=== PATIENT | female | born 2005 | race Caucasian/White ===

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

== ENCOUNTER 2024-01-20 13:50 | Emergency (ER) | payer OTHER, SELFPAY ==
[2024-01-20 13:54] VITALS: BP 105/79; PULSE 55; TEMP 36.7; O2SAT 97; BMI 18.6
--- OUTSIDE RECORDS SUMMARY | 2024-01-20 13:55 | XMS_ITS | CCD ---
Author Organization [facility] InformFormerly [facility] Care Team Providers Care Instrument Assembler Name Role Phone NON, STAFF, Primary Care Provider Unavailbertha DALTON, DR SCOT Franco Primary Care Unavailable MARTHA HARDIN Admitting Unavailable MARTHA HARDIN Attending Unavailable GERBER, SANTIAGO JARRELL Consulting Unavailable KRYSTLE, DR SCOT Franco Primary Care Unavailable PAY, DR RAINES Admitting Unavailable PAY, DR RAINES Attending Unavailable ZIEBER, DR NE Jones Consulting Unavailable GERBER, SANTIAGO JARRELL Consulting Unavailable KRYSTLE, DR SCOT Franco Admitting Unavailable KRYSTLE, DR SCOT Franco Attending Unavailable KRYSTLE, DR SCOT Franco Primary Care Unavailable KRYSTLE, DR SCOT Franco Consulting Unavailable Scot Dalton MD Primary Care Provider [phone] SCOT DALTON Attending Unavailable DANIELA EVANS Attending Unavailable DANIELA EVANS Attending Unavailable DANIELA EVANS Attending Unavailable SCOT DALTON Attending Unavailable KRYSTLE, SCOT Attending Unavailable Allergies Allergy Classification Reported Allergen(s) Allergy Type Date of Onset Reaction(s) Facility (1 source) bismuth subsalicylate Drug Allergy 2 [facility] Repository (1 source) bismuth subsalicylate Drug [...] Test Name Value Interpretation Reference Range Facil ity Covid-19 PCR (CVDTB)on SARS-CoV-2 (COVID-19) RNA YOBANY+probe Ql (Unsp spec) Not detected Normal NOT DETECTED [facility] Comment on above: Result Comment: When [...] for this test is supported by the Commercial Lending Relationship Manager of Health and Human Service's declaration that [...] used). Performed By: #### C VDTBH #### [facility] [address] [place] [address] Dr. Nayana Tolentino INFLUENZA A AND B AGon 04-20 INFLUANEGH SEE BELOW Normal [facility] Comment on above: Result Comment: Nega tive for Flu A protein angiten. Infection due to Flu A cannot be ruled out. Flu A angiten in the sample may be below the detection limit of the test. Performed By: #### I NFLUAB #### [facility] [address] [place] [address] Dr. Nayana Tolentino INFLUBNEG SEE BELOW Normal [facility] Comment on above: Result Comment: Nega tive for Flu B protein antigen. Infection due to Flu B cannot be ruled out. Flu B antigen in the sample may be below the detection limit of the test. Performed By: #### I NFLUAB #### [facility] [address] [place] [address] Dr. Nayana Tolentino INFLUENZA A AG Negative Normal NEGATIVE SEE COMMENT [facility] Comment on above: Performed By: #### I NFLUAB #### [facility] [address] [place] [address] Dr. Nayana Tolentino INFLUENZA B AG Negative Normal NEGATIVE SEE COMMENT [facility] Comment on above: Performed By: #### I NFLUAB #### [facility] [address] [place] [address] Dr. Nayana Tolentino INTERNAL CONTROLS Within Normal Limits Normal Wi thin Normal Limits [facility] Comment on above: Performed By: #### I NFLUAB #### [facility] [address] [place] [address] Dr. Nayana Tolentino CULTURE URINEon 11-30-2021 CULTURE [...] Trimethoprim/Sulfame thoxazole <=20 S F Normal [facility] Comment on above: Performed By: #### U RCX #### [facility] [address] [place] [address] Dr. Nayana Tolentino CBC AUTO DIFFon 11-28-2021 BASO # 0.0 103/ul Normal 0.0-0.1 [facility] Comment on above: Performed By: #### C BC #### [facility] [address] [place] [address] Dr. Nayana Tolentino Basophils/100 WBC (Bld) 0.4 % Normal 0.2-2.0 [facility] Comment on above: Performed By: #### C BC #### [facility] [address] [place] [address] Dr. Nayana Tolentino EO # 0.1 103/ul Normal 0.0-0.7 [facility] Comment on above: Performed By: #### C BC #### [facility] [address] [place] [address] Dr. Nayana Tolentino Eosinophils/100 WBC (Bld) 1.3 % Normal 0.9-7.0 [facility] Comment on above: Performed By: #### C BC #### [facility] [address] [place] [address] Dr. Nayana Tolentino Erythrocyte distribution width (RBC) [Ratio] 11.6 % Normal 11.0-15.0 [facility] Comment on above: Performed By: #### C BC #### [facility] [address] [place] [address] Dr. Nayana Tolentino Hematocrit (Bld) [Volume fraction] 39.4 % Normal 36.0-48.0 [facility] Comment on above: Performed By: #### C BC #### [facility] [address] [place] [address] Dr. Nayana Tolentino Hemoglobin (Bld) [Mass/Vol] 13.5 g/dL Normal 12.0-16.0 [facility] Comment on above: Performed By: #### C BC #### [facility] [address] [place] [address] Dr. Nayana Tolentino IG # 0.02 10e3/ul Normal 0.00-0.03 [facility] Comment on above: Performed By: #### C BC #### [facility] [address] [place] [address] Dr. Nayana Tolentino IG % 0.2 % Normal 0.0-0.5 [facility] Comment on above: Performed By: #### C BC #### [facility] [address] [place] [address] Dr. Nayana Tolentino LYMPH # 1.9 103/ul Normal 1.2-3.8 [facility] Comment on above: Performed By: #### C BC #### [facility] [address] [place] [address] Dr. Nayana Tolentino Lymphocytes/100 WBC (Bld) 22.1 % Normal 20.5-60.0 [facility] Comment on above: Performed By: #### C BC #### [facility] [address] [place] [address] Dr. Nayana Tolentino MANUAL DIFF REQ NO Normal [facility] Comment on above: Performed By: #### C BC #### [facility] [address] [place] [address] Dr. Nayana Tolentino MCH (RBC) [Entitic mass] 31.6 pg Normal 26.7-34.0 [facility] Comment on above: Performed By: #### C BC #### [facility] [address] [place] [address] Dr. Nayana Tolentino MCHC (RBC) [Mass/Vol] 34.3 g/dL Normal 29.9-35.2 [facility] Comment on above: Performed By: #### C BC #### [facility] [address] [place] [address] Dr. Nayana Tolentino MCV (RBC) [Entitic vol] 92.3 fL Normal 79.1-95.6 [facility] Comment on above: Performed By: #### C BC #### [facility] [address] [place] [address] Dr. Nayana Tolentino MONO # 0.5 103/ul Normal 0.3-0.8 [facility] Comment on above: Performed By: #### C BC #### [facility] [address] [place] [address] Dr. Nayana Tolentino Monocytes/100 WBC (Bld) 6.3 % Normal 1.7-12.0 [facility] Comment on above: Performed By: #### C BC #### [facility] [address] [place] [address] Dr. Nayana Tolentino NEUT # 6.0 103/ul Normal 1.4-6.5 [facility] Comment on above: Performed By: #### C BC #### [facility] [address] [address] [address] Nayana Tolentino Neutrophils/100 WBC (Bld) 69.7 % Normal 43.0-75.0 [facility] Comment on above: Performed By: #### C BC #### [facility] [address] [address] [address] Nayana Tolentino Platelet mean volume (Bld) [Entitic vol] 9.2 fL Critically low 9.5-13.5 [facility] Comment on above: Performed By: #### C BC #### [facility] [address] [place] [address] Dr. Nayana Tolentino PLT 211 103/ul Normal 150-450 [facility] Comment on above: Performed By: #### C BC #### [facility] [address] [place] [address] Dr. Nayana Tolentino RBC 4.27 106/ul Normal 3.40-5.30 [facility] Comment on above: Performed By: #### C BC #### [facility] [address] [place] [address] Dr. Nayana Tolentino WBC 8.6 103/ul Normal 4.0-11.0 [facility] Comment on above: Performed By: #### C BC #### [facility] [address] [place] [address] Dr. Nayana Tolentino ER URINE PROFILEon 2 Bilirubin Ql (U) Negative Normal NEGATIVE [facility] Comment on above: Performed By: #### BARRY ATKINS PREGU #### [facility] [address] [place] [address] Dr. Nayana Tolentino Clarity (U) CLEAR Normal CLEAR [facility] Comment on above: Performed By: #### BARRY ATKINS PREGU #### [facility] [address] [place] [address] Dr. Nayana Tolentino Color (U) LT. YELLOW Normal YELLOW [facility] Comment on above: Performed By: #### BARRY ATKINS PREGU #### [facility] [address] [address] [address] Nayana HERNÁNDEZ A micrscopic examination will be performed if indicated. Normal [facility] Comment on above: Performed By: #### E DIGNA ROBBINSRO, PREGU #### [facility] [address] [address] [address] Nayana Tolentino Glucose Ql (U) Negative Normal NEGATIVE [facility] Comment on above: Performed By: #### DIGNA ATKINSRO, PREGU #### [facility] [address] [address] [address] Nayana Tolentino Hemoglobin Ql (U) LARGE Abnormal NEGATIVE [facility] Comment on above: Performed By: #### BARRY ATKINS, PREGU #### [facility] [address] [address] [address] Nayana Tolentino Ketones Ql (U) Negative Normal NEGATIVE [facility] Comment on above: Performed By: #### DIGNA ATKINSRO, PREGU #### [facility] [address] [address] [address] Nayana Tolentino LEUKOCYTES LARGE Abnormal NEGATIVE [facility] Comment on above: Performed By: #### BARRY ATKINS, PREGU #### [facility] [address] [address] [address] Nayana Tolentino Nitrite Ql (U) Positive Abnormal NEGATIVE [facility] Comment on above: Performed By: #### BARRY ATKINS, PREGU #### [facility] [address] [address] [address] Nayana Tolentino pH (U) 6.0 [pH] Normal 5-9 [facility] Comment on above: Performed By: #### BARRY ATKINS, PREGU #### [facility] [address] [address] [address] Nayana Tolentino SPEC GRAVITY 1.025 Normal 1.005-<=1.025 [facility] Comment on above: Performed By: #### BARRY ATKINS, PREGU #### [facility] [address] [address] [address] Nayana Tolentino UA PROTEIN TRACE Normal NEGATIVE/ TRACE [facility] Comment on above: Performed By: #### BARRY ATKINS, PREGU #### [facility] [address] [address] [address] Nayana Tolentino UR MICRO IND INDICATED Normal [facility] Comment on above: Performed By: #### BARRY ATKINS, PREGU #### [facility] [address] [address] [address] Nayana Tolentino Urobilinogen Qn (U) 0.2 {Gabriel'U}/dL Normal 0.2 - 1. 0 [facility] Comment on above: Performed By: #### BARRY ATKINS, PREGU #### [facility] [address] [place] [address] Dr. Nayana Tolentino URon 11-28-2021 , QUAL Negative Normal NEGATIVE [facility] Comment on above: Performed By: #### BARRY ATKINS, PREGU #### [facility] [address] [address] [address] Nayana Tolentino PROF CHEM 8 (BAS METB)on Anion gap [Moles/Vol] 11.6 mmol/L Normal [facility] Comment on above: Performed By: #### B MP #### [facility] [address] [address] [address] Nayana Tolentino Calcium [Mass/Vol] 8.8 mg/dL Normal 8.5-10.1 [facility] Comment on above: Performed By: #### B MP #### [facility] [address] [address] [address] Nayana Tolentino Chloride [Moles/Vol] 106 mmol/L Normal 98-107 [facility] Comment on above: Performed By: #### B MP #### [facility] [address] [place] [address] Dr. Nayana Tolentino CO2 [Moles/Vol] 27.3 mmol/L Normal 21.0-32.0 [facility] Comment on above: Performed By: #### B MP #### [facility] [address] [address] [address] Nayana Tolentino Creatinine [Mass/Vol] 0.66 mg/dL Normal 0.55-1.02 [facility] Comment on above: Performed By: #### B MP #### [facility] [address] [address] [address] Nayana Tolentino EGFR-AF OMANI >60 Normal >=60 [facility] Comment on above: Performed By: #### B MP #### [facility] [address] [address] [address] Nayana Tolentino EGFR-NON AF OMANI >60 Normal >=60 [facility] Comment on above: Performed By: #### B MP #### [facility] [address] [address] [address] Nayana Tolentino Glucose [Mass/Vol] 81 mg/dL Normal 74-106 [facility] Comment on above: Performed By: #### B MP #### [facility] [address] [address] [address] Nayana Tolentino Potassium [Moles/Vol] 3.9 mmol/L Normal 3.5-5.1 [facility] Comment on above: Performed By: #### B MP #### [facility] [address] [address] [address] Nayana Tolentino Sodium [Moles/Vol] 141 mmol/L Normal 136-145 [facility] Comment on above: Performed By: #### B MP #### [facility] [address] [address] [address] Nayana Tolentino Urea nitrogen [Mass/Vol] 8.0 mg/dL Normal 6.4-19.3 [facility] Comment on above: Performed By: #### B MP #### [facility] [address] [address] [address] Nayana Tolentino Urea nitrogen/Creatinine [Mass ratio] 12.1 mg/mg Normal [facility] Comment on above: Performed By: #### B MP #### [facility] [address] [address] [address] Nayana Tolentino URINE MICROSCOPIC ONLYon BACTERIA LARGE Abnormal NONE SEEN [facility] Comment on above: Performed By: #### BARRY ATKINS, PREGU #### [facility] [address] [address] [address] Nayana Tolentino Bacteria identified Cx Nom (U) INDICATED Normal [facility] Comment on above: Performed By: #### BARRY ATKINS, PREGU #### [facility] [address] [place] [address] Dr. Nayana Tolentino CAST NONE SEEN Normal NONE SEEN [facility] Comment on above: Performed By: #### BARRY ATKINS, PREGU #### [facility] [address] [place] [address] Dr. Nayana Tolentino Crystals LM Nom (Urine sed) NONE SEEN Normal NONE SEEN [facility] Comment on above: Performed By: #### BARRY ATKINS, PREGU #### [facility] [address] [place] [address] Dr. Nayana Tolentino Epithelial cells LM Ql (Urine sed) FEW Abnormal NONE SEEN /RARE [facility] Comment on above: Performed By: #### BARRY ATKINS, PREGU #### [facility] [address] [place] [address] Dr. Nayana Tolentino MUCOUS NONE SEEN Normal NONE SEEN [facility] Comment on above: Performed By: #### BARRY ATKINS, PREGU #### [facility] [address] [place] [address] Dr. Nayana Tolentino RBC 5-10 Abnormal 0-2 [facility] Comment on above: Performed By: #### BARRY ATKINS, PREGU #### [facility] [address] [place] [address] Dr. Nayana Tolentino WBC 20-50 Abnormal NONE SEEN [facility] Comment on above: Performed By: #### BARRY ATKINS, PREGU #### [facility] [address] [place] [address] Dr. Nayana Tolentino XR ABD FLAT_UPon 11-28-2021 XR ABD FLAT_UP EXAMINATION: XR ABD FLAT_UP HISTORY: Abdominal pain COMPARISON: No relevant comparison available. FINDINGS: BOWEL GAS PATTERN: Non-obstructed. No abnormal dilation. FREE AIR: None. CALCIFICATIONS: None significant. BONES: No fracture or visible bone lesion. OTHER: Negative. IMPRESSION: 1. No acute or suspicious findings to account for patients symptoms. Electronically authenticated by: NE MAYER Date: 2021-11-28 15:16 Normal [facility]on 04-13 SARS-CoV-2 (COVID-19) RNA YOBANY+probe Ql (Unsp spec) Not detected Normal NOT DETECTED [facility] Comment on above: Result Comment: This test is not yet approved or cleared by the [place] FDA. When there are no FDA-approved or cleared tests available, and other criteria are met, FDA can make tests available under an emergency access mechanism called an Emergency Use Authorization (EUA). The EUA for this test is supported by the Commercial Lending Relationship Manager of Health and Human Service's (HHS's) declaration [...] consistent with SARS-CoV-2. Performed By: #### C [facility] #### [facility] [address] [place] [address] Dr. Nayana Tolentino Vital Signs Date Time Vital Sign Value Performing Clinician Kris villarreal 09-17-2020 18:02-0400 [facility]-17-2020 18:02-0400 Body mass index (BMI) [Ratio] 17.1 kg/m2 [facility] 09-17-2020 18:02-0400 Body weight 45.55 kg STAFF, [facility] 09-17-2020 17:56-0400 Body temperature 98.6 [degF] STAFF, [facility] 09-17-2020 17:56-0400 Diastolic blood pressure 60 mm[Hg] STAFF, [facility] 09-17-2020 17:56-0400 Heart rate 94 /min STAFF, [facility] 09-17-2020 17:56-0400 Respiratory rate 16 /min STAFF, [facility] 09-17-2020 17:56-0400 SaO2% (BldA) [Mass fraction] 95 % STAFF, [facility] 09-17-2020 17:56-0400 Systolic blood pressure 109 mm[Hg] STAFF, [facility] Encounters Encounter Date Encounter Type Care Provider Facility Start: 11-06-2023 End: 11-06-2023 ambulatory SCOT DALTON Not Available Start: 10-10-2023 End: 10-10-2023 ambulatory SCOT DALTON Not Available Start: 09-24-2023 End: 09-24-2023 ambulatory DANIELA CRISTINA Not Available Start: 08-27-2023 End: 08-29-2023 ambulatory DANIELA CRISTINA Not Available [...] DR SCOT DALTON Facility:[facility]1 Start: 09-17-2020 End: 05-07-2021 Emergency department patient visit STAFF, [facility] Plan of Treatment Date Care Activity Detail Author Start: 06-15-2023 End: 06-15-2023 Patient encounter procedure 06/15/2023 9:00 AM EST Office Visit [facility] [address] [place] [address] Scot Dalton MD [address] [place] [phone] Arrived [facility] Comment on above: Arrived Start: 01-12-2023 Influenza vaccination Influenz a Vaccine (#1) [facility] Patient Education Contusion in [facility] (ED) [facility] Patient referral [facility] Immunizations Immunization Date Immunization Notes Care Provider Fa cility 07-03-2017 influenza virus vacc ine, unspecified formulation Scot Dalton MD Work Phone: [facility] Payers Date Payer Category Payer Medicaid [employer] [employer] [id number] 2019-Present [address] [place] [address] [id number] 2004 Unknown [id number] 2004 Unknown [id number] 2004 Unknown [id number] 2004 Unknown [id number] 2004 Unknown [id number] 2004 Unknown [id number] 1986 Unknown [id number] 1962 Unknown [id number] 1962 Unknown [id number] 1959 Unknown [id number] Self-pay Self Pay [id number] Unknown Self Pay [id number] Social History Date Type Detail Facility Start: 09-17-2020 End: 02-03-2023 Tobacco smoking status NHIS Never smoked tobacco (finding) [facility] Start: 2004 Sex Assigned At Female F [facility] Start: 06-13-2023 Alcohol intake Lifetime non-d carlin (finding) [facility] Start: 06-13-2023 History of Social function [facility] Start: 06-13-2023 Tobacco use panel [facility] Start: 02-03-2023 Alcohol Comment Caffeine: 1-2 cups per day [facility] Start: 2004 Sex Assigned At Not on file [facility] Goals Date Patient Goal Desired Activity /State Evaluation note Note Date & Type Note Facility Evaluation note No Assessments Information Avail able [facility] Hospital Discharge instructions Note Date & Type Note Facility Hospital Discharge instructions Additional Instructions If you develop new or worsening symptoms and get rechecked Follow-up with your family doctor [facility] Advance Directives No Advanced Directives Records Found [...] pital DATE CREATED AUTHOR AUTHOR'S ORGANIZ ATION 11/07/2023 [facility] EPIC Care Teams (unrecognized sec tion and content) Instrument Assembler Relationship Specialty Start Date End Date Scot Dalton MD [address] [place] [address] PCP - General Family Medicine 06/13/23 FOR [...] BE BASED ON THE PRIMARY CLINICAL RECORDS. [employer] provides no warranty or guarantee of the accuracy or completeness of information in this document.
--- NOTE | 2024-01-20 14:11 | CT_ITS ---
[address] [address] Patient Name: OTTO HOSKINS MRN: [id number] date: 2005 Sex: F Assigned Patient Location: ER Current Patient Location: ER Accession/Order Number: [id number] Exam Date: 01/20/2024 15:25 Report Date: 01/20/2024 16:22 At the request of: DONAVON BONNER Procedure: CT abdomen pelvis wo con EXAM: CT abdomen pelvis wo con TECHNIQUE: Axial CT images were obtained of the abdomen and pelvis without intravenous contrast. Sagittal and coronal reformatted images were also obtained. Dose reduction techniques were achieved by using automated exposure control and/or adjustment of mA and/or kV according to patient size and/or use of iterative reconstruction technique. HISTORY: rt flank pain COMPARISON: None. FINDINGS: Lower chest: The lower lungs are clear. Liver: The liver is homogeneous with normal contours and normal size. Gallbladder: The gallbladder is unremarkable. There is no intra or extrahepatic biliary dilatation. Pancreas: The pancreas is homogeneous without evidence for mass lesion or inflammation. Spleen: The spleen is unremarkable without evidence for mass lesion. Adrenal glands: The adrenal glands are unremarkable Kidneys and bladder: The kidneys are unremarkable with no evidence for mass lesion, hydronephrosis or inflammation. The ureters demonstrate normal caliber. The urinary bladder is unremarkable. GI Tract: Stomach is unremarkable. Visualized small bowel is unremarkable without evidence for obstruction or active inflammation. The appendix is unremarkable.The visualized portion of the large bowel is unremarkable. Reproductive: Intrauterine device in place per Lymph nodes: No retroperitoneal or abdominal lymphadenopathy. Vascular: The aorta is not dilated. Peritoneum: Trace physiologic free fluid in the pelvis. Abdominal wall: Unremarkable without acute abnormality. CT/CT abdomen pelvis wo con IMPRESSION: No acute abdominal pathology. No acute inflammatory process. No obstructing urinary tract stone. No evidence for bowel obstruction. Electronically authenticated by: ROQUE SALINAS Date: 01/20/2024 16:22
[2024-01-20 14:17] LABS: Basophils Absolute Auto 0.1 10^3/uL (0.0-0.1); Basophils Percent Auto 0.5 % (0.2-2.0); Eosinophils Absolute Auto 0.1 10^3/uL (0.0-0.7); Eosinophils Percent Auto 0.9 % (0.9-7.0); Hematocrit 41.3 % (36.0-48.0); Hemoglobin 14.2 g/dL (12.0-16.0); Immature Granulocytes Abs Auto 0.02 10^3/uL (0.00-0.03); Immature Granulocytes Pct Auto 0.2 % (0.0-0.5); Lymphocytes Absolute Auto 2.2 10^3/uL (1.2-3.8); Lymphocytes Percent Auto 23.6 % (20.5-60.0); Mean Corpuscular HGB Conc 34.4 g/dL (29.9-35.2); Mean Corpuscular Hemoglobin 32.5 pg (26.7-34.0); Mean Corpuscular Volume 94.5 fL (81.0-99.0); Mean Platelet Volume 9.2 fL (9.5-13.5); Monocytes Absolute Auto 0.6 10^3/uL (0.3-0.8); Monocytes Percent Auto 6.9 % (1.7-12.0); Neutrophils Absolute Auto 6.2 10^3/uL (1.4-6.5); Neutrophils Percent Auto 67.9 % (43.0-75.0); Platelet Count 296 10^3/uL (150-450); Red Blood Count 4.37 10^6/uL (4.20-5.40); Red Cell Distribution Width 11.3 % (11.0-15.0); White Blood Count 9.2 10^3/uL (4.0-11.0)
[2024-01-20] MEDS: KETOROLAC TROMETHAMINE 30 MG/ML VIAL 15 MG IVP (14:18)
[2024-01-20 14:20] LABS: Bilirubin Urine NEGATIVE (NEGATIVE); Blood Urine SMALL (NEGATIVE); Clarity Urine CLEAR (CLEAR); Color Urine LT. YELLOW (YELLOW); Glucose Urine UA NEGATIVE (NEGATIVE); Ketones Urine NEGATIVE (NEGATIVE); Leukocyte Esterase Urine MODERATE (NEGATIVE); Nitrite Urine NEGATIVE (NEGATIVE); Protein Urine 30 mg/dL (NEG/TRACE); Specific Gravity Urine 1.015 (1.005-1.025); pH Urine 8.5 (5.0-9.0)
[2024-01-20 14:31] LABS: Bacteria Urine MODERATE #/HPF (NONE SEEN); Mucus Urine NONE SEEN (NONE SEEN); RBC Urine 0-2 #/HPF (0-2); Urine Microscopic Indicated YES; WBC Urine >100 #/HPF (NONE SEEN)
[2024-01-20 14:32] LABS: Cast Seen? NONE SEEN #/LPF (NONE SEEN); Crystals Seen? None Seen #/HPF (None Seen); Urine Culture Indicated YES
[2024-01-20 14:33] LABS: Squamous Epithelial Cell Urine FEW #/LPF (NONE/RARE)
[2024-01-20 14:38] LABS: Alanine Aminotransferase 17 U/L (14-59); Albumin Globulin Ratio 0.9; Albumin Level 3.8 g/dL (3.4-5.0); Alkaline Phosphatase 83 U/L (46-116); Anion Gap 10.8; Aspartate Amino Transferase 22 U/L (15-37); BUN Creatinine Ratio 12.2; Bilirubin Total 0.5 mg/dL (0.2-1.0); Carbon Dioxide 29.2 mmol/L (21.0-32.0); Chloride 101 mmol/L (98-107); Estimated GFR (African America >60 (>=60); Estimated GFR (Non-African Ame >60 (>=60); Globulin 4.3 g/dL; Glucose 85 mg/dL (74-106); Sodium 137 mmol/L (136-145); Total Protein 8.1 g/dL (6.4-8.2)
[2024-01-20 14:52] LABS: HCG Quantitative <1 mIU/mL
--- NOTE | 2024-01-20 15:03 | ED.ABDPAIN1 ---
HPI - Abdominal Pain General Chief Complaint: Abdominal Pain Stated Complaint: Flank Pain Time Seen by Provider: 01/20/24 14:05 Source: patient Mode of arrival: walk-in Limitations: no limitations History of Present Illness HPI narrative: The patient is coming to us with 3 days history of right-sided flank pain associated with burning with urination there was no fever no chills Patient also mentioned that her pain in the flank is continuous She also had some nausea and vomiting and has history of UTI 6 months ago Related Data Home Medications ?Medication ?Instructions ?Recorded ?Confirmed midodrine 10 mg tablet 10 mg PO TID 01/20/24 01/20/24 Previous Rx's ?Medication ?Instructions ?Recorded cephalexin 500 mg capsule 500 mg PO Q8H 7 days #21 caps 01/20/24 Allergies Allergy/AdvReac Type Severity Reaction Status Date / Time bismuth subsalicylate AdvReac Severe Diarrhea Verified 01/20/24 14:28 [From Pepto-Bismol] Review of Systems ROS Status of ROS 10 or more systems reviewed and unremarkable except as noted in history and below PFSH PFSH Social History Little interest or pleasure in doing things: not at all Feeling down, depressed, or hopeless: not at all Exam Narrative Exam Narrative: Nurses notes and vital signs reviewed and patient is not hypoxic. General: Well-appearing and in no apparent distress. Skin: Warm, dry, no pallor noted. No rash. Head: Normocephalic, atraumatic. Neck: Supple, non-tender. Eye: Pupils are equal, round and EOMI. No scleral icterus. Ears, Nose, Mouth, and Throat: TM are clear, no nasal mucosal hypertrophy. Oral mucosa is moist, no posterior oropharynx erythema, uvula is mid-line Cardiovascular: Regular Rate and Rhythm without murmur, gallop or rub. Respiratory: No accessory muscle use or respiratory distress. Lungs are clear to auscultation, no wheezing, rales or rhonchi Chest Wall: no tenderness Back: No midline thoracic or lumbar vertebral tenderness. Right CVA tenderness Musculoskeletal: normal ROM, no calf or popliteal tenderness, no lower extremity edema/swelling GI: Abdomen is soft, non-distended. Normal bowel sounds. No masses appreciated. No tenderness to palpation. No rebound, guarding, or rigidity noted. Neurological: A&O x4. No cranial nerve dysfunction observed. No truncal ataxia. Moves all extremities. Sensation intact. Psychiatric: Cooperative and interactive. Normal mood and affect. Constitutional Vital Signs, click to edit/add: Last Vital Signs Temp 98.0 F 01/20/24 13:54 Pulse 55 L 01/20/24 13:54 Resp 18 01/20/24 13:54 BP 105/79 01/20/24 13:54 Pulse Ox 97 01/20/24 13:54 O2 Del Method Room Air 01/20/24 13:54 Course Vital Signs Vital signs: Vital Signs Temperature 98.0 F 01/20/24 13:54 Pulse Rate 55 L 01/20/24 13:54 Respiratory Rate 18 01/20/24 13:54 Blood Pressure 105/79 01/20/24 13:54 Pulse Oximetry 97 01/20/24 13:54 Oxygen Delivery Method Room Air 01/20/24 13:54 Temperature 98.0 F 01/20/24 13:54 Pulse Rate 55 L 01/20/24 13:54 Respiratory Rate 18 01/20/24 13:54 Blood Pressure 105/79 01/20/24 13:54 Pulse Oximetry 97 01/20/24 13:54 Oxygen Delivery Method Room Air 01/20/24 13:54 MDM - Abdominal Pain MDM Narrative Medical decision making narrative: Patient CBC and chemistry showed no acute pathology The patient urinalysis shows UTI CAT scan of the abdomen pelvis showed no acute pathology Patient was treated in the ER with Toradol as well as ceftriaxone she was discharged home with Keflex The patient is to follow up with primary care physician in next 2-3 days or to return to the emergency department should any of the signs or symptoms worsen or new symptoms develop. The patient agrees with the following Diagnosis and Treatment plan and the patient will be discharged home. Lab Data Labs: Lab Results 01/20/24 Range/Units 14:00 WBC 9.2 (4.0-11.0) 10^3/uL RBC 4.37 (4.20-5.40) 10^6/uL Hgb 14.2 (12.0-16.0) g/dL Hct 41.3 (36.0-48.0) % MCV 94.5 (81.0-99.0) fL MCH 32.5 (26.7-34.0) pg MCHC 34.4 (29.9-35.2) g/dL RDW 11.3 (11.0-15.0) % Plt Count 296 (150-450) 10^3/uL MPV 9.2 L (9.5-13.5) fL Neut % (Auto) 67.9 (43.0-75.0) % Lymph % (Auto) 23.6 (20.5-60.0) % [place] % (Auto) 6.9 (1.7-12.0) % Eos % (Auto) 0.9 (0.9-7.0) % Baso % (Auto) 0.5 (0.2-2.0) % Neut # (Auto) 6.2 (1.4-6.5) 10^3/uL Lymph # (Auto) 2.2 (1.2-3.8) 10^3/uL [place] # (Auto) 0.6 (0.3-0.8) 10^3/uL Eos # (Auto) 0.1 (0.0-0.7) 10^3/uL Baso # (Auto) 0.1 (0.0-0.1) 10^3/uL Abs Immat Gran (auto) 0.02 (0.00-0.03) 10^3/uL Imm/Tot Granulo (auto) 0.2 (0.0-0.5) % Sodium 137 (136-145) mmol/L Potassium 4.0 (3.5-5.1) mmol/L Chloride 101 (98-107) mmol/L Carbon Dioxide 29.2 (21.0-32.0) mmol/L Anion Gap 10.8 BUN 9.0 (6.4-19.3) mg/dL Creatinine 0.74 (0.55-1.02) mg/dL Est GFR ( Amer) >60 (>=60) Est GFR (Non-Af Amer) >60 (>=60) BUN/Creatinine Ratio 12.2 Glucose 85 (74-106) mg/dL Calcium 9.0 (8.5-10.1) mg/dL Total Bilirubin 0.5 (0.2-1.0) mg/dL AST 22 (15-37) U/L ALT 17 (14-59) U/L Alkaline Phosphatase 83 (46-116) U/L Total Protein 8.1 (6.4-8.2) g/dL Albumin 3.8 (3.4-5.0) g/dL Globulin 4.3 g/dL Albumin/Globulin Ratio 0.9 HCG, Quant <1 mIU/mL Urine Color Lt. yellow (YELLOW) Urine Clarity Clear (CLEAR) Urine pH 8.5 (5.0-9.0) Ur Specific [place] 1.015 (1.005-1.025) Urine Protein 30 A (NEG/TRACE) mg/dL Urine Glucose (UA) Negative (NEGATIVE) mg/dL Urine Ketones Negative (NEGATIVE) mg/dL Urine Occult Blood Small A (NEGATIVE) Urine Nitrite Negative (NEGATIVE) Urine Bilirubin Negative (NEGATIVE) Urine Urobilinogen 1.0 (0.2-1.0) EU/dL Ur Leukocyte Esterase Moderate A (NEGATIVE) Urine RBC 0-2 (0-2) #/HPF Urine WBC >100 A (NONE SEEN) #/HPF Ur Squamous Epith Cells Few A (NONE/RARE) #/LPF Urine Crystals None seen (None Seen) #/HPF Urine Bacteria Moderate A (NONE SEEN) #/HPF Urine Casts None seen (NONE SEEN) #/LPF Urine Mucus None seen (NONE SEEN) Urine Yeast Seen A (NONE SEEN) Ur Culture Indicated? Yes Urine HCG, Qual Negative (NEGATIVE) Discharge Plan Discharge Chief Complaint: Abdominal Pain Clinical Impression: UTI (urinary tract infection) Qualifiers: Urinary tract infection type: site unspecified Hematuria presence: without hematuria Qualified Code(s): N39.0 - Urinary tract infection, site not specified Patient Disposition: Home, Self-Care Time of Disposition Decision: 16:39 Condition: Good Prescriptions / Home Meds: New cephalexin 500 mg capsule 500 mg PO Q8H 7 Days Qty: 21 0RF No Action midodrine 10 mg tablet 10 mg PO TID Print Language: Croatian Instructions: Urinary Tract Infection in Women (DC) Referrals: Scot Block MD [Primary Care Provider] - 1 week
[2024-01-20 15:28] LABS: HCG Qualitative Urine* NEGATIVE (NEGATIVE); Internal Control Within Normal Limits
[2024-01-20] MEDS: CEFTRIAXONE 1,000 MG in 0.9 % SODIUM CHLORIDE 50 ML 100 MG IV (16:43)
[2024-01-20 16:50] VITALS: BP 118/88; PULSE 65; O2SAT 98
== END 2024-01-20 16:51 | disposition home or self-care (01) ==
PROVIDERS: Emergency Provider Emergency Medicine; PCP Family Medicine
DX: N39.0 Urinary tract infection, site not specified (principal)
CPT/HCPCS: 36415; 74176; 80053; 81001; 84702; 84703; 85025; 87086; 87150; 96374; 96375; 99285; J0696; J1885

== ENCOUNTER 2024-04-04 12:37 | Emergency (ER) | payer OTHER, SELFPAY ==
[2024-04-04 12:50] VITALS: BP 91/66; PULSE 89; TEMP 36.7; O2SAT 95
--- OUTSIDE RECORDS SUMMARY | 2024-04-04 12:59 | XMS_ITS | CCD ---
Author Organization [facility] Care Team Providers Care Hand Plate Stacker Name Role Phone NON, STAFF, Primary Care [...] source) bismuth subsalicylate Drug Allergy 2 [facility] Repository (1 source) bismuth subsalicylate Drug Allergy [...] spec) Not detected Normal NOT DETECTED [facility] Comment on above: Result Comment: When diagnostic [...] for this test is supported by the Physical Therapy Coordinator of Health and Human Service's declaration that [...] used). Performed By: #### C VDTBH #### [facility] [address] [place] [address] Dr. Nayana Tolentino INFLUENZA A AND B AGon 04-20 INFLUANEGH SEE BELOW Normal [facility] Comment on above: Result Comment: Nega tive for Flu A protein angiten. Infection due to Flu A cannot be ruled out. Flu A angiten in the sample may be below the detection limit of the test. Performed By: #### I NFLUAB #### [facility] [address] [place] [address] Dr. Nayana Tolentino INFLUBNEG SEE BELOW Normal [facility] Comment on above: Result Comment: Nega tive for Flu B protein antigen. Infection due to Flu B cannot be ruled out. Flu B antigen in the sample may be below the detection limit of the test. Performed By: #### I NFLUAB #### [facility] [address] [place] [address] Dr. Nayana Tolentino INFLUENZA A AG Negative Normal NEGATIVE SEE COMMENT [facility] Comment on above: Performed By: #### I NFLUAB #### [facility] [address] [place] [address] Dr. Nayana Tolentino INFLUENZA B AG Negative Normal NEGATIVE SEE COMMENT [facility] Comment on above: Performed By: #### I NFLUAB #### [facility] [address] [place] [address] Dr. Nayana Tolentino INTERNAL CONTROLS Within Normal Limits Normal Wi thin Normal Limits [facility] Comment on above: Performed By: #### I NFLUAB #### [facility] [address] [place] [address] Dr. Nayana Tolentino CULTURE URINEon 11-30-2021 CULTURE [...] Trimethoprim/Sulfame thoxazole <=20 S F Normal [facility] Comment on above: Performed By: #### U RCX #### [facility] [address] [place] [address] Dr. Nayana Tolentino CBC AUTO DIFFon 11-28-2021 BASO # 0.0 103/ul Normal 0.0-0.1 [facility] Comment on above: Performed By: #### C BC #### [facility] [address] [place] [address] Dr. Nayana Tolentino Basophils/100 WBC (Bld) 0.4 % Normal 0.2-2.0 [facility] Comment on above: Performed By: #### C BC #### [facility] [address] [place] [address] Dr. Nayana Tolentino EO # 0.1 103/ul Normal 0.0-0.7 [facility] Comment on above: Performed By: #### C BC #### [facility] [address] [place] [address] Dr. Nayana Tolentino Eosinophils/100 WBC (Bld) 1.3 % Normal 0.9-7.0 [facility] Comment on above: Performed By: #### C BC #### [facility] [address] [place] [address] Dr. Nayana Tolentino Erythrocyte distribution width (RBC) [Ratio] 11.6 % Normal 11.0-15.0 [facility] Comment on above: Performed By: #### C BC #### [facility] [address] [place] [address] Dr. Nayana Tolentino Hematocrit (Bld) [Volume fraction] 39.4 % Normal 36.0-48.0 [facility] Comment on above: Performed By: #### C BC #### [facility] [address] [place] [address] Dr. Nayana Tolentino Hemoglobin (Bld) [Mass/Vol] 13.5 g/dL Normal 12.0-16.0 [facility] Comment on above: Performed By: #### C BC #### [facility] [address] [place] [address] Dr. Nayana Tolentino IG # 0.02 10e3/ul Normal 0.00-0.03 [facility] Comment on above: Performed By: #### C BC #### [facility] [address] [place] [address] Dr. Nayana Tolentino IG % 0.2 % Normal 0.0-0.5 [facility] Comment on above: Performed By: #### C BC #### [facility] [address] [place] [address] Dr. Nayana Tolentino LYMPH # 1.9 103/ul Normal 1.2-3.8 [facility] Comment on above: Performed By: #### C BC #### [facility] [address] [place] [address] Dr. Nayana Tolentino Lymphocytes/100 WBC (Bld) 22.1 % Normal 20.5-60.0 [facility] Comment on above: Performed By: #### C BC #### [facility] [address] [place] [address] Dr. Nayana Tolentino MANUAL DIFF REQ NO Normal [facility] Comment on above: Performed By: #### C BC #### [facility] [address] [place] [address] Dr. Nayana Tolentino MCH (RBC) [Entitic mass] 31.6 pg Normal 26.7-34.0 [facility] Comment on above: Performed By: #### C BC #### [facility] [address] [place] [address] Dr. Nayana Tolentino MCHC (RBC) [Mass/Vol] 34.3 g/dL Normal 29.9-35.2 [facility] Comment on above: Performed By: #### C BC #### [facility] [address] [place] [address] Dr. Nayana Tolentino MCV (RBC) [Entitic vol] 92.3 fL Normal 79.1-95.6 [facility] Comment on above: Performed By: #### C BC #### [facility] [address] [place] [address] Dr. Nayana Tolentino MONO # 0.5 103/ul Normal 0.3-0.8 [facility] Comment on above: Performed By: #### C BC #### [facility] [address] [place] [address] Dr. Nayana Tolentino Monocytes/100 WBC (Bld) 6.3 % Normal 1.7-12.0 [facility] Comment on above: Performed By: #### C BC #### [facility] [address] [place] [address] Dr. Nayana Tolentino NEUT # 6.0 103/ul Normal 1.4-6.5 [facility] Comment on above: Performed By: #### C BC #### [facility] [address] [address] [address] Nayana Tolentino Neutrophils/100 WBC (Bld) 69.7 % Normal 43.0-75.0 [facility] Comment on above: Performed By: #### C BC #### [facility] [address] [address] [address] Nayana Tolentino Platelet mean volume (Bld) [Entitic vol] 9.2 fL Critically low 9.5-13.5 [facility] Comment on above: Performed By: #### C BC #### [facility] [address] [place] [address] Dr. Nayana Tolentino PLT 211 103/ul Normal 150-450 [facility] Comment on above: Performed By: #### C BC #### [facility] [address] [place] [address] Dr. Nayana Tolentino RBC 4.27 106/ul Normal 3.40-5.30 [facility] Comment on above: Performed By: #### C BC #### [facility] [address] [place] [address] Dr. Nayana Tolentino WBC 8.6 103/ul Normal 4.0-11.0 [facility] Comment on above: Performed By: #### C BC #### [facility] [address] [place] [address] Dr. Nayana Tolentino ER URINE PROFILEon 2 Bilirubin Ql (U) Negative Normal NEGATIVE [facility] Comment on above: Performed By: #### BARRY ATKINS PREGU #### [facility] [address] [place] [address] Dr. Nayana Tolentino Clarity (U) CLEAR Normal CLEAR [facility] Comment on above: Performed By: #### BARRY ATKINS PREGU #### [facility] [address] [place] [address] Dr. Nayana Tolentino Color (U) LT. YELLOW Normal YELLOW [facility] Comment on above: Performed By: #### BARRY ATKINS PREGU #### [facility] [address] [address] [address] Nayana HERNÁNDEZ A micrscopic examination will be performed if indicated. Normal [facility] Comment on above: Performed By: #### E DIGNA ROBBINSRO, PREGU #### [facility] [address] [address] [address] Nayana Tolentino Glucose Ql (U) Negative Normal NEGATIVE [facility] Comment on above: Performed By: #### DIGNA ATKINSRO, PREGU #### [facility] [address] [address] [address] Nayana Tolentino Hemoglobin Ql (U) LARGE Abnormal NEGATIVE [facility] Comment on above: Performed By: #### BARRY ATKINS, PREGU #### [facility] [address] [address] [address] Nayana Tolentino Ketones Ql (U) Negative Normal NEGATIVE [facility] Comment on above: Performed By: #### DIGNA ATKINSRO, PREGU #### [facility] [address] [address] [address] Nayana Tolentino LEUKOCYTES LARGE Abnormal NEGATIVE [facility] Comment on above: Performed By: #### BARRY ATKINS, PREGU #### [facility] [address] [address] [address] Nayana Tolentino Nitrite Ql (U) Positive Abnormal NEGATIVE [facility] Comment on above: Performed By: #### BARRY ATKINS, PREGU #### [facility] [address] [address] [address] Nayana Tolentino pH (U) 6.0 [pH] Normal 5-9 [facility] Comment on above: Performed By: #### BARRY ATKINS, PREGU #### [facility] [address] [address] [address] Nayana Tolentino SPEC GRAVITY 1.025 Normal 1.005-<=1.025 [facility] Comment on above: Performed By: #### BARRY ATKINS, PREGU #### [facility] [address] [address] [address] Nayana Tolentino UA PROTEIN TRACE Normal NEGATIVE/ TRACE [facility] Comment on above: Performed By: #### BARRY ATKINS, PREGU #### [facility] [address] [address] [address] Nayana Tolentino UR MICRO IND INDICATED Normal [facility] Comment on above: Performed By: #### BARRY ATKINS, PREGU #### [facility] [address] [address] [address] Nayana Tolentino Urobilinogen Qn (U) 0.2 {Gabriel'U}/dL Normal 0.2 - 1. 0 [facility] Comment on above: Performed By: #### BARRY ATKINS, PREGU #### [facility] [address] [place] [address] Dr. Nayana Tolentino URon 11-28-2021 , QUAL Negative Normal NEGATIVE [facility] Comment on above: Performed By: #### BARRY ATKINS, PREGU #### [facility] [address] [address] [address] Nayana Tolentino PROF CHEM 8 (BAS METB)on Anion gap [Moles/Vol] 11.6 mmol/L Normal [facility] Comment on above: Performed By: #### B MP #### [facility] [address] [address] [address] Nayana Tolentino Calcium [Mass/Vol] 8.8 mg/dL Normal 8.5-10.1 [facility] Comment on above: Performed By: #### B MP #### [facility] [address] [address] [address] Nayana Tolentino Chloride [Moles/Vol] 106 mmol/L Normal 98-107 [facility] Comment on above: Performed By: #### B MP #### [facility] [address] [place] [address] Dr. Nayana Tolentino CO2 [Moles/Vol] 27.3 mmol/L Normal 21.0-32.0 [facility] Comment on above: Performed By: #### B MP #### [facility] [address] [address] [address] Nayana Tolentino Creatinine [Mass/Vol] 0.66 mg/dL Normal 0.55-1.02 [facility] Comment on above: Performed By: #### B MP #### [facility] [address] [address] [address] Nayana Tolentino EGFR-AF GUYANESE >60 Normal >=60 [facility] Comment on above: Performed By: #### B MP #### [facility] [address] [address] [address] Nayana Tolentino EGFR-NON AF GUYANESE >60 Normal >=60 [facility] Comment on above: Performed By: #### B MP #### [facility] [address] [address] [address] Nayana Tolentino Glucose [Mass/Vol] 81 mg/dL Normal 74-106 [facility] Comment on above: Performed By: #### B MP #### [facility] [address] [address] [address] Nayana Tolentino Potassium [Moles/Vol] 3.9 mmol/L Normal 3.5-5.1 [facility] Comment on above: Performed By: #### B MP #### [facility] [address] [address] [address] Nayana Tolentino Sodium [Moles/Vol] 141 mmol/L Normal 136-145 [facility] Comment on above: Performed By: #### B MP #### [facility] [address] [address] [address] Nayana Tolentino Urea nitrogen [Mass/Vol] 8.0 mg/dL Normal 6.4-19.3 [facility] Comment on above: Performed By: #### B MP #### [facility] [address] [address] [address] Nayana Tolentino Urea nitrogen/Creatinine [Mass ratio] 12.1 mg/mg Normal [facility] Comment on above: Performed By: #### B MP #### [facility] [address] [address] [address] Nayana Tolentino URINE MICROSCOPIC ONLYon BACTERIA LARGE Abnormal NONE SEEN [facility] Comment on above: Performed By: #### BARRY ATKINS, PREGU #### [facility] [address] [address] [address] Nayana Tolentino Bacteria identified Cx Nom (U) INDICATED Normal [facility] Comment on above: Performed By: #### BARRY ATKINS, PREGU #### [facility] [address] [place] [address] Dr. Nayana Tolentino CAST NONE SEEN Normal NONE SEEN [facility] Comment on above: Performed By: #### BARRY ATKINS, PREGU #### [facility] [address] [place] [address] Dr. Nayana Tolentino Crystals LM Nom (Urine sed) NONE SEEN Normal NONE SEEN [facility] Comment on above: Performed By: #### BARRY ATKINS, PREGU #### [facility] [address] [place] [address] Dr. Nayana Tolentino Epithelial cells LM Ql (Urine sed) FEW Abnormal NONE SEEN /RARE [facility] Comment on above: Performed By: #### BARRY ATKINS, PREGU #### [facility] [address] [place] [address] Dr. Nayana Tolentino MUCOUS NONE SEEN Normal NONE SEEN [facility] Comment on above: Performed By: #### BARRY ATKINS, PREGU #### [facility] [address] [place] [address] Dr. Nayana Tolentino RBC 5-10 Abnormal 0-2 [facility] Comment on above: Performed By: #### BARRY ATKINS, PREGU #### [facility] [address] [place] [address] Dr. Nayana Tolentino WBC 20-50 Abnormal NONE SEEN [facility] Comment on above: Performed By: #### BARRY ATKINS, PREGU #### [facility] [address] [place] [address] Dr. Nayana Tolentino XR ABD FLAT_UPon 11-28-2021 [...] NE MAYER Date: 2021-11-28 15:16 Normal [facility] Covid-19 PCR ([facility]on 04-13 SARS-CoV-2 (COVID-19) RNA YOBANY+probe Ql (Unsp spec) Not detected Normal NOT DETECTED [facility] Comment on above: Result Comment: This test is not yet approved or cleared by the [place] FDA. When there are no FDA-approved or cleared tests available, and other criteria are met, FDA can make tests available under an emergency access mechanism called an Emergency Use Authorization (EUA). The EUA for this test is supported by the Physical Therapy Coordinator of Health and Human Service's (HHS's) declaration [...] consistent with SARS-CoV-2. Performed By: #### C [facility] #### [facility] [address] [place] [address] Dr. Nayana Tolentino Vital Signs Date Time Vital Sign Value Performing Clinician Kris villarreal 09-17-2020 18:02-0400 [facility] 18:02-0400 Body mass index (BMI) [Ratio] 17.1 kg/m2 [facility] 09-17-2020 18:02-0400 Body weight 45.55 kg STAFF, [facility] 09-17-2020 17:56-0400 Body temperature 98.6 [degF] STAFF, [facility] 09-17-2020 17:56-0400 Diastolic blood pressure 60 mm[Hg] STAFF, [facility] 09-17-2020 17:56-0400 Heart rate 94 /min STAFF, [facility] 09-17-2020 17:56-0400 Respiratory rate 16 /min STAFF, [facility] 09-17-2020 17:56-0400 SaO2% (BldA) [Mass fraction] 95 % STAFF, [facility] 09-17-2020 17:56-0400 Systolic blood pressure 109 mm[Hg] STAFF, [facility] Encounters Encounter Date Encounter Type Care Provider [...] End: 05-07-2021 Emergency department patient visit STAFF, [facility] Plan of Treatment Date Care Activity Detail Author Start: 06-15-2023 End: 06-15-2023 Patient encounter procedure 06/15/2023 9:00 AM EST Office Visit [facility] [address] [place] [address] Scot Dalton MD [address] [place] [id number] Arrived [facility] Comment on above: Arrived Start: 01-12-2023 Influenza vaccination Influenz a Vaccine (#1) [facility] Patient Education Contusion in [facility] ([facility]) [facility] Patient referral [facility] Immunizations Immunization Date Immunization Notes Care Provider Fa cility 07-03-2017 influenza virus vacc ine, unspecified formulation Scot Dalton MD Work Phone: [facility] Payers Date Payer Category Payer Medicaid [employer] [id number] 2019-Present [address] [place] [address] [id number] 2004 Unknown [id number] 2004 Unknown [id number] 2004 Unknown [id number] 2004 Unknown [id number] 2004 Unknown [id number] 2004 Unknown [id number] 1986 Unknown [id number] 1962 Unknown [id number] 1962 Unknown [id number] 1959 Unknown [id number] Self-pay Self Pay [id number] Unknown Self Pay [id number] Social History Date Type Detail Facility Start: 09-17-2020 End: 02-03-2023 Tobacco smoking status NHIS Never smoked tobacco (finding) [facility] Start: 2004 Sex Assigned At Female F [facility] Start: 06-13-2023 Alcohol intake Lifetime non-d carlin (finding) [facility] Start: 06-13-2023 History of Social function [facility] Start: 06-13-2023 Tobacco use panel [facility] Start: 02-03-2023 Alcohol Comment Caffeine: 1-2 cups per day [facility] Start: 2004 Sex Assigned At Not on file [facility] Goals Date Patient Goal Desired Activity /State Evaluation note Note Date & Type Note Facility Evaluation note No Assessments Information Avail able [facility] Hospital Discharge instructions Note Date & Type Note Facility Hospital Discharge instructions Additional Instructions If you develop new or worsening symptoms and get rechecked Follow-up with your family doctor [facility] Advance Directives No Advanced Directives Records Found [...] DATE CREATED AUTHOR AUTHOR'S ORGANIZ ATION 11/07/2023 [facility] Care Teams (unrecognized sec tion and content) Hand Plate Stacker Relationship Specialty Start Date End Date Scot Dalton MD [address] [place] [address] PCP - General Family Medicine 06/13/23 FOR [...] BE BASED ON THE PRIMARY CLINICAL RECORDS. [employer] provides no warranty or guarantee of the accuracy or completeness of information in this document.
--- NOTE | 2024-04-04 13:53 | ED.URI1 ---
HPI - URI/Sore Throat General Chief Complaint: Ear Stated Complaint: URTI COMPLAINTS/ EAR PAIN Time Seen by Provider: 04/04/24 13:17 Source: patient History of Present Illness HPI Narrative: 18-year-old female presents with her family for evaluation of 2 complaints. Patient has noted right ear pain over the past 24 to 48 hours, slight nasal congestion. She denies fever. She presents with 2 younger siblings with similar complaint. No fever or chills. Patient also notes that she has had urinary urgency and frequency over the past 24 hours. She denies any lower back pain. She reports having a history of UTIs in the past with similar symptoms. She finished her menstrual cycle 1 week ago she is without any nausea vomiting or diarrhea. Patient sitting up alert attentive helping caring for her siblings and appears in no distress. Immunizations are up-to-date. MD elicited complaint: Reports nasal congestion Related Data Home Medications ?Medication ?Instructions ?Recorded ?Confirmed midodrine 10 mg tablet 10 mg PO TID 01/20/24 01/20/24 Previous Rx's ?Medication ?Instructions ?Recorded cephalexin 500 mg capsule 500 mg PO Q8H 7 days #21 caps 01/20/24 fluconazole 150 mg tablet 150 mg PO ONCE 1 day #1 tab 04/04/24 sulfamethoxazole 800 1 tab PO Q12H 3 days #6 tabs 04/04/24 mg-trimethoprim 160 mg tablet (Bactrim DS) Allergies Allergy/AdvReac Type Severity Reaction Status Date / Time bismuth subsalicylate (From AdvReac Severe Diarrhea Verified 01/20/24 14:28 Pepto-Bismol) Review of Systems ROS Constitutional Denies: fever, chills or change in weight Eyes Denies: change in vision Ears, nose, mouth, and throat Reports: ear pain; Denies: throat pain or neck pain Cardiovascular Denies: chest pain or palpitations Respiratory Denies: shortness of breath or cough Gastrointestinal Denies: abdominal pain or nausea Genitourinary Reports: urinary frequency and urinary urgency; Denies: painful urination or urinary incontinence Musculoskeletal Denies: back pain Integumentary/Breast Denies: rash Neurological Denies: headache PFSH PFSH Social History Little interest or pleasure in doing things: not at all Feeling down, depressed, or hopeless: not at all Exam Narrative Exam Narrative: Nurses notes and vital signs reviewed and patient is not hypoxic. General: The patient appears well and in no apparent distress. Patient is resting comfortably on cart. Skin: Warm, dry, no pallor noted. Head: Normocephalic, atraumatic Neck: Supple, trachea mid-line, no tenderness, no lymphadenopathy Eye: Pupils are equal, round and reactive to light, EOMI Ears, Nose, Mouth, and Throat: TM are clear, normal light reflex, tragal tenderness, there is postnasal drainage with slight cobblestoning of the posterior pharynx , oral mucosa is moist, no posterior oropharynx erythema or hypertrophy, uvula is mid-line Cardiovascular: Regular Rate and Rhythm Respiratory: Patient is in no distress, no accessory muscle use, lungs are clear to auscultation, no wheezing, rales or rhonchi. Chest Wall: no tenderness Back: non-tender, no CVA tenderness Musculoskeletal: normal ROM, no tenderness, no swelling GI: Normal bowel sounds, no tenderness to palpation, no masses appreciated. No rebound, guarding, or rigidity noted. Neurological: A&O x4 Psychiatric: Cooperative Constitutional Vital Signs, click to edit/add: Last Vital Signs Temp 98.0 F 04/04/24 12:50 Pulse 89 04/04/24 12:50 Resp 16 04/04/24 12:50 BP 91/66 04/04/24 12:50 Pulse Ox 95 04/04/24 12:50 O2 Del Method Room Air 04/04/24 12:50 Course Vital Signs Vital signs: Vital Signs Temperature 98.0 F 04/04/24 12:50 Pulse Rate 89 04/04/24 12:50 Respiratory Rate 16 04/04/24 12:50 Blood Pressure 91/66 04/04/24 12:50 Pulse Oximetry 95 04/04/24 12:50 Oxygen Delivery Method Room Air 04/04/24 12:50 Temperature 98.0 F 04/04/24 12:50 Pulse Rate 89 04/04/24 12:50 Respiratory Rate 16 04/04/24 12:50 Blood Pressure 91/66 04/04/24 12:50 Pulse Oximetry 95 04/04/24 12:50 Oxygen Delivery Method Room Air 04/04/24 12:50 MDM - URI/Sore Throat MDM Narrative Medical decision making narrative: UA was performed, patient denies chance of . We discussed her ear pain benign clinical exam possible allergy or viral URI related. Recommend daily allergy pill Tylenol Motrin for symptomatic relief. Reviewed UA, grossly negative except she had 100 white blood cells and bacteria, will treat given her clinical symptoms of UTI, given her last urine culture reviewed on 01/04 showed staph saprophyticus able to Bactrim Macrobid and Cipro patient will be placed on Macrobid for 3 days. She also had yeast in her urine and will be given a dose of Diflucan to take once she finishes her antibiotics. Patient strongly encouraged to follow-up with her PCP for reevaluation of symptoms given recurrent UTI The patient is to followup with primary care physician in next 2-3 days or to return to the emergency department should any of the signs or symptoms worsen or new symptoms develop. Patient had questions answered. The patient agrees with the following Diagnosis and Treatment plan and the patient will be discharged home. Lab Data Attestation: I reviewed the patient's lab results. Labs: Lab Results 04/04/24 Range/Units 13:28 Urine Color Yellow (YELLOW) Urine Clarity Clear (CLEAR) Urine pH 6.0 (5.0-9.0) Ur Specific [place] 1.025 (1.005-1.025) Urine Protein Negative (NEG/TRACE) mg/dL Urine Glucose (UA) Negative (NEGATIVE) mg/dL Urine Ketones Negative (NEGATIVE) mg/dL Urine Occult Blood Negative (NEGATIVE) Urine Nitrite Negative (NEGATIVE) Urine Bilirubin Negative (NEGATIVE) Urine Urobilinogen 0.2 (0.2-1.0) EU/dL Ur Leukocyte Esterase Negative (NEGATIVE) Urine HCG, Qual Negative (NEGATIVE) Discharge Plan Discharge Chief Complaint: Ear Clinical Impression: Yeast detected, Otalgia UTI (urinary tract infection) Qualifiers: Urinary tract infection type: site unspecified Hematuria presence: without hematuria Qualified Code(s): N39.0 - Urinary tract infection, site not specified Patient Disposition: Home, Self-Care Time of Disposition Decision: 14:23 Condition: Good Prescriptions / Home Meds: New sulfamethoxazole-trimethoprim [Bactrim DS] 800-160 mg tablet 1 tab PO Q12H 3 Days Qty: 6 0RF fluconazole 150 mg tablet 150 mg PO ONCE 1 Days Qty: 1 0RF Rx Instructions: Take 1 day after completing antibiotic ( bactrim)- yeast in urine sample No Action midodrine 10 mg tablet 10 mg PO TID cephalexin 500 mg capsule 500 mg PO Q8H 7 Days Qty: 21 0RF Print Language: Portuguese Instructions: Urinary Tract Infection in Women (ED), Yeast Infection (ED) Referrals: Scot Block MD [Primary Care Provider] - As soon as possible
[2024-04-04 13:59] LABS: Bilirubin Urine NEGATIVE (NEGATIVE); Blood Urine NEGATIVE (NEGATIVE); Clarity Urine CLEAR (CLEAR); Color Urine YELLOW (YELLOW); Glucose Urine UA NEGATIVE (NEGATIVE); Ketones Urine NEGATIVE (NEGATIVE); Leukocyte Esterase Urine NEGATIVE (NEGATIVE); Nitrite Urine NEGATIVE (NEGATIVE); Protein Urine NEGATIVE (NEG/TRACE); Specific Gravity Urine 1.025 (1.005-1.025); Urobilinogen Urine 0.2 EU/dL (0.2-1.0)
[2024-04-04 14:01] LABS: Urine Microscopic Indicated NO
[2024-04-04 14:04] LABS: HCG Qualitative Urine* NEGATIVE (NEGATIVE); Internal Control Within Normal Limits
[2024-04-04] MEDS: SULFAMETHOXAZOLE/TRIMETHOPRIM 800-160 MG TABLET 1 TAB PO (14:29)
== END 2024-04-04 14:36 | disposition home or self-care (01) ==
PROVIDERS: Personal Emergency Response Attendant; Emergency Provider Emergency Medicine; PCP Family Medicine
DX: N39.0 Urinary tract infection, site not specified (principal); Z87.440 Personal history of urinary (tract) infections; H92.01 Otalgia, right ear; B37.89 Other sites of candidiasis
CPT/HCPCS: 81003; 84703; 99283

== ENCOUNTER 2024-04-23 08:50 | Outpatient (OUT) | payer OTHER, SELFPAY ==
--- NOTE | 2024-04-23 08:56 | US_ITS ---
The [address] [address] Patient Name: OTTO HOSKINS MRN: [id number] date: 2005 Sex: F Assigned Patient Location: Current Patient Location: Accession/Order Number: [id number] Exam Date: 04/23/2024 09:00 Report Date: 04/24/2024 04:59 At the request of: DANIELA EVANS Procedure: US pelvis transvaginal EXAMINATION: US pelvis transvaginal HISTORY: Pelvic Pain In Female, Surveillance For Control Device COMPARISON: CT abdomen pelvis 01/20/2024 TECHNIQUE: Transabdominal and/or transvaginal sonographic examination was performed as indicated by examination type. FINDINGS: UTERUS: Normal size and appearance. Uterus size: 7.2 x 4.4 x 5.0 cm. ENDOMETRIUM: Normal homogeneous appearance. IUD within endometrial cavity. Endometrial thickness: 5 mm RIGHT OVARY: Normal size and appearance. Duplex Doppler demonstrates normal waveform and flow; resistive index 0.6. Ovary size: 3.8 x 1.4 x 1.6 cm LEFT OVARY: Normal size and appearance. Duplex Doppler demonstrates normal waveform and flow; resistive index 0.4. Ovary size: 2.7 x 1.3 x 1.5 cm CUL-DE-SAC: Unremarkable. No significant free fluid. BLADDER: Unremarkable. OTHER: None. US/US pelvis transvaginal IMPRESSION: 1. IUD is present within the endometrial cavity; no suspicious findings. 2. No acute or suspicious findings to account for patient's symptoms. Electronically authenticated by: NE MAYER Date: 04/24/2024 04:59
--- OUTSIDE RECORDS SUMMARY | 2024-04-23 08:56 | XMS_ITS | CCD ---
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 Purpose Family History No Family History Records FoundNo Family History Records Found Additional Source Comments INFORMATION SOURCE (unrecogn ized section and content) DATE CREATED AUTHOR 04/24/2022 [facility] DATE CREATED AUTHOR AUTHOR'S ORGANIZ ATION 11/07/2023 [facility] Care Teams (unrecognized sec tion and content) 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 Relationship Specialty Start Date End Date Scot Dalton MD [address] [place] [phone] PCP - General Family Medicine 06/13/23 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 [employer] [facility]. provides no warranty or guarantee of the accuracy or completeness of information in this document.
== END 2024-04-23 08:51 | disposition home or self-care (01) ==
LOC: US 08:50
PROVIDERS: PCP Family Medicine; Visit Provider Obstetrics & Gynecology
DX: R10.2 Pelvic and perineal pain (principal); Z30.431 Encounter for routine checking of intrauterine contraceptive device
CPT/HCPCS: 76830

== ENCOUNTER 2024-06-23 15:51 | Emergency (ER) | payer OTHER, SELFPAY ==
[2024-06-23 15:58] VITALS: BP 107/73; PULSE 117; TEMP 37.1; O2SAT 96; BMI 27.4
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
[2024-06-23 16:39] LABS: Internal Control Within Normal Limits; SARS-CoV-2 Ag NEGATIVE (NEGATIVE)
[2024-06-23 16:39] LABS: Influenza Virus A Antigen Negative; Influenza Virus B Antigen Negative; Internal Control Within Normal Limits; Strep A Antigen Screen Negative
--- NOTE | 2024-06-23 16:45 | ED_ITS ---
HPI - URI/Sore Throat General Chief Complaint: Upper Respiratory Infection Stated Complaint: COVID EXPOSURE Time Seen by Provider: 06/23/24 15:59 Source: patient Limitations: no limitations History of Present Illness HPI Narrative: Patient is a 18-year-old female who presents to the emergency department for evaluation of upper respiratory symptoms for the past 2 days. She states she was exposed to COVID and is concerned that she has COVID. She has not had any fevers. She reports cough, congestion, sore throat. She has had occasional sputum production. She has no concern for . Related Data Home Medications ?Medication ?Instructions ?Recorded ?Confirmed midodrine 10 mg tablet 10 mg PO TID 01/20/24 01/20/24 Previous Rx's ?Medication ?Instructions ?Recorded cephalexin 500 mg capsule 500 mg PO Q8H 7 days #21 caps 01/20/24 fluconazole 150 mg tablet 150 mg PO ONCE 1 day #1 tab 04/04/24 sulfamethoxazole 800 1 tab PO Q12H 3 days #6 tabs 04/04/24 mg-trimethoprim 160 mg tablet (Bactrim DS) vjxpukwmasceojb-odrwgguuapdifye-BL 10 ml PO Q6H PRN cold symptoms 06/23/24 2 mg-30 mg-10 mg/5 mL oral syrup #200 mL (Bromfed DM) ondansetron 4 mg disintegrating 4 mg PO Q6H PRN nausea and 06/23/24 tablet vomiting #12 tabs Allergies Allergy/AdvReac Type Severity Reaction Status Date / Time bismuth subsalicylate (From AdvReac Severe Diarrhea Verified 01/20/24 14:28 Pepto-Bismol) Review of Systems ROS Constitutional Denies: fever or chills Ears, nose, mouth, and throat Reports: throat pain and nasal congestion Cardiovascular Denies: chest pain Respiratory Reports: cough; Denies: shortness of breath Gastrointestinal Denies: nausea, vomiting or diarrhea Integumentary/Breast Denies: rash Neurological Reports: headache; Denies: numbness in extremities or weakness in extremities Hematologic/Lymphatic Denies: easy bruising or easy bleeding PFSH PFSH Social History Little interest or pleasure in doing things: not at all Feeling down, depressed, or hopeless: not at all Exam Narrative Exam Narrative: Gen.: Awake, alert, in no distress Head: Normocephalic, atraumatic ENT: Moist mucous membranes, bilateral TMs clear, uvula midline with no pharyngeal erythema. No tonsillar edema. No trismus or drooling. Clear speech Respiratory: No respiratory distress, lungs clear bilaterally Cardio: Regular rate and rhythm Extremities: Moves extremities equally Psych: Normal mood and affect Neuro: No focal neuro deficit Skin: Warm, dry, intact Constitutional Vital Signs, click to edit/add: Last Vital Signs Temp 98.7 F 06/23/24 15:58 Pulse 117 H 06/23/24 15:58 Resp 18 06/23/24 15:58 BP 107/73 06/23/24 15:58 Pulse Ox 96 06/23/24 15:58 O2 Del Method Room Air 06/23/24 15:58 Course Vital Signs Vital signs: Vital Signs Temperature 98.7 F 06/23/24 15:58 Pulse Rate 117 H 06/23/24 15:58 Respiratory Rate 18 06/23/24 15:58 Blood Pressure 107/73 06/23/24 15:58 Pulse Oximetry 96 06/23/24 15:58 Oxygen Delivery Method Room Air 06/23/24 15:58 Temperature 98.7 F 06/23/24 15:58 Pulse Rate 117 H 06/23/24 15:58 Respiratory Rate 18 06/23/24 15:58 Blood Pressure 107/73 06/23/24 15:58 Pulse Oximetry 96 06/23/24 15:58 Oxygen Delivery Method Room Air 06/23/24 15:58 MDM - URI/Sore Throat MDM Narrative Medical decision making narrative: Strep, COVID and influenza testing are negative. Patient treated with Decadron in the ER and given education and reassurance for home. Bromfed-DM and Zofran given for home as needed. Return to the ER if symptoms change or worsen SUPERVISED APC VISIT, PHYSICIAN ATTESTATION: Based on the medical record the care appears appropriate. ? Medical Records Attestation: I reviewed the patient's medical records. Lab Data Attestation: I reviewed the patient's lab results. Labs: Lab Results 06/23/24 06/23/24 Range/Units 16:00 16:06 Influenza Type A Ag Negative Influenza Type B Ag Negative SARS-CoV-2 Ag (CV2AG) Negative (NEGATIVE) Streptococcus Screen Negative Discharge Plan Discharge Chief Complaint: Upper Respiratory Infection Clinical Impression: Encounter for screening laboratory testing for COVID-19 virus, Upper respiratory infection Patient Disposition: Home, Self-Care Time of Disposition Decision: 16:44 Condition: Good Prescriptions / Home Meds: New gfskelykuyjhutl-rogixlsmm-PB [Bromfed DM] 2-30-10 mg/5 mL syrup 10 ml PO Q6H PRN (Reason: cold symptoms) Qty: 200 0RF ondansetron 4 mg tablet,disintegrating 4 mg PO Q6H PRN (Reason: nausea and vomiting) Qty: 12 0RF No Action sulfamethoxazole-trimethoprim [Bactrim DS] 800-160 mg tablet 1 tab PO Q12H 3 Days Qty: 6 0RF fluconazole 150 mg tablet 150 mg PO ONCE 1 Days Qty: 1 0RF Rx Instructions: Take 1 day after completing antibiotic ( bactrim)- yeast in urine sample midodrine 10 mg tablet 10 mg PO TID cephalexin 500 mg capsule 500 mg PO Q8H 7 Days Qty: 21 0RF Print Language: Cape Verdean Instructions: Upper Respiratory Infection (ED) Referrals: Scot Block MD [Primary Care Provider] - 1 week
[2024-06-23] MEDS: DEXAMETHASONE SOD PHOS 10 MG/ML VIAL PO (16:49)
== END 2024-06-23 16:53 | disposition home or self-care (01) ==
PROVIDERS: Physician Assistant; Emergency Provider Emergency Medicine; PCP Family Medicine
DX: J06.9 Acute upper respiratory infection, unspecified (principal); Z20.828 Contact with and (suspected) exposure to other viral communicable diseases
CPT/HCPCS: 87070; 87804; 87811; 87880; 99283; J1100

== ENCOUNTER 2024-08-26 14:54 | Outpatient (OUT) | payer OTHER, SELFPAY ==
[2024-08-27 05:09] LABS: HIV Ab/p24 Ag Screen Non Reactive (Non Reactive)
[2024-08-27 06:27] LABS: HBsAg Screen Negative (Negative)
[2024-08-27 12:08] LABS: Rapid Plasma Reagin, Quant Non Reactive titer (NonRea<1:1)
== END 2024-08-26 14:55 | disposition home or self-care (01) ==
LOC: LAB 14:56
PROVIDERS: PCP Family Medicine; Visit Provider Obstetrics & Gynecology
DX: Z20.2 Contact with and (suspected) exposure to infections with a predominantly sexual mode of transmission (principal)
CPT/HCPCS: 36415; 86592; 87340; 87389

== ENCOUNTER 2024-11-13 11:30 | Emergency (ER) | payer OTHER, SELFPAY ==
[2024-11-13 11:35] VITALS: BP 103/63; PULSE 79; TEMP 36.9; O2SAT 99; BMI 19.5
[2024-11-13 12:01] LABS: Hematocrit 36.8 % (36.0-48.0); Hemoglobin 13.1 g/dL (12.0-16.0); Immature Granulocytes Abs Auto 0.02 10^3/uL (0.00-0.03); Immature Granulocytes Pct Auto 0.3 % (0.0-0.5); Lymphocytes Absolute Auto 1.6 10^3/uL (1.2-3.8); Mean Corpuscular HGB Conc 35.6 g/dL (29.9-35.2); Mean Corpuscular Hemoglobin 32.7 pg (26.7-34.0); Mean Corpuscular Volume 91.8 fL (81.0-99.0); Platelet Count 234 10^3/uL (150-450); Red Blood Count 4.01 10^6/uL (4.20-5.40); White Blood Count 7.5 10^3/uL (4.0-11.0)
[2024-11-13 12:06] LABS: Anion Gap 13.4; Blood Urea Nitrogen 9.0 mg/dL (6.4-19.3); Calcium 8.5 mg/dL (8.5-10.1); Carbon Dioxide 24.2 mmol/L (21.0-32.0); Chloride 105 mmol/L (98-107); Estimated GFR (African America >60 (>=60 mL/min/1.73m^2); Estimated GFR (Non-African Ame >60 (>=60 mL/min/1.73m^2); Glucose 109 mg/dL (74-106); Potassium 3.6 mmol/L (3.5-5.1); Sodium 139 mmol/L (136-145)
--- NOTE | 2024-11-13 12:44 | US_ITS ---
[place] [id number] Patient Name: OTTO HOSKINS MRN: [id number] date: 2005 Sex: F Assigned Patient Location: ER Current Patient Location: ER Accession/Order Number: [id number] Exam Date: 11/13/2024 13:26 Report Date: 11/13/2024 13:28 At the request of: ALANNAH BENITEZ MD Procedure: US OB transvaginal OB ultrasound. Reason for exam:Cramping for one day. Comparison:None Technique: Transvaginal imaging of the gravid uterus was obtained. Findings: Single live intrauterine with pole and yolk sac identified measuring 7 weeks 1 day by CRL CHANA 07/01/2025. heart rate 148 bpm. Trace free fluid. Ovaries appear unremarkable. US/US OB transvaginal Impression: Single live intrauterine 7 weeks 1 day by CRL, CHANA 07/01/2025 Impression dictated by: Asher Willett Jr., D.O. 11/13/2024 1:28 PM Dictation Location: [place] [address] Electronically authenticated by: [id number] Y Date: 11/13/2024 13:28
--- NOTE | 2024-11-13 12:46 | ED.GENADUL1 ---
HPI HPI - General Adult General Chief complaint: Abdominal Pain Stated complaint: ABDOMINAL CRAMPING, BLOOD IN STOOL Time Seen by Provider: 11/13/24 11:36 Source: patient Mode of arrival: walk-in Limitations: no limitations History of Present Illness HPI narrative: 18-year-old female who is 1 para 0 presents for abdominal cramping and concern for blood in her stool. 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 She has had no vaginal bleeding but has complaints of lower abdominal cramping. No trauma or fever. Related Data Home Medications ?Medication ?Instructions ?Recorded ?Confirmed sertraline 25 mg tablet 25 mg PO Q24H 11/13/24 11/13/24 Allergies Allergy/AdvReac Type Severity Reaction Status Date / Time bismuth subsalicylate (From AdvReac Severe Diarrhea Verified 11/13/24 11:41 Pepto-Bismol) Opioid HPI Opioid Management Most Recent Opioid Data: Last Pain Scale 3 Today, 11:35 Review of Systems ROS Narrative A ten point review of systems is negative except as noted above. PFSH PFSH Social History Little interest or pleasure in doing things: not at all Feeling down, depressed, or hopeless: not at all Exam Narrative Exam Narrative: Nurses note and vital signs reviewed and patient is not hypoxic. General: The patient appears well and in no apparent distress. Patient is resting comfortably on cart. Skin: Warm, dry, no pallor noted. There is no rash noted. Head: Normocephalic, atraumatic Eye: Normal conjunctiva, no drainage Ears, Nose, Mouth, and Throat: oral mucosa is moist. Nares patent. Cardiovascular: Regular Rate and Rhythm Respiratory: Patient is in no distress, no accessory muscle use, lungs are clear to auscultation, no wheezing, rales or rhonchi Back: non-tender GI: Soft and nontender, nondistended. Rectal exam shows no external hemorrhoids and no masses. She has reddish colored stool which turns out was heme-negative. Musculoskeletal: The patient has no evidence of calf tenderness, no pitting edema, symmetrical pulses noted bilaterally Neurological: A&O, normal speech Psychiatric: Cooperative Constitutional Vital Signs, click to edit/add: Last Vital Signs Temp 98.5 F 07/03/25 11:35 Pulse 79 11/13/24 11:35 Resp 18 11/13/24 11:35 BP 103/63 11/13/24 11:35 Pulse Ox 99 11/13/24 11:35 O2 Del Method Room Air 11/13/24 11:35 Course Vital Signs Vital signs: Vital Signs Temperature 98.5 F 11/13/24 11:35 Pulse Rate 79 11/13/24 11:35 Respiratory Rate 18 11/13/24 11:35 Blood Pressure 103/63 11/13/24 11:35 Pulse Oximetry 99 11/13/24 11:35 Oxygen Delivery Method Room Air 11/13/24 11:35 Temperature 98.5 F 11/13/24 11:35 Pulse Rate 79 11/13/24 11:35 Respiratory Rate 18 11/13/24 11:35 Blood Pressure 103/63 11/13/24 11:35 Pulse Oximetry 99 11/13/24 11:35 Oxygen Delivery Method Room Air 11/13/24 11:35 Medical Decision Making MDM Narrative Medical decision making narrative: Occult blood was negative. Ultrasound shows IUP and the rest of her blood work is appropriate. She is released home and was reassured. She has an appointment with gynecology in 2 weeks that she will keep. No evidence of any GI bleeding. Treatment diagnosis and follow-up were discussed with the patient. Differential Diagnosis Differential Diagnosis: GI bleed, miscarriage Lab Data Lab results reviewed: Yes I reviewed the patient's lab results Labs: Lab Results 11/13/24 11/13/24 Range/Units 11:50 12:11 WBC 7.5 (4.0-11.0) 10^3/uL RBC 4.01 L (4.20-5.40) 10^6/uL Hgb 13.1 (12.0-16.0) g/dL Hct 36.8 (36.0-48.0) % MCV 91.8 (81.0-99.0) fL MCH 32.7 (26.7-34.0) pg MCHC 35.6 H (29.9-35.2) g/dL RDW 12.0 (11.0-15.0) % Plt Count 234 (150-450) 10^3/uL MPV 9.3 L (9.5-13.5) fL Neut % (Auto) 69.5 (43.0-75.0) % Lymph % (Auto) 21.2 (20.5-60.0) % [place] % (Auto) 8.0 (1.7-12.0) % Eos % (Auto) 0.5 L (0.9-7.0) % Baso % (Auto) 0.5 (0.2-2.0) % Neut # (Auto) 5.2 (1.4-6.5) 10^3/uL Lymph # (Auto) 1.6 (1.2-3.8) 10^3/uL [place] # (Auto) 0.6 (0.3-0.8) 10^3/uL Eos # (Auto) 0.0 (0.0-0.7) 10^3/uL Baso # (Auto) 0.0 (0.0-0.1) 10^3/uL Abs Immat Gran (auto) 0.02 (0.00-0.03) 10^3/uL Imm/Tot Granulo (auto) 0.3 (0.0-0.5) % Sodium 139 (136-145) mmol/L Potassium 3.6 (3.5-5.1) mmol/L Chloride 105 (98-107) mmol/L Carbon Dioxide 24.2 (21.0-32.0) mmol/L Anion Gap 13.4 BUN 9.0 (6.4-19.3) mg/dL Creatinine 0.35 L (0.55-1.02) mg/dL Est GFR ( Amer) >60 (>=60 mL/min/1.73m^2) Est GFR (Non-Af Amer) >60 (>=60 mL/min/1.73m^2) BUN/Creatinine Ratio 25.7 Glucose 109 H (74-106) mg/dL Calcium 8.5 (8.5-10.1) mg/dL HCG, Quant 281948 mIU/mL Stool Occult Blood Negative Blood Type A Positive Imaging Data Pelvic ultrasound: Radiologist's impression: ITS Impressions Transvaginal US 11/13/24 12:44 Impression: Single live intrauterine 7 weeks 1 day by IVA, CHANA 07/01/2025 Impression dictated by: Asher Willett Jr., D.OBeth 11/13/2024 1:28 PM Dictation Location: [place] [address] Electronically authenticated by: [id number] Y Date: 11/13/2024 13:28 Discharge Plan Discharge Chief Complaint: Abdominal Pain Clinical Impression: No problem, feared complaint unfounded Patient Disposition: Home, Self-Care Time of Disposition Decision: 13:36 Condition: Good Mode of Transportation: Private Vehicle Prescriptions / Home Meds: No Action sertraline 25 mg tablet 25 mg PO Q24H Print Language: Tajik Instructions: at 7 to 10 Weeks (ED) Referrals: Scot Block MD [Primary Care Provider, Family Practice] - 1 week
== END 2024-11-13 13:44 | disposition home or self-care (01) ==
PROVIDERS: Emergency Provider Emergency Medicine; PCP Family Medicine
DX: Z71.1 Person with feared health complaint in whom no diagnosis is made (principal)
CPT/HCPCS: 36415; 76817; 80048; 84702; 85025; 86900; 86901; 99284; G0328

== ENCOUNTER 2024-12-01 16:36 | Outpatient (OUT) | payer OTHER, SELFPAY ==
--- OUTSIDE RECORDS SUMMARY | 2023-09-28 09:30 | XMS_ITS ---
Author Organization [facility] Address [address] [address] Care Team Providers Care Restaurant Line Server Name Role Phone Jose Jackson Primary Care Provider Marya Pinon Unavailable [phone] Moraima Montes De Oca Unavailable [phone] REASON FOR VISIT PROPHY Encounters Encounter Location Date Provider Diagnosis [facility] [address] [place] [address] 09/28/2023 Moraima Montes De Oca Plan Of Treatment No Information Progress Notes * OTTO HOSKINSDOB:2005 (18 yo F)Acc No.[id number]:09/28/2023 Patient: OTTO FABIAN .1 Provider: Meme Bean :2005 A ge:17 Y S ex:Female Date:09/28/2023 Address:[address] [place], [place] [id number] Pcp:Jose Jackson Subjective: * Chief Complaints: * 1 . PROPHY. * Medical History: Objective: * Vitals: Assessment: Plan: * Treatment: * Images: * Electronic signature of Miesha Montes De Oca on 12/01/2024 at 04:37 PM EDT Sign off status: Pending * Provider: Meme Bean Date: 0 09/28/2023 Generated for Ruperti ng/Fasilviag/eTransmitting on: 0 12/01/2024 04:37 PM EDT
--- OUTSIDE RECORDS SUMMARY | 2023-11-13 06:30 | XMS_ITS ---
Author Organization [facility] Address [address] [place] [address] Care Team Providers Care Mexican Food Cook Name Role Phone Jose Jackson Primary Care Provider Marya Pinon Unavailable [phone] Moraima Montes De Oca Unavailable [phone] REASON FOR VISIT PROPHY Encounters Encounter Location Date Provider Diagnosis [facility] [address] [place] [address] 11/13/2023 Moraima Montes De Oca Plan Of Treatment No Information Progress Notes * OTTO HOSKINSDOB:2005 (18 yo F)Acc No.[id number]:11/13/2023 Patient: OTTO FABIAN .1 Provider: Meme Bean :2005 A ge:17 Y S ex:Female Date:11/13/2023 Address:[address] [place], [place] [id number] Pcp:Jose Jackson Subjective: * Chief Complaints: * 1 . PROPHY. * Medical History: Objective: * Vitals: Assessment: Plan: * Treatment: * Images: * Electronic signature of Miesha Montes De Oca on 12/01/2024 at 04:37 PM EDT Sign off status: Pending * Provider: Meme Baen Date: 11/13/2023 Generated for Ruperti ng/Fasilviag/eTransmitting on: 12/01/2024 04:37 PM EDT
[2024-12-01 17:02] LABS: Hematocrit 35.9 % (36.0-48.0); Hemoglobin 12.7 g/dL (12.0-16.0); Immature Granulocytes Abs Auto 0.03 10^3/uL (0.00-0.03); Immature Granulocytes Pct Auto 0.3 % (0.0-0.5); Lymphocytes Absolute Auto 2.0 10^3/uL (1.2-3.8); Mean Corpuscular HGB Conc 35.4 g/dL (29.9-35.2); Mean Corpuscular Hemoglobin 32.1 pg (26.7-34.0); Mean Corpuscular Volume 90.7 fL (81.0-99.0); Platelet Count 260 10^3/uL (150-450); Red Blood Count 3.96 10^6/uL (4.20-5.40); White Blood Count 10.5 10^3/uL (4.0-11.0)
[2024-12-01 17:14] LABS: Cannabinoid Screen Urine NEGATIVE (NEGATIVE); Methamphetamines Screen Urine NEGATIVE (NEGATIVE); Tricyclic Antidepressant Urine NEGATIVE (NEGATIVE)
[2024-12-03 08:12] LABS: Rubella Antibodies, IgG <0.90 index (Immune >0.99)
[2024-12-03 11:10] LABS: Rapid Plasma Reagin, Quant Non Reactive titer (NonRea<1:1)
== END 2024-12-01 16:37 | disposition home or self-care (01) ==
LOC: LAB 16:36
PROVIDERS: PCP Family Medicine; Visit Provider Obstetrics & Gynecology
DX: Z34.01 Encounter for supervision of normal first pregnancy, first trimester (principal); N92.6 Irregular menstruation, unspecified
CPT/HCPCS: 36415; 80307; 83036; 85025; 86592; 86762; 86803; 86850; 86900; 86901; 87086; 87340; 87389

== ENCOUNTER 2024-12-26 20:31 | Emergency (ER) | payer OTHER, SELFPAY ==
--- OUTSIDE RECORDS SUMMARY | 2023-09-28 09:30 | XMS_ITS ---
Author Organization [facility] Address [address] [address] Care Team Providers Care Global Vp Creative + Content Marketing Name Role Phone Jose Jackson Primary Care Provider Marya Pinon Unavailable [phone] Moraima Monets De Oca Unavailable [phone] REASON FOR VISIT PROPHY Encounters Encounter Location Date Provider Diagnosis [facility] [address] [place] [address] 09/28/2023 Moraima Montes De Oca Plan Of Treatment No Information Progress Notes * OTTO HOSKINSDOB:2005 (19 yo F)Acc No.[id number]:09/28/2023 Patient: OTTO FABIAN .1 Provider: Meme Bean :2005 A ge:17 Y S ex:Female Date:09/28/2023 Address:[address] [place], [place] [phone] Pcp:Jose Jackson Subjective: * Chief Complaints: * 1 . PROPHY. * Medical History: Objective: * Vitals: Assessment: Plan: * Treatment: * Images: * Electronic signature of Miesha Montes De Oca on 12/26/2024 at 08:35 PM EDT Sign off status: Pending * Provider: Meme Bean Date: 0 09/28/2023 Generated for Printi ng/Faxing/eTransmitting on: 0 12/26/2024 08:35 PM EDT
--- OUTSIDE RECORDS SUMMARY | 2023-11-13 06:30 | XMS_ITS ---
Author Organization [facility] Address [address] [address] Care Team Providers Care Pulp Operator Name Role Phone Jose Jackson Primary Care Provider Marya Pinon Unavailable [phone] Moraima Montes De Oca Unavailable [phone] REASON FOR VISIT PROPHY Encounters Encounter Location Date Provider Diagnosis [facility] [address] [place] [address] 11/13/2023 Moraima Montes De Oca Plan Of Treatment No Information Progress Notes * OTTO HOSKINSDOB:2005 (19 yo F)Acc No.[id number]:11/13/2023 Patient: OTTO FABIAN .1 Provider: Meme Bean :2005 A ge:17 Y S ex:Female Date:11/13/2023 Address:[address] [place], [place] [phone] Pcp:Jose Jackson Subjective: * Chief Complaints: * 1 . PROPHY. * Medical History: Objective: * Vitals: Assessment: Plan: * Treatment: * Images: * Electronic signature of Miesha Montes De Oca on 12/26/2024 at 08:35 PM EDT Sign off status: Pending * Provider: Meme Bean Date: 0 11/13/2023 Generated for Ruperti ng/Faxing/eTransmitting on: 0 12/26/2024 08:35 PM EDT
--- OUTSIDE RECORDS SUMMARY | 2024-12-26 20:35 | XMS_ITS | Encounter Summary ---
Author Organization [facility] Address [address] [place] [address] Care Team Providers Care Valve Steamer Name Role Phone Scot Block MD Primary Care Provider [phone] Scot Block MD Unavailable Encounter Details Date Type Department Care Team (Late st Contact Info) Description 10/22/2023 Orders Only [facility] [address] [place] [address] Scot Block MD [address] [place] [address] Social History Tobacco Use Types Packs/Day Years Used Date Smoking Tobacco: Never Smokeless Tobacco: Never Alcohol Use Standard Drinks/Week Comments Never 0 (1 standard drink = 0.6 oz pur e alcohol) Caffeine: 1-2 cups per day PHQ-2 Answer Date Recorded Patient Health Questionnaire-2 Score 0 06/15/2023 Comments No Sex and Gender Information Value Date Recorded Sex Assigned at Not on file Legal Sex Female 11:36 PM EDT Gender Identity Not on file Sexual Orientation Not on file documented as of this encounter Plan of Treatment Upcoming Encounters Date Type Department Care Team (Late Contact Info) Description 12/29/2024 3:20 PM EDT Routine [facility] [address] [place] [place] [id number] Armin Leal DO [address] [place] [address] documented as of this encounter Procedures Procedure Name Priority Date/Time Associated Diagnosis Comments ECG 12-LEAD Routine 10/22/2023 11:19 AM EDT documented in this encounter Results * ECG 12 lead (10/22/2023 11:19 AM EDT) Scot Block MD ECG ORDERABLES Final Result documented in this encounter Visit Diagnoses Not on filedocumented in this encounter Care Teams Valve Steamer Relationship Specialty Start Date End Date Scot Block MD [address] [place] [address] PCP - General Family Medicine 06/13/23 Scot Block MD [address] [place] [address] PCP - [facility] 11/12/23 documented as of this encounter
--- OUTSIDE RECORDS SUMMARY | 2024-12-26 20:35 | XMS_ITS | Patient Health Record ---
Author Organization [facility] Address [address] [place] [address] Care Team Providers Care Associate Manager Name Role Phone Jose Jackson Primary Care Provider Marya Pinon Unavailable [phone] Reason For Referral No Information Plan Of Treatment No Information Insurance Providers Payer Name Payer Address Payer Phone Subscriber Number Group Number Insured Name Patient Relationship to Insured Coverage Start Date Coverage End Date [employer] [address] [address] [place] [address] [id number] OTTO HOSKINS Self - patient is the insured 3 [employer] [facility] [employer] [address] [place] [address] [id number] OTTO HOSKINS Self - patient is the insured 4
--- OUTSIDE RECORDS SUMMARY | 2024-12-26 20:35 | XMS_ITS ---
Author Organization [facility] Produ ction (ClinicalSummary Clone) Address Unknown Care Team Providers Care Food Or Baggage Handling Rampman Name Role Phone Unavailable Primary Care Physician Unavailab le Results * [UNITY] CARRIER SCREEN Performed by: [email or web address] Component Value Range Date Fraction 15.0% 12/17/2024 03 :14 am [facility] Cystic Fibrosis NIPT result LOW RISK < 1 in 5000 12/17/2024 03:14 am [facility] Sickle Cell Disease/Beta-Thalassemia/Hemo globinopathies carrier screen NEGATIVE 12/17/2024 03:14 am [facility] Alpha-Thalassemia carrier screen NEGATIVE 12/17/2024 03:14 am [facility] Cystic Fibrosis carrier screen POSITIVE [id number] ([id number]) 12/17/2024 03:14 am [facility] Spinal Muscular Atrophy carrier screen NEGATIVE 4 SMN1 copies, SNP not present 12/17/2024 03:14 am [facility] For detailed report, see PDF See PDF 12/17/2024 03:14 am [facility] 12/17/2024 03:1 4 am [facility] Social History Observation Value Start Date End Date
--- OUTSIDE RECORDS SUMMARY | 2024-12-26 20:35 | XMS_ITS | CCD ---
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 By: #### B MP #### [facility] [address] [address] [address] Nayana Tolentino URINE MICROSCOPIC ONLYon BACTERIA LARGE Abnormal NONE SEEN [facility] Comment on above: Performed By: #### E RUR, UMICRO, PREGU #### [facility] [address] [address] [address] Nayana Tolentino Bacteria identified Cx Nom (U) INDICATED Normal [facility] Comment on above: Performed By: #### E RUR UMICTEQUILA, PREGU #### [facility] [address] [place] [address] Dr. Nayana Tolentino CAST NONE SEEN Normal NONE SEEN [facility] Comment on above: Performed By: #### E RUR, UMICRO, PREGU #### [facility] [address] [place] [address] Dr. Nayana Tolentino Crystals LM Nom (Urine sed) NONE SEEN Normal NONE SEEN [facility] Comment on above: Performed By: #### E RUR UMICRO, PREGU #### [facility] [address] [place] [address] Dr. Nayana Tolentino Epithelial cells LM Ql (Urine sed) FEW Abnormal NONE SEEN /RARE [facility] Comment on above: Performed By: #### E RUR UMICRO, PREGU #### [facility] [address] [place] [address] Dr. Nayana Tolentino MUCOUS NONE SEEN Normal NONE SEEN [facility] Comment on above: Performed By: #### E RUR, UMICRO, PREGU #### [facility] [address] [address] [address] Nayana Tolentino RBC 5-10 Abnormal 0-2 [facility] Comment on above: Performed By: #### E RUR, UMICRO, PREGU #### [facility] [address] [place] [address] Dr. Nayana Tolentino WBC 20-50 Abnormal NONE SEEN [facility] Comment on above: Performed By: #### E BARRY ROBBINS PREGU #### [facility] [address] [address] [address] Nayana Tolentino XR ABD FLAT_UPon 11-28-2021 [...] NE MAYER Date: 2021-11-28 15:16 Normal [facility]13 SARS-CoV-2 (COVID-19) RNA YOBANY+probe Ql (Unsp spec) Not detected Normal NOT DETECTED [facility] Comment on above: Result Comment: This test is not yet approved or cleared by the [place] FDA. When there are no FDA-approved or cleared tests available, and other criteria are met, FDA can make tests available under an emergency access mechanism called an Emergency Use Authorization (EUA). The EUA for this test is supported by the [place] of Health and Human Service's (HHS's) declaration [...] consistent with SARS-CoV-2. Performed By: #### C VDTB #### [facility] [id number] Nayana Tolentino Vital Signs Date Time Vital Sign Value Performing Clinician Facility 11-27-2024 13:28-0400 Body mass index (BMI) [Ratio] 18.56 kg/m2 [facility] 11-27-2024 13:28-0400 Body weight 49.04 kg Elvis Ob [facility] 11-27-2024 13:28-0400 Diastolic blood pressure 70 mm[Hg] Elvis Ob [facility] 11-27-2024 13:28-0400 Systolic blood pressure 100 mm[Hg] Elvis Ob [facility] 08-26-2024 14:02-0400 Body mass index (BMI) [Ratio] 17.47 kg/m2 Daniela Elvis DO Work Phone: [facility] 08-26-2024 14:02-0400 Body weight 46.15 kg Daniela Elvis DO Work Phone: [facility] 08-26-2024 14:02-0400 Diastolic blood pressure 62 mm[Hg] Daniela Elvis DO Work Phone: [facility] 08-26-2024 14:02-0400 Systolic blood pressure 104 mm[Hg] [facility] 08-06-2024 13:41-0400 Body height 162.6 cm Scot Dalton MD Work Phone: [facility] 08-06-2024 13:41-0400 Body mass index (BMI) [Ratio] 17.34 kg/m2 Scot Dalton MD Work Phone: [facility] 08-06-2024 13:41-0400 Body temperature 97.81 [degF] Scot Dalton MD Work Phone: [facility] 08-06-2024 13:41-0400 Body weight 45.81 kg Scot Dalton MD Work Phone: [facility] 08-06-2024 13:41-0400 Diastolic blood pressure 40 mm[Hg] Scot Dalton MD Work Phone: [facility] 08-06-2024 13:41-0400 Heart rate 112 /min Scot Dalton MD Work Phone: [facility] 08-06-2024 13:41-0400 Respiratory rate 20 /min Scot Dalton MD Work Phone: [facility] 08-06-2024 13:41-0400 SaO2% (BldA) [Mass fraction] 98 % Scot Dalton MD Work Phone: [facility] 08-06-2024 13:41-0400 Systolic blood pressure 110 mm[Hg] Scot Dalton MD Work Phone: [facility] 07-03-2024 14:39-0500 Body height 162.6 cm Scot Dalton MD Work Phone: [facility] 07-03-2024 14:39-0500 Body mass index (BMI) [Ratio] 17.68 kg/m2 Scot Dalton MD Work Phone: [facility] 07-03-2024 14:39-0500 Body temperature 97.5 [degF] Scot Dalton MD Work Phone: [facility] 07-03-2024 14:39-0500 Body weight 46.72 kg Scot Dalton MD Work Phone: [facility] 07-03-2024 14:39-0500 Diastolic blood pressure 42 mm[Hg] Scot Dalton MD Work Phone: [facility] 07-03-2024 14:39-0500 Heart rate 101 /min Scot Dalton MD Work Phone: [facility] 07-03-2024 14:39-0500 Respiratory rate 22 /min Scot Dalton MD Work Phone: [facility] 07-03-2024 14:39-0500 SaO2% (BldA) [Mass fraction] 99 % Scot Dalton MD Work Phone: [facility] 07-03-2024 14:39-0500 Systolic blood pressure 98 mm[Hg] Scot Dalton MD Work Phone: [facility] 09-17-2020 18:02-0400 Body height 162.99 cm [facility] 09-17-2020 18:02-0400 Body mass index (BMI) [Ratio] 17.1 kg/m2 STAFF, [facility] 09-17-2020 18:02-0400 Body weight 45.55 kg STAFF, [facility] 09-17-2020 17:56-0400 Body temperature 98.6 [degF] STAFF, [facility] 09-17-2020 17:56-0400 Diastolic blood pressure 60 mm[Hg] STAFF, [facility] 09-17-2020 17:56-0400 Heart rate 94 /min STAFF, [facility] 09-17-2020 17:56-0400 Respiratory rate 16 /min STAFF, [facility] 09-17-2020 17:56-0400 SaO2% (BldA) [Mass fraction] 95 % STAFF, [facility] 09-17-2020 17:56-0400 Systolic blood pressure 109 mm[Hg] STAFF, [facility] Encounters Encounter Date Encounter Type Care Provider Facility Start: 12-18-2024 End: 12-19-2024 Telephone encounter Pat Gray MA [facility] Start: 12-01-2024 End: 12-01-2024 Clinisync Result Encounter Generic External Data Provider [facility] Unsolicited Start: 12-01-2024 End: 12-01-2024 Clinisync Result Encounter Generic External Data Provider [facility] Unsolicited Start: 11-27-2024 End: 11-27-2024 Office outpatient visit 5 minutes Elvis Nurse [facility] Comment on above: GA: 9w4d Start: 11-27-2024 End: 11-27-2024 ambulatory SCOT LOGANR Not Available Start: 08-26-2024 End: 08-26-2024 Bamboo flowsheet Daniela Elvis DO Work Phone: [facility] Start: 08-26-2024 End: 08-27-2024 Bamboo flowsheet Daniela Elvis DO Work Phone: [facility] Start: 08-26-2024 End: 08-27-2024 Clinisync Result Encounter Generic External Data Provider [facility] External [facility] Unsolicited Start: 08-26-2024 End: 08-27-2024 External Result Encounter Daniela Leal DO Work Phone: [facility] Unsolicited Start: 08-26-2024 End: 08-26-2024 Office outpatient visit 15 minutes Daniela Fordeo DO Work Phone: [facility] Comment on above: STD exposure; Vaginal discharge; Sexually transmitted disease exposure Start: 08-26-2024 End: 08-26-2024 ambulatory DANIELA FORDEO Not Available Start: 08-06-2024 End: 08-06-2024 Bamboo flowsheet Scot Dalton MD Work Phone: [facility] Start: 08-06-2024 End: 08-06-2024 Bamboo flowsheet Scot Dalton MD Work Phone: [facility] Start: 08-06-2024 End: 08-06-2024 Office outpatient visit 25 minutes Scot Dalton MD Work Phone: [facility] Comment on above: Generalized anxiety disorder (CMS/HCC) (Primary Dx); Psychophysiological insomnia; Postural orthostatic tachycardia syndrome (POTS); Other viral warts; Increased sensitivity to painful stimulus Start: 08-06-2024 End: 08-06-2024 ambulatory SCOT DALTON Not Available Start: 07-03-2024 End: 07-03-2024 ambulatory SCOT DALTON Not Available Start: 07-03-2024 End: 07-03-2024 Office outpatient visit 25 minutes Scot Dalton MD Work Phone: [facility] Comment on above: Generalized anxiety disorder (CMS/HCC) (Primary Dx); Postural orthostatic tachycardia syndrome (POTS); Psychophysiological insomnia Start: 07-03-2024 End: 07-03-2024 Bamboo flowsheet Scot Dalton MD Work Phone: [facility] Start: 07-03-2024 End: 07-03-2024 Bamboo flowsheet Scot Dalton MD Work Phone: [facility] Start: 06-23-2024 End: 06-27-2024 Clinisync Result Encounter Generic External Data Provider [facility] External Department Unsolicited Start: 06-23-2024 End: 06-27-2024 Clinisync Result Encounter Generic External Data Provider [facility] External [facility] Unsolicited Start: 05-05-2024 End: 05-05-2024 ambulatory DANIELA ELVIS [...] Data Provider [facility] Unsolicited Start: 06-15-2023 Bamboo flowsheet Scot Dalton MD Work Phone: [facility] Start: 06-15-2023 Bamboo flowsheet Scot Dalton MD Work Phone: [facility] Start: 04-20-2022 End: 04-20-[address] SCOT DALTON Facility:[facility] Start: 11-28-2021 End: 11-28-[address] SCOT DALTON Facility:[facility] Start: 04-26-2021 End: 04-26-[address] SCOT DALTON Facility:[facility] Start: 09-17-2020 End: 09-17-2020 Emergency department patient visit STAFF, [facility] Procedures Date Procedure Procedure Detail Performing Clinician Start: 12-01-2024 BOX TEST Daniela Fazi o DO Work Phone: Start: 11-27-2024 End: 11-27-2024 Urnls dip stick/tablet rgnt non-auto w/o micrscp Daniela Leal [place] Work Phone: Start: 08-26-2024 HIV AB/P24 AG WITH REFLEX Daniela Leal [place] Work Phone: Start: 08-26-2024 RECURRENT VAGINITIS (HTRX) Daniela Leal [place] Work Phone: Start: 06-23-2024 UPPER RESPIRATORY CULTURE Generic External Data Provider Start: 05-05-2024 IUD REMOVAL Daniela hargrove [place] Work Phone: Start: 01-20-2024 Bacteria identified in Urine by Culture Generic External Data Provider Plan of Treatment Date Care Activity Detail Author Start: 01-12-2025 Influenza vaccination [facility] Start: 12-29-2024 End: 12-29-2024 Patient encounter procedure [facility] Start: 11-27-2024 End: 11-27-2025 ABO/Rh ABO/Rh Lab Routine Missed menses , unspecified gestational age ([facility]) Expected: 11/27/2024 (Approximate), Expires: 11/27/2025 [facility] Comment on above: Expected: 11/27/2024 (Approximate), Expires: 11/27/2025 Start: 11-27-2024 End: 11-27-2025 Blood type and Indirect antibody screen panel - Blood Type and screen Lab Routine Missed menses , unspecified gestational age ([facility]) Expected: 11/27/2024 (Approximate), Expires: 11/27/2025 [facility] Work Phone: Comment on above: Expected: 11/27/2024 (Approximate), Expires: 11/27/2025 Start: 11-27-2024 End: 11-27-2025 Drugs of abuse panel - Urine by Screen method Rapid drug screen, urine Lab Routine , unspecified gestational age ([facility]) Encounter for supervision of normal first in first trimester ([facility]) Expected: 11/27/2024 (Approximate), Expires: 11/27/2025 [facility] Comment on above: Expected: 11/27/2024 (Approximate), Expires: 11/27/2025 Start: 10-07-2024 End: 10-07-2024 Patient encounter procedure 10/07/2024 1:45 PM EDT Office Visit [facility] [address] [place] [address] Scot Dalton MD [address] [place] [phone] [facility] Start: 08-26-2024 End: 08-26-2024 Patient encounter procedure 08/26/2024 1:40 PM EDT Office Visit [facility] [address] [place] [address] Daniela Leal DO [address] [place] [address] Arrived [facility] Comment on above: Arrived Start: 08-06-2024 End: 08-06-2024 Patient encounter procedure [facility] Comment on above: Arrived Start: 01-29-2024 End: 01-29-2024 Patient encounter procedure 01/29/2024 1:45 PM EDT Office Visit [facility] [address] [place] [phone] Scot Dalton MD [address] [place] [phone] [facility] Start: 01-13-2024 Influenza vaccination Influenza Vacc ine (#1) [facility] Start: 06-15-2023 End: 06-15-2023 Patient encounter procedure 06/15/2023 9:00 AM EST Office Visit [facility] [address] [place] [phone] Scot Dalton MD [address] [place] [phone] Arrived [facility] Comment on above: Arrived Start: 01-12-2023 Influenza vaccination Influenza Vacc ine (#1) [facility] Bacteria identified in Urine by Culture URINE CULTURE, ROUTINE Lab Routine 01/20/2024 2:00 PM EDT [facility] Bacteria identified in Urine by Culture Urine culture Microbiology Routine Missed menses Ordered: 11/27/2024 [facility] Comment on above: Ordered: 11/27/2024 CBC W Auto Different ial panel - Blood CBC and differential Lab Routine Missed menses , unspecified gestational age ([facility]) Ordered: 11/27/2024 [facility] Comment on above: Ordered: 11/27/2024 Hemoglobin A1c/Hemoglobin.total in Blood Hemoglobin A1c Lab Routine Missed menses , unspecified gestational age ([facility]) Ordered: 11/27/2024 [facility] Comment on above: Ordered: 11/27/2024 Hepatitis B virus surface Ag [Presence] in Serum or Plasma by Immunoassay Hepatitis B surface antigen Lab Routine Sexually transmitted disease exposure Ordered: 08/26/2024 [facility] Comment on above: Ordered: 08/26/2024 Hepatitis B virus surface Ag [Presence] in Serum or Plasma by Immunoassay Hepatitis B surface antigen Lab Routine Missed menses , unspecified gestational age ([facility]) Ordered: 11/27/2024 [facility] Comment on above: Ordered: 11/27/2024 Hepatitis C virus Ab [Presence] in Serum or Plasma by Immunoassay Hepatitis C antibody Lab Routine Missed menses , unspecified gestational age ([facility]) Ordered: 11/27/2024 [facility] Comment on above: Ordered: 11/27/2024 HIV-1/HIV-2 antigen/antibody combination immunoassay HIV-1 and HIV-2 antibodies Lab Routine Sexually transmitted disease exposure Ordered: 08/26/2024 [facility] Work Phone: Comment on above: Ordered: 08/26/2024 HIV-1/HIV-2 antigen/antibody combination immunoassay HIV-1 and HIV-2 antibodies Lab Routine Missed menses , unspecified gestational age ([facility]) Ordered: 11/27/2024 [facility] Comment on above: Ordered: 11/27/2024 Patient Education Contusion in C karyn (ED) [facility] Patient referral [facility] Reagin Ab [Presence] in Serum by RPR RPR Lab Routine Sexually transmitted disease exposure Ordered: 08/26/2024 [facility] Comment on above: Ordered: 08/26/2024 Reagin Ab [Presence] in Serum by RPR RPR Lab Routine Missed menses , unspecified gestational age ([facility]) Ordered: 11/27/2024 [facility] Comment on above: Ordered: 11/27/2024 Rubella antibody, IgG Rubella an tibody, IgG Lab Routine Missed menses , unspecified gestational age ([facility]) Ordered: 11/27/2024 [facility] Comment on above: Ordered: 11/27/2024 Immunizations Immunization Date Immunization Notes Care Provider Fa [facility] 07-03-2017 influenza virus vacc ine, unspecified formulation Scot Dalton MD Work Phone: [facility] Payers Date Payer Category Payer Medicaid [employer] [place] [employer] [id number] 2019-Present [address] [place] [phone] [id number] 2019 Medicaid (Managed Care) [employer] [id number] 2004 Unknown [id number] 2004 Unknown [id number] 2004 Unknown [id number] 9 2004 Unknown [id number] 1259 2004 Unknown [id number] 1259 2004 Unknown [id number]. 1259 1986 Unknown [id number]. 593 1962 Unknown [id number]. 593 1962 Unknown [id number] 593 1959 Unknown [id number] Self-pay Self Pay [id number] Unknown Self Pay [id number] Social History Date Type Detail Facility Start: 09-17-2020 End: 06-15-2023 Tobacco smoking status MEIS Never smoked tobacco (finding) [facility] Start: 2005 Sex Assigned At Female F [facility] Start: 06-13-2023 End: 11-27-2024 Alcohol intake Lifetime non-drinker (finding) [facility] [...] to any clubs or organizations such as confucianist groups, unions, fraternal or athletic groups, or [...] to buy more. Never true [facility] Start: 10-05-2024 [facility] Goals Date Patient Goal Desired Activity /State Clinical Notes 04-09-2024 to 12-18-2024 Telephone Encounter - Pat Gray MA - 12/18/2024 1:31 PM EDTTelephone Encounter - Pat Gray MA - 12/18/2024 1:31 PM EDTCbetty Santos LPN - 11/27/2024 1:00 PM EDT Note Date & Type Note Facility 12-18-2024 Telephone encounter Note Pt called office wanting to know if there was a way to test her for cystic fibrosis. Per damian we would need to ask Dr. eLal how he would like to do this. Pt informed and will await call. Please advise [facility] 12-18-2024 Miscellaneous Notes Pt called office wanting to know if there was a way to test her for cystic fibrosis. Per damian we would need to ask Dr. Leal how he would like to do this. Pt informed and will await call. Please advise documented in this encounter [facility] 11-27-2024 History of Present illness Narrative Reason for Appointment: Patient ID: Edmund Rehman is a 18 y.o. female who presents for Amenorrhea Patient presents today for a Nurse OB Intake appointment. Patient is 9w4d with a Estimated Date of Delivery: 06/28/25 OB History Para Term AB Living 1 SAB IAB Ectopic Multiple Live Births # Outcome Date GA Lbr Alfredo/2nd Weight Sex Type Anes PTL Lv 1 Current Current Medications: has a current medication list which includes the following prescription(s): sertraline, ondansetron odt, ondansetron odt, and vitamins. Medical History: Active Ambulatory Problems Diagnosis Date Noted Acne vulgaris 06/15/2023 Generalized anxiety disorder 06/15/2023 Herpes labialis 06/15/2023 Other viral warts 10/10/2023 Increased sensitivity to painful stimulus 10/10/2023 Postural orthostatic tachycardia syndrome (POTS) 11/06/2023 Psychophysiological insomnia 07/03/2024 Resolved Ambulatory Problems Diagnosis Date Noted Abnormal uterine bleeding 06/15/2023 Hypertrophy of tonsils 06/15/2023 Acute non-recurrent pansinusitis 06/15/2023 Inguinal lymphadenopathy 11/06/2023 Bacterial vaginitis 11/06/2023 Past Medical History: Diagnosis Date Abnormal uterine bleeding (AUB) Allergic rhinitis, mild ALYCE (generalized anxiety disorder) Herpes Hypertrophy of tonsil POTS (postural orthostatic tachycardia syndrome) Tonsil stone Family History Problem Relation Name Age of Onset Liver cancer Father Social History Tobacco Use Smoking status: Never Smokeless tobacco: Never Substance Use Topics Alcohol use: Never Comment: Caffeine: 1-2 cups per day Drug use: Not on file Past Surgical History: Procedure Laterality Date EYE SURGERY x2 Allergies Allergen Reactions Bismuth Subsalicylate GI intolerance Vitals: Estimated body mass index is 18.56 kg/m as calculated from the following: Height as of 08/06/24: 5' 4 . Weight as of this encounter: 108 lb 1.9 oz. BP: 100/70 Patient's last menstrual period was 09/21/2024. Assessment/Plan Diagnoses and all orders for this visit: Herpes labialis Other viral warts Missed menses - Type and screen; Future - ABO/Rh; Future - CBC and differential - Hemoglobin A1c - RPR - Rubella antibody, IgG - Hepatitis B surface antigen - Hepatitis C antibody - HIV-1 and HIV-2 antibodies - Urine culture - POCT , urine manually resulted - POCT urinalysis dipstick manually resulted - Vit-Fe Fumarate-FA ( Vitamins) 28-0.8 MG tablet; Take 1 tablet by mouth Daily , unspecified gestational age ([facility]) - Type and screen; Future - ABO/Rh; Future - CBC and differential - Hemoglobin A1c - RPR - Rubella antibody, IgG - Hepatitis B surface antigen - Hepatitis C antibody - HIV-1 and HIV-2 antibodies - Rapid drug screen, urine; Future Encounter for supervision of normal first in first trimester ([facility]) - Rapid drug screen, urine; Future Nausea - ondansetron ODT (Zofran-ODT) 4 MG disintegrating tablet; Take 1 tablet (4 mg) by mouth every 6 (six) hours if needed for nausea or vomiting Nurse Note: OB Intake: Patient presents today for first OB visit. Patients history has been reviewed in great detail including any potential risks. Patient signed consent forms and patient desires testing in both trimesters. Patient currently has no complaints and has been advised to drink 6-8 glasses of water a day, eat no raw or undercooked meat, and stay away from [facility]. Patient has also been advised to not change litter boxes and eat 6 small meals a day. Patient has been consulted regarding the do's and don'ts of . Patient was given labs and all questions and concerns were answered. Patient given [place] to have completed with Initial Labs. Patient given script for Zofran and vitamins. Follow Up: Patient is to return in 4 weeks for routine OB appointment. Follow Up: Patient is to have labs drawn at directed and return to office for initial OB appointment with provider. Patient may call office as needed with any concerns or questions. Nurse Visit Completed by: Jamison Santos LPN documented in this encounter [facility] 08-26-2024 History of Present illness Narrative Reason for Appointment: Patient ID: Edmund Rehman is a 18 y.o. female who presents for STI Screening Patient presents today for STD Check. MEDICATIONS Current Outpatient Medications Medication Instructions cetirizine (ZYRTEC) 10 mg, Oral, Daily fludrocortisone (FLORINEF) 0.1 mg, Oral, Daily ondansetron ODT (Zofran-ODT) 4 MG disintegrating tablet DISSOLVE 1 TABLET IN MOUTH EVERY 6 HOURS NEEDED FOR NAUSEA AND VOMITING sertraline (ZOLOFT) 50 mg, Oral, Daily traZODone (DESYREL) 50 mg, Oral, Nightly ALLERGIES Allergies Allergen Reactions Bismuth Subsalicylate GI intolerance PROBLEMS Active Ambulatory Problems Diagnosis Date Noted Acne vulgaris 06/15/2023 Generalized anxiety disorder (CMS/HCC) 06/15/2023 Herpes labialis 06/15/2023 Other viral warts 10/10/2023 Increased sensitivity to painful stimulus 10/10/2023 Postural orthostatic tachycardia syndrome (POTS) 11/06/2023 Psychophysiological insomnia 07/03/2024 Resolved Ambulatory Problems Diagnosis Date Noted Abnormal uterine bleeding 06/15/2023 Hypertrophy of tonsils 06/15/2023 Acute non-recurrent pansinusitis 06/15/2023 Inguinal lymphadenopathy 11/06/2023 Bacterial vaginitis 11/06/2023 Past Medical History: Diagnosis Date Abnormal uterine bleeding (AUB) Allergic rhinitis, mild ALYCE (generalized anxiety disorder) (CMS/HCC) Herpes Hypertrophy of tonsil POTS (postural orthostatic tachycardia syndrome) Tonsil stone HISTORY PAST MEDICAL HISTORY SOCIAL HISTORY Past Medical History: Diagnosis Date Abnormal uterine bleeding (AUB) Acne vulgaris Allergic rhinitis, mild ALYCE (generalized anxiety disorder) (CMS/HCC) Herpes Hypertrophy of tonsil POTS (postural orthostatic tachycardia syndrome) Tonsil stone Social History Tobacco Use Smoking status: Never Smokeless tobacco: Never Substance Use Topics Alcohol use: Never Comment: Caffeine: 1-2 cups per day Drug use: Not on file FAMILY HISTORY Family History Problem Relation Name Age of Onset Liver cancer Father SURGICAL HISTORY Past Surgical History: Procedure Laterality Date EYE SURGERY x2 REVIEW OF SYSTEMS Review of Systems: Review of Systems Constitutional: Negative. HENT: Negative. Eyes: Negative. Respiratory: Negative. Cardiovascular: Negative. Gastrointestinal: Negative. Genitourinary: Negative. Musculoskeletal: Negative. Skin: Negative. Neurological: Negative. All other systems reviewed and are negative. Hematological: Negative. Endocrine: Negative. Allergic/Immunologic: Negative. OBJECTIVE Objective: Physical Exam Constitutional: Appearance: Normal [...] nursing note reviewed. Exam conducted with a infection control practitioner present. Vitals: Estimated body mass index is 17.47 kg/m as calculated from the following: Height as of 08/06/24: 5' 4 . Weight as of this encounter: 101 lb 12 oz. BP: 104/62 No LMP recorded. Patient has had an implant. ASSESSMENT & PLAN ICD-10-CM 1. STD exposure Z20.2 2. Vaginal discharge N89.8 Pt presents for STD check from an nonconsensual intercourse- cultures obtained and std labs given. Documented by Carmita Gerardo LPN on behalf of: Daniela Leal DO documented in this encounter [facility] 08-06-2024 History of Present illness Narrative Associated Problem(s): Other viral warts Used liquid nitrogen to perform 3 freeze thaw cycles and patient tolerated well. Warned will form blister and likely will take multiple treatments. If develop new or worsening symptoms call. Associated Problem(s): Psychophysiological insomnia Sleeping well with trazodone and continue. Associated Problem(s): Postural orthostatic tachycardia syndrome (POTS) Symptoms improved with florinef and continue. Increase water and salt intake. Associated Problem(s): Generalized anxiety disorder (CMS/HCC) Symptoms improved but still present and increase zoloft. Warned will take 2-3 weeks to notice improvement in mood. Images from the original note were not included. Subjective Patient ID: Edmund Rehman is a 18 y.o. female who presents for Follow-up. Follow up anxiety, insomnia, and POTS. Patient improved today. Started zoloft and anxiety better. Not as stressed out or overwhelmed. Not as nervous or worry as much. Not as wan or irritable. Still symptoms and room for improvement. Sleeping well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
--- OUTSIDE RECORDS SUMMARY | 2024-12-26 20:35 | XMS_ITS ---
Author Organization [employer] Source Produ ction (ClinicalSummary Clone) Address Unknown Care Team Providers Care [employer] Hcm Developer Name Role Phone Unavailable Primary Care Physician Unavailab le Results * [UNITY] ANEUPLOIDY NIPT Performed by: Survature Component Value Range Date Fraction 12.5% 12/09/2024 02 :56 am UT Rh(D) NIPT RhD DETECTED 12/09/2024 02:5 6 am UT Sex Chromosome Aneuploidy NOT DETECTED 02:56 am UTC Monosomy X LOW RISK <1 in 10,000 2024 02:56 am UTC Trisomy 13 LOW RISK <1 in 10,000 2024 02:56 am UTC Trisomy 18 LOW RISK <1 in 10,000 2024 02:56 am UTC Trisomy 21 LOW RISK <1 in 10,000 2024 02:56 am UTC Sex MALE 12/09/2024 02:5 6 am UTC Gestation FRASER 12/10/19 02:56 am UT For detailed report, see PDF See PDF 12/09/2024 02:56 am UTC 12/09/2024 02:5 6 am UT Social History Observation Value Start Date End Date
--- OUTSIDE RECORDS SUMMARY | 2024-12-26 20:35 | XMS_ITS | Encounter Summary ---
Author Organization [facility] Address [address] [facility] [place] [address] Care Team Providers Care Endoscopy Technician Name Role Phone Scot Block MD Primary Care Provider [phone] Scot Block MD Unavailable Encounter Details Date Type Department Care Team (Late st Contact Info) Description 12/18/2024 Telephone [facility] [address] [place] [address] [place] [address] Pat Gray MA Social History Tobacco Use Types Packs/Day Years Used Date Smoking Tobacco: Never Smokeless Tobacco: Never Alcohol Use Standard Drinks/Week Comments Never 0 (1 standard drink = 0.6 oz pur e alcohol) Caffeine: 1-2 cups per day B1300 Health Literacy Answer Date Recor ded How often do you need to hav e someone help you when you read instructions, pamphlets, or other written material from your doctor or pharmacy? Never 11/06/2023 Social Connection and Isolat ion Panel [NHANES] Answer Date Recorded In a typical week, how many times do you talk on the phone with family, friends, or neighbors? More than three times a week 11/06/2023 How often do you get togethe r with friends or relatives? Three times a week 11/06/2023 How often do you attend chur or baptist services? 1 to 4 times per year 11/06/2023 Do you belong to any clubs o r organizations such as yazidi groups, unions, fraternal or athletic groups, or school groups? No 11/06/2023 How often do you attend meet ings of the clubs or organizations you belong to? Never 11/06/2023 Are you , , di vorced, , never , or living with a partner? Never 11/06/2023 AUDIT-C Answer Date Recorded Q1: How often do you have a drink containing alcohol? Never 11/06/2023 Q2: How many drinks containi ng alcohol do you have on a typical day when you are drinking? Patient does not drink Q3: How often do you have si x or more drinks on one occasion? Never 11/06/2023 Overall Financial Resource Strain (CARDIA) Answe r Date Recorded How hard is it for you to pa y for the very basics like food, housing, medical care, and heating? Not hard at all 11/06/2023 PHQ-2 Answer Date Recorded Patient Health Questionnaire-2 Score 0 06/15/2023 [facility] - Occupational Stress Questionnaire Answer Date Recorded Do you feel stress - tense, restless, nervous, or anxious, or unable to sleep at night because your mind is troubled all the time - these days? Rather much 11/06/2023 Exercise Vital Sign Answer Date Recorde d On average, how many days pe r week do you engage in moderate to strenuous exercise (like a brisk walk)? 2 days 11/06/2023 On average, how many minutes do you engage in exercise at this level? 60 min 11/06/2023 Hunger Vital Sign Answer Date Recorded Within the past 12 months, y ou worried that your food would run out before you got the money to buy more. Never true 11/06/19 24 Within the past 12 months, t he food you bought just didn't last and you didn't have money to get more. Never true 11/06/2023 PRAPARE - Transportation Answer Date Re corded In the past 12 months, has l ack of transportation kept you from medical appointments or from getting medications? No 10/13 In the past 12 months, has l ack of transportation kept you from meetings, work, or from getting things needed for daily living? No 11/06/2023 Housing Stability Vital Sign Answer Arslan e Recorded In the last 12 months, was t here a time when you were not able to pay the mortgage or rent on time? No 11/06/2023 Number of Times Moved in the Last Year Not on fi le 11/06/2023 At any time in the past 12 m [facility], were you homeless or living in a mcc (including now)? No 11/06/2023 Estimated Date of Delivery Comme nts Yes 06/28/2025 Based on last me nstrual period of 09/21/2024 Sex and Gender Information Value Date Recorded Sex Assigned at Not on file Legal Sex Female 11:36 PM EDT Gender Identity Not on file Sexual Orientation Not on file documented as of this encounter Miscellaneous Notes * Telephone Encounter - Pat Gray MA - 12/18/2024 1:31 PM EDT Pt called office wanting to know if there was a way to test her for cystic fibrosis. Per damian we would need to ask Dr. Leal how he would like to do this. Pt informed and will await call. Please advise documented in this encounter Plan of Treatment Upcoming Encounters Date Type Department Care Team (Late st Contact Info) Description 12/29/2024 3:20 PM EDT Routine [facility] [address] [place] [phone] Armin Leal, [address] [address] [place], [place] [id number] documented as of this encounter Visit Diagnoses Not on filedocumented in this encounter Care Teams Endoscopy Technician Relationship Specialty Start Date End Date Scot Block MD [address] [place] [address] PCP - General Family Medicine 06/13/23 Scot Block MD [address] [place] [address] [facility] 11/12/23 documented as of this encounter
--- OUTSIDE RECORDS SUMMARY | 2024-12-26 20:36 | XMS_ITS | Encounter Summary ---
Author Organization [facility] Address [address] [facility] [place] [address] Care Team Providers Care Library Clerk Name Role Phone Scot Block MD Primary Care Provider [phone] Scot Block MD Unavailable Encounter Details Date Type Department Care Team (Late st Contact Info) Description 04/24/2024 Clinisync Result Encounter [facility] External Department Unsolicited Armin Leal, DO [address] [facility] [place] [address] Social History Tobacco Use Types Packs/Day Years [...] week 11/06/2023 How often do you attend [facility] or bahai services? 1 to 4 times per year 11/06/2023 Do you belong to any clubs o r organizations such as gnosticism groups, unions, fraternal or athletic groups, or [...] Recorded Patient Health Questionnaire-2 Score 0 06/15/2023 [facility] of Occupat ional [facility] - Occupational Stress Questionnaire Answer Date Recorded [...] any time in the past 12 m onths, were you homeless or living in a fci (including now)? No 11/06/2023 Comments No Sex and Gender Information Value Date Recorded Sex Assigned at Not on file Legal Sex Female 11:36 PM EDT Gender Identity Not on file Sexual Orientation Not on file documented as of this encounter Plan of Treatment Upcoming Encounters Date Type Department Care Team (Late st Contact Info) Description 12/29/2024 3:20 PM EDT Routine [facility] [address] [facility] [place] [address] Armin Leal DO [address] [facility] [place] [address] documented as of this encounter Procedures Procedure Name Priority Date/Time Associated Diagnosis Comments US PELVIS TRANSVAGINAL 04/24/2024 4:59 AM EST documented in this encounter Results * US PELVIS TRANSVAGINAL (04/24/2024 4:59 AM EST) Anatomical Region Laterality Modality Other 04/24/2024 4:59 AM EST Narrative 04/24/2024 5:02 AM EST The [address] [address] Ultrasound Report Signed Patient: OTTO HOSKINS MR#: [id number] : 2005 Acct:[id number] Age/Sex: 18 / F ADM Date: 04/23/24 Loc: US Attending Dr: Armin Leal D.O. Ordering Physician: Armin Leal D.O. Date of Service: 04/23/24 Procedure(s): US pelvis transvaginal Accession Number(s): [id number] cc: Armin Leal D.O.; Scot Block M.D. The [place] [id number] Patient Name: OTTO HOSKINS MRN: [id number] date: 2005 Sex: F Assigned Patient Location: US Current Patient Location: Accession/Order Number: [id number] Exam Date: 04/23/2024 09:00 Report Date: 04/24/2024 04:59 At the request of: ARMIN LEAL Procedure: US pelvis transvaginal EXAMINATION: US pelvis transvaginal HISTORY: Pelvic Pain In Female, Surveillance For Control Device COMPARISON: CT abdomen pelvis 01/20/2024 TECHNIQUE: Transabdominal and/or transvaginal sonographic examination was performed as indicated by examination type. FINDINGS: UTERUS: Normal size and appearance. Uterus size: 7.2 x 4.4 x 5.0 cm. ENDOMETRIUM: Normal homogeneous appearance. IUD within endometrial cavity. Endometrial thickness: 5 mm RIGHT OVARY: Normal size and appearance. Duplex Doppler demonstrates normal waveform and flow; resistive index 0.6. Ovary size: 3.8 x 1.4 x 1.6 cm LEFT OVARY: Normal size and appearance. Duplex Doppler demonstrates normal waveform and flow; resistive index 0.4. Ovary size: 2.7 x 1.3 x 1.5 cm CUL-DE-SAC: Unremarkable. No significant free fluid. BLADDER: Unremarkable. OTHER: None. US/US pelvis transvaginal IMPRESSION: 1. IUD is present within the endometrial cavity; no suspicious findings. 2. No acute or suspicious findings to account for patient's symptoms. Electronically authenticated by: AYO BEAULIEU Date: 04/24/2024 04:59 Dictated By: Ayo Beaulieu M.D. Signed By: 04/24/24 0502 DD/ 0459 TD/TT: Electric Trucker: Procedure Note Radiology, Radiologist, - 04/24/2024 [place] [address] Ultrasound Report Signed Patient: OTTO HOSKINS JMR#: [id number] : 2005Acct:[id number] Age/Sex: 18 / FADM Date: 04/23/24 Loc: US Attending Dr: Armin Leal D.O. Ordering Physician: Armin Leal D.O. Date of Service: 04/23/24 Procedure(s): US pelvis transvaginal Accession Number(s): [id number] cc: Armin Leal D.O.; Scot Block M.D. [place] [address] Patient Name: OTTO HOSKINS MRN: [id number] date: 2005 Sex: F Assigned Patient Location: US Current Patient Location: Accession/Order Number: [id number] Exam Date: 04/23/2024 09:00 Report Date: 04/24/2024 04:59 At the request of: ARMIN LEAL Procedure: US pelvis transvaginal EXAMINATION: US pelvis transvaginal HISTORY: Pelvic Pain In Female, Surveillance For Control Device COMPARISON: CT abdomen pelvis 01/20/2024 TECHNIQUE: Transabdominal and/or transvaginal sonographic examination was performed as indicated by examination type. FINDINGS: UTERUS: Normal size and appearance. Uterus size: 7.2 x 4.4 x 5.0 cm. ENDOMETRIUM: Normal homogeneous appearance. IUD within endometrial cavity. Endometrial thickness: 5 mm RIGHT OVARY: Normal size and appearance. Duplex Doppler demonstratesnormal waveform and flow; resistive index 0.6. Ovary size: 3.8 x 1.4 x 1.6 cm LEFT OVARY: Normal size and appearance. Duplex Doppler demonstrates normal waveform and flow; resistive index 0.4. Ovary size: 2.7 x 1.3 x 1.5 cm CUL-DE-SAC: Unremarkable. No significant free fluid. BLADDER: Unremarkable. OTHER: None. US/US pelvis transvaginal IMPRESSION: 1. IUD is present within the endometrial cavity; no suspicious findings. 2. No acute or suspicious findings to account for patient's symptoms. Electronically authenticated by: AYO BEAULIEU Date: 04/24/2024 04:59 Dictated By: Ayo Beaulieu M.D. Signed By:04/24/24 0508 DD/ 0459 TD/TT: Electric Trucker: us Armin Elvis DO [facility] Final Result documented in this encounter Visit Diagnoses Not on filedocumented in this encounter Care Teams Library Clerk Relationship Specialty Start Date End Date Scot Block MD [address] [place] [phone] PCP - General Family Medicine 06/13/23 Scot Block MD [address] [place] [address] PCP - [facility] 11/12/23 documented as of this encounter
--- OUTSIDE RECORDS SUMMARY | 2024-12-26 20:36 | XMS_ITS | Encounter Summary ---
Author Organization [facility] Address [address] [facility] [address] [place] [address] Care Team Providers Care Conference Manager Name Role Phone Scot Block MD Primary Care Provider [phone] Scot Block MD Unavailable Encounter Details Date Type Department Care Team (Late st Contact Info) Description 12/22/2024 Telephone [facility] [address] [place] [address] Nancy Montes LPN [address] [place] [address] Social History Tobacco Use Types Packs/Day Years [...] week 11/06/2023 How often do you attend [facility] or jain services? 1 to 4 times per year 11/06/2023 Do you belong to any clubs o r organizations such as caodaism groups, unions, fraternal or athletic groups, or [...] Recorded Patient Health Questionnaire-2 Score 0 06/15/2023 [facility] of Occupat ional [facility] - Occupational Stress Questionnaire Answer Date Recorded [...] any time in the past 12 m [facility], were you homeless or living in a detention (including now)? No 11/06/2023 Estimated Date of Delivery Comme nts Yes 06/28/2025 Based on last me nstrual period of 09/21/2024 Sex and Gender Information Value Date Recorded Sex Assigned at Not on file Legal Sex Female 11:36 PM EDT Gender Identity Not on file Sexual Orientation Not on file documented as of this encounter Miscellaneous Notes * Telephone Encounter - Nancy Montes LPN - 12/22/2024 9:24 AM EDT Called pt to let her know that we can do the testing for her and that I would get that ready for them to miner pick here in the office. PVU documented in this encounter Plan of Treatment Upcoming Encounters Date Type Department Care Team (Late st Contact Info) Description 12/29/2024 3:20 PM EDT Routine [facility] [address] [facility] [place] [address] Armin Leal DO [address] [facility] [address] [place] [address] documented as of this encounter Visit Diagnoses Not on filedocumented in this encounter Care Teams Conference Manager Relationship Specialty Start Date End Date Scot Block MD [address] [place] [address] PCP - General Family Medicine 06/13/23 Scot Block MD [address] [place] [address] [facility] 11/12/23 documented as of this encounter
--- OUTSIDE RECORDS SUMMARY | 2024-12-26 20:36 | XMS_ITS | Encounter Summary ---
Author Organization [facility] Address [address] [place] [address] Care Team Providers Care Database Marketing Manager Name Role Phone Scot Block MD Primary Care Provider [phone] Scot Block MD Unavailable Encounter Details Date Type Department Care Team (Late st Contact Info) Description 01/23/2024 Orders Only [facility] [address] [place] [address] Scot Block MD [address] [place] [address] Social History Tobacco Use Types Packs/Day Years [...] week 11/06/2023 How often do you attend [facility] or voodoo services? 1 to 4 times per year 11/06/2023 Do you belong to any clubs o r organizations such as shinto groups, unions, fraternal or athletic groups, or [...] 0 06/15/2023 [facility] - Occupational Stress Questionnaire Answer Date [...] any time in the past 12 m [facility], were you homeless or living in a retirement (including now)? No 11/06/2023 Comments No Sex [...] PM EDT Routine [facility] [address] [facility] [place] [address] Armin Leal DO [address] [facility] [place] [address] documented as of this encounter Procedures Procedure Name Priority Date/Time Associated Diagnosis Comments CT ABDOMEN & PELVIS W Routine 01/18/2024 10:46 AM EDT documented in this encounter Results * CT ABDOMEN & PELVIS W (01/18/2024 10:46 AM EDT) Anatomical Region Laterality Modality Radiographic Elida ging Scot Block MD IMG XR PROCEDURES Final Result documented in this encounter Visit Diagnoses Not on filedocumented in this encounter Care Teams Database Marketing Manager Relationship Specialty Start Date End Date Scot Block MD [address] [place] [address] PCP - General Family Medicine 06/13/23 Scot Block MD [address] [place] [address] PCP - [facility] 11/12/23 documented as of this encounter
--- OUTSIDE RECORDS SUMMARY | 2024-12-26 20:36 | XMS_ITS | Clinical Summary ---
Author Organization [facility] Address [address] [facility] [place] [address] Care Team Providers Care Head Paper Tester Name Role Phone Scot Block MD Primary Care Provider [phone] Scot Block MD Unavailable Allergies Active Allergy Reactions Criticality Noted Date Comments Bismuth Subsalicylate GI intolerance 02/05/2023 Medications ondansetron ODT (Zofran-ODT) 4 MG disintegrating tablet DISSOLVE 1 TABLET IN MOUTH EVERY 6 HOURS NEEDED FOR NAUSEA AND VOMITING 025 Active sertraline (Zoloft) 50 MG tabletIndications :Generalized anxiety disorder TAKE 1 TABLET BY MOUTH EVERY DAY 90 tablet 2 025 Active ondansetron ODT (Zofran-ODT) 4 MG disintegrating tabletIndications :Nausea Take 1 tablet (4 mg) by mouth every 6 (six) hours if needed for nausea or vomiting 30 tablet 2 025 2024 Active Vit-Fe Fumarate-FA ( Vitamins) 28-0.8 MG tabletIndications :Missed menses Take 1 tablet by mouth Daily 30 tablet 3 025 2025 Active cetirizine (ZyrTEC) 10 MG tabletIndications :Seasonal allergic rhinitis due to pollen Take 1 tablet (10 mg) by mouth Daily 30 tablet 5 024 2024 Discontinued traZODone (Desyrel) 50 MG tabletIndications :Psychophysiologi evan insomnia TAKE 1 TABLET BY MOUTH AT BEDTIME 90 tablet 2 025 2024 Discontinued fludrocortisone (Florinef) 0.1 MG tabletIndications :Postural orthostatic tachycardia syndrome (POTS) TAKE 1 TABLET BY MOUTH EVERY DAY 90 tablet 2 025 2024 Discontinued tretinoin (Retin-A) 0.01 % gelIndications:Ac ne vulgaris Apply topically at bedtime 45 g 5 025 2024 Discontinued Clindamycin Phos, Once-Daily, (Clindagel) 1 % gelIndications:Ac ne vulgaris Apply 1 Application topically Daily 75 mL 5 025 2024 Discontinued docusate sodium (Colace) 100 MG capsuleIndication s:Constipation, unspecified constipation type Take 1 capsule (100 mg) by mouth in the morning and 1 capsule (100 mg) before bedtime. 60 capsule 3 025 2024 Discontinued Active Problems Problem Noted Date Diagnosed Date Psychophysiological insomnia 07/03/2024 Assessment & Plan (08/06/2024 2:07 PM EDT): Sleeping well with trazodone and continue. Assessment & Plan (07/03/2024 2:54 PM EST): Not sleeping well due to anxiety. Try trazodone. Postural orthostatic tachycardia syndrome (POTS) 11/06/2023 Assessment & Plan (08/06/2024 2:06 PM EDT): Symptoms improved with florinef and continue. Increase water and salt intake. Assessment & Plan (07/03/2024 2:54 PM EST): Symptoms worse over past few months and add florinef. Increase water and salt intake. Assessment & Plan (11/06/2023 11:58 AM EDT): Symptoms worse over past few weeks and add midodrine. Increase water and salt intake. Other viral warts 10/10/2023 Assessment & Plan (08/06/2024 2:07 PM EDT): Used liquid nitrogen to perform 3 freeze thaw cycles and patient tolerated well. Warned will form blister and likely will take multiple treatments. If develop new or worsening symptoms call. Assessment & Plan (10/10/2023 12:35 PM EDT): Used liquid nitrogen to perform 3 freeze thaw cycles and patient tolerated well. Warned will form blister and likely will take multiple treatments. If develop new or worsening symptoms call. Increased sensitivity to painful stimulus 2023 Acne vulgaris 06/15/2023 Generalized anxiety disorder 06/15/2023 Assessment & Plan (08/06/2024 2:05 PM EDT): Symptoms improved but still present and increase zoloft. Warned will take 2-3 weeks to notice improvement in mood. Assessment & Plan (07/03/2024 2:54 PM EST): Severe symptoms and not functioning well. Start zoloft and warned will take 2-3 weeks to notice improvement in mood. Herpes labialis 06/15/2023 Estimated Date of Delivery Comme nts Yes 06/28/2025 Based on last me nstrual period of 09/21/2024 Resolved Problems Problem Noted Date Diagnosed Date Resolved Date Inguinal lymphadenopathy 11/06/2023 Assessment & Plan (11/06/2023 11:59 AM EDT): Appears to have enlarged lymph node and possibly related to BV. Treat and if persists will need to see [facility] for [facility]D check. Bacterial vaginitis 11/06/2023 07/03/19 Assessment & Plan (11/06/2023 11:59 AM EDT): C/o BV and treat with flagyl. Sexually active and unprotected intercourse. If no change need to see [facility] for STD check. Abnormal uterine bleeding 06/15/2023 Hypertrophy of tonsils 06/15/202311/05 Acute non-recurrent pansinusitis 06/15/2023 11/06/2023 Encounters Date Type Department Care Team Description 12/22/2024 Telephone [facility] [address] [phone] Nancy Montes LPN 12/18/2024 Telephone [facility] [address] [address] Pat Gray MA 12/17/2024 Abstract [facility] [address] [place] [address] Pat Gray MA 12/01/2024 Clinisync Result Encounter [facility] External Department Unsolicited Provider, Generic External Data 11/27/2024 1:00 PM EDT Initial [facility] [address] GA: [id number] 11/27/2024 12:30 PM EDT Ancillary Procedure [facility] [address] [address] Missed menses; Positive urine test ([facility]) 11/27/2024 Travel 11/13/2024 Telephone [facility] [address] [place] [phone] Scot Block MD 11/13/2024 Telephone [facility] [place] [address] [address] Armin Leal DO 11/04/2024 Telephone [facility] [address] [place] [phone] Scot Block MD Med Refill 10/30/2024 Refill [facility] [address] [place] [phone] Scot Block MD Postural orthostatic tachycardia syndrome (POTS) 10/27/2024 Telephone [facility] [address] [place] [phone] Scot Block MD 09/30/2024 Travel from Last 3 Months Family History Medical History Relation Name Comments Liver cancer Father Relation Name Status Comments Father Mother Alive Social History Tobacco Use Types Packs/Day Years Used Date Smoking Tobacco: Never Smokeless Tobacco: Never Tobacco Cessation:Counseling Given: Not Answered Alcohol Use Standard Drinks/Week Comments Never 0 [...] week 11/06/2023 How often do you attend [facility] or scientologist services? 1 to 4 times per year 11/06/2023 Do you belong to any clubs o r organizations such as latter day groups, unions, fraternal or athletic groups, or [...] Recorded Patient Health Questionnaire-2 Score 0 06/15/2023 [facility] Occupat ional Health - Occupational Stress Questionnaire Answer Date Recorded [...] any time in the past 12 m [facility], were you homeless or living in a correction (including now)? No 11/06/2023 Estimated Date of Delivery Comme nts Yes 06/28/2025 Based on last me nstrual period of 09/21/2024 Sex and Gender Information Value Date Recorded Sex Assigned at Not on file Legal Sex Female 11:36 PM EDT Gender Identity Not on file Sexual Orientation Not on file Last Filed Vital Signs Vital Sign Reading Time Taken Comments Blood Pressure 100/70 11/27/2024 1:28 PM EDT Pulse 112 08/06/2024 1:41 PM EDT Temperature 36.6 C (97.8 F) 08/06/2024 1:41 PM EDT Respiratory Rate 20 08/06/2024 1:41 PM EDT Oxygen Saturation 98% 08/06/2024 1:41 PM EDT Inhaled Oxygen Concentration - - Weight 49 kg (108 lb 1.9 oz) 11/27/2024 1:28 PM EDT Height 162.6 cm (5' 4 ) 08/06/2024 1:41 PM EDT Body Mass Index 18.56 08/06/2024 1:41 PM EDT Plan of Treatment Upcoming Encounters Date Type Department Care Team (Late st Contact Info) Description 12/29/2024 3:20 PM EDT Routine [facility] [address] [address] Armin Leal, [address] [place] [address] Health Maintenance Due Date Last Done Comments Influenza Vaccine (#1) 2025 07/03/2017 Procedures Procedure Name Priority Date/Time Associated Diagnosis Comments HBSAG SCREEN Routine 12/01/2024 4:51 PM EDT RAPID PLASMA REAGIN, QUANT Routine 12/01/2024 4:51 PM EDT HCV ANTIBODY RFX TO QUANT PCR Routine 12/01/2024 4:51 PM EDT ALL RUBELLA IGG AB Routine 12/01/2024 4: 51 PM EDT HIV AB/P24 AG WITH REFLEX Routine 12/01/2024 4:51 PM EDT ALL TYPE AND SCREEN Routine 12/01/2024 4 :51 PM EDT MLR HEMOGLOBIN A1C Routine 12/01/2024 4: 51 PM EDT ALL CBC WITH AUTO DIFF Routine 12/01/2024 4:51 PM EDT BOX TEST Routine 12/01/2024 4:51 PM EDT URINE CULTURE, ROUTINE Routine 12/01/2024 4:40 PM EDT [facility] DRUG SCREEN RAPID (URINE) Routine 12/01/2024 4:40 PM EDT POCT URINALYSIS DIPSTICK Routine 11/27/2024 1:36 PM EDT Missed menses POCT , URINE Routine 11/27/2024 1:35 PM EDT Missed menses US OB TRANSVAGINAL Routine 11/27/2024 12 :54 PM EDT Missed menses Positive urine test ([facility]) from Last 3 Months Results * BOX TEST (12/01/2024 4:51 PM EDT) BOX TEST SENT OUT YES [facility] BOX1 [facility] BOX2 12/01/24 [facility] 12/01/2024 4:51 PM EDT 12/01/2024 4:56 PM EDT Narrative [facility] - 12/01/2024 4:59 PM EDT Armin Leal DO LAB BLOOD ORDERABLES Final Resul t Performing Organization Address City/[facility]/ZIP Co de Phone Number [facility] * HBSAG SCREEN (12/01/2024 4:51 PM EDT) HBSAG SCREEN Negative Negative [facility] Comment: Performed at: - Lab[address] [id number] Storage Manager: Rashad Kennedy PhD, Phone: [phone] 12/01/2024 4:51 PM EDT 12/01/2024 4:56 PM EDT Narrative [facility] - 12/03/2024 11:10 AM EDT Generic External Data Provider LAB BLOOD ORDERAB LES Final Result [facility] * RAPID PLASMA REAGIN, QUANT (12/01/2024 4:51 PM EDT) [facility] RAPID PLASMA REAGIN, QUANT Non Reactive NonRea<1: 1 titer [facility] Comment: Please Note: This test does not meet current guidelines for screening and diagnosis of syphilis. This test is intended for following treatment response in patients being treated for syphilis infection. To screen for syphilis infection, a reflex cascade that includes both RPR and a treponema-specific assay should be utilized, such as Treponema pallidum (Syphilis) Screening Wheeler (322168) or Rapid Plasma Reagin (RPR) Test With Reflex to Quantitative RPR and Confirmatory Treponema pallidum Antibodies (004746). Performed at: [address] [id number] Storage Manager: Rashad Kennedy PhD, Phone: [phone] 12/01/2024 4:51 PM EDT 12/01/2024 4:56 PM EDT Narrative [facility] - 12/03/2024 11:10 AM EDT Generic External Data Provider LAB BLOOD ORDERAB LES Final Result Performing Organization Address [facility]/ZIP Co de Phone Number [facility] * HIV AB/P24 AG WITH REFLEX (12/01/2024 4:51 PM EDT) [facility] HIV AB/P24 AG SCREEN Non Reactive Non Reactive [facility] Comment: HIV-1/HIV-2 antibodies and HIV-1 p24 antigen were NOT detected. There is no laboratory evidence of HIV infection. HIV Negative Performed at: [address] [id number] Storage Manager: Rashad Kennedy PhD, Phone: [phone] 12/01/2024 4:51 PM EDT 12/01/2024 4:56 PM EDT Narrative [facility] - 12/03/2024 6:08 AM EDT Generic External Data Provider LAB BLOOD ORDERAB LES Final Result Performing Organization Address [facility]/ZIP Co de Phone Number [facility] * HCV ANTIBODY RFX TO QUANT PCR (12/01/2024 4:51 PM EDT) HCV AB Non Reactive Non Reactive TB INTERPRETATION: Comment . TB Comment: Not infected with HCV unless early or acute infection is suspected (which may be delayed in an immunocompromised individual), or other evidence exists to indicate HCV infection. Performed at: - Lab[address] [id number] Storage Manager: Rashad Kennedy PhD, Phone: [phone] 12/01/2024 4:51 PM EDT 12/01/2024 4:56 PM EDT Narrative [facility] - 12/03/2024 8:12 AM EDT Armin Elvis DO LAB BLOOD ORDERABLES Final Resul t Performing Organization Address City/[facility] Co de Phone Number [facility] * MLR HEMOGLOBIN A1C (12/01/2024 4:51 PM EDT) Pathologist [facility] GLYCOHEMOGLOBIN A1C 4.9 4.5 - 6.2 % [facility] Comment: ADA RECOMMENDED LIMIT 4.0 - 6.0 ADA THERAPEUTIC TARGET < 7.0 ACTION SUGGESTED > 7.0 ESTIMATED AVERAGE GLUCOSE 94 mg/dL TB 12/01/2024 4:51 PM EDT 12/01/2024 4:56 PM EDT Narrative [facility] - 12/01/2024 5:53 PM EDT Armin Elvis DO CLINIS[facility]NC Final Result Performing Organization Address City/[facility]/ZIP Co de Phone Number [facility] * ALL TYPE AND SCREEN (12/01/2024 4:51 PM EDT) Pathologist [facility] BLOOD TYPE A Positive [facility] ANTIBODY SCREEN NEGATIVE TB 12/01/2024 4:51 PM EDT 12/01/2024 4:56 PM EDT Narrative [facility] - 12/01/2024 5:53 PM EDT [facility] , Armin Elvis DO CLINISYNC Final Result [facility] * (ABNORMAL) ALL RUBELLA IGG AB (12/01/2024 4:51 PM EDT) [facility] RUBELLA ANTIBODIES, IGG <0.90(A) Immune >0.99 index [facility] Comment: Non-immune <0.90 Equivocal 0.90 - 0.99 Immune >0.99 Performed at: - Lab[address] [id number] Storage Manager: Rashad Kennedy PhD, Phone: [phone] 12/01/2024 4:51 PM EDT 12/01/2024 4:56 PM EDT Narrative [facility] - 12/03/2024 8:12 AM EDT us Armin Elvis DO CLINISYNC Final Result [facility] * (ABNORMAL) ALL CBC WITH AUTO DIFF (12/01/2024 4:51 PM EDT) [facility] TB WBC 10.5 4.0 - 11.0 10 3/uL [facility] TB RBC 3.96(L) 4.20 - 5.40 10 6/uL [facility] TB HGB 12.7 12.0 - 16.0 g/dL TB TB HCT 35.9(L) 36.0 - 48.0 % TB TB MCV 90.7 81.0 - 99.0 fL TB TB MCH 32.1 26.7 - 34.0 pg TBH TBH MCHC 35.4(H) 29.9 - 35.2 g/dL TB TB RDW 11.6 11.0 - 15.0 % TBH TBH PLT 260 150 - 450 10 3/uL TBH TBH MPV 9.4(L) 9.5 - 13.5 fL [facility] NEUTROPHILS PERCENT AUTO 72.2 43.0 - 75.0 % [facility] LYMPHOCYTES PERCENT AUTO 19.5(L) 20.5 - 60.0 % [facility] MONOCYTES PERCENT AUTO 7.0 1.7 - 12.0 % [facility]H TBH EO % 0.7(L) 0.9 - 7.0 % [facility] BASOPHILS PERCENT AUTO 0.3 0.2 - 2.0 % [facility] IMMATURE GRANULOCYTES PCT AUTO 0.3 0.0 - 0.5 % [facility] NEUTROPHILS ABSOLUTE AUTO 7.6(H) 1.4 - 6.5 10 3/uL [facility]H LYMPHOCYTES ABSOLUTE AUTO 2.0 1.2 - 3.8 10 3/uL [facility] MONOCYTES ABSOLUTE AUTO 0.7 0.3 - 0.8 10 3/uL TBH TBH EO # 0.1 0.0 - 0.7 10 3/uL TBH BASOPHILS ABSOLUTE AUTO 0.0 0.0 - 0.1 10 3/uL [facility] IMMATURE GRANULOCYTES ABS AUTO 0.03 0.00 - 0.03 10 3/uL [facility] 12/01/2024 4:51 PM EDT 12/01/2024 4:56 PM EDT Narrative [facility] - 12/01/2024 5:04 PM EDT Armin Leal DO CLINISYNC Final Result Performing Organization Address City/[facility]/ZIP Co de Phone Number [facility] * URINE CULTURE, ROUTINE (12/01/2024 4:40 PM EDT) [facility] URINE CULTURE, ROUTINE Urine Culture, Routine [facility] URINE CULTURE, ROUTINE No growth [facility] URINE CULTURE, ROUTINE Performed at: [facility] URINE CULTURE, ROUTINE [address] [place] [id number] [facility] URINE CULTURE, ROUTINE Storage Manager: Rashad Kennedy PhD, Phone: [phone] [facility] 12/01/2024 4:40 PM EDT 12/01/2024 4:56 PM EDT Narrative [facility] - 12/04/2024 4:11 AM EDT Generic External Data Provider LAB BLOOD ORDERAB LES Final Result [facility] * TB DRUG SCREEN RAPID (URINE) (12/01/2024 4:40 PM EDT) [facility] CANNABINOID SCREEN URINE NEGATIVE NEGATIVE TBH PHENCYCLIDINE SCREEN URINE NEGATIVE NEGATIVE TBH COCAINE SCREEN URINE NEGATIVE NEGATIVE TBH METHAMPHETAMINES SCREEN URINE NEGATIVE NEGATIVE TBH OPIATE SCREEN URINE NEGATIVE NEGATIVE TBH AMPHETAMINE SCREEN URINE NEGATIVE NEGATIVE TBH BENZODIAZEPINES SCREEN URINE NEGATIVE NEGATIVE TBH TRICYCLIC ANTIDEPRESSANT URINE NEGATIVE NEGATIVE TBH METHADONE SCREEN URINE NEGATIVE NEGATIVE TBH BARBITURATES SCREEN URINE NEGATIVE NEGATIVE TBH OXYCODONE SCREEN URINE NEGATIVE NEGATIVE TBH BUPRENORPHINE SCREEN URINE NEGATIVE NEGATIVE TB[facility] Comment: DRUG CLASS TEST SYSTEM CUT-OFF CONCENTRATIONS ARE FOLLOWS: AMP (Amphetamine): 500 ng/mL BAR (Barbiturates): 200 ng/mL BZO (Benzodiazepines): 150 ng/mL BUP (Buprenorphine): 10 ng/mL MODESTO (Cocaine): 150 ng/mL mAMP (Methamphetamine): 500 ng/mL MTD (Methadone): 200 ng/mL OPI (Opiates): 100 ng/mL OXY (Oxycodone): 100 ng/mL PCP (Phencyclidine): 25 ng/mL THC (Cannabinoids): 50 ng/mL TCA (Trycyclic Antidepressants): 300 ng/mL 12/01/2024 4:40 PM EDT 12/01/2024 4:56 PM EDT Narrative [facility] - 12/01/2024 5:14 PM EDT Armin Leal DO CLINISYNC Final Result [facility] * (ABNORMAL) POCT urinalysis dipstick manually resulted (11/27/2024 1:36 PM EDT) Color, UA Yellow Clarity, UA Clear Glucose, UA Negative Negative - 1999(110) ++++ mg/dL Bilirubin, UA Negative Negative - 4(70) +++ mg/dL Ketones, UA Negative Negative - 160(16) ++++ mg/dL Spec Grav, UA 1.025 1 - 1.03 Blood, UA Negative Negative - 50 Shayne/mcL pH, UA 6.0 5 - 9 Protein, UA Trace Negative - 1999(20) ++++ mg/dL Urobilinogen, UA 1.0 0.2 - 12 mg/dL Leukocytes, UA Negative Negative - 500+++ Deysi/mcL Nitrite, UA Negative Negative - Positive Urine 11/27/2024 1:36 PM EDT us Armin Elvis DO POINT OF CARE TEST ENTER/EDIT OR DERABLES Final Result * (ABNORMAL) POCT , urine manually resulted (11/27/2024 1:35 PM EDT) Preg Test, Ur Positive Negative Urine 11/27/2024 1:35 PM EDT us Armin Elvis DO POINT OF CARE TEST ENTER/EDIT OR DERABLES Final Result * US OB transvaginal (11/27/2024 12:54 PM EDT) Anatomical Region Laterality Modality Body Ultrasound 11/27/2024 1:18 PM EDT Impressions 11/27/2024 1:24 PM EDT Findings consistent with a live intrauterine gestation, current sonographic age of 9 weeks and 3 days resulting in an estimated date of delivery of June 29, 2025. TRANSCRIBED BY: ELECTRONICALLY SIGNED BY: Asher Edward MD Narrative 11/27/2024 1:24 PM EDT FINDINGS: A single intrauterine gestational sac is [...] adnexal mass present. Cervix closed 4.0 cm Procedure Note Asher Edward MD - 11/27/2024 FINDINGS: A single intrauterine gestational sac is present. No subchorionichemorrhage. A single pole is present. Normal heart rate at172 beats per minute. Yolk sac also is seen. Current sonographic age is9 weeks and 3 days based on the crown-rump length measurement of 2.7cm. Based on this age, current estimated date of delivery is 2025. No pelvic fluid or adnexal mass present. Cervix closed 4.0 cm IMPRESSION: Findings consistent with a live intrauterine gestation, currentsonographic age of 9 weeks and 3 days resulting in an estimated date ofdelivery of June 29, 2025. TRANSCRIBED BY: ELECTRONICALLY SIGNED BY: Asher Edward MD us Armin Elvis DO IMG OB US PROCEDURES Final Resul t from Last 3 Months Insurance [employer] Care Teams Head Paper Tester Relationship Specialty Start Date End Date Scot Block MD [address] [place] [address] PCP - General Family Medicine 06/13/23 Scot Block MD [address] [place] [address] PCP - [facility] 11/12/23
[2024-12-26 20:50] VITALS: BP 110/70; PULSE 80; TEMP 36.7; O2SAT 98; BMI 19.5
--- NOTE | 2024-12-26 20:53 | US_ITS ---
The [address] [address] Patient Name: OTTO HOSKINS MRN: [id number] date: 2005 Sex: F Assigned Patient Location: ED.MAIN Current Patient Location: ED.MAIN Accession/Order Number: [id number] Exam Date: 12/26/2024 21:36 Report Date: 12/26/2024 21:45 At the request of: COLLIN BYERS NP Procedure: US OB <= 14 weeks fetus Obstetrical ultrasound for fetus less than 14 weeks HISTORY: Left lower quadrant pain with radiation to the suprapubic region. COMPARISON: The heart rate is 152bpm. Adequate amniotic fluid. This somatic motion. Anterior location of placenta. No free fluid identified in cul-de-sac. No subchorionic hemorrhage identified. [place]-rump length measures 7.6cm consistent with 13 weeks 5 days. The yolk sac is not seen. The estimated due date by this ultrasound is 06/28/2024. US/US OB <= 14 weeks fetus IMPRESSION: Single live intrauterine gestation 13 weeks 5 days.. Impression dictated by: Robb Guzman M.D. 12/26/2024 9:45 PM Dictation Location: [facility] Electronically authenticated by: [id number] Y Date: 12/26/2024 21:45
--- NOTE | 2024-12-26 20:55 | ED.GENADUL1 ---
HPI HPI - General Adult General Chief complaint: Abdominal Pain Stated complaint: 14 WEEKS , ABDOMINAL PAIN Time Seen by Provider: 12/26/24 20:45 History of Present Illness HPI narrative: Patient is a 19-year-old female who presents to the emergency department today for evaluation concerns for abdominal pain and second trimester . She endorses she is approximately 14 weeks (06/28/25, ) and reports over the past week she has had intermittent sharp pain mostly to the left lower quadrant that radiates to the suprapubic region in addition to some cramping to the right lower quadrant that radiates to the suprapubic region. Denies any nausea or vomiting. No sick symptoms of fever/chills. No urinary symptoms or back/flank pain. She denies any vaginal discharge or bleeding. She has not taken any analgesic medication for this pain. She does mention she is feeling what she believes to be movement as fluttering. Related Data Home Medications ?Medication ?Instructions ?Recorded ?Confirmed sertraline 25 mg tablet 25 mg PO Q24H 11/13/24 12/26/24 docusate sodium 100 mg capsule mg PO 12/26/24 vit no.95-ferrous tab PO 12/26/24 fumarate 28 mg-folic acid 800 mcg tablet () Allergies Allergy/AdvReac Type Severity Reaction Status Date / Time bismuth subsalicylate (From AdvReac Severe Diarrhea Verified 12/26/24 20:44 Pepto-Bismol) Opioid HPI Opioid Management Most Recent Opioid Data: Last Pain Scale 4 12/26/24, 21:03 Ur Phencyclidine Scrn, (NEGATIVE) Negative 12/01/24, 16:40 Review of Systems ROS Status of ROS 10 or more systems reviewed and unremarkable except as noted in history and below PFSH PFSH Social History Little interest or pleasure in doing things: not at all Feeling down, depressed, or hopeless: not at all Exam Narrative Exam Narrative: Constituational: Awake/ alert, no apparent distress, well hydrated HENMT: normocephalic, external ears normal, moist oral mucous membranes and oropharynx normal Eyes: EOMI and conjunctivae normal Neck: ROM intact Chest: inspection of chest normal Respiratory: Normal respiratory effort, clear to auscultation bilaterally Cardio: regular rate and regular rhythm GI: + , + mild discomfort to LLQ/suprapubic region, rebound, no guarding Back: nontender MSK: ROM intact, +NVI Skin: no rashes or petechiae Neuro: no focal deficits Psych: mental status grossly normal Constitutional Vital Signs, click to edit/add: Last Vital Signs Temp 98.1 F 12/26/24 20:50 Pulse 80 12/26/24 20:50 Resp 20 12/26/24 20:50 BP 110/70 12/26/24 20:50 Pulse Ox 98 12/26/24 20:50 O2 Del Method Room Air 12/26/24 20:50 Course Vital Signs Vital signs: Vital Signs Temperature 98.1 F 12/26/24 20:50 Pulse Rate 80 12/26/24 20:50 Respiratory Rate 20 12/26/24 20:50 Blood Pressure 110/70 12/26/24 20:50 Pulse Oximetry 98 12/26/24 20:50 Oxygen Delivery Method Room Air 12/26/24 20:50 Temperature 98.1 F 12/26/24 20:50 Pulse Rate 80 12/26/24 20:50 Respiratory Rate 20 12/26/24 20:50 Blood Pressure 110/70 12/26/24 20:50 Pulse Oximetry 98 12/26/24 20:50 Oxygen Delivery Method Room Air 12/26/24 20:50 Medical Decision Making [facility] Narrative Medical decision making narrative: The patient is a well-appearing 19-year-old female who is approximately 14 weeks who presented to the ER today for evaluation of concerns for intermittent sharp left lower and suprapubic region abdominal pain and reported right side abdominal cramping. Initial examination vital signs overall stable. Overall patient's complaints of pain seem very mild she is moving without any concerns or guarded positioning. Labs stable and showed no leukocytosis, anemia, thrombocytopenia. Electrolytes including renal and hepatic function stable. UA is negative for UTI. Historically no symptoms of vaginal bleeding or discharge. Pelvic examination deferred due to patient request and otherwise no vaginal complaints. Low clinical suspicion for PID or infectious etiology. OB ultrasound without critical findings. Discussed this with the patient could recommendations for supportive care consideration for pelvic rest. Advised on follow-up with MARKETING TRAFFIC MANAGER for reevaluation. Discussed signs and symptoms of any worsening condition and when to consider reevaluation by the emergency department. Patient verbalized an understanding of this and is agreeable with the plan to be discharged home. Medical Records Medical records reviewed: Yes I reviewed the patient's medical records Lab Data Lab results reviewed: Yes I reviewed the patient's lab results Labs: Lab Results 12/26/24 12/26/24 Range/Units 20:54 20:55 WBC 8.5 (4.0-11.0) 10^3/uL RBC 3.50 L (4.20-5.40) 10^6/uL Hgb 11.5 L (12.0-16.0) g/dL Hct 32.0 L (36.0-48.0) % MCV 91.4 (81.0-99.0) fL MCH 32.9 (26.7-34.0) pg MCHC 35.9 H (29.9-35.2) g/dL RDW 11.9 (11.0-15.0) % Plt Count 223 (150-450) 10^3/uL MPV 9.1 L (9.5-13.5) fL Neut % (Auto) 69.4 (43.0-75.0) % Lymph % (Auto) 22.2 (20.5-60.0) % [place] % (Auto) 7.1 (1.7-12.0) % Eos % (Auto) 0.8 L (0.9-7.0) % Baso % (Auto) 0.4 (0.2-2.0) % Neut # (Auto) 5.9 (1.4-6.5) 10^3/uL Lymph # (Auto) 1.9 (1.2-3.8) 10^3/uL [place] # (Auto) 0.6 (0.3-0.8) 10^3/uL Eos # (Auto) 0.1 (0.0-0.7) 10^3/uL Baso # (Auto) 0.0 (0.0-0.1) 10^3/uL Abs Immat Gran (auto) 0.01 (0.00-0.03) 10^3/uL Imm/Tot Granulo (auto) 0.1 (0.0-0.5) % Sodium 139 (136-145) mmol/L Potassium 3.5 (3.5-5.1) mmol/L Chloride 106 (98-107) mmol/L Carbon Dioxide 26.0 (21.0-32.0) mmol/L Anion Gap 10.5 BUN 6.0 L (7.0-18.0) mg/dL Creatinine 0.48 L (0.55-1.02) mg/dL Est GFR ( Amer) >60 (>=60 mL/min/1.73m^2) Est GFR (Non-Af Amer) >60 (>=60 mL/min/1.73m^2) BUN/Creatinine Ratio 12.5 Glucose 89 (74-106) mg/dL Calcium 8.3 L (8.5-10.1) mg/dL Total Bilirubin 0.2 (0.2-1.0) mg/dL AST 14 L (15-37) U/L ALT 20 (14-59) U/L Alkaline Phosphatase 51 (46-116) U/L Total Protein 6.6 (6.4-8.2) g/dL Albumin 2.9 L (3.4-5.0) g/dL Globulin 3.7 g/dL Albumin/Globulin Ratio 0.8 Urine Color Lt. yellow (YELLOW) Urine Clarity Clear (CLEAR) Urine pH 6.0 (5.0-9.0) Ur Specific [place] 1.020 (1.005-1.025) Urine Protein Negative (NEG/TRACE) mg/dL Urine Glucose (UA) Negative (NEGATIVE) mg/dL Urine Ketones Negative (NEGATIVE) mg/dL Urine Occult Blood Negative (NEGATIVE) Urine Nitrite Negative (NEGATIVE) Urine Bilirubin Negative (NEGATIVE) Urine Urobilinogen 0.2 (0.2-1.0) EU/dL Ur Leukocyte Esterase Negative (NEGATIVE) Imaging Data OB US: Attestation: I have reviewed the pertinent imaging results. Radiologist's impression: ITS Impressions Ultrasound 12/26/24 20:53 IMPRESSION: Single live intrauterine gestation 13 weeks 5 days.. Impression dictated by: Robb Guzman M.D. 12/26/2024 9:45 PM Dictation Location: [place] [address] Electronically authenticated by: [id number] Y Date: 12/26/2024 21:45 Discharge Plan Discharge Chief Complaint: Abdominal Pain Clinical Impression: Abdominal pain during in second trimester Patient Disposition: Home, Self-Care Prescriptions / Home Meds: No Action sertraline 25 mg tablet 25 mg PO Q24H docusate sodium 100 mg capsule PO PNV no.95-ferrous fumarate-FA [] 28 mg iron- 800 mcg tablet PO Print Language: Thai Instructions: Abdominal Pain in (ED) Additional Instructions: May take Tylenol as needed for any pain. Please follow-up with your MARKETING TRAFFIC MANAGER for reevaluation as discussed. Consider reevaluation in the emergency department with any new or worsening symptoms not limited to severe pain, bleeding, or passing out Referrals: Armin Leal DO [Physician, MARKETING TRAFFIC MANAGER] - 1 week Scot Block MD [Primary Care Provider, Family Practice] - 1 week Discharge Date/Time: 12/26/24 22:06
[2024-12-26 21:01] LABS: Hematocrit 32.0 % (36.0-48.0); Hemoglobin 11.5 g/dL (12.0-16.0); Immature Granulocytes Abs Auto 0.01 10^3/uL (0.00-0.03); Immature Granulocytes Pct Auto 0.1 % (0.0-0.5); Lymphocytes Absolute Auto 1.9 10^3/uL (1.2-3.8); Mean Corpuscular HGB Conc 35.9 g/dL (29.9-35.2); Mean Corpuscular Hemoglobin 32.9 pg (26.7-34.0); Mean Corpuscular Volume 91.4 fL (81.0-99.0); Platelet Count 223 10^3/uL (150-450); Red Blood Count 3.50 10^6/uL (4.20-5.40); White Blood Count 8.5 10^3/uL (4.0-11.0)
[2024-12-26 21:06] LABS: Glucose Urine UA NEGATIVE (NEGATIVE)
[2024-12-26 21:15] LABS: Alanine Aminotransferase 20 U/L (14-59); Albumin Globulin Ratio 0.8; Albumin Level 2.9 g/dL (3.4-5.0); Alkaline Phosphatase 51 U/L (46-116); Anion Gap 10.5; Aspartate Amino Transferase 14 U/L (15-37); Blood Urea Nitrogen 6.0 mg/dL (7.0-18.0); Calcium 8.3 mg/dL (8.5-10.1); Carbon Dioxide 26.0 mmol/L (21.0-32.0); Chloride 106 mmol/L (98-107); Estimated GFR (African America >60 (>=60 mL/min/1.73m^2); Estimated GFR (Non-African Ame >60 (>=60 mL/min/1.73m^2); Globulin 3.7 g/dL; Glucose 89 mg/dL (74-106); Potassium 3.5 mmol/L (3.5-5.1); Sodium 139 mmol/L (136-145); Total Protein 6.6 g/dL (6.4-8.2)
--- NOTE | 2024-12-26 21:32 | PC.NURSE ---
this patient was updated that we are still waiting on results from blood draw, urine and ultra sound. this patient voices no concerns, needs and shows no signs of distress
--- NOTE | 2024-12-26 22:07 | PC.NURSE ---
i gave this patient verbal and written discharge orders and this patient voices yes to understanding these discharge orders. at time of discharge this patient voices no concerns, needs and shows no signs of distress
== END 2024-12-26 22:06 | disposition home or self-care (01) ==
PROVIDERS: Nurse Practitioner; Emergency Provider Internal Medicine; PCP Family Medicine
DX: O26.892 Other specified pregnancy related conditions, second trimester (principal); Z3A.13 13 weeks gestation of pregnancy; R10.2 Pelvic and perineal pain; R10.32 Left lower quadrant pain; R10.31 Right lower quadrant pain
CPT/HCPCS: 36415; 76801; 80053; 81003; 85025; 99284

== ENCOUNTER 2025-02-09 15:20 | Outpatient (OUT) | payer OTHER, SELFPAY ==
--- OUTSIDE RECORDS SUMMARY | 2025-02-09 14:28 | XMS_ITS ---
Author Name Auto Generated Organization [facility] Care Team Providers Care Agricultural Equipment Mechanic Name Role Phone FANI DALTON Attending Unavailable FANI DALTON Attending Unavailable CRISTINA, DANIELA Attending Unavailable CRISTINA, DANIELA Attending Unavailable CRISTINA, DANIELA Attending Unavailable CRISTINA, DANIELA Attending Unavailable CRISTINA, DANIELA Attending Unavailable Robb RAZA Attending Unavailable PROBLEMS No Problem Records Found PROCEDURES No Procedure Records Found RESULTS US OB TRANSVAGINAL Observed: 11/27/2024 12:19 PM Status: F Source: [facility] Order Comment: US OB TRANSVA GINAL No LMP recorded. Patient has had an implant. FINDINGS: A single intrauterine gestational sac is [...] BY: ELECTRONICALLY SIGNED BY: Asher Edward MD ALLERGIES No Allergies Records Found ENCOUNTERS ADMIT/DISCHARGE ACCOUNT NUMBER ADMITTING ENCOUNTER CLASS LOCATION SOURCE 02/09/2025/02/10/20 [id number] Ambulatory Building:[facility] 01/26/2025/01/27/20 25 [id number] Ambulatory Building:[facility] 01/07/2025/01/08/20 [id number] Ambulatory Building:[facility] 12/29/2024/12/30/19 25 [id number] Ambulatory Building:[facility] 11/27/2024/11/28/19 25 [id number] Ambulatory Building:[facility] 11/27/2024/11/28/19 25 [id number] Ambulatory Building:[facility] 08/26/2024/08/27/19 25 [id number] Ambulatory Building:[facility] 08/06/2024/08/07/19 25 [id number] Ambulatory Building:[facility] 07/03/2024/07/03/19 [id number] Ambulatory Building:[facility] 05/05/2024/05/05/20 [id number] Ambulatory Building:[facility] 03/04/2024/03/04/20 [id number] Ambulatory [facility] PAYERS ENCOUNTER GUARANTOR PAYER SUBSCRIBER SOURCE 02/09/2025 AERIONNA Meme RINGDOB: [address] [address]Fiw: (HP) Primary Insurance:[employer] MEDICAIDPolicy Number: [id number] Date:2019-10-13 AERIONLUZ Valentine RINGDOB: [id number] [address] [facility] 01/26/2025 AERIONNA Meme RINGDOB: [place] [id number]: (HP) Primary Insurance:[employer] MEDICAIDPolicy Number: [id number] Date:2019-10-13 AERIONNA Meme RINGDOB: [id number] [place] [id number] [facility] 01/07/2025 AERIONNA Meme RINGDOB: [place] [id number]: (HP) Primary Insurance:[facility] MEDICAIDPolicy Number: [id number] Date:2019-10-13 AERIONNA Meme RINGDOB: [id number] [place] [id number] [facility] 12/29/2024 AERIONNA J RINGDOB: [address] [address]Kwa: (HP) Primary Insurance:[facility] MEDICAIDPolicy Number: [id number] Date:2019-10-13 AERIONNA J RINGDOB: [id number] [address] [place] [address] [facility] 11/27/2024 AERIONNA J RINGDOB: [address] [address]Bia: (HP) Primary Insurance:[employer] MEDICAIDPolicy Number: [id number] Date:2019-10-13 AERIONNA J RINGDOB: [id number] [address] [address] [facility] 11/27/2024 AERIONNA J RINGDOB: [address] [address]Her: (HP) Primary Insurance:[employer] MEDICAIDPolicy Number: [id number] Date:2019-10-13 AERIONNA J RINGDOB: [id number] [address] [address] [facility] EP[facility] 08/26/2024 AERIONNA J RINGDOB: [place], [place] [address]Byy: (HP) Primary Insurance:[employer] MEDICAIDPolicy Number: [id number] Date:2019-10-13 AERIONNA J RINGDOB: [id number] [place] [address] [facility] 08/06/2024 AERIONNA J RINGDOB: [place], [place] [address]Btz: (HP) Primary Insurance:[employer] MEDICAIDPolicy Number: [id number] Date:2019-10-13 AERIONNA J RINGDOB: [id number] [place] [address] [facility] 07/03/2024 AERIONNA J RINGDOB: [place] [address]Jki: (HP) Primary Insurance:[employer] MEDICAIDPolicy Number: [id number] Date:2019-10-13 OTTO ROTHB: [id number] [place] [address] [facility] 05/05/2024 OTTO ROTHB: [id number] [place] [address]Htw: () Primary Insurance:[employer] MEDICAIDPolicy Number: [id number] Date:2019-10-13 OTTO ROTHB: [id number] [place] [address] [facility] EP[facility]
== END 2025-02-09 15:21 | disposition home or self-care (01) ==
LOC: LAB 15:21
PROVIDERS: PCP Family Medicine; Visit Provider Obstetrics & Gynecology
DX: Z34.92 Encounter for supervision of normal pregnancy, unspecified, second trimester (principal)
CPT/HCPCS: 36415; 82105

== ENCOUNTER 2025-02-25 15:57 | Outpatient (OUT) | payer OTHER, SELFPAY ==
--- OUTSIDE RECORDS SUMMARY | 2023-09-28 09:30 | XMS_ITS ---
Author Organization [facility] Address [address] [address] Care Team Providers Care Communications Engineer Name Role Phone Jose Jackson Primary Care Provider Marya Pinon Unavailable [phone] Moraima Montes De Oca Unavailable [phone] REASON FOR VISIT PROPHY Encounters Encounter Location Date Provider Diagnosis [facility] [address] [place] [address] 09/28/2023 Moraima Montes De Oca Plan Of Treatment No Information Progress Notes * OTTO HOSKINSDOB:2005 (19 yo F)Acc No.[id number]:09/28/2023 Patient: OTTO FABIAN .1 Provider: Meme Bean :2005 A ge:17 Y S ex:Female Date:09/28/2023 Address:[address] [place], [place] [phone] Pcp:Jose Jackson Subjective: * Chief Complaints: * P ROPHY * Electronic signature of Miesha Montes De Oca on 02/25/2025 at 04:02 PM EDT Sign off status: Pending * Provider: Meme Bean Date: 0 09/28/2023 Generated for Ruperti ng/Fasilviag/eTransmitting on: 1 04:02 PM EDT
--- OUTSIDE RECORDS SUMMARY | 2025-02-24 14:40 | XMS_ITS | Encounter Summary ---
Author Organization [facility] Address [address] [place] [address] Care Team Providers Care Automobile Upholstery Trim Installer Name Role Phone Scot Block MD Primary Care Provider [phone] Scot Block MD Unavailable Reason for Visit * Reason Comments Routine Visit Encounter Details Date Type Department Care Team ([facility] Contact Info) Description 02/24/2025 2:40 PM EDT Routine [facility] [address] [place] [address] Bina Vanessa PA [address] [place], [facility] Second trimester ([facility] 22 weeks gestation of ([facility]); Diabetes mellitus screening Social History Tobacco Use Types Packs/Day Years Used Date Smoking Tobacco: Never Smokeless Tobacco: Former Alcohol Use Standard Drinks/Week Comments Never 0 (1 standard drink = 0.6 oz pur e alcohol) B1300 Health Literacy Answer Date Recor ded How often do you need to hav e someone help you when you read instructions, pamphlets, or other written material from your doctor or pharmacy? Never 11/06/2023 Humiliation, Afraid, Rape, and Kick questionnair e Answer Date Recorded Fear of Current or Ex-Partner Not on file Within the last year, have y ou been humiliated or emotionally abused in other ways by your partner or ex-partner? No 01/26/2025 Within the last year, have y ou been kicked, hit, slapped, or otherwise physically hurt by your partner or ex-partner? No 01/26/2025 Within the last year, have y ou been raped or forced to have any kind of sexual activity by your partner or ex-partner? No 01/26/2025 Social Connection and Isolation Panel Answer Date Recorded In a typical week, how many times do you talk on the phone with family, friends, or neighbors? More than three times a week 11/06/2023 How often do you get togethe r with friends or relatives? Three times a week 11/06/2023 How often do you attend [facility] or yarsanism services? 1 to 4 times per year 11/06/2023 Do you belong to any clubs o r organizations such as spiritism groups, unions, fraternal or athletic groups, or [...] Date Recorded Patient Health Questionnaire-2 Score 0 01/29/2025 [facility] Occupat ional Health - Occupational Stress [...] any time in the past 12 m [facility], were you homeless or living in a care home (including now)? No 11/06/2023 Education Answer Date Recorded What is the highest level of school you have completed or the highest degree you have received? High school graduate 01/26/2025 Estimated Date of Delivery Comme nts Yes 06/28/2025 Based on last me nstrual period of 09/21/2024 Sex and Gender Information Value Date Recorded Sex Assigned at Not on file Legal Sex Female 11:36 PM EDT Gender Identity Not on file Sexual Orientation Not on file documented as of this encounter Last Filed Vital Signs Vital Sign Reading Time Taken Comments Blood Pressure 108/58 02/24/2025 2:59 PM EDT Pulse - - Temperature - - Respiratory Rate - - Oxygen Saturation - - Inhaled Oxygen Concentration - - Weight 56.2 kg (124 lb) 02/24/2025 2:59 PM EDT Height - - Body Mass Index 21.28 08/06/2024 1:41 PM EDT documented in this encounter Progress Notes * SANTIAGO Nazario - 02/24/2025 2:40 PM EDT Reason for Appointment: Patient ID: Edmund Rehman is a 19 y.o. female who presents for Routine Visit Patient presents today for Return OB appointment. MEDICATIONS Current Outpatient Medications Medication Instructions ondansetron ODT (ZOFRAN-ODT) 4 mg, Oral, Every 6 hours Vit-Fe Fumarate-FA (PNV 27-Ca/Fe/FA) 60-1 MG tablet 1 tablet, Oral, Daily Vit-Fe Fumarate-FA ( Vitamins) 28-0.8 MG tablet 1 tablet, Oral, Daily sertraline (ZOLOFT) 50 mg, Oral, Daily ALLERGIES Allergies[1] PROBLEMS Active Ambulatory Problems Diagnosis Date Noted [...] stone HISTORY PAST MEDICAL HISTORY SOCIAL HISTORY Medical History[2] Social History Tobacco Use Smoking status: Never Smokeless tobacco: Former Substance Use Topics Alcohol use: Never Drug use: Not Currently Types: Marijuana FAMILY HISTORY Family History[3] SURGICAL HISTORY Surgical History[4] REVIEW OF SYSTEMS Review of Systems: Review of Systems Constitutional: Negative. HENT: Negative. Eyes: Negative. Respiratory: Negative. Cardiovascular: Negative. Gastrointestinal: Negative. Genitourinary: Negative. Musculoskeletal: Negative. Skin: Negative. Neurological: Negative. All other systems reviewed and are negative. Hematological: Negative. Endocrine: Negative. Allergic/Immunologic: Negative. OBJECTIVE Objective: Physical Exam Constitutional: Appearance: Normal appearance. She is normal weight. HENT: Head: Normocephalic. Cardiovascular: Rate and Rhythm: Normal rate. Pulses: Normal pulses. Pulmonary: Effort: Pulmonary effort is normal. Breath sounds: Normal breath sounds. Abdominal: Palpations: Abdomen is soft. Musculoskeletal: General: Normal range of motion. Neurological: General: No focal deficit present. Mental Status: She is alert and oriented to person, place, and time. Psychiatric: Mood and Affect: Mood normal. Behavior: Behavior normal. Thought Content: Thought content normal. Judgment: Judgment normal. Vitals and nursing note reviewed. Vitals: Estimated body mass index is 21.28 kg/m?? as calculated from the following: Height as of 08/06/24: 5' 4 . Weight as of this encounter: 124 lb. BP: 108/58 Patient's last menstrual period was 09/21/2024. ASSESSMENT & PLAN ICD-10-CM 1. Second trimester ([facility]) Z34.92 SURESWAB(R) ADVANCED VAGINITIS PLUS, TMA CHLAMYDIA TRACHOMATIS (GENITO/STI) Neisseria gonorrhea DNA probe, direct CBC and differential Vit-Fe Fumarate-FA (PNV 27-Ca/Fe/FA) 60-1 MG tablet 2. 22 weeks gestation of ([facility]) Z3A.22 POCT urinalysis dipstick manually resulted 3. Diabetes mellitus screening Z13.1 CBC Glucose tolerance, 1 hour CBC Glucose tolerance, 1 hour Return OB: Patient presents today for a routine obstetrics appointment. Patient is currently 22w3d . Patient states she is doing well but has complaints of being tired due to current . Patient has verbalizes frequent movement. Orders Placed This Encounter Procedures CHLAMYDIA TRACHOMATIS (GENITO/STI) Neisseria gonorrhea DNA probe, direct CBC Glucose tolerance, 1 hour CBC and differential POCT urinalysis dipstick manually resulted Follow Up: Patient is to return to office in 4 week for routine OB appointment. Documented by SANTIAGO Nazario on behalf of: SANTIAGO Nazario [1] Allergies Allergen Reactions Bismuth Subsalicylate GI intolerance [2] Past Medical History: Diagnosis Date Abnormal uterine bleeding (AUB) Acne vulgaris Allergic rhinitis, mild ALYCE (generalized anxiety disorder) Herpes Hypertrophy of tonsil POTS (postural orthostatic tachycardia syndrome) Tonsil stone [3] Family History Problem Relation Name Age of Onset Liver cancer Father [4] Past Surgical History: Procedure Laterality Date EYE SURGERY x2 documented in this encounter Plan of Treatment Upcoming Encounters Date Type Department Care Team (Late st Contact Info) Description 03/25/2025 2:20 PM EST Routine [facility] [address] [place] [address] ElvisArmin ramirez DO [address] [place] [address] Scheduled Orders Name Type Priority Associated Diagnoses Order Schedule SURESWAB(R) ADVANCED VAGINITIS PLUS, TMA Pathology and Cytology Routine Second trimester ([facility]) Ordered: 02/24/2025 CHLAMYDIA TRACHOMATIS (GENITO/STI) Lab Routine Second trimester ([facility]) Ordered: 02/24/2025 Neisseria gonorrhea DNA probe, direct Lab Routine Second trimester ([facility]) Ordered: 02/24/2025 CBC Lab Routine Diabetes mellitus screening Expected: 02/24/2025 (Approximate), Expires: 02/24/2026 Glucose tolerance, 1 hour Lab Routine Diabetes mellitus screening Expected: 02/24/2025 (Approximate), Expires: 02/24/2026 CBC and differential Lab Routine Second trimester ([facility]) Ordered: 02/24/2025 documented as of this encounter Procedures Procedure Name Priority Date/Time Associated Diagnosis Comments POCT URINALYSIS DIPSTICK Routine 02/24/2025 3:11 PM EDT 22 weeks gestation of ([facility]) documented in this encounter Results * POCT urinalysis dipstick manually resulted (02/24/2025 3:11 PM EDT) Color, UA Yellow Clarity, UA Clear Glucose, UA Negative Negative - 2000(110) ++++ mg/dL Bilirubin, UA Negative Negative - 4(70) +++ mg/dL Ketones, UA Negative Negative - 160(16) ++++ mg/dL Spec Grav, UA 1.010 1 - 1.03 Blood, UA Negative Negative - 50 Shayne/mcL pH, UA 7.5 5 - 9 Protein, UA Negative Negative - 1999(20) ++++ mg/dL Urobilinogen, UA 2.0 0.2 - 12 mg/dL Leukocytes, UA Negative Negative - 500+++ Deysi/mcL Nitrite, UA Negative Negative - Positive Urine 02/24/2025 3:11 PM EDT Bina HENDERSON POINT OF CARE TEST ENTER/EDIT OR DERABLES Final Result documented in this encounter Visit Diagnoses Diagnosis Second trimester ([facility]) state, incidental 22 weeks gestation of ([facility]) Diabetes mellitus screening Screening for diabetes mellitus documented in this encounter Care Teams Automobile Upholstery Trim Installer Relationship Specialty Start Date End Date Scot Block MD PCP - General Family Medicine 06/13/23 Scot Block MD [address] [place] [address] PCP - [place] [facility] 11/12/23 documented as of this encounter
--- OUTSIDE RECORDS SUMMARY | 2025-02-25 16:02 | XMS_ITS | Encounter Summary ---
Author Organization [facility] Address [address] [place] [address] Care Team Providers Care Women'S Studies Professor Name Role Phone Scot Block MD Primary Care Provider [phone] Scot Block MD Unavailable Encounter Details Date Type Department Care Team (Late st Contact Info) Description 01/23/2024 Orders Only [facility] [address] [place] [address] Scot Block MD [address] [place] [address] Social History Tobacco Use Types Packs/Day Years [...] or pharmacy? Never 11/06/2023 Social Connection and Isolation Panel Answer Date Recorded In a typical week, how many times do you talk on the phone with family, friends, or neighbors? More than three times a week 11/06/2023 How often do you get togethe r with friends or relatives? Three times a week 11/06/2023 How often do you attend [facility] or presybeterian services? 1 to 4 times per year 11/06/2023 Do you belong to any clubs o r organizations such as moravian groups, unions, fraternal or athletic groups, or [...] Recorded Patient Health Questionnaire-2 Score 0 06/15/2023 [facility]at ional [facility] - Occupational Stress Questionnaire Answer Date [...] any time in the past 12 m ont, were you homeless or living in a assisted (including now)? No 11/06/2023 Comments No Sex [...] PM EST Routine [facility] [address] [address] Armin Leal DO [address] [place], [place] [address] documented as of this encounter Procedures Procedure [...] on filedocumented in this encounter Care Teams Women'S Studies Professor Relationship Specialty Start Date End Date Scot Block MD PCP - General Family Medicine 06/13/23 Scot Block MD [address] [place] [address] PCP - [facility] 11/12/23 documented as of this encounter
--- OUTSIDE RECORDS SUMMARY | 2025-02-25 16:02 | XMS_ITS | Encounter Summary ---
Author Organization [facility] Address [address] [facility] [place] [address] Care Team Providers Care Radio Station Audio Engineer Name Role Phone Scot Block MD Primary Care Provider [phone] Scot Block MD Unavailable Encounter Details Date Type Department Care Team (Late st Contact Info) Description 04/24/2024 Clinisync Result Encounter [facility] External Department Unsolicited Armin Leal, DO [address] [facility] [place] [address] Social History Tobacco Use Types Packs/Day Years [...] week 11/06/2023 How often do you attend [facility] or sikh services? 1 to 4 times per year 11/06/2023 Do you belong to any clubs o r organizations such as alevism groups, unions, fraternal or athletic groups, or [...] Recorded Patient Health Questionnaire-2 Score 0 06/15/2023 [facility] of Occupat ional [facility] - Occupational Stress Questionnaire Answer Date [...] were you homeless or living in a snf (including now)? No 11/06/2023 Comments No Sex [...] PM EST Routine [facility] [address] [place] [address] Armin Leal DO [address] [place] [address] documented as of this encounter Procedures Procedure Name Priority Date/Time Associated Diagnosis Comments US PELVIS TRANSVAGINAL 04/24/2024 4:59 AM EST documented in this encounter Results * US PELVIS TRANSVAGINAL (04/24/2024 4:59 AM EST) Anatomical Region Laterality Modality Other 04/24/2024 4:59 AM EST Narrative 04/24/2024 5:02 AM EST The [address] [address] Ultrasound Report Signed Patient: OTTO HOSKINS MR#: [id number] : 2005 Acct:[id number] Age/Sex: 18 / F ADM Date: 04/23/24 Loc: US Attending Dr: Armin Leal D.O. Ordering Physician: Armin Leal D.O. Date of Service: 04/23/24 Procedure(s): US pelvis transvaginal Accession Number(s): [id number] cc: Armin Leal D.O.; Scot Block M.D. The [place] [id number] Patient Name: OTTO HOSKINS MRN: [id number] date: 2005 Sex: F Assigned Patient Location: Current Patient Location: Accession/Order Number: [id number] Exam Date: 04/23/2024 09:00 Report Date: 04/24/2024 [...] Signed By: 04/24/24 0502 DD/ 0459 TD/TT: Learning Disabilities Teacher: Procedure Note Radiology, Radiologist, MD - 04/24/[address] [address] Ultrasound Report Signed Patient: OTTO HOSKINS JMR#: [id number] : 2005Acct:[id number] Age/Sex: 18 / FADM Date: 04/23/24 Loc: US Attending Dr: Armin Leal D.O. Ordering Physician: Armin Leal D.O. Date of Service: 04/23/24 Procedure(s): US pelvis transvaginal Accession Number(s): [id number] cc: Armin Leal D.O.; Scot Block M.D. [place] [address] Patient Name: OTTO HOSKINS MRN: [id number] date: 2005 Sex: F Assigned Patient Location: US Current Patient Location: Accession/Order Number: [id number] Exam Date: 04/23/2024 09:00 Report Date: 04/24/2024 [...] Dictated By: Ayo Beaulieu M.D. Signed By:04/24/24 8835 DD/ 7215 TD/TT: Learning Disabilities Teacher: us Armin Elvis DO [facility] Final Result documented in this encounter Visit Diagnoses Not on filedocumented in this encounter Care Teams Radio Station Audio Engineer Relationship Specialty Start Date End Date Scot Block MD PCP - General Family Medicine 06/13/23 Scot Block MD [address] [place] [address] [facility]/12/[facility] documented as of this encounter
--- OUTSIDE RECORDS SUMMARY | 2025-02-25 16:02 | XMS_ITS | Encounter Summary ---
Author Organization [facility] Address [address] [facility] [place] [address] Care Team Providers Care Microwave Supervisor Name Role Phone Scot Block MD Primary Care Provider [phone] Scot Block MD Unavailable Encounter Details Date Type Department Care Team (Late st Contact Info) Description 02/24/2025 Bamboo flowsheet [facility] [address] [phone] Bina Vanessa PA [address] [place], [facility] Social History Tobacco Use Types Packs/Day Years [...] How often do you attend chur or jew services? 1 to 4 times per year 11/06/2023 Do you belong to any clubs o r organizations such as yarsani groups, unions, fraternal or athletic groups, or [...] Recorded Patient Health Questionnaire-2 Score 0 01/29/2025 [facility] - Occupational Stress Questionnaire Answer [...] time in the past 12 m [facility], were you homeless or living in a long-term (including now)? No 11/06/2023 Education Answer Date [...] OBGYN [address] [address] Armin Leal DO [address] [place] [address] documented as of this encounter Visit Diagnoses Not on filedocumented in this encounter Care Teams Microwave Supervisor Relationship Specialty Start Date End Date Scot Block MD PCP - General Family Medicine 06/13/23 Scot Block MD [address] [place] [address] PCP - [facility] 11/12/23 documented as of this encounter
--- OUTSIDE RECORDS SUMMARY | 2025-02-25 16:02 | XMS_ITS | Patient Health Record ---
Author Organization [facility] Address [address] [place] [address] Care Team Providers Care Stockbroker Name Role Phone Jose Jackson Primary Care Provider Marya Pinon Unavailable [phone] Reason For Referral No Information Plan Of Treatment No Information Insurance Providers Payer Name Payer Address Payer Phone Subscriber Number Group Number Insured Name Patient Relationship to Insured Coverage Start Date Coverage End Date [employer] [place] [employer] [address] [address] [place] [address] [id number] OTTO HOSKINS Self - patient is the insured 3 [employer] [facility] [place] [address] [place] [address] [id number] OTTO HOSKINS Self - patient is the insured 4
--- OUTSIDE RECORDS SUMMARY | 2025-02-25 16:02 | XMS_ITS | Encounter Summary ---
Author Organization [facility] Address [address] [place] [address] Care Team Providers Care Cad Developer Name Role Phone Scot Block MD Primary Care Provider [phone] Scot Block MD Unavailable Encounter Details Date Type Department Care Team (Late st Contact Info) Description 02/09/2025 Clinisync Result Encounter [facility] External Department Unsolicited Armin Leal, DO [address] [place] [address] Social History Tobacco Use Types Packs/Day Years [...] week 11/06/2023 How often do you attend [facility] or episcopal services? 1 to 4 times per year 11/06/2023 Do you belong to any clubs o r organizations such as baptism groups, unions, fraternal or athletic groups, or [...] Recorded Patient Health Questionnaire-2 Score 0 01/29/2025 [facility] - Occupational Stress Questionnaire Answer [...] any time in the past 12 m [facility], were you homeless or living in a halfway (including now)? No 11/06/2023 Education Answer Date [...] PM EST Routine [facility] [address] [place] [address] Armin Leal DO [address] [place] [address] documented as of this encounter Procedures Procedure Name Priority Date/Time Associated Diagnosis Comments AFP, SERUM, OPEN SPINA BIFIDA Routine 02/09/2025 3:31 PM EDT documented in this encounter Results * AFP, SERUM, OPEN SPINA BIFIDA (02/09/2025 3:31 PM EDT) [facility] RESULTS Report . [facility] TEST RESULTS: *Screen Negative* . [facility] GEST. AGE ON COLLECTION DATE 20.1 . weeks [facility] GESTAT. AGE BASED ON LMP . [facility] Comment: Recalculations are not recommended when gestational dating by LMP and ultrasound are within 10 days. [age]ANA [age] . [age] [facility] RACE . [facility] WEIGHT 115 . lbs [facility] INSULIN DEP DIABETES No . [facility] MULTIPLE GESTATION No . [facility] AFP VALUE 91.9 . ng/mL [facility] AFP MOM 1.35 . [facility] OSBR RISK 1 IN 4151 . [facility] INTERPRETATION Comment . [facility] Comment: Interpretation: Screen Negative This result is screen negative for OSB. The AFP MoM calculated is based on the gestational age provided. MS-AFP can identify up to 80% of open neural tube defects. Closed neural tube defects and some open defects may not be detected by this test. This test does not screen for Down Syndrome or Trisomy 18. If screening for Down Syndrome or Trisomy 18 is desired, contact [facility] to discuss available options. The [employer] recommends amniocentesis be offered to women age 35 and older. COMMENT: Comment . [facility] Comment: Alla Scott, Ph.D., [facility] Director References: Available Upon Request. Multiples Of Median Cutoffs For AFP Elevations Hernandez 2.5 Black 2.8 IDD 2.0 Twins 4.5 Abbreviation Definitions IDD - Insulin Dep Diabetes OSBR - Open Spina Bifida Risk For further inquiries contact [facility] at [phone]. This test was developed and its performance characteristics determined by [employer]. It has not been cleared or approved by the Food and Drug Administration. Performed at: [facility] [address], [place], [place] [id number] Investment Fund Manager: Nubia Simon [facility], Phone: [phone] 02/09/2025 3:31 PM EDT 02/09/2025 3:32 PM EDT Narrative [facility] - 02/11/2025 12:08 AM EDT N N LMP [id number] 1 18 N 1 Y 115 N N N N N White/ us Armin Elvis DO LAB BLOOD ORDERABLES Final Resul t MILLY [facility] documented in this encounter Visit Diagnoses Not on filedocumented in this encounter Care Teams Cad Developer Relationship Specialty Start Date End Date Scot Block MD PCP - General Family Medicine 06/13/23 Scot Block MD [address] [place] [address] PCP - [facility] 11/12/23 documented as of this encounter
--- OUTSIDE RECORDS SUMMARY | 2025-02-25 16:02 | XMS_ITS | Encounter Summary ---
Author Organization [facility] Address [address] [facility] [place] [address] Care Team Providers Care Station Cook Name Role Phone Scot Bolck MD Primary Care Provider [phone] Scot Block MD Unavailable Encounter Details Date Type Department Care Team (Latest Contact Info) Description 02/24/2025 Travel Social History Tobacco Use Types Packs/Day Years [...] 11/06/2023 How often do you attend chur ch or uatsdin services? 1 to 4 times per year 11/06/2023 Do you belong to any clubs o r organizations such as confucianist groups, unions, fraternal [...] Recorded Patient Health Questionnaire-2 Score 0 01/29/2025 [facility] of Occupat ional Health - Occupational Stress [...] were you homeless or living in a residential (including now)? No 11/06/2023 Education Answer Date [...] PM EST Routine [facility] [address] [place] [address] Armin Leal DO [address] [place], [place] [address] documented as of this encounter Visit Diagnoses Not on filedocumented in this encounter Care Teams Station Cook Relationship Specialty Start Date End Date Scot Block MD PCP - General Family Medicine 06/13/23 Scot Block MD [address] [place] [address] PCP - [facility] 11/12/23 documented as of this encounter
--- OUTSIDE RECORDS SUMMARY | 2025-02-25 16:02 | XMS_ITS | Encounter Summary ---
Author Organization [facility] Address [address] [facility] [place] [place] [address] Care Team Providers Care Map Drafter Name Role Phone Scot Block MD Primary Care Provider [phone] Scot Block MD Unavailable Encounter Details Date Type Department Care Team (Late st Contact Info) Description 12/17/2024 Abstract [facility] [address] [place] [address] [place] [address] Pat Gray MA Social History Tobacco Use [...] week 11/06/2023 How often do you attend [facility] or advent services? 1 to 4 times per year 11/06/2023 Do you belong to any clubs o r organizations such as hindu groups, unions, fraternal [...] Recorded Patient Health Questionnaire-2 Score 0 06/15/2023 [facility] - Occupational Stress Questionnaire Answer Date [...] any time in the past 12 m [facility], were you homeless or living in a senior living (including now)? No 11/06/2023 Estimated Date of [...] EST Routine [facility] [address] [place] [address] Armin Leal DO [address] [facility] [address] [place], [place] [address] documented as of this encounter Visit Diagnoses Not on filedocumented in this encounter Care Teams Map Drafter Relationship Specialty Start Date End Date Scot Block MD PCP - General Family Medicine 06/13/23 Scot Block MD [address] [place] [address] PCP - [facility] 11/12/23 documented as of this encounter
--- OUTSIDE RECORDS SUMMARY | 2025-02-25 16:02 | XMS_ITS | Encounter Summary ---
Author Organization [facility] Address [address] [place] [address] Care Team Providers Care Recruitment Director Name Role Phone Scot Block MD Primary Care Provider [phone] Scot Block MD Unavailable Encounter Details Date Type Department Care Team (Late st Contact Info) Description 01/09/2025 Abstract [facility] [place] [facility] [address] [place] [address] Armin Leal DO [address] [place] [place] [id number] Social History Tobacco Use Types Packs/Day Years [...] week 11/06/2023 How often do you attend [facility] or jew services? 1 to 4 times per year 11/06/2023 Do you belong to any clubs o r organizations such as methodist groups, unions, fraternal or athletic groups, or [...] Recorded Patient Health Questionnaire-2 Score 0 06/15/2023 [facility] of Occupat ional Health - Occupational Stress [...] were you homeless or living in a alf (including now)? No 11/06/2023 Estimated Date of [...] PM EST Routine [facility] [address] [place] [address] Armin Leal DO [address] [place] [address] documented as of this encounter Visit Diagnoses Not on filedocumented in this encounter Care Teams Recruitment Director Relationship Specialty Start Date End Date Scot Block MD PCP - General Family Medicine 06/13/23 Scot Block MD [address] [place] [address] PCP - [facility] 11/12/23 documented as of this encounter
--- OUTSIDE RECORDS SUMMARY | 2025-02-25 16:02 | XMS_ITS | Encounter Summary ---
Author Organization [facility] Address [address] [place] [address] Care Team Providers Care Thermostat Machine Tender Name Role Phone Scot Block MD Primary Care Provider [phone] Scot Block MD Unavailable Encounter Details Date Type Department Care Team (Late st Contact Info) Description 01/28/2025 Abstract [facility] POP[facility] [address] [place] [address] Bina Oviedo, OPERATING ROOM ASSISTANT [address] [place] [address] Social History Tobacco Use Types Packs/Day Years [...] week 11/06/2023 How often do you attend [facility] or religion services? 1 to 4 times per year 11/06/2023 Do you belong to any clubs o r organizations such as scientologist groups, unions, fraternal or athletic groups, or [...] Recorded Patient Health Questionnaire-2 Score 0 01/29/2025 [facility] of Occupat ional Health - Occupational [...] any time in the past 12 m [facility], were you homeless or living in a senior care (including now)? No 11/06/2023 Education Answer Date [...] on file documented as of this encounter Functional Status * Over the past 2 weeks, how often have you been bothered by any of the following problems? Question Answer Date of Assessment Author Little interest or pleasure in doing things Not at all 01/29/2025 10:23 AM EDT Bina Oviedo LP N Feeling down, depressed, or hopeless Not at all 01/29/2025 10:23 AM EDT Bina Oviedo LP N Patient Health Questionnaire -2 Score 0 01/29/2025 10:23 AM EDT Bina Oviedo LP N documented as of this encounter Plan of Treatment Upcoming Encounters Date Type Department Care Team (Late st Contact Info) Description 03/25/2025 2:20 PM EST Routine [facility] [address] [place] [address] [place] [address] Armin Leal, [address] [place] [address] documented as of this encounter Visit Diagnoses Not on filedocumented in this encounter Care Teams Thermostat Machine Tender Relationship Specialty Start Date End Date Scot Block MD PCP - General Family Medicine 06/13/23 Scot Block MD [address] [place] [address] PCP - [facility] 11/12/23 documented as of this encounter
--- OUTSIDE RECORDS SUMMARY | 2025-02-25 16:02 | XMS_ITS | Encounter Summary ---
Author Organization [facility] Address [address] [place] [address] Care Team Providers Care Shank Threader Name Role Phone Scot Block MD Primary Care Provider [phone] Scot Block MD Unavailable Encounter Details Date Type Department Care Team (Late Contact Info) Description 10/22/2023 Orders Only [facility] [address] [place] [address] Scot Block MD [address] [place] [address] Social History Tobacco Use Types Packs/Day Years [...] [facility] [address] [place] [address] Armin Leal DO [address] [facility] [place] [address] documented as of this encounter Procedures Procedure Name Priority Date/Time Associated Diagnosis Comments ECG 12-LEAD Routine 10/22/2023 11:19 AM EDT documented in this encounter Results * ECG 12 lead (10/22/2023 11:19 AM EDT) Scot Block MD ECG ORDERABLES Final Result documented in this encounter Visit Diagnoses Not on filedocumented in this encounter Care Teams Shank Threader Relationship Specialty Start Date End Date Scot Block MD PCP - General Family Medicine 06/13/23 Scot Block MD [address] [facility] [place] [address] PCP - [facility] 11/12/23 documented as of this encounter
--- OUTSIDE RECORDS SUMMARY | 2025-02-25 16:03 | XMS_ITS ---
Author Organization [facility] Address [address] [place] [address] Care Team Providers Care Concierge Name Role Phone Scot Block MD Primary Care Provider Scot Block MD Unavailable [facility] Status:Enrolled (Active) Start date:01/26/2025 Enrollment date:01/29/2025 Enrollment reason:Identified by Health Plan Case Team Name Relationship Phone Bina Oviedo LPN(Responsible Staff) [facility] [phone] Continued Care and Services Coordination
--- OUTSIDE RECORDS SUMMARY | 2025-02-25 16:03 | XMS_ITS | Clinical Summary ---
Author Organization [facility] Address [address] [place] [address] Care Team Providers Care Patient Experience Coordinator Name Role Phone Scot Block MD Primary Care Provider [phone] Scot Block MD Unavailable Allergies Active Allergy Reactions Criticality Noted Date Comments Bismuth Subsalicylate GI intolerance 02/05/2023 Medications sertraline (Zoloft) 50 MG tabletIndications: Generalized anxiety disorder TAKE 1 TABLET BY MOUTH EVERY DAY 90 tablet 2 5 Active Vit-Fe Fumarate-FA ( Vitamins) 28-0.8 MG tabletIndications: Missed menses Take 1 tablet by mouth Daily 30 tablet 3 5 026 Active ondansetron ODT (Zofran-ODT) 4 MG disintegrating tabletIndications: Nausea Take 1 tablet (4 mg) by mouth every 6 (six) hours 120 tablet 5 025 Active Vit-Fe Fumarate-FA (PNV 27-Ca/Fe/FA) 60-1 MG tabletIndications: Second trimester ([facility]) Take 1 tablet by mouth Daily 30 tablet 11 5 Active ondansetron ODT (Zofran-ODT) 4 MG disintegrating tablet DISSOLVE 1 TABLET IN MOUTH EVERY 6 HOURS NEEDED FOR NAUSEA AND VOMITING 5 025 Discontin ued(Reord er) Active Problems Problem Noted Date Diagnosed Date [...] and if persists will need to see topographical field assistant for STD check. Bacterial vaginitis 11/06/2023 07/03/19 Assessment & Plan (11/06/2023 11:59 AM EDT): C/o BV and treat with flagyl. Sexually active and unprotected intercourse. If no change need to see topographical field assistant for STD check. Abnormal uterine bleeding 06/15/2023 Hypertrophy of tonsils 06/15/202311/05 Acute non-recurrent pansinusitis 06/15/2023 11/06/2023 Encounters Date Type Department Care Team Description 02/24/2025 2:40 PM [place] [address] Bina Vanessa PA Second trimester ([facility]); 22 weeks gestation of ([facility]); Diabetes mellitus screening 02/24/2025 [place] [address] Bina Vanessa PA 02/24/2025 Travel 02/09/2025 2:30 PM [place] [id number] Screening, , for anatomic survey ([facility]) 02/09/2025 Clinisync Result Encounter [facility] External Department Unsolicited Armin Leal DO 01/29/2025 [place] [address] Nimisha Francis MA Nausea 01/29/2025 Patient Outreach [facility] [address] [place] [address] Bina Oviedo LPN 01/28/2025 Abstract [facility] [address] [place] [address] Bina Oviedo LPN 01/26/2025 3:10 PM EDT Routine [facility] [place] [facility] [address] [place] [address] Armin Leal, Second trimester ([facility]) (Primary Dx); Screening, , for anatomic survey ([facility]) 01/09/2025 Telephone [facility] [place] [facility] [address] [place] [address] Armin Leal, 01/09/2025 Abstract [facility] [place] [facility] [address] [place] [address] Armin Leal, 01/07/2025 2:20 PM EDT Routine [facility] [place] [facility] [address] [place] [address] Armin Leal, Second trimester ([facility]); 15 weeks gestation of ([facility]); Rash 01/07/2025 Bamboo flowsheet [facility] [place] [facility] [address] [place] [address] Armin Leal, DO 01/06/2025 Telephone [facility] [place] [facility] [address] [place] [address] Armin Leal, DO 12/29/2024 3:20 PM EDT Routine [facility] [place] [facility] [address] [place] [address] Armin Leal, Second trimester ([facility]); 14 weeks gestation of ([facility]) 12/22/2024 Telephone [facility] [place] [facility] [address] [facility] [facility] [place] [place] [address] PriscillaNancy morenoTREVOR 12/18/2024 Telephone [facility] [place] [facility] [address] [facility] [place] [place] [address] Pat Gray MA 12/17/2024 Abstract [facility] [place] [address] [address] [facility] [place] [place] [address] Pat Gray MA 12/01/2024 Clinisync Result Encounter [facility]OM[facility] External Department Unsolicited Provider, Generic External Data 11/27/2024 1:00 PM EDT Initial [facility] [place] [address] [place] [address] GA: [id number] 11/27/2024 12:30 PM EDT Ancillary Procedure [facility] [place] [address] [address] [facility] [place] [place] [address] Missed menses; Positive urine test ([facility]) 11/27/2024 Travel from Last 3 Months Family History Medical History Relation Name Comments Liver cancer Father Relation Name Status Comments Father Mother Alive Social History Tobacco Use Types Packs/Day Years Used Date Smoking Tobacco: Never Smokeless Tobacco: Former Tobacco Cessation:Counseling Given: Not Answered Alcohol Use [...] week 11/06/2023 How often do you attend [facility] or confucianist services? 1 to 4 times per year 11/06/2023 Do you belong to any clubs o r organizations such as roman catholic groups, unions, fraternal or athletic groups, or [...] Recorded Patient Health Questionnaire-2 Score 0 01/29/2025 [facility] of Occupat ional Health - Occupational Stress [...] any time in the past 12 [address] [place], were you homeless or living in a senior living (including now)? No 11/06/2023 Education Answer Date [...] Pressure 108/58 02/24/2025 2:59 PM EDT Pulse 112 08/06/2024 1:41 PM EDT Temperature 36.6 C (97.8 F) 08/06/2024 1:41 PM EDT Respiratory Rate 20 08/06/2024 1:41 PM EDT Oxygen Saturation 98% 08/06/2024 1:41 PM EDT Inhaled Oxygen Concentration - - Weight 56.2 kg (124 lb) 02/24/2025 2:59 PM EDT Height 162.6 cm (5' 4 ) 08/06/2024 1:41 PM EDT Body Mass Index 21.28 08/06/2024 1:41 PM EDT Plan of Treatment Upcoming Encounters Date Type Department Care Team (Late st Contact Info) Description 03/25/2025 2:20 PM EST Routine [facility] [place] [facility] [address] [place] [phone] ElvisArmin ramirez, DO [address] [place] [address] Health Maintenance Due Date Last Done Comments Influenza Vaccine (#1) 2025 07/03/2017 Procedures Procedure Name Priority Date/Time Associated Diagnosis Comments RECURRENT VAGINITIS (HTRX) Routine 02/24/2025 3:28 PM EDT POCT URINALYSIS DIPSTICK Routine 02/24/2025 3:11 PM EDT 22 weeks gestation of ([facility]) AFP, SERUM, OPEN SPINA BIFIDA Routine 02/09/2025 3:31 PM EDT US OB 14+ WEEKS ANATOMY SCAN Routine 02/09/2025 3:15 PM EDT Screening, , for anatomic survey ([facility]) POCT URINALYSIS DIPSTICK Routine 01/26/2025 3:52 PM EDT Second trimester ([facility]) POCT URINALYSIS DIPSTICK Routine 12/29/2024 3:30 PM EDT Second trimester ([facility]) HBSAG SCREEN Routine 12/01/2024 4:51 PM EDT [...] CULTURE, ROUTINE Routine 12/01/2024 4:40 PM EDT [facility] DRUG SCREEN RAPID (URINE) Routine 12/01/2024 4:40 PM EDT POCT URINALYSIS DIPSTICK Routine 11/27/2024 1:36 PM EDT Missed menses POCT , URINE Routine 11/27/2024 1:35 PM EDT Missed menses US OB TRANSVAGINAL Routine 11/27/2024 12 :54 PM EDT Missed menses Positive urine test ([facility]) from Last 3 Months Results * RECURRENT VAGINITIS (HTRX) (02/24/2025 3:28 PM EDT) [facility] ATOPOBIUM VAGINAE 0 19.961 - 24.689 ppm 02/25/2025 6:33 AM EDT [facility] ATOPOBIUM VAGINAE Not Detected 19.961 - 24.689 ppm 02/25/2025 6:33 AM EDT [facility] BVAB 2,3 (BACTERIAL VAGINOSIS ASSOCIATED BACTERIA 2, 3); MOBILUNCUS SPP 0 19.961 - 24.689 ppm 02/25/2025 6:33 AM EDT [facility] BVAB 2,3 (BACTERIAL VAGINOSIS ASSOCIATED BACTERIA 2, 3); MOBILUNCUS SPP Not Detected 19.961 - 24.689 ppm 02/25/2025 6:33 AM EDT [facility] TIAGO ALBICANS, PARAPSILOSIS, TROPICALIS 0 23.000 - 30.347 ppm 02/25/2025 6:33 AM EDT [facility] TIAGO ALBICANS, PARAPSILOSIS, TROPICALIS Not Detected 23.000 - 30.347 ppm 02/25/2025 6:33 AM EDT [facility] TIAGO GLABRATA 0 23.000 - 31.618 ppm 02/25/2025 6:33 AM EDT [facility] TIAGO GLABRATA Not Detected 23.000 - 31.618 ppm 02/25/2025 6:33 AM EDT [facility] TIAGO KRUSEI 0 23.000 - 30.873 ppm 02/25/2025 6:33 AM EDT [facility] TIAGO KRUSEI Not Detected 23.000 - 30.873 ppm 02/25/2025 6:33 AM EDT [facility] CHLAMYDIA TRACHOMATIS 0 23.000 - 31.586 ppm 02/25/2025 6:33 AM EDT [facility] CHLAMYDIA TRACHOMATIS Not Detected 23.000 - 31.586 ppm 02/25/2025 6:33 AM EDT [facility] GARDNERELLA VAGINALIS 0 19.961 - 24.689 ppm 02/25/2025 6:33 AM EDT [facility] GARDNERELLA VAGINALIS Not Detected 19.961 - 24.689 ppm 02/25/2025 6:33 AM EDT [facility] MEGASPHAERA (TYPES 1, 2) 0 19.961 - 24.689 ppm 02/25/2025 6:33 AM EDT [facility] MEGASPHAERA (TYPES 1, 2) Not Detected 19.961 - 24.689 ppm 02/25/2025 6:33 AM EDT [facility] NEISSERIA GONORRHOEAE 0 23.000 - 32.587 ppm 02/25/2025 6:33 AM EDT [facility] NEISSERIA GONORRHOEAE Not Detected 23.000 - 32.587 ppm 02/25/2025 6:33 AM EDT [facility] TRICHOMONAS VAGINALIS 0 23.000 - 31.995 ppm 02/25/2025 6:33 AM EDT [facility] TRICHOMONAS VAGINALIS Not Detected 23.000 - 31.995 ppm 02/25/2025 6:33 AM EDT [facility] MYCOPLASMA GENITALIUM 0 19.961 - 24.689 ppm 02/25/2025 6:33 AM EDT [facility] MYCOPLASMA GENITALIUM Not Detected 19.961 - 24.689 ppm 02/25/2025 6:33 AM EDT [facility] Tissue 02/24/2025 3:28 PM EDT 02/25/2025 1:29 AM EDT us Bina HENDERSON LAB BLOOD ORDERABLES Final Resul t [facility] [address] [id number] * POCT urinalysis dipstick manually resulted (02/24/2025 3:11 PM EDT) Only the most recent of4 resultswithin the time period is included. Color, UA Yellow Clarity, UA Clear Glucose, [...] TEST ENTER/EDIT OR DERABLES Final Result * AFP, SERUM, OPEN SPINA BIFIDA (02/09/2025 3:31 PM EDT) Pathologist [facility] RESULTS Report . [facility] TEST RESULTS: *Screen Negative* . [facility] GEST. AGE ON COLLECTION DATE 20.1 . weeks [facility] GESTAT. AGE BASED ON LMP . [facility] Comment: Recalculations are not recommended when gestational dating by LMP and ultrasound are within 10 days. [age]ANA [age] [facility] RACE . [facility] WEIGHT 115 . lbs [facility] INSULIN DEP DIABETES No . H MULTIPLE GESTATION No . [facility] AFP VALUE 91.9 . ng/mL [facility] AFP MOM 1.35 . [facility] OSBR RISK 1 IN 4151 . [facility] INTERPRETATION Comment . [facility] Comment: Interpretation: Screen Negative This result is [...] Customer Services to discuss available options. The [place] [employer] recommends amniocentesis be offered to women age 35 and older. COMMENT: Comment . [facility] Comment: Alla Scott, Ph.D., [facility] Director References: Available Upon Request. Multiples Of Median Cutoffs For AFP Elevations Hernandez 2.5 Black 2.8 IDD 2.0 Twins 4.5 Abbreviation Definitions IDD - Insulin Dep Diabetes OSBR - Open Spina Bifida Risk For further inquiries contact [employer] [facility] at [phone]. This test was developed and its performance characteristics determined by [employer]. It has not been cleared or approved by the Food and Drug Administration. Performed at: [facility] [address] [place], [place] [id number] Search Engine Marketing Specialist: Nubia Simon Formerly [facility], Phone: [phone] 02/09/2025 3:31 PM EDT 02/09/2025 3:32 PM EDT Narrative [facility] - 02/11/2025 12:08 AM EDT N N LMP [id number] 1 18 N 1 Y 115 N N N N N White/ us Armin Elvis DO LAB BLOOD ORDERABLES Final Resul t [facility] TB * US OB 14+ weeks anatomy scan (02/09/2025 3:15 PM EDT) Anatomical Region Laterality Modality Body Ultrasound 02/10/2025 1:10 PM EDT Impressions 02/10/2025 1:16 PM EDT Single, live intrauterine , current sonographic age of 20 weeks and 3 days, with an estimated date of delivery of June 26, 2025 * Estimated Weight (g) by Percentile is based upon an accurate estimated age based on last menstrual period. TRANSCRIBED BY: ELECTRONICALLY SIGNED BY: Asher Edward MD Narrative 02/10/2025 1:16 PM EDT FINDINGS: A single, live intrauterine is present with normal cardiac rate of 141 beats per minute. Normal activity and amniotic fluid volume. Morphology is grossly normal. The cervix is long and closed, 4 cm. The placenta is anterior, not associated with the cervical os. The current sonographic age is 20 weeks and 3 days, based on the following measurements: BPD 4.7 cm (20 weeks, 2 days) Head Circumference 17.5 cm (20 weeks, 0 days) Abdominal Circumference 15.9 cm (21 weeks, 0 days) Femur Length 3.4 cm (20 weeks, 4 days) Placenta Anterior Grade I Weight (g) by Percentile 78.6 % * These measurements result in an estimated date of delivery of June 26, 2025 The current estimated weight is 374 grams (0 pounds, 13 ounces). Procedure Note Asher Edward MD - 02/10/2025 FINDINGS: A single, live intrauterine is present with normal cardiacrate of 141 beats per minute. Normal activity and amniotic fluidvolume. Morphology is grossly normal. The cervix is long and closed, 4 cm.The placenta is anterior, not associated with the cervical os. Thecurrent sonographic age is 20 weeks and 3 days, based on the followingmeasurements: BPD 4.7 cm (20 weeks, 2 days) Head Circumference 17.5 cm (20 weeks, 0 days) Abdominal Circumference 15.9 cm (21 weeks, 0 days) Femur Length 3.4 cm (20 weeks, 4 days) Placenta Anterior Grade I Weight (g) by Percentile 78.6 % * These measurements result in an estimated date of delivery of June The current estimated weight is 374 grams (0 pounds, 13ounces). IMPRESSION: Single, live intrauterine , current sonographic age of 20 weeksand 3 days, with an estimated date of delivery of June 26, 2025 * Estimated Weight (g) by Percentile is based upon an accurateestimated age based on last menstrual period. TRANSCRIBED BY: ELECTRONICALLY SIGNED BY: Asher Edward MD us Samantha Stokes NP IMG OB US PROCEDURES Final Re sult * BOX TEST (12/01/2024 4:51 PM EDT) BOX TEST SENT OUT YES [facility] BOX1 UNITY [facility] BOX2 12/01/24 [facility] 12/01/2024 4:51 PM EDT 12/01/2024 4:56 PM EDT Narrative [facility] - 12/01/2024 4:59 PM EDT us rAmin Elvis DO LAB BLOOD ORDERABLES Final Resul t [facility] * HBSAG SCREEN (12/01/2024 4:51 PM EDT) HBSAG SCREEN Negative Negative [facility] Comment: Performed at: [address] [id number] [employer] Specialist: Rashad Kennedy PhD, Phone: [phone] 12/01/2024 4:51 PM EDT 12/01/2024 4:56 PM EDT [facility]ative [facility] - 12/03/2024 11:10 AM EDT Generic External Data Provider LAB BLOOD ORDERAB LES Final Result Performing Organization Address [facility]/ZIP Co de Phone Number [facility] * RAPID PLASMA REAGIN, QUANT (12/01/2024 4:51 PM EDT) RAPID PLASMA REAGIN, QUANT Non Reactive NonRea<1: 1 titer [facility] Comment: Please Note: This test does not meet current guidelines for screening and diagnosis of syphilis. This test is intended for following treatment response in patients being treated for syphilis infection. To screen for syphilis infection, a reflex cascade that includes both RPR and a treponema-specific assay should be utilized, such as Treponema pallidum (Syphilis) Screening [place] (734040) or Rapid Plasma Reagin (RPR) Test With Reflex to Quantitative RPR and Confirmatory Treponema pallidum Antibodies (006133). Performed at: [employer] [id number] Search Engine Marketing Specialist: Rashad Kennedy PhD, Phone: [phone] 12/01/2024 4:51 PM EDT 12/01/2024 4:56 PM EDT Narrative [facility] - 12/03/2024 11:10 AM EDT Generic External Data Provider LAB BLOOD ORDERAB LES Final Result Performing Organization Address [facility] Co de Phone Number [facility] * HIV AB/P24 AG WITH REFLEX (12/01/2024 4:51 PM EDT) Pathologist [facility] HIV AB/P24 AG SCREEN Non Reactive Non Reactive [facility] Comment: HIV-1/HIV-2 antibodies and HIV-1 p24 antigen were NOT detected. There is no laboratory evidence of HIV infection. HIV Negative Performed at: [employer] [id number] [employer] Engine [employer] Specialist: Rashad Kennedy PhD, Phone: [phone] 12/01/2024 4:51 PM EDT 12/01/2024 4:56 PM EDT Narrative [facility] - 12/03/2024 6:08 AM EDT Generic External Data Provider LAB BLOOD ORDERAB LES Final Result Performing Organization Address [facility]/ZIP Co de Phone Number [facility] * HCV ANTIBODY RFX TO QUANT PCR (12/01/2024 4:51 PM EDT) [facility] HCV AB Non Reactive Non Reactive [facility] INTERPRETATION: Comment . [facility] Comment: Not infected with HCV unless early or acute infection is suspected (which may be delayed in an immunocompromised individual), or other evidence exists to indicate HCV infection. Performed at: [facility] [address] [id number] [employer] Specialist: Rashad Kennedy PhD, Phone: [phone] 12/01/2024 4:51 PM EDT 12/01/2024 4:56 PM EDT Narrative [facility] - 12/03/2024 8:12 AM EDT Armin Elvis DO LAB BLOOD ORDERABLES Final Resul t Performing Organization Address [facility] Co de Phone Number [facility] * MLR HEMOGLOBIN A1C (12/01/2024 4:51 PM EDT) [facility] GLYCOHEMOGLOBIN A1C 4.9 4.5 - 6.2 % [facility] Comment: ADA RECOMMENDED LIMIT 4.0 - 6.0 ADA THERAPEUTIC TARGET < 7.0 ACTION SUGGESTED > 7.0 ESTIMATED AVERAGE GLUCOSE 94 mg/dL [facility] 12/01/2024 4:51 PM EDT 12/01/2024 4:56 PM EDT Narrative [facility] - 12/01/2024 5:53 PM EDT Armin Elvis DO CLINISYNC Final Result Performing Organization Address [facility] Co de Phone Number [facility] * ALL TYPE AND SCREEN (12/01/2024 4:51 PM EDT) [facility] BLOOD TYPE A Positive [facility] ANTIBODY SCREEN NEGATIVE TB 12/01/2024 4:51 PM EDT 12/01/2024 4:56 PM EDT Narrative [facility] - 12/01/2024 5:53 PM EDT [facility] , us Armin Elvis DO CLINISYNC Final Result [facility] * (ABNORMAL) ALL RUBELLA IGG AB (12/01/2024 4:51 PM EDT) [facility] RUBELLA ANTIBODIES, IGG <0.90(A) Immune >0.99 index [facility] Comment: Non-immune <0.90 Equivocal 0.90 - 0.99 Immune >0.99 Performed at: [address] [id number] [employer] Specialist: Rashad Kennedy PhD, Phone: [phone] 12/01/2024 4:51 PM EDT 12/01/2024 4:56 PM EDT Narrative [facility] - 12/03/2024 8:12 AM EDT Armin Elvis DO CLINIS[facility] Final Result Performing Organization Address City/[facility]/ZIP Co de Phone Number [facility] * (ABNORMAL) ALL CBC WITH AUTO DIFF (12/01/2024 4:51 PM EDT) [facility] TB WBC 10.5 4.0 - 11.0 10 3/uL [facility] RBC 3.96(L) 4.20 - 5.40 10 6/uL [facility] HGB 12.7 12.0 - 16.0 g/dL [facility] HCT 35.9(L) 36.0 - 48.0 % [facility] MCV 90.7 81.0 - 99.0 fL [facility] MCH 32.1 26.7 - 34.0 pg [facility] MCHC 35.4(H) 29.9 - 35.2 g/dL [facility] TBH RDW 11.6 11.0 - 15.0 % [facility] [...] [facility] - 12/01/2024 5:04 PM EDT Armin Suo DO CLINISYNC Final Result [facility] * URINE CULTURE, ROUTINE (12/01/2024 4:40 PM EDT) URINE CULTURE, ROUTINE Urine Culture, Routine [facility] URINE CULTURE, ROUTINE No growth TB URINE CULTURE, ROUTINE Performed at: - [facility] URINE CULTURE, ROUTINE [address] [place], [place] [id number] [facility] URINE CULTURE, ROUTINE [employer] Specialist: Rashad Kennedy PhD, Phone: [phone] [facility] 12/01/2024 4:40 PM EDT 12/01/2024 4:56 PM EDT Narrative [facility] - 12/04/2024 4:11 AM EDT Generic External Data Provider LAB BLOOD ORDERAB LES Final Result [facility] * [facility] DRUG SCREEN RAPID (URINE) (12/01/2024 4:40 PM EDT) CANNABINOID SCREEN URINE NEGATIVE NEGATIVE [facility] PHENCYCLIDINE [...] [facility] - 12/01/2024 5:14 PM EDT Armin Elvis DO CLINISYNC Final Result [facility] * (ABNORMAL) POCT , urine manually resulted (11/27/2024 1:35 PM EDT) Preg Test, Ur Positive Negative Urine 11/27/2024 1:35 PM EDT Armin Elvis DO POINT OF CARE TEST [...] SIGNED BY: Asher Edward MD us Armin Leal DO IMG OB US PROCEDURES Final Resul t from Last 3 Months Insurance [employer] Care Teams Patient Experience Coordinator Relationship Specialty Start Date End Date Scot Block MD PCP - General Family Medicine 06/13/23 Scot Block MD [address] [place] [address] PCP - [facility] 11/12/23
--- OUTSIDE RECORDS SUMMARY | 2025-02-25 16:06 | XMS_ITS | CCD ---
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 Name Role Phone NON, STAFF, Primary Care Provider Unavailbertha DALTON, DR SCOT Franco Primary Care Unavailable LASHAWN, MARTHA Admitting Unavailable LASHAWN, MARTHA Attending Unavailable GERBER, SANTIAGO JARRELL Consulting Unavailable KRYSTLE, DR SCOT Franco Primary Care Unavailable PAY, DR RAINES Admitting Unavailable PAY, DR RAINES Attending Unavailable ZIEBER, DR NE Jones Consulting Unavailable GREBOBBY, SANTIAGO JARRELL Consulting Unavailable KRYSTLE, DR SCOT Franco Admitting Unavailable KRYSTLE, DR SCOT Franco Attending Unavailable KRYSTLE, DR SCOT Franco Primary Care Unavailable KRYSTLE, DR SCOT Franco Consulting Unavailable Scot Dalton MD Primary Care Provider Scot Dalton MD Unavailable Scot Dalton MD Primary Care Provider Scot Dalton MD Unavailable SCOT DALTON Attending Unavailable SCOT DALTON Attending Unavailable DANIELA LEAL Attending Unavailable DANIELA LEAL Attending Unavailable DANIELA LEAL Attending Unavailable DANIELA LEAL Attending Unavailable DANIELA LEAL Attending Unavailable Scot Dalton MD Unavailable Allergies Allergy Classification Reported Allergen(s) Allergy Type Date of Onset Reaction(s) Facility (1 source) bismuth subsalicylate Drug Allergy 2 [facility] Repository (20 sources) bismuth subsalicylate Drug Allergy 3 GI [...] Active MG TABLET September 17, 2020 5:55pm methylPREDNISolone (2 sources) Corticosteroid Start: 01-07-2025 End: 01-14-2025 methylPREDNISolone (Medrol Dospak) 4 MG tablets Indications: Rash Follow schedule on package instructions 21 tablet 01/07/2025 01/14/2025 Active ondansetron 4 mg disintegrating oral tablet (20 sources) Serotonin-3 Receptor Antagonist Start: 01-29-2025 End: 02-28-2025 take 1 tablet by mouth every six hours for nausea and nausea ondansetron ODT (Zofran-ODT) 4 MG disintegrating tablet Indications: Nausea Take 1 tablet (4 mg) by mouth every 6 (six) hours 120 tablet 01/29/2025 02/28/2025 Active Start: 06-23-2024 End: 12-27-2024 take 1 tablet by mouth every six hours as needed for nausea and vomiting ondansetron ODT (Zofran-ODT) 4 MG disintegrating tablet DISSOLVE 1 TABLET IN MOUTH EVERY 6 HOURS NEEDED FOR NAUSEA AND VOMITING 06/23/2024 Active Vit-Fe Fumarate-FA ( Vitamins) 28-0.8 MG tablet (12 sources) Start: 11-27-2024 End: 11-27-2025 take 1 tablet by mouth once daily Vit-Fe Fumarate-FA ( Vitamins) 28-0.8 MG tablet Indications: Missed menses Take 1 tablet by mouth Daily 30 tablet 3 11/27/2024 11/27/2025 Active sertraline 50 mg oral tablet (20 sources) Serotonin Reuptake Inhibitor Start: 08-28-2024 take [...] oral solution (3 sources) alpha-Adrenergic Agonist, Uncompetitive Y-bkdvii-H-asparta te Receptor Antagonist, Sigma-1 Agonist Start: 06-23-2024 End: 07-03-2024 brompheniramine-pse udoephedrine-DM 30-2-10 MG/5ML syrup TAKE 10 ML EVERY 6 HOURS NEEDED FOR COLD SYMPTOMS 06/23/2024 07/03/2024 Discontinued levonorgestrel 0.097961 mg/hr intrauterine system (7 sources) Progestin, Progestin-containi [...] 11-06-2023 11-06-2023 Chronic Contraceptive and procreative management (3 sources) Patient encounter status; Translations: [Encounter for removal [...] unspecified] 11-27-2024 Chronic Miscellaneous mental health disorders (20 sources) Psychophysiologic insomnia; Translations: [Psychophysiologic insomnia] Onset: 07-03-2024 07-03-2024 Chronic Nausea and vomiting (1 source) Nausea; Translations: [Nausea] 11-27-2024 Episodic Other female genital disorders (2 sources) Vaginal discharge; Translations: [Other specified noninflammatory disorders of vagina] 08-26-2024 Episodic Other and delivery including normal (8 sources) ; Translations: [Encounter for supervision of normal , unspecified, unspecified trimester] 11-27-2024 Episodic Other skin disorders (2 sources) Eruption; Translations: [Rash and other nonspecific skin eruption] 01-07-2025 Episodic Other upper respiratory disease (1 source) Allergic rhinitis due to pollen; Translations: [Allergic rhinitis due to pollen] 04-14-2024 Chronic Residual codes; unclassified (2 sources) Gestation period, 14 weeks; Translations: [14 weeks gestation of ] 12-29-2024 Episodic Residual codes; unclassified (2 sources) Gestation period, 15 weeks; Translations: [15 weeks gestation of ] 01-07-2025 Episodic Superficial injury; contusion (1 source) Contusion [...] Onset: 11-28-2021 Episodic Acute and chronic tonsillitis (20 sources) Hypertrophy of tonsils; Translations: [Hypertrophy of tonsils] Onset: 06-15-2023 Resolved: 11-06-2023 06-15-2023 Chronic Inflammatory diseases of female pelvic organs (20 sources) Bacterial vaginosis; Translations: [Acute vaginitis] Onset: 11-06-2023 Resolved: 07-03-2024 11-06-2023 Episodic Lymphadenitis (20 sources) Inguinal lymphadenopathy; Translations: [Localized enlarged lymph nodes] Onset: 11-06-2023 Resolved: 08-06-2024 11-06-2023 Episodic Other female genital disorders (20 sources) Abnormal uterine bleeding; Translations: [Abnormal uterine and vaginal bleeding, unspecified] Onset: 06-15-2023 Resolved: 11-06-2023 06-15-2023 Chronic Other nervous system disorders (20 sources) Hyperalgesia; Translations: [Other disturbances of skin sensation] Onset: 10-10-2023 Resolved: 11-06-2023 11-06-2023 Episodic Other skin disorders (20 sources) Acne vulgaris; Translations: [Acne vulgaris] Onset: 06-15-2023 06-15-2023 Episodic Other upper respiratory infections (20 sources) Acute upper respiratory infection, unspecified; Translations: [...] Results Test Name Value Interpretation Reference Range Facility AFP, SERUM, OPEN SPINA BIFID Aon 02-11-2025 AFP MOM 1.35 . [facility] Inductly e AFP VALUE 91.9 ng/mL . [facility] Inductly e COMMENT: Comment . [facility] e Comment on above: Alla Scott , Ph.D., [facility] Director References: Available Upon Request. Multiples Of Median Cutoffs For AFP Elevations Hernandez 2.5 Black 2.8 IDD 2.0 Twins 4.5 Abbreviation Definitions IDD - Insulin Dep Diabetes OSBR - Open Spina Bifida Risk For further inquiries contact [facility] at [phone]. This test was developed and its performance characteristics determined by [employer]. It has not been cleared or approved by the Food and Drug Administration. Performed at: [facility] [address] [id number] Or Assistant: Nubia Simon [facility], Phone: [phone] GEST. AGE ON COLLECTION DATE 20.1 . weeks [facility] GESTAT. AGE BASED ON LMP . [facility] Comment on above: Recalculations are n ot recommended when gestational dating by LMP and ultrasound are within 10 days. INSULIN DEP DIABETES No . [facility] Healthcare INTERPRETATION Comment . [facility] Healt hcare Comment on above: Interpretation: Scre en Negative This result is screen negative for [...] Customer Services to discuss available options. The [employer] recommends amniocentesis be offered to women age 35 and older. [age] [facility] MULTIPLE GESTATION No . [facility] OSBR RISK 1 IN 4151 . [facility] Healt hcare RACE . [facility] Healthcar e RESULTS Report . [facility] Healthcar e TEST RESULTS: Negative . [facility] Health care WEIGHT 115 . lbs [facility] Healthcar e N N LMP [id number] [id number] 18 N 1 Y 115 N N N N N White/ [facility] Healthcar e US OB 14+ WEEKS ANATOMY SCAN on 02-09-2025 US OB 14+ WEEKS ANATOMY SCAN FINDINGS: A single, live intrauterine is present [...] is 374 grams (0 pounds, 13 ounces). IMPRESSION: Single, live intrauterine , current sonographic age of 20 weeks and 3 days, with an estimated date of delivery of June 26, 2025 * Estimated Weight (g) by Percentile is based upon an accurate estimated age based on last menstrual period. TRANSCRIBED BY: ELECTRONICALLY SIGNED BY: Asher Edward MD Normal Not Available Comment on above: Order Comment: US OB ANATOMY SINGLE W US OB CERVICAL LENGTH Estimated Date of Delivery: 06/28/25 Gestational Age as of 01/26/2025: 18w1d Urinalysis macro (dipstick) panel (U)on 01-26-2025 Bilirubin, UA Negative Negative - 4(70) +++ mg/dL [facility] Blood, UA Negative Negative - 50 Shayne/mcL [facility] Healthcare Clarity, UA Clear [facility] Color, UA Light Yellow [facility] Glucose, UA Negative Negative - 1999(110) ++++ mg/dL [facility] Interpretation and review of laboratory results Abnormal [facility] Ketones, UA Negative Negative - 160(16) ++++ mg/dL [facility] Leukocytes, UA 1+ Negative - 500+++ Deysi/mcL [facility] Nitrite, UA Negative Negative - Positive [facility] pH, UA 7 5 - 9 [facility] Healthcar e Protein, UA Negative Negative - 1999(20) ++++ mg/dL [facility] Spec Grav, UA 1.015 1 - 1.03 [facility] Urobilinogen, UA 4.0 0.2 - 12 mg/dL [facility] Health[facility] e Urinalysis macro (dipstick) panel (U)on 12-29-2024 Bilirubin, UA Negative Negative - 4(70) +++ mg/dL [facility] Blood, UA Negative Negative - 50 Shayne/mcL [facility] Healthcare Clarity, UA Clear [facility] Healthca re Color, UA Yellow [facility] Healthcar e Glucose, UA Negative Negative - 1999(110) ++++ mg/dL [facility] Interpretation and review of laboratory results Normal [facility] Ketones, UA Negative Negative - 160(16) ++++ mg/dL [facility] Leukocytes, UA Negative Negative - 500+++ Deysi/mcL [facility] Nitrite, UA Negative Negative - Positive [facility] pH, UA 6 5 - 9 [facility] Healthcar e Protein, UA Negative Negative - 1999(20) ++++ mg/dL [facility] Spec Grav, UA 1.005 1 - 1.03 [facility] Urobilinogen, UA 0.2 0.2 - 12 mg/dL [facility] BOX TESTon 12-01-2024 BOX TEST SENT OUT YES [facility] BOX1 [facility] Healthcar e BOX2 12/01/24 [facility]car e [facility] Healthcar e HCG ( test) Ql (U)o n 11-27-2024 Interpretation and review of laboratory results Abnormal [facility] Preg Test, Ur Positive Negative [facility] US OB TRANSVAGINALon 025 [...] UA Negative Negative - 4(70) +++ mg/dL [facility] Blood, UA Negative Negative - 50 Shayne/mcL [facility] Clarity, UA Clear [facility] re Color, UA Yellow [facility] e Glucose, UA Negative Negative - 1999(110) ++++ mg/dL [facility] Interpretation and review of laboratory results Abnormal [facility] Ketones, UA Negative Negative - 160(16) ++++ mg/dL [facility] Leukocytes, UA Negative Negative - 500+++ Deysi/mcL [facility] Nitrite, UA Negative Negative - Positive [facility] pH, UA 6 5 - 9 [facility] e Protein, UA Trace Negative - 1999(20) ++++ mg/dL [facility] Spec Grav, UA 1.025 1 - 1.03 [facility] Urobilinogen, UA 1.0 0.2 - 12 mg/dL [facility] HIV AB/P24 AG WITH REFLEXon 08-27-2024 HIV AB/P24 AG SCREEN Non-Reactive Non Reactive [facility] Comment on above: HIV-1/HIV-2 antibodi es and HIV-1 p24 antigen were NOT detected. There is no laboratory evidence of HIV infection. HIV Negative Performed at: [facility] [address], [place] [id number] Or Assistant: Rashad Kennedy PhD, Phone: [phone] [facility] e RECURRENT VAGINITIS (HTRX)on 08-27-2024 ATOPOBIUM VAGINAE 17.303 Abnormal [facility] ATOPOBIUM VAGINAE Detected Abnormal [facility]thcare BVAB 2,3 (BACTERIAL VAGINOSIS ASSOCIATED BACTERIA 2, 3); MOBILUNCUS SPP 9.963 Abnormal [facility] BVAB 2,3 (BACTERIAL VAGINOSIS ASSOCIATED BACTERIA 2, 3); MOBILUNCUS SPP Detected Abnormal [facility] TIAGO ALBICANS, PARAPSILOSIS, TROPICALIS 0 [facility] TIAGO ALBICANS, PARAPSILOSIS, TROPICALIS Not detected [facility] TIAGO GLABRATA 0 [facility] Hea lthcare TIAGO GLABRATA Not detected [facility] TIAGO KRUSEI 0 [facility] Healt hcare TIAGO KRUSEI Not detected [facility] CHLAMYDIA TRACHOMATIS 0 [facility] CHLAMYDIA TRACHOMATIS Not detected [facility] Healthcare ERMB, C; MEFA 21.469 Abnormal [facility] ERMB, C; MEFA Detected Abnormal [facility] GARDNERELLA VAGINALIS 15.609 Abnormal [facility] GARDNERELLA VAGINALIS Detected Abnormal [facility] Interpretation and review of laboratory results Abnormal [facility] MEGASPHAERA (TYPES 1, 2) 0 [facility] MEGASPHAERA (TYPES 1, 2) Not detected [facility] MYCOPLASMA GENITALIUM 0 [facility] MYCOPLASMA GENITALIUM Not detected [facility] NEISSERIA GONORRHOEAE 0 [facility] NEISSERIA GONORRHOEAE Not detected [facility] TET B, TET M 19.773 Abnormal [facility] Healthc are TET B, TET M Detected Abnormal [facility] Healthc are TRICHOMONAS VAGINALIS 0 [facility] TRICHOMONAS VAGINALIS Not detected [facility] Healthcar e UPPER RESPIRATORY CULTUREon 06-27-2024 UPPER RESPIRATORY CULTURE Upper Respiratory Culture [facility] UPPER RESPIRATORY CULTURE Routine respiratory levy [facility] UPPER RESPIRATORY CULTURE Performed at: [facility] UPPER RESPIRATORY CULTURE [address], [place] [id number] [facility] UPPER RESPIRATORY CULTURE Or Assistant: Rashad Kennedy PhD, Phone: [phone] [facility] e IUD Removalon 05-05-2024 Damian HodgesTREVOR 05/06/2024 7:56 AM IUD Removal Date/Time: 05/05/2024 [...] due to infection and inflammatory reaction: no [facility]on SARS-CoV-2 (COVID-19) RNA YOBANY+probe Ql (Unsp spec) Not detected Normal NOT DETECTED [facility] Comment on above: Result Comment: When [...] for this test is supported by the [place] of [employer] and Human Service's declaration that [...] longer be used). Performed By: #### C [facility] #### [facility] [address] [place] [address] Dr. Nayana Tolentino INFLUENZA A AND B AGon 04-20 INFLUANEGH SEE BELOW Normal [facility] Comment on above: Result Comment: Nega tive for Flu A protein angiten. Infection due to Flu A cannot be ruled out. Flu A angiten in the sample may be below the detection limit of the test. Performed By: #### I NFLUAB #### [facility] [address] [place] [address] Dr. Nayana Tolentino [facility] SEE BELOW Normal [facility] Comment on above: Result Comment: Nega tive for Flu B protein antigen. Infection due to Flu B cannot be ruled out. Flu B antigen in the sample may be below the detection limit of the test. Performed By: #### I NFLUAB #### [facility] [address] [place] [address] Dr. Nayana Tolentino INFLUENZA A AG Negative Normal NEGATIVE SEE COMMENT [facility] Comment on above: Performed By: #### I NFLUAB #### [facility] [address] [place] [address] Dr. Naayna Tolentino INFLUENZA B AG Negative Normal NEGATIVE SEE COMMENT [facility] Comment on above: Performed By: #### I NFLUAB #### [facility] [address] [place] [address] Dr. Nayana Tolentino INTERNAL CONTROLS Within Normal Limits Normal Wi thin Normal Limits [facility] Comment on above: Performed By: #### I NFLUAB #### [facility] [address] [place] [address] Dr. Nayana Tolentino CULTURE URINEon 11-30-2021 CULTURE URINE Isolate 1 Escherichia coli >100,000 cfu/mL of ORGANISM 1 Escherichia coli ANTIBIOTIC M.I.C RX STATUS Ampicillin >=32 R F Ampicillin/Sulbactam 16 I F Piperacillin/Tazobact am <=4 S F Cefazolin <=4 S F Ceftazidime <=1 S F Ceftriaxone <=1 S F Ertapenem <=0.5 S F Imipenem <=0.25 S F Amikacin <=2 S F Gentamicin <=1 S F Tobramycin <=1 S F Ciprofloxacin <=0.25 S F Levofloxacin <=0.12 S F Nitrofurantoin <=16 S F Trimethoprim/Sulfamet hoxazole <=20 S F Normal [facility] Comment on above: Performed By: #### U RCX #### [facility] [address] [place] [address] Dr. Nayana Tolentino CBC AUTO DIFFon 11-28-2021 BASO # 0.0 103/ul Normal 0.0-0.1 [facility] Comment on above: Performed By: #### C BC #### [facility] [address] [place] [address] Dr. Nayana Tolentino Basophils/100 WBC (Bld) 0.4 % Normal 0.2-2.0 [facility] Comment on above: Performed By: #### C BC #### [facility] [address] [place] [address] Dr. Nayana Tolentino EO # 0.1 103/ul Normal 0.0-0.7 [facility] Comment on above: Performed By: #### C BC #### [facility] [address] [place] [address] Dr. Nayana Tolentino Eosinophils/100 WBC (Bld) 1.3 % Normal 0.9-7.0 [facility] Comment on above: Performed By: #### C BC #### [facility] [address] [place] [address] Dr. Nayana Tolentino Erythrocyte distribution width (RBC) [Ratio] 11.6 % Normal 11.0-15.0 [facility] Comment on above: Performed By: #### C BC #### [facility] [address] [place] [address] Dr. Nayana Tolentino Hematocrit (Bld) [Volume fraction] 39.4 % Normal 36.0-48.0 [facility] Comment on above: Performed By: #### C BC #### [facility] [address] [place] [address] Dr. Nayana Tolentino Hemoglobin (Bld) [Mass/Vol] 13.5 g/dL Normal 12.0-16.0 [facility] Comment on above: Performed By: #### C BC #### [facility] [address] [place] [address] Dr. Nayana Tolentino IG # 0.02 10e3/ul Normal 0.00-0.03 [facility] Comment on above: Performed By: #### C BC #### [facility] [address] [place] [address] Dr. Nayana Tolentino IG % 0.2 % Normal 0.0-0.5 [facility] Comment on above: Performed By: #### C BC #### [facility] [address] [place] [address] Dr. Nayana Tolentino LYMPH # 1.9 103/ul Normal 1.2-3.8 [facility] Comment on above: Performed By: #### C BC #### [facility] [address] [place] [address] Dr. Nayana Tolentino Lymphocytes/100 WBC (Bld) 22.1 % Normal 20.5-60.0 [facility] Comment on above: Performed By: #### C BC #### [facility] [address] [place] [address] Dr. Nayana Tolentino MANUAL DIFF REQ NO Normal [facility] Comment on above: Performed By: #### C BC #### [facility] [address] [place] [address] Dr. Nayana Tolentino MCH (RBC) [Entitic mass] 31.6 pg Normal 26.7-34.0 [facility] Comment on above: Performed By: #### C BC #### [facility] [address] [place] [address] Dr. Nayana Tolentino MCHC (RBC) [Mass/Vol] 34.3 g/dL Normal 29.9-35.2 [facility] Comment on above: Performed By: #### C BC #### [facility] [address] [place] [address] Dr. Nayana Tolentino MCV (RBC) [Entitic vol] 92.3 fL Normal 79.1-95.6 [facility] Comment on above: Performed By: #### C BC #### [facility] [address] [place] [address] Dr. Nayana Tolentino MONO # 0.5 103/ul Normal 0.3-0.8 [facility] Comment on above: Performed By: #### C BC #### [facility] [address] [place] [address] Dr. Nayana Tolentino Monocytes/100 WBC (Bld) 6.3 % Normal 1.7-12.0 [facility] Comment on above: Performed By: #### C BC #### [facility] [address] [place] [address] Dr. Nayana Tolentino NEUT # 6.0 103/ul Normal 1.4-6.5 [facility] Comment on above: Performed By: #### C BC #### [facility] [address] [place] [address] Dr. Nayana Tolentino Neutrophils/100 WBC (Bld) 69.7 % Normal 43.0-75.0 [facility] Comment on above: Performed By: #### C BC #### [facility] [address] [place] [address] Dr. Nayana Tolentino Platelet mean volume (Bld) [Entitic vol] 9.2 fL Critically low 9.5-13.5 [facility] Comment on above: Performed By: #### C BC #### [facility] [address] [place] [address] Dr. Nayana Tolentino PLT 211 103/ul Normal 150-450 [facility] Comment on above: Performed By: #### C BC #### [facility] [address] [place] [address] Dr. Nayana Tolentino RBC 4.27 106/ul Normal 3.40-5.30 [facility] Comment on above: Performed By: #### C BC #### [facility] [address] [place] [address] Dr. Nayana Tolentino WBC 8.6 103/ul Normal 4.0-11.0 [facility] Comment on above: Performed By: #### C BC #### [facility] [address] [place] [address] Dr. Nayana Tolentino ER URINE PROFILEon 2 Bilirubin Ql (U) Negative Normal NEGATIVE [facility] Comment on above: Performed By: #### E BARRY ROBBINS PREGU #### [facility] [address] [place] [address] Dr. Nayana Tolentino Clarity (U) CLEAR Normal CLEAR [facility] Comment on above: Performed By: #### E RUR UMICRO, PREGU #### [facility] [address] [address] [address] Nayana Tolentino Color (U) LT. YELLOW Normal YELLOW [facility] Comment on above: Performed By: #### E RUR, UMICRO, PREGU #### [facility] [address] [address] [address] Nayana SIMEONAHMalika A micrscopic examination will be performed if indicated. Normal [facility] Comment on above: Performed By: #### E RUR UMICRO, PREGU #### [facility] [address] [address] [address] Nayana Tolentino Glucose Ql (U) Negative Normal NEGATIVE The [facility] Comment on above: Performed By: #### Piero RUR, UMICRO, PREGU #### [facility] [address] [address] [address] Nayana Tolentino Hemoglobin Ql (U) LARGE Abnormal NEGATIVE [facility] Comment on above: Performed By: #### Piero CAMEJOR UMICRO, PREGU #### [facility] [address] [address] [address] Nayana Tolentino Ketones Ql (U) Negative Normal NEGATIVE The [facility] Comment on above: Performed By: #### Piero RUR UMICRO, PREGU #### [facility] [address] [address] [address] Nayana Tolentino LEUKOCYTES LARGE Abnormal NEGATIVE [facility] Comment on above: Performed By: #### Piero CAMEJORELBAICRO, PREGU #### [facility] [facility] [address] [address] [address] Nayana Tolentino Nitrite Ql (U) Positive Abnormal NEGATIVE The [facility] Comment on above: Performed By: #### Piero RURELBAICRO, PREGU #### [facility] [address] [address] [address] Nayana Tolentino pH (U) 6.0 [pH] Normal 5-9 The [facility] Comment on above: Performed By: #### Piero RURELBAICRO, PREGU #### [facility] [address] [address] [address] Nayana Tolentino SPEC GRAVITY 1.025 Normal 1.005-<=1.025 The [facility] Comment on above: Performed By: #### BARRY ATKINS, PREGU #### [facility] [address] [address] [address] Nayana Tolentino UA PROTEIN TRACE Normal NEGATIVE/ TRACE The [facility] Comment on above: Performed By: #### BARRY ATKINS, PREGU #### [facility] [address] [address] [address] Nayana Tolentino UR MICRO IND INDICATED Normal [facility] Comment on above: Performed By: #### BARRY ATKINS, PREGU #### [facility] [address] [place] [address] Dr. Nayana Tolentino Urobilinogen Qn (U) 0.2 {Gabriel'U}/dL Normal 0.2 - 1. 0 [facility] Comment on above: Performed By: #### BARRY ATKINS, PREGU #### [facility] [address] [place] [address] Dr. Nayana Tolentino URon 11-28-2021 , QUAL Negative Normal NEGATIVE [facility] Comment on above: Performed By: #### BARRY ATKINS, PREGU #### [facility] [address] [address] [address] Nayana Tolentino PROF CHEM 8 (BAS METB)on Anion gap [Moles/Vol] 11.6 mmol/L Normal [facility] Comment on above: Performed By: #### B MP #### [facility] [address] [address] [address] Nayana Tolentino Calcium [Mass/Vol] 8.8 mg/dL Normal 8.5-10.1 The [facility] Comment on above: Performed By: #### B MP #### [facility] [address] [address] [address] Nayana Tolentino Chloride [Moles/Vol] 106 mmol/L Normal 98-107 [facility] Comment on above: Performed By: #### B MP #### [facility] [address] [address] [address] Nayana Tolentino CO2 [Moles/Vol] 27.3 mmol/L Normal 21.0-32.0 [facility] Comment on above: Performed By: #### B MP #### [facility] [address] [address] [address] Nayana Tolentino Creatinine [Mass/Vol] 0.66 mg/dL Normal 0.55-1.02 [facility] Comment on above: Performed By: #### B MP #### [facility] [address] [address] [address] Nayana Tolentino EGFR-AF SCOTTISH >60 Normal >=60 The [facility] Comment on above: Performed By: #### B MP #### [facility] [address] [address] [address] Nayana Tolentino EGFR-NON AF SCOTTISH >60 Normal >=60 [facility] Comment on above: Performed By: #### B MP #### [facility] [address] [address] [address] Nayana Tolentino Glucose [Mass/Vol] 81 mg/dL Normal 74-106 The [facility] Comment on above: Performed By: #### B MP #### [facility] [address] [address] [address] Nayana Tolentino Potassium [Moles/Vol] 3.9 mmol/L Normal 3.5-5.1 [facility] Comment on above: Performed By: #### B MP #### [facility] [address] [address] [address] Nayana Tolentino Sodium [Moles/Vol] 141 mmol/L Normal 136-145 The [facility] Comment on above: Performed By: #### B MP #### [facility] [address] [address] [address] Nayana Tolentino Urea nitrogen [Mass/Vol] 8.0 mg/dL Normal 6.4-19.3 [facility] Comment on above: Performed By: #### B MP #### [facility] [address] [address] [address] Nayana Tolentino Urea nitrogen/Creatinine [Mass ratio] 12.1 mg/mg Normal [facility] Comment on above: Performed By: #### B MP #### [facility] [address] [address] [address] Nayana Tolentino URINE MICROSCOPIC ONLYon BACTERIA LARGE Abnormal NONE SEEN The [facility] Comment on above: Performed By: #### BARRY ATKINS, PREGU #### [facility] [address] [address] [address] Nayana Tolentino Bacteria identified Cx Nom (U) INDICATED Normal [facility] Comment on above: Performed By: #### BARRY ATKINS, PREGU #### [facility] [address] [address] [address] Nayana Tolentino CAST NONE SEEN Normal NONE SEEN [facility] Comment on above: Performed By: #### BARRY ATKINS, PREGU #### [facility] [address] [address] [address] Nayana Tolentino Crystals LM Nom (Urine sed) NONE SEEN Normal NONE SEEN The [facility] Comment on above: Performed By: #### BARRY ATKINS, PREGU #### [facility] [address] [address] [address] Nayana Tolentino Epithelial cells LM Ql (Urine sed) FEW Abnormal NONE SEEN /RARE [facility] Comment on above: Performed By: #### BARRY ATKINS, PREGU #### [facility] [address] [address] [address] Nayana Tolentino MUCOUS NONE SEEN Normal NONE SEEN The [facility] Comment on above: Performed By: #### BARRY ATKINS, PREGU #### [facility] [address] [address] [address] Nayana Tolentino RBC 5-10 Abnormal 0-2 [facility] Comment on above: Performed By: #### BARRY ATKINS, PREGU #### [facility] [address] [address] [address] Nayana Tolentino WBC 20-50 Abnormal NONE SEEN The [facility] Comment on above: Performed By: #### E BARRY ROBBINS PREGU #### [facility] [address] [place] [address] Dr. Nayana Tolentino XR ABD FLAT_UPon 11-28-2021 [...] NE MAYER Date: 2021-11-28 15:16 Normal [facility] Covid-19 PCR (CVDTB)on 04-13 SARS-CoV-2 (COVID-19) RNA YOBANY+probe Ql (Unsp spec) Not detected Normal NOT DETECTED [facility] Comment on above: Result Comment: This test is not yet approved or cleared by the [place] FDA. When there are no FDA-approved or cleared tests available, and other criteria are met, FDA can make tests available under an emergency access mechanism called an Emergency Use Authorization (EUA). The EUA for this test is supported by the [place] of Health and Human Service's (HHS's) declaration [...] consistent with SARS-CoV-2. Performed By: #### C VDTBH #### [facility] [address] [place] [address] Dr. Nayana Tolentino Vital Signs Date Time Vital Sign Value Performing Clinician Facility 01-26-2025 15:28-0400 Body mass index (BMI) [Ratio] 19.88 kg/m2 Daniela Elvis DO Work Phone: [facility] 01-26-2025 15:28-0400 Body weight 52.53 kg Daniela Elvis DO Work Phone: [facility] 01-26-2025 15:28-0400 Diastolic blood pressure 62 mm[Hg] Daniela Elvis DO Work Phone: [facility] 01-26-2025 15:28-0400 Systolic blood pressure 92 mm[Hg] Daniela Elvis DO Work Phone: [facility] 01-07-2025 14:39-0400 Body mass index (BMI) [Ratio] 19.4 kg/m2 Daniela Elvis DO Work Phone: [facility] 01-07-2025 14:39-0400 Body weight 51.26 kg Daniela Elvis DO Work Phone: [facility] 01-07-2025 14:39-0400 Diastolic blood pressure 62 mm[Hg] Daniela Elvis DO Work Phone: [facility] 01-07-2025 14:39-0400 Systolic blood pressure 102 mm[Hg] Daniela Elvis DO Work Phone: [facility] 12-29-2024 15:23-0400 Body mass index (BMI) [Ratio] 19.31 kg/m2 Daniela Elvis DO Work Phone: [facility] 12-29-2024 15:23-0400 Body weight 51.03 kg Daniela Elvis DO Work Phone: [facility] 12-29-2024 15:23-0400 Diastolic blood pressure 56 mm[Hg] Daniela Elvis DO Work Phone: [facility] 12-29-2024 15:23-0400 Systolic blood pressure 92 mm[Hg] Daniela Elvis DO Work Phone: [facility] 11-27-2024 13:28-0400 Body mass index (BMI) [Ratio] 18.56 kg/m2 Elvis Ob [facility] 11-27-2024 13:28-0400 Body weight 49.04 kg Elvis Ob [facility] 11-27-2024 13:28-0400 Diastolic blood pressure 70 mm[Hg] Elvis Ob [facility] 11-27-2024 13:28-0400 Systolic blood pressure 100 mm[Hg] Elvis Ob [facility] 08-26-2024 14:02-0400 Body mass index (BMI) [Ratio] 17.47 kg/m2 Daniela Elvis DO Work Phone: [facility] 08-26-2024 14:02-040 Body weight 46.15 kg Daniela Elvis DO Work Phone: [facility] 08-26-2024 14:02-0400 Diastolic blood pressure 62 mm[Hg] Daniela Elvis DO Work Phone: [facility] 08-26-2024 14:02-0400 Systolic blood pressure 104 mm[Hg] [facility] 08-06-2024 13:41-0400 Body height 162.6 cm Scot Dalton MD Work Phone: [facility] 08-06-2024 13:41-0400 Body mass index (BMI) [Ratio] 17.34 kg/m2 Scot Dalton MD Work Phone: [facility] 08-06-2024 13:41-0400 Body temperature 97.81 [degF] Scot Dalton MD Work Phone: [facility] 08-06-2024 13:41-0400 Body weight 45.81 kg Scot Dalton MD Work Phone: [facility] 08-06-2024 13:41-0400 Diastolic blood pressure 40 mm[Hg] Scot Dalton MD Work Phone: [facility] 08-06-2024 13:41-0400 Heart rate 112 /min Scot Dalton MD Work Phone: [facility] 08-06-2024 13:41-0400 Respiratory rate 20 /min Scot Dalton MD Work Phone: [facility] 08-06-2024 13:41-0400 SaO2% (BldA) [Mass fraction] 98 % Scot Dalton MD Work Phone: [facility] 08-06-2024 13:41-0400 Systolic blood pressure 110 mm[Hg] Scot Dalton MD Work Phone: [facility] 07-03-2024 14:39-0500 Body height 162.6 cm Scot Dalton MD Work Phone: [facility] 07-03-2024 14:39-0500 Body mass index (BMI) [Ratio] 17.68 kg/m2 Scot Dalton MD Work Phone: [facility] 07-03-2024 14:39-0500 Body temperature 97.5 [degF] Scot Dalton MD Work Phone: [facility] 07-03-2024 14:39-0500 Body weight 46.72 kg Scot Dalton MD Work Phone: [facility] 07-03-2024 14:39-0500 Diastolic blood pressure 42 mm[Hg] Scot Dalton MD Work Phone: [facility] 07-03-2024 14:39-0500 Heart rate 101 /min Scot Dalton MD Work Phone: [facility] 07-03-2024 14:39-0500 Respiratory rate 22 /min Scot Dalton MD Work Phone: [facility] 07-03-2024 14:39-0500 SaO2% (BldA) [Mass fraction] 99 % Scot Dalton MD Work Phone: [facility] 07-03-2024 14:39-0500 Systolic blood pressure 98 mm[Hg] Scot Dalton MD Work Phone: [facility] 09-17-2020 18:02-0400 Body height 162.99 cm STAFF, [facility] 09-17-2020 18:02-0400 Body mass index (BMI) [Ratio] 17.1 kg/m2 STAFF, [facility] 09-17-2020 18:02-0400 Body weight 45.55 kg STAFF, [facility] 09-17-2020 17:56-0400 Body temperature 98.6 [degF] STAFF, [facility] 09-17-2020 17:56-0400 Diastolic blood pressure 60 mm[Hg] STAFF, [facility] 09-17-2020 17:56-0400 Heart rate 94 /min STAFF, [facility] 09-17-2020 17:56-0400 Respiratory rate 16 /min STAFF, [facility] 09-17-2020 17:56-0400 SaO2% (BldA) [Mass fraction] 95 % STAFF, [facility] 09-17-2020 17:56-0400 Systolic blood pressure 109 mm[Hg] STAFF, [facility] Encounters Encounter Date Encounter Type Care Provider Facility Start: 02-24-2025 End: 02-24-2025 Bamboo flowsheet Bina HENDERSON Work Phone: [facility] Start: 02-24-2025 End: 02-24-2025 Bamboo flowsheet Bina HENDERSON Work Phone: [facility] Start: 02-09-2025 End: 02-09-2025 ambulatory SCOT NADERER Not Available Start: 02-09-2025 End: 02-11-2025 Clinisync Result Encounter Daniela Elvis DO Work Phone: [facility] Unsolicited Start: 02-09-2025 End: 02-11-2025 Clinisync Result Encounter Daniela Elvis DO Work Phone: [facility] Unsolicited Start: 01-26-2025 End: 01-26-2025 ambulatory DANIELA ELVIS Not Available Start: 01-26-2025 End: 01-26-2025 Office outpatient visit 15 minutes Daniela Elvis DO Work Phone: [facility] Comment on above: Second trimester pre gnancy ([facility]) (Primary Dx); Screening, , for anatomic survey ([facility]) Start: 01-07-2025 End: 01-07-2025 Office outpatient visit 15 minutes Daniela Elvis DO Work Phone: [facility] Comment on above: Second trimester pre gnancy ([facility]); 15 weeks gestation of ([facility]); Rash Start: 01-07-2025 End: 01-07-2025 ambulatory DANIELA ELVIS Not Available Start: 01-07-2025 End: 01-07-2025 Bamboo flowsheet Daniela Elvis DO Work Phone: [facility] Start: 01-07-2025 End: 01-07-2025 Bamboo flowsheet Daniela Elvis DO Work Phone: [facility] Start: 12-29-2024 End: 12-29-2024 Office outpatient visit 15 minutes Daniela Elvis DO Work Phone: [facility] Comment on above: Second trimester pre gnancy ([facility]); 14 weeks gestation of ([facility]) Start: 12-29-2024 End: 12-29-2024 ambulatory DANIELA ELVIS Not Available Start: 12-18-2024 End: 12-19-2024 Telephone encounter Pat [...] 9w4d Start: 11-27-2024 End: 11-27-2024 ambulatory SCOT DALTON Not Available Start: 08-26-2024 End: 08-26-2024 Bamboo flowsheet Daniela Elvis DO Work Phone: [facility] Start: 08-26-2024 End: 08-27-2024 Bamboo flowsheet Daniela Elvis DO Work Phone: [facility] Start: 08-26-2024 End: 08-27-2024 Clinisync Result Encounter Generic External Data Provider [facility] Unsolicited Start: 08-26-2024 End: 08-27-2024 External Result Encounter Daniela Elvis DO Work Phone: [facility] Unsolicited Start: 08-26-2024 End: 08-26-2024 Office outpatient visit 15 minutes Daniela Elvis DO Work Phone: [facility] Comment on above: STD exposure; Vaginal discharge; Sexually transmitted disease exposure Start: 08-26-2024 End: 08-26-2024 ambulatory DANIELA ELVIS Not Available Start: 08-06-2024 End: 08-06-2024 Bamboo [...] Start: 04-09-2024 End: 04-14-2024 Telephone encounter Scot aDlton MD Work Phone: [facility] Comment [...] End: 09-17-2020 Emergency department patient visit STAFF, [facility]gency [facility] Procedures Date Procedure Procedure Detail Performing Clinician Start: 02-09-2025 AFP, SERUM, OPEN SPI NA BIFIDA Daniela Elvis DO Work Phone: Start: 01-26-2025 Urnls dip stick/tabl et rgnt non-auto w/o micrscp Daniela Elvis DO Work Phone: Start: 12-29-2024 Urnls dip stick/tabl et rgnt non-auto w/o micrscp Daniela Elvis DO Work Phone: Start: 12-01-2024 BOX TEST Daniela Fazi o DO Work Phone: Start: 11-27-2024 End: 11-27-2024 Urnls dip stick/tablet rgnt non-auto w/o micrscp Daniela Elvis DO Work Phone: Start: 08-26-2024 HIV AB/P24 AG WITH REFLEX Daniela Elvis DO Work Phone: Start: 08-26-2024 RECURRENT VAGINITIS (HTRX) Daniela Elvis DO Work Phone: Start: 06-23-2024 UPPER RESPIRATORY CULTURE Generic External Data Provider Start: 05-05-2024 IUD REMOVAL Daniela Fazi o DO Work Phone: Start: 01-20-2024 Bacteria identified in Urine by Culture Generic External Data Provider Plan of Treatment Date Care Activity Detail Author Start: 02-24-2025 End: 02-24-2025 Patient encounter procedure 02/24/2025 2:40 PM EDT Routine [facility] [address] [place] [phone] Bina Vanessa PA [address] [place] [address] [facility] Start: 02-09-2025 End: 02-09-2025 Professional / ancillary services management 02/09/2025 2:30 PM EDT Ancillary Procedure [facility] [address] [place] [phone] [facility] Start: 01-26-2025 End: 01-26-2025 Patient encounter procedure 01/26/2025 3:10 PM EDT Routine [facility] [address] [place] [phone] Daniela Leal, DO [address] [place] [address] [facility] Start: 01-26-2025 End: 03-28-2025 Alpha fetoprotein, maternal Alpha fetoprotein, maternal Lab Routine Second trimester ([facility]) Expected: 01/26/2025 (Approximate), Expires: 03/28/2025 [facility] Work Phone: Comment on above: Expected: 01/26/2025 (Approximate), Expires: 03/28/2025 Start: 01-26-2025 End: 04-27-2025 US for US OB 14+ weeks anatomy scan Imaging Routine Screening, , for anatomic survey ([facility]) Expected: 01/26/2025, Expires: 04/27/2025 [facility] Work Phone: Comment on above: Expected: 01/26/2025 , Expires: 04/27/2025 Start: 01-12-2025 Influenza vaccination [facility] Start: 01-07-2025 End: 01-07-2025 Patient encounter procedure 01/07/2025 2:20 PM EDT Routine [facility] [place] [address] [place] [phone] Daniela Leal, DO [address] [place] [address] Arrived [facility] Comment on above: Arrived Start: 12-29-2024 End: 12-29-2024 Patient encounter procedure [facility] Start: 11-27-2024 End: 11-27-2025 ABO/Rh ABO/Rh Lab Routine Missed menses , unspecified gestational age ([facility]) Expected: 11/27/2024 (Approximate), Expires: 11/27/2025 [facility] Comment on above: Expected: 11/27/2024 (Approximate), Expires: 11/27/2025 Start: 11-27-2024 End: 11-27-2025 Blood type and Indirect antibody screen panel - Blood Type and screen Lab Routine Missed menses , unspecified gestational age ([facility]) Expected: 11/27/2024 (Approximate), Expires: 11/27/2025 [facility] Work Phone: Comment on above: Expected: 11/27/2024 (Approximate), Expires: 11/27/2025 Start: 11-27-2024 End: 11-27-2025 Drugs of abuse panel - Urine by Screen method Rapid drug screen, urine Lab Routine , unspecified gestational age ([facility]) Encounter for supervision of normal first in first trimester ([facility]) Expected: 11/27/2024 (Approximate), Expires: 11/27/2025 [facility] Comment on above: Expected: 11/27/2024 (Approximate), Expires: 11/27/2025 Start: 10-07-2024 End: 10-07-2024 Patient encounter procedure 10/07/2024 1:45 PM EDT Office Visit [facility] [address] [place] [address] Scot Dalton MD [address] [place] [phone] [facility] Start: 08-26-2024 End: 08-26-2024 Patient encounter procedure 08/26/2024 1:40 PM EDT Office Visit [facility] [address] [place] [address] Daniela Leal, [address] [place] [address] Arrived [facility] Comment on above: Arrived Start: 08-06-2024 End: 08-06-2024 Patient encounter procedure [facility] Comment on above: Arrived Start: 01-29-2024 End: 01-29-2024 Patient encounter procedure 01/29/2024 1:45 PM EDT Office Visit [facility] [address] [place] [address] Scot Dalton MD [address] [place] [phone] [facility] Start: 01-13-2024 Influenza vaccination Influenza Vacc ine (#1) [facility] Start: 06-15-2023 End: 06-15-2023 Patient encounter procedure 06/15/2023 9:00 AM EST Office Visit [facility] [address] [place] [phone] Scot Dalton MD [address] [place] [phone] Arrived [facility] Comment on above: Arrived Start: 01-12-2023 Influenza vaccination Influenza Vacc ine (#1) [facility] Bacteria identified in Urine by Culture URINE CULTURE, ROUTINE Lab Routine 01/20/2024 2:00 PM EDT [facility] Bacteria identified in Urine by Culture Urine culture Microbiology Routine Missed menses Ordered: 11/27/2024 [facility] Comment on above: Ordered: 11/27/2024 CBC W Auto Different ial panel - Blood CBC and differential Lab Routine Missed menses , unspecified gestational age ([facility]) Ordered: 11/27/2024 [facility] Comment on above: Ordered: 11/27/2024 Hemoglobin A1c/Hemoglobin.total in Blood Hemoglobin A1c Lab Routine Missed menses , unspecified gestational age ([facility]) Ordered: 11/27/2024 [facility] Comment on above: Ordered: 11/27/2024 Hepatitis B virus surface Ag [Presence] in Serum or Plasma by Immunoassay Hepatitis B surface antigen Lab Routine Sexually transmitted disease exposure Ordered: 08/26/2024 [facility] Comment on above: Ordered: 08/26/2024 Hepatitis B virus surface Ag [Presence] in Serum or Plasma by Immunoassay Hepatitis B surface antigen Lab Routine Missed menses , unspecified gestational age ([facility]) Ordered: 11/27/2024 [facility] Comment on above: Ordered: 11/27/2024 Hepatitis C virus Ab [Presence] in Serum or Plasma by Immunoassay Hepatitis C antibody Lab Routine Missed menses , unspecified gestational age ([facility]) Ordered: 11/27/2024 [facility] Comment on above: Ordered: 11/27/2024 HIV-1/HIV-2 antigen/antibody combination immunoassay HIV-1 and HIV-2 antibodies Lab Routine Sexually transmitted disease exposure Ordered: 08/26/2024 [facility] Work Phone: Comment on above: Ordered: 08/26/2024 HIV-1/HIV-2 antigen/antibody combination immunoassay HIV-1 and HIV-2 antibodies Lab Routine Missed menses , unspecified gestational age ([facility]) Ordered: 11/27/2024 [facility] Comment on above: Ordered: 11/27/2024 Patient Education Contusion in [facility] (ED) [facility] Patient referral [facility] Reagin Ab [Presence] in Serum by RPR RPR Lab Routine Sexually transmitted disease exposure Ordered: 08/26/2024 [facility] Comment on above: Ordered: 08/26/2024 Reagin Ab [Presence] in Serum by RPR RPR Lab Routine Missed menses , unspecified gestational age ([facility]) Ordered: 11/27/2024 [facility] Comment on above: Ordered: 11/27/2024 Rubella antibody, IgG Rubella an tibody, IgG Lab Routine Missed menses , unspecified gestational age ([facility]) Ordered: 11/27/2024 [facility] Comment on above: Ordered: 11/27/2024 Immunizations Immunization Date Immunization Notes Care Provider [facility] 07-03-2017 influenza virus vacc ine, unspecified formulation Scot Dalton MD Work Phone: [facility] Payers Date Payer Category Payer Medicaid [facility] MEDICAID [place] MED[place] [id number] 2019-Present [address] [place] [address] [id number] 2019 Medicaid (Managed Care) [facility] MEDICAID [id number] 2004 Unknown [id number] [id number]. 1258 2004 Unknown [id number] 2.0.1.757176.3.579.2. 1258 2004 Unknown [id number] 2..1.127983.3.579.2. 1258 2004 Unknown [id number] 2.1.493848.3.579.2. 1258 2004 Unknown [id number] 2.16840.1.668155.3.579.2. 1258 2004 Unknown [id number] 2.16840.1.957704.3.579.2. 1258 2004 Unknown [id number] 2.160.1.407642.3.579.2. 1258 2004 Unknown [id number] 2.0.1.027415.3.579.2. 1258 2004 Unknown [id number] 2.160.1.773751.3.579.2. 1259 2004 Unknown [id number] 2.16.840.1.329069.3.579.2. 1259 1986 Unknown [id number] 2.16.840.1.356314.3.579.2. 593 1962 Unknown [id number] 2.16.840.1.721204.3.579.2. 593 1962 Unknown [id number] [id number]. 593 1959 Unknown [id number] Self-pay Self Pay [id number] Unknown Self Pay [id number] Social History Date Type Detail Facility Start: 09-17-2020 End: 01-26-2025 Tobacco smoking status [facility] Never smoked tobacco (finding) [facility] Start: 2005 Sex Assigned At Female F [facility] Start: 06-13-2023 End: 01-26-2025 Alcohol intake Lifetime non-drinker (finding) [facility] Start: 06-13-2023 End: 11-06-2023 History of Social function [facility] Start: 06-13-2023 End: 11-06-2023 Tobacco use panel [facility] Start: 02-03-2023 Alcohol Comment Caffeine: 1-2 cups per day [facility] Start: 2005 Sex Assigned At Not on file [facility] Start: 06-15-2023 Tobacco use and exposure Smoke less tobacco non-user [facility] Start: 07-26-2022 How often do you nee d to have someone help you when you read instructions, pamphlets, or other written material from your doctor or pharmacy [SILS] Never [facility] Do you belong to any clubs or organizations such as faith groups, unions, fraternal or athletic groups, or [...] [facility] Start: 10-05-2024 [facility] Start: 01-26-2025 Tobacco use and exposure Forme r smokeless tobacco user [facility] Start: 01-26-2025 Education 13 [facility] Goals Date Patient Goal Desired Activity /State Clinical Notes 04-09-2024 to 01-26-2025 Samantha Stokes, [employer] - 01/26/2025 3:10 PM EDRoger Montes, [facility] - 01/07/2025 2:20 PM EDSam Gerardo, [facility] - 01/07/2025 2:20 PM EDReba Hodges, [facility] - 12/29/2024 3:20 PM EDT Note Date & Type Note Facility 01-26-2025 History of Present illness Narrative Reason for Appointment: Patient ID: Edmund Rehman is a 19 y.o. female who presents for No chief complaint on file. Patient presents today for Return OB appointment. MEDICATIONS Current Outpatient Medications Medication Instructions ondansetron ODT (Zofran-ODT) 4 MG disintegrating tablet DISSOLVE 1 TABLET IN MOUTH EVERY 6 HOURS NEEDED FOR NAUSEA AND VOMITING Vit-Fe Fumarate-FA ( Vitamins) 28-0.8 MG tablet 1 tablet, Oral, Daily sertraline (ZOLOFT) 50 mg, Oral, Daily ALLERGIES Allergies Allergen Reactions Bismuth Subsalicylate GI [...] Not Currently Types: Marijuana FAMILY HISTORY Family History Problem Relation Name [...] Constitutional: Appearance: Normal appearance. She is well-developed. Cardiovascular: Rate and Rhythm: Normal rate and [...] nursing note reviewed. Exam conducted with a wagon drill operator present. Vitals: Estimated body mass index is 19.88 kg/m as calculated from the following: Height as of 08/06/24: 5' 4 . Weight as of this encounter: 115 lb 12.8 oz. BP: 92/62 Patient's last menstrual period was 09/21/2024. ASSESSMENT & PLAN ICD-10-CM 1. Second trimester ([facility]) Z34.92 Alpha fetoprotein, maternal Alpha fetoprotein, maternal POCT urinalysis dipstick manually resulted Return OB: Patient presents today for a routine obstetrics appointment. Patient is currently 18w1d . Patient states she is doing well but has complaints of being tired due to current . Patient has verbalizes frequent movement. labor precautions was discussed/given and patient was instructed to perform kick counts three times a day. Orders Placed This Encounter Procedures Alpha fetoprotein, maternal POCT urinalysis dipstick manually resulted Follow Up: Patient is to return to office in 4 week for routine OB appointment. Documented by Samantha Stokes NP on behalf of: Daniela Leal DO documented in this encounter [facility] 01-07-2025 History of Present illness Narrative - Reason for Appointment: Patient ID: Edmund Rehman is a 19 y.o. female who presents for Routine Visit Patient presents today for Return OB appointment. MEDICATIONS Current Outpatient Medications Medication Instructions ondansetron ODT (Zofran-ODT) 4 MG disintegrating tablet DISSOLVE 1 TABLET IN MOUTH EVERY 6 HOURS NEEDED FOR NAUSEA AND VOMITING Vit-Fe Fumarate-FA ( Vitamins) 28-0.8 MG tablet 1 tablet, Oral, Daily sertraline (ZOLOFT) 50 mg, Oral, Daily ALLERGIES Allergies Allergen Reactions Bismuth Subsalicylate GI [...] Constitutional: Appearance: Normal appearance. She is well-developed. Cardiovascular: Rate and Rhythm: Normal rate and [...] nursing note reviewed. Exam conducted with a wagon drill operator present. Vitals: Estimated body mass index is 19.4 kg/m as calculated from the following: Height as of 08/06/24: 5' 4 . Weight as of this encounter: 113 lb. BP: 102/62 Patient's last menstrual period was 09/21/2024. ASSESSMENT & PLAN ICD-10-CM 1. Second trimester ([facility]) Z34.92 2. 15 weeks gestation of ([facility]) Z3A.15 Patient presents today for a routine obstetrics appointment. Patient is currently 15w3d with a Estimated Date of Delivery: 06/28/25. Rx for medrol dose pack faxed to pharmacy. Pt to return in 4 weeks for scheduled Ob appt. Documented by Carmita Gerardo LPN on behalf of: Daniela Leal DO documented in this encounter [facility] 12-29-2024 History of Present illness Narrative Reason for Appointment: Patient ID: Edmund Rehman is a 19 y.o. female who presents for Routine Visit Patient presents today for Return OB appointment. MEDICATIONS Current Outpatient Medications Medication Instructions ondansetron ODT (Zofran-ODT) 4 MG disintegrating tablet DISSOLVE 1 TABLET IN MOUTH EVERY 6 HOURS NEEDED FOR NAUSEA AND VOMITING Vit-Fe Fumarate-FA ( Vitamins) 28-0.8 MG tablet 1 tablet, Oral, Daily sertraline (ZOLOFT) 50 mg, Oral, Daily ALLERGIES Allergies Allergen Reactions Bismuth Subsalicylate GI [...] Constitutional: Appearance: Normal appearance. She is well-developed. Cardiovascular: Rate and Rhythm: Normal rate and [...] nursing note reviewed. Exam conducted with a wagon drill operator present. Vitals: Estimated body mass index is 19.31 kg/m as calculated from the following: Height as of 08/06/24: 5' 4 . Weight as of this encounter: 112 lb 8 oz. BP: 92/56 Patient's last menstrual period was 09/21/2024. ASSESSMENT & PLAN ICD-10-CM 1. Second trimester ([facility]) Z34.92 POCT urinalysis dipstick manually resulted 2. 14 weeks gestation of ([facility]) Z3A.14 New OB: Patient presents today for 1st time obstetrics appointment with provider. Patient is currently 14w1d . Patients history has been reviewed in great detail including any potential risks. Patient stated she currently has no complaints. Expectations throughout regarding labs, ultrasounds, and appointments have been discussed with the patient in detail. It was reiterated that the patient is to drink 6-8 glasses of water a day, eat 6 small meals a day, do not consume raw or undercooked meat, and stay away from [facility]. Patient has been consulted regarding any further do's and don'ts of . Patient voiced understanding and all questions and concerns were answered. Orders Placed This Encounter Procedures POCT urinalysis dipstick manually resulted Follow Up: Patient is to return in 4 weeks for routine OB appointment. Documented by Damian Hodges LPN on behalf of: Daniela Leal DO documented in this encounter [facility] 12-18-2024 Telephone encounter Note Pt called office wanting to know if there was a way to test her for cystic fibrosis. Per damian we would need to ask Dr. Leal how he would like to do this. Pt informed and will await call. Please advise [facility] 12-18-2024 Miscellaneous Notes Pt called office wanting to know if there was a way to test her for cystic fibrosis. Per damian we would need to ask Dr. Leal how he would like to do this. Pt informed and will await call. Please advise documented in this encounter [facility] 11-27-2024 History of Present illness Narrative Reason [...] by mouth Daily , unspecified gestational age [facility] - Type and screen; Future - ABO/Rh; Future - CBC and differential - Hemoglobin A1c - RPR - Rubella antibody, IgG - Hepatitis B surface antigen - Hepatitis C antibody - HIV-1 and HIV-2 antibodies - Rapid drug screen, urine; Future Encounter for supervision of normal first in first trimester ([facility]) - Rapid drug screen, urine; Future [...] or undercooked meat, and stay away from [facility]. Patient has also been advised to not change litter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
[2025-02-25 17:21] LABS: Hematocrit 33.6 % (36.0-48.0); Hemoglobin 11.6 g/dL (12.0-16.0); Immature Granulocytes Abs Auto 0.02 10^3/uL (0.00-0.03); Immature Granulocytes Pct Auto 0.2 % (0.0-0.5); Lymphocytes Absolute Auto 1.4 10^3/uL (1.2-3.8); Mean Corpuscular HGB Conc 34.5 g/dL (29.9-35.2); Mean Corpuscular Hemoglobin 33.0 pg (26.7-34.0); Mean Corpuscular Volume 95.5 fL (81.0-99.0); Platelet Count 241 10^3/uL (150-450); Red Blood Count 3.52 10^6/uL (4.20-5.40); White Blood Count 9.6 10^3/uL (4.0-11.0)
[2025-02-25 17:55] LABS: Glucose 1 Hour 155 mg/dL (<130)
== END 2025-02-25 15:58 | disposition home or self-care (01) ==
PROVIDERS: PCP Family Medicine; Visit Provider Physician Assistant
DX: Z34.92 Encounter for supervision of normal pregnancy, unspecified, second trimester (principal)
CPT/HCPCS: 36415; 82950; 85025

== ENCOUNTER 2025-03-13 19:57 | Observation (INO) | payer OTHER, SELFPAY ==
--- OUTSIDE RECORDS SUMMARY | 2023-09-28 09:30 | XMS_ITS ---
Author Organization [facility] Address [address] [address] Care Team Providers Care Mercantile Reporter Name Role Phone Jose Jackson Primary Care Provider [phone] Marya Pinon Unavailable [phone] Moraima Montes De Oca Unavailable [phone] REASON FOR VISIT PROPHY Encounters Encounter Location Date Provider Diagnosis [facility] [address] [place] [address] 09/28/2023 Moraima Montes De Oca Plan Of Treatment No Information Progress Notes * OTTO HOSKINSDOB:2005 (19 yo F)Acc No.[id number]:09/28/2023 Patient:?OTTO HOSKINS .1Provider:?Moraima SosaB:2005???Age:17 Y???Sex: FemaleDate:4Phone:[phone]:[address] [place] [phone]:Jose Jackson Subjective: * Chief Complaints: * P ROPHY * Electronic signature of Moraima Montes De Oca on 03/13/2025 at 08:01 PM EDTSign off status: Pending * Provider: Meme Bean Date: 0 09/28/2023 Generated for Printing/Faxing/eTransmitting on:?03/13/2025 08:01 PM EDT
--- OUTSIDE RECORDS SUMMARY | 2023-11-13 06:30 | XMS_ITS ---
Author Organization [facility] Address [address] [address] Care Team Providers Care Home Security Professional Name Role Phone Jose Jackson Primary Care Provider Marya Pinon Unavailable [phone] Moraima Montes De Oca Unavailable [phone] REASON FOR VISIT PROPHY Encounters Encounter Location Date Provider Diagnosis [facility] [address] [place] [address] 11/13/2023 Moraima Montes De Oca Plan Of Treatment No Information Progress Notes * OTTO HOSKINSDOB:2005 (19 yo F)Acc No.[id number]:11/13/2023 Patient:?OTTO HOSKINS .1Provider:?Moraima SosaB:2005???Age:17 Y???Sex: FemaleDate:4Phone:[phone]:[address] [place] [address]Pcp:Jose Jackson Subjective: * Chief Complaints: * P ROPHY Billing Information: * Procedure Codes: * Electronic signature of Moraima Montes De Oca on 03/13/2025 at 08:01 PM EDTSign off status: Pending * Provider: Meme Bean Date: 0 11/13/2023 Generated for Printing/Faxing/eTransmitting on:?03/13/2025 08:01 PM EDT
--- OUTSIDE RECORDS SUMMARY | 2025-03-13 20:01 | XMS_ITS | Patient Health Record ---
Author Organization [facility] es Address [address] [place] [address] Care Team Providers Care Core Drill Operator Helper Name Role Phone Jose Jackson Primary Care Provider Marya Pinon Unavailable [phone] Reason For Referral No Information Plan Of Treatment No Information Insurance Providers Payer Name Payer Address Payer Phone Subscriber Number Group Number Insured Name Patient Relationship to Insured Coverage Start Date Coverage End Date [employer] [address] [address] [place] [address] [id number] [employer] - patient is the [id number] 2022ental [employer] [facility] [address] [place] [id number] AERIONNASelf - patient is the [id number] 2023
--- OUTSIDE RECORDS SUMMARY | 2025-03-13 20:01 | XMS_ITS | CCD ---
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 Cefazolin <=4 S F Ceftazidime <=1 S F Ceftriaxone <=1 S F Ertapenem <=0.5 S F Imipenem <=0.25 S F Amikacin <=2 S F Gentamicin <=1 S F Tobramycin <=1 S F Ciprofloxacin <=0.25 S F Levofloxacin <=0.12 S F Nitrofurantoin <=16 S F Trimethoprim/Sulfamethoxazole <=20 S FNormalThe [facility] Health SystemComment on above:Performed By: #### URCX #### [facility] [address] [place] [address] Dr. Nayana Barroso AUTO DIFFon [id number] #0.0 103/ulNormal0.0-0.1The [facility] SystemComment on above:Performed By: #### CBC #### [facility] [address] [place] [address] Dr. Nayana Castillosophils/100 WBC (Bld)0.4 %Normal0.2-2.0The [facility] Comment on above:Performed By: #### CBC #### [facility] [address] [place] [address] Dr. Nayana Siddiqui #0.1 103/ulNormal0.0-0.7The [facility] SystemComment on above: Performed By: #### CBC #### [facility] [address] [place] [address] Dr. Nayana Caleroosinophils/100 WBC (Bld)1.3 %Normal0.9-7.0The [facility] Comment on above:Performed By: #### CBC #### [facility] [address] [place] [address] Dr. Nayana Calerorythrocyte distribution width (RBC) [Ratio]11.6 %Cnduas00.0-15.0 The [facility] SystemComment on above:Performed By: #### CBC #### [facility] [address] [place] [address] Dr. Nayana TolentinoHematocrit (Bld) [Volume fraction]39.4 %Geffqg28.0-48.0The [facility] SystemComment on above:Performed By: #### CBC #### [facility] [address] [place] [address] Dr. Nayana TolentinoHemoglobin (Bld) [Mass/Vol]13.5 g/qRFeuszz39.0-16.0The [facility] SystemComment on above:Performed By: #### CBC #### [facility] [address] [place] [address] Dr. Nayana Pryor #0.02 10e3/ulNormal0.00-0.03The [facility] SystemComment on above:Performed By: #### CBC #### [facility] [address] [place] [address] Dr. Nayana Pryro %0.2 %Normal0.0-0.5The [facility] SystemComment on above: Performed By: #### CBC #### [facility] [address] [place] [address] Dr. Nayana RemyH #1.9 103/ulNormal1.2-3.8The [facility] SystemComment on above:Performed By: #### CBC #### [facility] [address] [place] [address] Dr. Nayana Remyhocytes/100 WBC (Bld)22.1 %Jivryr24.5-60.0The [facility] SystemComment on above:Performed By: #### CBC #### [facility] [address] [place] [address] Dr. Nayana Guzman DIFF REQNONormalThe [facility] SystemComment on above: Performed By: #### CBC #### [facility] [address] [place] [address] Dr. Nayana Cordova (RBC) [Entitic mass]31.6 jjObxeaq15.7-34.0The [facility] SystemComment on above:Performed By: #### CBC #### [facility] [address] [place] [address] Dr. Nayana Cordova (RBC) [Mass/Vol]34.3 g/wGNqyefd90.9-35.2The [facility] SystemComment on above:Performed By: #### CBC #### [facility] [address] [place] [address] Dr. Nayana Fuentes (RBC) [Entitic vol]92.3 kOCeycny58.1-95.6The [facility] SystemComment on above:Performed By: #### CBC #### [facility] [address] [place] [address] Dr. Nayana Tidwell #0.5 103/ulNormal0.3-0.8The [facility] SystemComment on above:Performed By: #### CBC #### [facility] [address] [place] [address] Dr. Nayana Rodasocytes/100 WBC (Bld)6.3 %Normal1.7-12.0The [facility] Comment on above:Performed By: #### CBC #### [facility] [address] [place] [address] Dr. Nayana Martinez #6.0 103/ulNormal1.4-6.5The [facility] SystemComment on above:Performed By: #### CBC #### [facility] [address] [place] [address] Dr. Nayana Shirleyutrophils/100 WBC (Bld)69.7 %Cimqkj79.0-75.0The [facility] SystemComment on above:Performed By: #### CBC #### [facility] [address] [place] [address] Dr. Nayana Gabriel mean volume (Bld) [Entitic vol]9.2 fLCritically low 9.5-13.5The [facility] SystemComment on above:Performed By: #### CBC #### [facility] [address] [place] [address] Dr. Nayana TolentinoPLT211 103/ndZxhmzh843-346Poe [facility] SystemComment on above: Performed By: #### CBC #### [facility] [address] [address] [address] Nayana TolentinoRBC4.27 106/ulNormal3.40-5.30The [facility] SystemComment on above:Performed By: #### CBC #### [facility] [address] [place] [address] Dr. Nayana TolentinoWBC8.6 103/ulNormal4.0-11.0The [facility] SystemComment on above: Performed By: #### CBC #### [facility] [address] [place] [address] Dr. Nayana Hale URINE PROFILEon 96-90-0699Lwygoheor Ql (U)NegativeNormal NEGATIVEThe [facility] Health SystemComment on above:Performed By: #### BARRY VILLALOBOS, PREGU #### [facility] [address] [place] [address] Dr. Nayana Israelarity (U)CLEARNormalCLEARThe [facility] SystemComment on above: Performed By: #### CAILINRELBAICTEQUILA, PREGU #### [facility] [address] [place] [address] Dr. Nayana Stratton (U)LT. YELLOWNormalYELLOWThe [facility] SystemComment on above:Performed By: #### CAILINRELBAICRO, PREGU #### [facility] [address] [place] [address] Dr. Nayana MillanAHDA micrscopic examination will be performed if indicated. NormalThe [facility] Health SystemComment on above:Performed By: #### ERUR UMICRO, PREGU #### [facility] [address] [address] [address] Nayana TolentinoGlucose Ql (U)NegativeNormalNEGATIVEWadsworth-Rittman HospitalComment on above:Performed By: #### CAILINR, ELBAICRO, PREGU #### [facility] [address] [address] [address] Nayana TolentinoHemoglobin Ql (U)LARGEAbnormalNEGATIVEWadsworth-Rittman Hospital Comment on above:Performed By: #### CAILINR, UMICRO, PREGU #### [facility] [address] [address] [address] Nayana TolentinoKetones Ql (U)NegativeNormalNEGATIVEWadsworth-Rittman HospitalComment on above:Performed By: #### CAILINRELBAICRO, PREGU #### [facility] [address] [address] [address] Nayana TolentinoLEUKOCYTESLARGEAbnormalNEGATIVEWadsworth-Rittman HospitalComment on above:Performed By: #### DIGNA VILLALOBOSRO, PREGU #### [facility] [address] [address] [address] Nayana TolentinoNitrite Ql (U)PositiveAbnormalNEGCity Hospital Comment on above:Performed By: #### CAILINRELBAICRO, PREGU #### [facility] [address] [address] [address] Nayana TolentinopH (U)6.0 [pH]Normal5-9The [facility] SystemComment on above: Performed By: #### CAILINR, UMICRO, PREGU #### [facility] [address] [address] [address] Nayana TolentinoSPEC GRAVITY1.715Ijnmfn1.005-<=1.025The [facility] SystemComment on above:Performed By: #### CAILINR, UMICRO, PREGU #### [facility] [address] [address] [address] Nayana TolentinoUA PROTEINTRACENormalNEGATIVE/ TRACEThe [facility] SystemComment on above:Performed By: #### CAILINR, UMICRO, PREGU #### [facility] [address] [address] [address] Nayana TolentinoUR MICRO INDINDICATEDNormalThe [facility] SystemComment on above: Performed By: #### BARRY VILLALOBOS, PREGU #### [facility] [address] [place] [address] Dr. Nayana TolentinoUrobilinogen Qn (U)0.2 {Gabriel'U}/dLNormal0.2 - 1.0The [facility] HospitalComment on above:Performed By: #### BARRY VILLALOBOS, PREGU #### [facility] [address] [place] [address] Dr. Nayana TolentinoPREGNANCY URon 20-90-7330UHCMXWERD, QUALNegativeNormalNEGATIVEThe [facility] SystemComment on above:Performed By: #### BARRY VILLALOBOS, PREGU #### [facility] [address] [place] [address] Dr. Nayana LazaroF CHEM 8 (BAS METB)on 89-60-8266Hotyq gap [Moles/Vol]11.6 mmol/LNormalThe [facility] SystemComment on above:Performed By: #### BMP #### [facility] [address] [place] [address] Dr. Nayana TolentinoCalcium [Mass/Vol]8.8 mg/dLNormal8.5-10.1[facility] Comment on above:Performed By: #### BMP #### [facility] [address] [place] [address] Dr. Nayana TolentinoChloride [Moles/Vol]106 mmol/JVzsyat90-567Zki [facility] Comment on above:Performed By: #### BMP #### [facility] [address] [place] [address] Dr. Nayana TolentinoCO2 [Moles/Vol]27.3 mmol/EAwxmkt02.0-32.0[facility] Comment on above:Performed By: #### BMP #### [facility] [address] [place] [address] Dr. Nayana TolentinoCreatinine [Mass/Vol]0.66 mg/dLNormal0.55-1.02The [facility] SystemComment on above:Performed By: #### BMP #### [facility] [address] [place] [address] Dr. Kraus ChangEGFR-AF HUNGARIAN>60Normal>=60The [facility] SystemComment on above:Performed By: #### BMP #### [facility] [address] [address] [address] Nayana CaleroGFR-NON AF HUNGARIAN>60Normal>=60The [facility] SystemComment on above:Performed By: #### BMP #### [facility] [address] [place] [address] Dr. Nayana TolentinoGlucose [Mass/Vol]81 mg/zHCalaow78-403Kui [facility] Comment on above:Performed By: #### BMP #### [facility] [address] [place] [address] Dr. Nayana TolentinoPotassium [Moles/Vol]3.9 mmol/LNormal3.5-5.1[facility] Comment on above:Performed By: #### BMP #### [facility] [address] [place] [address] Dr. Nayana TolentinoSodium [Moles/Vol]141 mmol/CAuskuv128-666Dzk [facility] Comment on above:Performed By: #### BMP #### [facility] [address] [place] [address] Dr. Nayana TolentinoUrea nitrogen [Mass/Vol]8.0 mg/dLNormal6.4-19.3The [facility] SystemComment on above:Performed By: #### BMP #### [facility] [address] [place] [address] Dr. Nayana Gay nitrogen/Creatinine [Mass ratio]12.1 mg/mgNormalThe [facility] SystemComment on above:Performed By: #### BMP #### [facility] [address] [place] [address] Dr. Nayana TolentinoURINE MICROSCOPIC ONLYon 94-17-5540VVELHBFFQWOMYDfxdaatgPYKP SEEN The [facility] SystemComhealthsource [place] on above:Performed By: #### ERUR, UMICRO, PREGU #### [facility] [address] [place] [address] Dr. Nayana Vidales identified Cx Nom (U)INDICATEDPike County Memorial HospitalalThMercy Health St. Elizabeth [facility] HospitalComment on above:Performed By: #### ERUR, UMICRO, PREGU #### [facility] [address] [place] [address] Dr. Nayana HenryNONE SEENNormalNONE SEENMercy Health [facility] on above:Performed By: #### ERUR, UMICRO, PREGU #### [facility] [address] [place] [address] Dr. Nayana Estrella LM Nom (Urine sed)NONE SEENNormalNONE SEENThe [facility] on above:Performed By: #### ERUR, UMICRO, PREGU #### [facility] [address] [place] [address] Dr. Kraus ChangEpithelial cells LM Ql (Urine sed)FEWAbnormalNONE SEEN /RAREThe [facility] on above:Performed By: #### ERUR, UMICRO, PREGU #### [facility] [address] [place] [address] Dr. Nayana RameshUSKEIKOE SEENCenterpoint Medical CenterE SEENMercy Health [facility] on above:Performed By: #### ERUR, UMICRO, PREGU #### [facility] [address] [place] [address] Dr. Nayana TolentinoGvellVUP8-70Sdcqmxew7-7Tsg [facility] on above:Performed By: #### ERUR, UMICRO, PREGU #### [facility] [address] [place] [address] Dr. Nayana TolentinoSgavyYBF12-29MfrhsbgaJECQ SEENMercy Health [facility] on above: Performed By: #### ERUR, UMICRO, PREGU #### [facility] [address] [place] [address] Dr. Nayana TolentinoXR ABD FLAT_UPon 84-36-6632XR ABD FLAT_UPEXAMINATION: XR ABD FLAT_UP HISTORY: Abdominal pain COMPARISON: No relevant comparison available. FINDINGS: BOWEL GAS PATTERN: Non-obstructed. No abnormal dilation. FREE AIR: None. CALCIFICATIONS: None significant. BONES: No fracture or visible bone lesion. OTHER: Negative. IMPRESSION: 1. No acute or suspicious findings to account for patients symptoms. Electronically authenticated by: AYO MAYER Date: 2021-11-28 15:16NoBlanchard Valley Health SystemCovid-19 PCR (CVDTB)on 20-71-8991QUMA-CoV-2 (COVID-19) RNA YOBANY+probe Ql (Unsp spec)Not detectedNormalNOT DETECTEDThe [facility] Comment on above:Result Comment: This test is not yet approved or cleared by the [place] FDA. When there are no FDA-approved or cleared tests available, and other criteria are met, FDA can make tests available under an emergency access mechanism called an Emergency Use Authorization (EUA). The EUA for this test is supported by the Gis Engineer of Health and Human Service's (HHS's) declaration that circumstances exist to justify the emergency use of in vitro diagnostics for the detection and/or diagnosis of the virus that causes COVID- 19. This EUA will remain in effect (meaning [...] of clinical signs and symptoms consistent with SARS-CoV-2.Performed By: #### CVDTB #### [facility] [address] [id number] Nayana Tolentino Vital Signs Date TimeVital SignValuePerforming NyxuvvfsbCgdspyzz31-09-7411 14:59-0400Body mass index (BMI) [Ratio]21.28 kg/m2Bina HENDERSON Work Phone: [facility] HospitalGownxeetia03-43-1249 14:59-0400Body zyvzgl50.25 kgBina HENDERSON Work Phone: [facility] HospitalSuzfktqatf16-98-5684 14:59-0400Diastolic blood jisllrlr86 mm[Hg]Bina Rasheeda HENDERSON Work Phone: [facility] HospitalGhcwrixezq25-52-0712 14:59-0400Systolic blood fhmfhmec841 mm[Hg]Bina Rasheeda HENDERSON Work Phone: [phone] [place], [place] [address]Xtbejkeqyt59-72-4550 15:28-0400Body mass index (BMI) [Ratio]19.88 kg/n1Qfwxt Elvis DO Work Phone: [phone] [place], [place] [address]Xhofqnhpxn79-47-8436 15:28-0400Body .53 kgCorey Elvis DO Work Phone: [facility] HospitalVwkoabkrhl62-57-8573 15:28-0400Diastolic blood knvrbbuh61 mm[Hg]Daniela Elvis DO Work Phone: [phone]-[facility] HospitalUiephvyuwa09-17-5064 15:28-0400Systolic blood fnqxodli00 mm[Hg]Daniela Elvis DO Work Phone: [phone] [place], [place] [address]Asubslpmmx38-23-4388 14:39-0400Body mass index (BMI) [Ratio]19.4 kg/e9Isjsh Elvis DO Work Phone: [phone] [place], [place] [address]Dpctkxcnys41-68-4971 14:39-0400Body olwdyj01.26 kgCorey Elvis DO Work Phone: [phone]-[facility] HospitalCnpkcxnygq87-44-7865 14:39-0400Diastolic blood lmwiijnd01 mm[Hg]Daniela Elvis DO Work Phone: [phone] [place] [address]-27-2025 14:39-0400Systolic blood eisnnwer219 mm[Hg]Daniela Elvis DO Work Phone: [phone] [place], [place] [address]Npuxhibofe66-76-5794 15:23-0400Body mass index (BMI) [Ratio]19.31 kg/g3Clruj Elvis DO Work Phone: [address] [address]Hnhwrxyudu64-91-5530 15:23-0400Body gskumw96.03 kgCorey Elvis DO Work Phone: [facility] HospitalSseibglaop68-95-1729 15:23-0400Diastolic blood buhujcms98 mm[Hg]Daniela Elvis DO Work Phone: [facility] HospitalJbntzoyxgn57-28-8925 15:23-0400Systolic blood yvxyslzf37 mm[Hg]Daniela Suo DO Work Phone: [facility] HospitalBwmohrevvn95-28-6437 13:28-0400Body mass index (BMI) [Ratio]18.56 kg/u1SfsrxAdirondack Medical Center07-17-2025 13:28-0400Body weight 49.04 kgAdirondack Medical Center07-17-2025 13:28-0400Diastolic blood udknjvje16 mm[Hg][facility]07-17-2025 13:28-0400Systolic blood hhwuhunk462 mm[Hg][facility]04-15-2025 14:02-0400Body mass index (BMI) [Ratio] 17.47 kg/a7Autfg Elvis DO Work Phone: [facility] HospitalSvlvkizcuy00-29-0674 14:02-0400Body auxxia92.15 kgCorey Elvis DO Work Phone: [facility] HospitalAiyvhzkpnn97-79-2963 14:02-0400Diastolic blood ioqgezfc45 mm[Hg]Daniela Suo DO Work Phone: [facility] HospitalQxvrcwikcs35-43-7481 14:02-0400Systolic blood aeotulqy550 mm[Hg]Daniela Leal DO Work Phone: [facility] HospitalYxdyfxtzjm42-18-2322 13:41-0400Body nwzemw142.6 cmScot Dalton MD Work Phone: [facility] HospitalAnyzxatals89-76-7971 13:41-0400Body mass index (BMI) [Ratio]17.34 kg/m2Scot Dalton MD Work Phone: [facility] HospitalFxnicstszl28-08-7770 13:41-0400Body temperature 97.81 [degF]Scot Dalton MD Work Phone: noBothwell Regional Health CenterDrltvquipk07-86-0046 13:41-0400Body abdeaj30.81 kgScot Dalton MD Work Phone: noBothwell Regional Health CenterQqxyzqxovh43-22-3172 13:41-0400Diastolic blood vnsivgya76 mm[Hg]Scot Dalton MD Work Phone: [facility] HospitalSrbsgxbexm97-65-0455 13:41-0400Heart qaqt609 /min Scot Dalton MD Work Phone: [facility] HospitalGuomhiflgi90-43-1985 13:41-0400Respiratory rate20 /minScot Dalton MD Work Phone: [facility] HospitalQjrzaazreg21-58-7304 13:41-2220DdY9% (BldA) [Mass fraction]98 %Scot Dalton MD Work Phone: [facility] HospitalQrwmdrfmfd45-11-6320 13:41-0400Systolic blood rjqjahjh867 mm[Hg]Scot Dalton MD Work Phone: [facility] HospitalWqtdocyzxf33-36-9908 14:39-0500Body ijjxia404.6 cmScot Dalton MD Work Phone: noBothwell Regional Health CenterYlpudekqgf47-07-9266 14:39-0500Body mass index (BMI) [Ratio]17.68 kg/m2Scot Dalton MD Work Phone: noBothwell Regional Health CenterXhwpijqcda75-43-7062 14:39-0500Body temperature 97.5 [degF]Scot Dalton MD Work Phone: [facility] HospitalZroyxfifcy43-72-3795 14:39-0500Body iknhif27.72 kgScot Dalton MD Work Phone: noBothwell Regional Health CenterKldabhyaeo48-97-1574 14:39-0500Diastolic blood tjojjheu18 mm[Hg]Scot Dalton MD Work Phone: noBothwell Regional Health CenterYuvstsvjsb80-52-2362 14:39-0500Heart tkta144 /min Scot Dalton MD Work Phone: [facility] HospitalSszjleihyh49-20-2764 14:39-0500Respiratory rate22 /minMarc Krystle GARCIA Work Phone: noBothwell Regional Health CenterZkrpbrbdeq39-56-9527 14:39-8202EcQ3% (BldA) [Mass fraction]99 %Scot Dalton MD Work Phone: noBothwell Regional Health CenterNzkszvakjs58-86-0409 14:39-0500Systolic blood scutqluf73 mm[Hg]Scot Dalton MD Work Phone: [facility] HospitalNfnfaxacec69-70-1296 18:02-0400Body .99 cmSTAFF, [facility]05-07-2021 18:02-0400Body mass index (BMI) [Ratio]17.1 kg/g4TZNUSOhioHealth Dublin [facility]05-07-2021 18:02-0400Body .55 kgSTCENTRA SOUTHSIDE [facility], [facility]05-07-2021 17:56-0400Body .6 [degF]STAFF, [facility] 09-17-2020 17:56-0400Diastolic blood gddwabtg05 mm[Hg]STAFF, [facility]05-07-2021 17:56-0400Heart rate94 /minSTAFF, [facility]05-07-2021 17:56-0400Respiratory rate16 /minSTAFF, [facility]05-07-2021 17:56-6104FpU9% (BldA) [Mass fraction] 95 %STAFF, [facility]05-07-2021 17:56-0400Systolic blood bzubrqie984 mm[Hg]STAFF, [facility] Encounters Encounter DateEncounter TypeCare ProviderFacilityStart: 02-24-2025 End: 51-13-5985zxwhoyyabkHJT RAMEYNot AvailableStart: 02-24-2025 End: 41-09-7900Nqrgif outpatient visit 15 minutesBina HENDERSON Work Phone: [facility] [place] OBGYNComment on above:Second trimester ([facility] 22 weeks gestation of ([facility]); Diabetes mellitus screeningStart: 02-24-2025 End: 01-41-8217Wpdxxp flowsFlory HENDERSON Work Phone: NO [place] OBGYNStart: 02-24-2025 End: 19-44-7265Vpfiqb Hannah HENDERSON Work Phone: [facility] [place] [facility]BGYNStart: 02-09-2025 End: 52-07-3336szowssgzuxGXZG NADERERNot AvailableStart: 02-09-2025 End: 06-01-3394Twqjcvlwu Result EncounterCorey Elvis DO Work Phone: NOXE External Department UnsolicitedStart: 02-09-2025 End: 99-63-8407Rrawtyhbf Result EncounterCorey Elvis DO Work Phone: noms External Department UnsolicitedStart: 01-26-2025 End: 46-86-9474etziwdywbdPZZLZ FAZIONot AvailableStart: 01-26-2025 End: 10-45-6582Umtwmx outpatient visit 15 minutesCorey Elvis DO Work Phone: [facility] [place] OBGYNComment on above:Second trimester ([facility]) (Primary Dx); Screening, , for anatomic survey ([facility])Start: 01-07-2025 End: 41-76-2617Gotcyl outpatient visit 15 minutesCorey Elvis DO Work Phone: [facility] [place] OBGYNComment on above:Second trimester ([facility]); 15 weeks gestation of ([facility]); RashStart: 01-07-2025 End: 72-00-3542emxodjwrlwIWYWO FAZIONot AvailableStart: 01-07-2025 End: 21-88-5356Bjnhko flowsheetCorey Elvis DO Work Phone: [facility] [place] [facility]BGYNStart: 01-07-2025 End: 84-48-3941Rrxwgo flowsheetCorey Elvis DO Work Phone: NO [place] OBGYNStart: 12-29-2024 End: 98-07-2797Rupcal outpatient visit 15 minutesCorey Elvis DO Work Phone: no [place] OBGYNComment on above:Second trimester ([facility]); 14 weeks gestation of ([facility])Start: 12-29-2024 End: 47-46-5832hpyirwvlazTAQQW FAZIONot AvailableStart: 12-18-2024 End: 07-52-9359Iovgicjqg encounterMontserrat Isaac WEI [facility] [facility] Start: 12-01-2024 End: 23-88-5143Jatnonvrh Result EncounterGeneric External Data ProviderNOMS External Department UnsolicitedStart: 12-01-2024 End: 08-48-2947Unjtavmdu Result EncounterGeneric External Data ProviderNOMS External Department UnsolicitedStart: 11-27-2024 End: 35-08-1386Roeyza outpatient visit 5 minutesFazio Nurse Noms Bcp ObNOMS BCP OBComment on above:GA: 1e2tLlsmp: 11-27-2024 End: 15-54-8207pilonlhbgsDRSV NADERERNot AvailableStart: 08-26-2024 End: 12-79-2343Stjrwa flowsheetCorey Elvis DO Work Phone: NOMS BCP OBStart: 08-26-2024 End: 67-56-6362Otvarf flowsheetCorey Elvis DO Work Phone: N[facility] BCP OBStart: 08-26-2024 End: 20-90-4598Cynikjjeh Result EncounterGeneric External Data ProviderNOMS External Department UnsolicitedStart: 08-26-2024 End: 84-93-1848Mzgksscc Result EncounterCorey Elvis DO Work Phone: NOMS External Department UnsolicitedStart: 08-26-2024 End: 81-98-6517Ownsvx outpatient visit 15 minutesCorey Elvis DO Work Phone: NOHF BCP OBComment on above:STD exposure; Vaginal discharge; Sexually transmitted disease exposureStart: 08-26-2024 End: 17-83-8956lwrwowiqfjOPBHC FAZIONot AvailableStart: 08-06-2024 End: 54-08-7147Rlfacq Davonte Dalton MD Work Phone: NOMS CWM FMStart: 08-06-2024 End: 35-88-3350Klmrmy Davonte Dalton MD Work Phone: N[facility] CWM FMStart: 08-06-2024 End: 90-98-3878Hespth outpatient visit 25 minutesScot Dalton MD Work Phone: N[facility] CWM FMComment on above:Generalized anxiety disorder (CMS/HCC) (Primary Dx); Psychophysiological insomnia; Postural orthostatic tachycardia syndrome (POTS); Other viral warts; Increased sensitivity to painful stimulusStart: 08-06-2024 End: 59-41-5499vemsiciukeJFCC NADERERNot AvailableStart: 07-03-2024 End: 83-76-3494slcquejptrLKAG NADERERNot AvailableStart: 07-03-2024 End: 87-27-8103Hcwamd outpatient visit 25 minutesScot Dalton MD Work Phone: noms CWM FMComment on above:Generalized anxiety disorder (CMS/HCC) (Primary Dx); Postural orthostatic tachycardia syndrome (POTS); Psychophysiological insomniaStart: 07-03-2024 End: 35-65-5369Yryyay Davonte Dalton MD Work Phone: NOMS CWM FMStart: 07-03-2024 End: 39-15-9626Fyexcs Davonte Dalton MD Work Phone: NOTR CWM FMStart: 06-23-2024 End: 33-21-7943Vxhcgzgne Result EncounterGeneric External Data ProviderNOMS External Department UnsolicitedStart: 06-23-2024 End: 81-87-2245Lecjqnnhl Result EncounterGeneric External Data ProviderNOMS External Department UnsolicitedStart: 05-05-2024 End: 12-10-2762rohpxhnzjpAPRLK FAZIONot AvailableStart: 05-05-2024 End: 98-11-3701Lisokmk encounter procedureCorey Elvis DO Work Phone: NOQY BCP OBComment on above:Encounter for IUD removal Start: 04-24-2024 End: 45-04-7209Zvfaxditb Result EncounterCorey Elvis DO Work Phone: NOWY External Department UnsolicitedStart: 04-24-2024 End: 79-15-9347Elevuzowd Result EncounterCorey Elvis DO Work Phone: NOKW External Department UnsolicitedStart: 04-09-2024 End: 84-30-1726Dplluydxu encounterMarwaqas Dalton MD Work Phone: noms CWM FMComment on above:Med RefillStart: 01-20-2024 End: 41-45-6008Chsxuqyjx Result EncounterGeneric External Data ProviderNOMS External Department UnsolicitedStart: 01-20-2024 End: 55-84-7517Hvynvmsay Result EncounterGeneric External Data ProviderNOMS External Department UnsolicitedStart: 85-70-7076Ldzfcb Davonte Dalton MD Work Phone: noms CWM FMStart: 11-79-6590Jtsmsk Davonte Dalton MD Work Phone: noms CWM FMStart: 04-20-2022 End: 96-27-5096gkvgybyvtuCT SCOT A NADERERFacility:S8Rfhps: 11-28-2021 End: 73-16-1996beywdkmvqkAR SCOT A NADERERFacility:X8Jbljq: 04-26-2021 End: 81-46-7673jhnzbeqzcfSM SCOT A NADERERFacility:F8Wqqjn: 09-17-2020 End: 00-82-0627Jsswphicu department patient visitSTA, [facility] Procedures DateProcedureProcedure DetailPerforming ClinicianStart: 64-12-3428Yzudi dip stick/tablet rgnt non-auto w/o micrscpAmy Rasheeda PA Work Phone: Start: 34-65-0282CPZ, SERUM, OPEN SPINA BIFIDACorey Elvis DO Work Phone: Start: 31-46-1228Lwhke dip stick/tablet rgnt non-auto w/o micrscpCorey Elvis DO Work Phone: Start: 13-54-6851Uqzph dip stick/tablet rgnt non-auto w/o micrscpCorey Elvis DO Work Phone: Start: 73-94-4249VAD TESTCorey Elvis DO Work Phone: Start: 11-27-2024 End: 77-74-6823Bzvlh dip stick/tablet rgnt non-auto w/o micrscpCorey Elvis DO Work Phone: Start: 08-58-1607VOQ AB/P24 AG WITH REFLEXCorey Elvis DO Work Phone: Start: 13-26-6555UYEVKHBJP VAGINITIS (HTRX)Daniela Elvis DO Work Phone: Start: 30-88-5058IKDWG RESPIRATORY CULTUREGeneric External Data ProviderStart: 06-34-6401OZZ REMOVALCorey Elvis DO Work Phone: Start: 41-44-6010QD PELVIS TRANSVAGINALCorey Elvis DO Work Phone: Start: 24-64-6234Makfqftx identified in Urine by CultureGeneric External Data Provider Plan of Treatment DateCare ActivityDetailAuthorStart: 03-25-2025 End: 35-60-2068Lafunmx encounter jlzfoakuh97/12/2025 2:20 PM EST Routine [facility] [address] [place], [id number] Daniela Leal, DO [address] [place] [address] NOMS [facility] OBGYNStart: 02-24-2025 End: 87-61-2995Exublxd encounter hvxeonklz44/14/2025 2:40 PM EDT Routine NOMElizabeth B[facility]IE [address] [place], [id number] Bina Vanessa PA [address] [place] [address] NOMS [facility] OBGYNStart: 02-24-2025 End: 03-23-1425WON panel - Blood by Automated countCBC Lab Routine Diabetes mellitus screening Expected: 02/24/2025 (Approximate), Expires: 02/24/2026NONC HealthcareComment on above:Expected: 02/24/2025 (Approximate), Expires: 02/24/2026Start: 02-24-2025 End: 28-56-1126Zytmljevhjp of glucose 1 hour after glucose challenge for glucose tolerance testGlucose tolerance, 1 hour Lab Routine Diabetes mellitus screening Expected: 02/24/2025 (Approximate), Expires: 02/24/2026NONC HealthcareComment on above:Expected: 02/24/2025 (Approximate), Expires: 02/24/2026Start: 02-09-2025 End: 89-16-8447Jmzctuwybaus / ancillary services jeyjqjcxmr11/29/2025 2:30 PM EDT Ancillary Procedure [facility] [address] [place] [phone] [facility] OBGYNStart: 01-26-2025 End: 80-52-3878Fnptmae encounter utgcvjlyd56/15/2025 3:10 PM EDT Routine NOMElizabeth [facility]IE [address] [place], [id number] Daniela Leal DO [address] [place] [address] NOMS [facility] OBGYNStart: 01-26-2025 End: 90-46-4744Eubdk fetoprotein, maternalAlpha fetoprotein, maternal Lab Routine Second trimester ([facility]) Expected: 01/26/2025 (Approximate), Expires: 03/28/2025[facility] Work Phone: comment on above:Expected: 01/26/2025 (Approximate), Expires: 03/28/2025Start: 01-26-2025 End: 24-52-1083HV for pregnancyUS OB 14+ weeks anatomy scan Imaging Routine Screening, , for anatomic survey ([facility]) Expected: 01/26/2025, Expires: 04/27/2025[facility] Work Phone: comment on above:Expected: 01/26/2025, Expires: 04/27/2025Start: 75-80-6218QVCLN-19 Vaccine ( season)COVID-19 Vaccine ()NOMS HealthcareStart: 71-64-1618Vvhehaqpk vaccinationNOMS HealthcareStart: 01-07-2025 End: 51-59-2154Ljzswny encounter xuzhmotoq94/27/2025 2:20 PM EDT Routine [facility] [place] [facility] [address] [place], [id number] Daniela Leal, [address] [place], [place] [phone] ArrivedNOMS [place] OBGYNComment on above:ArrivedStart: 12-29-2024 End: 24-69-2290Rihfwxj encounter procedureNOMS BCP OBStart: 11-27-2024 End: 20-88-3562WYN/RhABO/Rh Lab Routine Missed menses , unspecified gestational age ([facility]) Expected: 11/27/2024 (Approximate), Expires: 11/27/2025NOMS HealthcareComment on above:Expected: 11/27/2024 (Approximate), Expires: 11/27/2025Start: 11-27-2024 End: 38-13-4830Rzwrk type and Indirect antibody screen panel - BloodType and screen Lab Routine Missed menses , unspecified gestational age ([facility]) Expected: 11/27/2024 (Approximate), Expires: 11/27/2025[facility] Work Phone: comment on above:Expected: 11/27/2024 (Approximate), Expires: 11/27/2025Start: 11-27-2024 End: 68-71-4847Ojhwz of abuse panel - Urine by Screen methodRapid drug screen, urine Lab Routine , unspecified gestational age ([facility]) Encounter for supervision of normal first in first trimester ([facility]) Expected: 11/27/2024 (Approximate), Expires: 11/27/2025NOMS HealthcareComment on above: Expected: 11/27/2024 (Approximate), Expires: 11/27/2025Start: 10-07-2024 End: 79-41-3582Ucypjds encounter bozzvzykv42/27/2025 1:45 PM EDT Office Visit [facility] [address] [place] [address] Scot Dalton MD [address] [place] [address] [facility] FMStart: 08-26-2024 End: 26-76-6160Txjhwsh encounter vrcryoozl74/15/2025 1:40 PM EDT Office Visit [facility] [address] [place] [phone] Daniela Leal DO [address] [place], [place] [id number] ArrivedNOMS BCP OBComment on above:ArrivedStart: 08-06-2024 End: 34-84-6351Ogbkpdy encounter procedureNOMS CWM FMComment on above:Arrived Start: 01-29-2024 End: 90-87-2961Dpqknqj encounter gjbaypswo95/17/2024 1:45 PM EDT Office Visit [facility] [address] [place] [phone] Scot Dalton MD [address] [place] [phone] [facility]: 40-65-5352Maiuicchm vaccinationInfluenza Vaccine (#1)NOMS HealthcareStart: 77-73-1671Wouemfuko B Vaccines (1 of 3 - 19+ 3-dose series) Hepatitis B Vaccines (1 of 3 - 19+ 3-dose series)NOMS HealthcareStart: 06-15-2023 End: 82-91-1697Ezsosum encounter dqlwexeho28/02/2024 9:00 AM EST Office Visit [facility] [address] [place] [address] Scot Dalton MD [address] [place] [address] [facility] FMComment on above:ArrivedStart: 86-33-1429Ebktswruy vaccinationInfluenza Vaccine (#1)NOMS HealthcareStart: 60-51-9535Ygxslcoglwovq B Vaccine (1 of 2 - Standard)Meningococcal B Vaccine (1 of 2 - Standard)NOMS HealthcareStart: 00-25-1668ERL Vaccines (1 - 3-dose series)HPV Vaccines (1 - 3- dose series)NOMS HealthcareStart: 86-71-0095Hbpjtpv of varicella vaccination Varicella Vaccines (1 of 2 - 13+ 2-dose series)NOMS HealthcareStart: 12-14-2011 DTaP/Tdap/Td Vaccines (1 - Tdap)DTaP/Tdap/Td Vaccines (1 - Tdap)[facility] Start: 00-72-4356FCF Vaccines (1 of 1 - Standard series)MMR Vaccines (1 of 1 - Standard series)NOMS HealthcareBacteria identified in Urine by CultureURINE CULTURE, ROUTINE Lab Routine 01/20/2024 2:00 PM EDTNOMS HealthcareBacteria identified in Urine by CultureUrine culture Microbiology Routine Missed menses Ordered: 11/27/2024[facility] HealthcareComment on above:Ordered: 11/27/2024BC W Auto Differential panel - BloodCBC and differential Lab Routine Missed menses , unspecified gestational age ([facility]) Ordered: 11/27/2024[facility] HealthcareComment on above:Ordered: 11/27/2024BC W Auto Differential panel - BloodCBC and differential Lab Routine Second trimester ([facility]) Ordered: 02/24/2025[facility] HealthcareComment on above:Ordered: 02/24/2025HLAMYDIA TRACHOMATIS (GENITO/STI)CHLAMYDIA TRACHOMATIS (GENITO/STI) Lab Routine Second trimester ([facility]) Ordered: 02/24/2025[facility] HealthcareComment on above:Ordered: 02/24/2025Hemoglobin A1c/Hemoglobin.total in BloodHemoglobin A1c Lab Routine Missed menses , unspecified gestational age ([facility]) Ordered: 11/27/2024[facility] HealthcareComment on above:Ordered: 11/27/2024Hepatitis B virus surface Ag [Presence] in Serum or Plasma by ImmunoassayHepatitis B surface antigen Lab Routine Sexually transmitted disease exposure Ordered: 08/26/2024[facility] HealthcareComment on above:Ordered: 08/26/2024Hepatitis B virus surface Ag [Presence] in Serum or Plasma by ImmunoassayHepatitis B surface antigen Lab Routine Missed menses , unspecified [facility] Ordered: 11/27/2024[facility] HealthcareComment on above:Ordered: 11/27/2024 Hepatitis C virus Ab [Presence] in Serum or Plasma by ImmunoassayHepatitis C antibody Lab Routine Missed menses , unspecified gestational age ([facility]) Ordered: 11/27/2024[facility] HealthcareComment on above:Ordered: 11/27/2024 HIV-1/HIV-2 antigen/antibody combination immunoassayHIV-1 and HIV-2 antibodies Lab Routine Sexually transmitted disease exposure Ordered: 08/26/2024[facility] Healthcare Work Phone: comment on above:Ordered: 08/26/2024HIV-1/HIV-2 antigen/antibody combination immunoassayHIV-1 and HIV-2 antibodies Lab Routine Missed menses , unspecified gestational age ([facility]) Ordered: 11/27/2024[facility] HealthcareComment on above:Ordered: 11/27/2024Neisseria gonorrhoeae DNA [Presence] in Unspecified specimen by YOBANY with probe detection Neisseria gonorrhea DNA probe, direct Lab Routine Second trimester ([facility]) Ordered: 02/24/2025[facility] HealthcareComment on above:Ordered: 02/24/2025 Patient EducationContusion in Children (ED)[facility]trPatient referralKettering Health Greene Memorial CtrReagin Ab [Presence] in Serum by RPRRPR Lab Routine Sexually transmitted disease exposure Ordered: 08/26/2024[facility] HealthcareComment on above:Ordered: 08/26/2024Reagin Ab [Presence] in Serum by RPRRPR Lab Routine Missed menses , unspecified gestational age ([facility]) Ordered: 11/27/2024[facility] HealthcareComment on above:Ordered: 11/27/2024 Rubella antibody, IgGRubella antibody, IgG Lab Routine Missed menses , unspecified gestational age ([facility]) Ordered: 11/27/2024[facility] HealthcareComment on above:Ordered: 11/27/2024SURESWAB(R) ADVANCED VAGINITIS PLUS, TMASURESWAB(R) ADVANCED VAGINITIS PLUS, TMA Pathology and Cytology Routine Second trimester ([facility]) Ordered: 02/24/2025[facility] Healthcare Work Phone: comment on above:Ordered: 02/24/2025 Immunizations Immunization DateImmunizationNotesCare LmpljyhjNrglzfhe14-53-4845cnkfmilti virus vaccine, unspecified formulationScot Dalton MD Work Phone: [facility] Healthcare Payers DatePayer CategoryPayerPolicy ID2020Medicaid[place] [facility] [place] [id number] 2019-Present [address] [place] [id number] 2020Medicaid (Managed Care)[employer] [employer] Member Subscriber Plan / Payer (Effective 2019-Present) Name: Edmund Rehman Relation to Subscriber: Self Name: Edmund Rehman Payer ID: Not on file Group ID: Not on file Type: Not on file Address: [facility] [address] [place] [place] [id number] [id number] 2..1.372259.3.579.2.070387-79-6452Xyzqfga [id number] 2..1.479060.3.57[id number] 2..1.861348.3.57[id number] 2..1.817262.3.57[id number] 2..1.993073.3.57[id number] 2..1.823455.3.57[id number] 2..1.856040.3.57[id number] 2..1.798317.3.57[id number] 2..1.841550.3.57[id number] 2..1.638577.3.57[id number] 2..1.655311.3.57[id number] 2.0.1.358917.3.57[id number] 2..840.1.434236.3.579.[id number] 2..840.1.401513.3.579.[id number] [id number]-5j34-bh34mb66d0s2Nfss-zrkCcxk Pay [id number]-[id number]-[id number] [id number] Social History DateTypeDetailFacilityStart: 09-17-2020 End: 98-49-0271Ndsaagc smoking status NHISNever smoked tobacco (finding)NOMS HealthcareStart: 42-52-3219Pcu Assigned At BirthMer[facility] Health [facility] CtrStart: 06-13-2023 End: 80-33-5624Mgzqmjp intakeLifetime non-drinker (finding)NOMS HealthcareStart: 06-13-2023 End: 28-91-8991Bqwofss of Social functionNOMS HealthcareStart: 06-13-2023 End: 76-30-3197Jadznym use panelNOMS HealthcareStart: 23-11-6950Texfyyu Comment Caffeine: 1-2 cups per dayNOMS HealthcareStart: 03-27-0651Boh Assigned At Not on fileNOMS HealthcareStart: 61-72-4434Pveincb use and exposureSmokeless tobacco non-userNOMS HealthcareStart: 40-79-2000Yqy often do you need to have someone help you when you read instructions, pamphlets, or other written material from your doctor or pharmacy [SILS]NeverNOMS HealthcareDo you belong to any clubs or organizations such as catholic groups, unions, fraternal or athletic groups, or school groups?NoNOMS HealthcareAre you now , , , , never or living with a partner?Never marriedNONC HealthcareHow often to you have a drink containing alcohol?NeverNOMS Healthcare Do you feel stress - tense, restless, nervous, or anxious, or unable to sleep at night because yourmind is troubled all the time - these days [OSQ]Rather much NOM Healthcare(I/We) worried whether (my/our) food would run out before (I/we) got money to buy more.Never trueNONC HealthcareStart: 77-85-1261NribbptuaSAWE HealthcareStart: 34-07-3072Kanqxei use and exposureFormer smokeless tobacco user [facility] HealthcareStart: 30-08-3682Chuclfdqe46STRN Healthcare Goals DatePatient GoalDesired Activity/State Functional Status GltgAezourkjuaPhaexhXvdosubl66-87-3973Zwqcrrl Health Questionnaire 2 item (PHQ- 2) [Reported][facility] Clinical Notes 04-09-2024 to 02-24-2025 Note Date & ZfevVlqmRhwvfsct96-65-6886 History of Present illness Narrative* SANTIAGO Nazario - 02/24/2025 2:40 PM EDT [...] Vitals: Estimated body mass index is 21.28 kg/m as calculated from the following: Height as of 08/06/24: 5' 4 . Weight as of this encounter: 124 lb. BP: 108/58 Patient's last menstrual period was 09/21/2024. ASSESSMENT & PLAN ICD-10-CM 1. Second trimester ([facility]) Z34.92 SURESWAB(R) ADVANCED VAGINITIS PLUS, TMA CHLAMYDIA TRACHOMATIS (GENITO/STI) Neisseria gonorrhea DNA probe, direct CBC and differential Vit-Fe Fumarate-FA (PNV 27-Ca/Fe/FA) 60-1 MG tablet 2. 22 weeks gestation of ([facility]) Z3A.22 POCT urinalysis dipstick manually resulted 3. [...] Date EYE SURGERY x2 documented in this encounterHannibal Regional HospitalUgyqtctuix47-63-7238 History of Present illness Narrative* Samantha Stokes NP - 01/26/2025 3:10 PM EDT Reason for Appointment: Patient ID: Edmund Rehman is a 19 y.o. female who presents for No chief complaint on file. Patient presents today for Return OB appointment. MEDICATIONS Current Outpatient Medications Medication Instructions ondansetron ODT (Zofran-ODT) 4 MG disintegrating tablet DISSOLVE 1 TABLET IN MOUTH EVERY 6 HOURS ASNEEDED FOR NAUSEA AND VOMITING Vit-Fe Fumarate-FA ( [...] nursing note reviewed. Exam conducted with a community organization worker present. Vitals: Estimated body mass index is 19.88 kg/m as calculated from the following: Height as of 08/06/24: 5' 4 . Weight as of this encounter: 115 lb 12.8 oz. BP: 92/62 Patient's last menstrual period was 09/21/2024. ASSESSMENT & PLAN ICD-10-CM 1. Second trimester ([facility]) Z34.92 Alpha fetoprotein, maternal Alpha [...] of: Daniela Leal DO documented in this encounterHannibal Regional HospitalRpbsvptnbh24-21-0417 History of Present illness Narrative* Nancy Montes LPN - 01/07/2025 2:20 PM EDT - * Carmita Gerardo LPN - 01/07/2025 2:20 PM EDT Reason for Appointment: Patient ID: Edmund Rehman is a 19 y.o. female who presents for Routine Visit Patient presents today for Return OB appointment. MEDICATIONS Current Outpatient Medications Medication Instructions ondansetron ODT (Zofran-ODT) 4 MG disintegrating tablet DISSOLVE 1 TABLET IN MOUTH EVERY 6 HOURS ASNEEDED FOR NAUSEA AND VOMITING Vit-Fe Fumarate-FA ( [...] nursing note reviewed. Exam conducted with a community organization worker present. Vitals: Estimated body mass index is 19.4 kg/m as calculated from the following: Height as of 08/06/24: 5' 4 . Weight as of this encounter: 113 lb. BP: 102/62 Patient's last menstrual period was 09/21/2024. ASSESSMENT & PLAN ICD-10-CM 1. Second trimester ([facility]) Z34.92 2. 15 weeks gestation of ([facility]) Z3A.15 Patient presents today for a routine obstetrics appointment. Patient is currently 15w3d with a Estimated Date of Delivery: 06/28/25. Rx for medrol dose pack faxed to pharmacy. Pt to return in4 weeks for scheduled Ob appt. Documented by Carmita Gerardo LPN on behalf of: Daniela Leal DO documented in this encounterHannibal Regional HospitalAhvqehcory33-31-0898 History of Present illness Narrative* Damian Hodges LPN - 12/29/2024 3:20 PM EDT Reason for Appointment: Patient ID: Edmund Rehman is a 19 y.o. female who presents for Routine Visit Patient presents today for Return OB appointment. MEDICATIONS Current Outpatient Medications Medication Instructions ondansetron ODT (Zofran-ODT) 4 MG disintegrating tablet DISSOLVE 1 TABLET IN MOUTH EVERY 6 HOURS ASNEEDED FOR NAUSEA AND VOMITING Vit-Fe Fumarate-FA ( [...] nursing note reviewed. Exam conducted with a community organization worker present. Vitals: Estimated body mass index is 19.31 kg/m as calculated from the following: Height as of 08/06/24: 5' 4 . Weight as of this encounter: 112 lb 8 oz. BP: 92/56 Patient's last menstrual period was 09/21/2024. ASSESSMENT & PLAN ICD-10-CM 1. Second trimester ([facility]) Z34.92 POCT urinalysis dipstick manually resulted 2. 14 weeks gestation of ([facility]) Z3A.14 New OB: Patient presents [...] or undercooked meat, and stay away from [facility]. Patient has been consulted regarding any further do's and don'tsof . Patient voiced understanding and all questions and concerns were answered. Orders Placed This Encounter Procedures POCT urinalysis dipstick manually resulted Follow Up: Patient is to return in 4 weeks for routine OB appointment. Documented by Damian Hodges LPN on behalf of: Daniela Leal DO documented in this encounterHannibal Regional HospitalUuelgsasqi44-85-3563 Telephone encounter Note* Telephone Encounter - Pat Gray MA - 12/18/2024 1:31 PM EDT Pt called office wanting to know if there was a way to test her for cystic fibrosis. Per damian we would need to ask Dr. Leal how he would like to do this. Pt informed and will await call. Please advise [facility] HospitalOpsaqgahkw03-30-9913 Miscellaneous Notes* Telephone Encounter - Pat Gray MA - 12/18/2024 1:31 PM EDT Pt called office wanting to know if there was a way to test her for cystic fibrosis. Per damian we would need to ask Dr. Leal how he would like to do this. Pt informed and will await call. Please advise documented in this encounterHannibal Regional HospitalWtrkqrkxhk46-16-5472 History of Present illness Narrative* Jamison Santos LPN - 11/27/2024 1:00 PM EDT Reason for Appointment: Patient ID: [...] list which includes the following prescription(s): sertraline, ondansetronodt, ondansetron odt, and vitamins. Medical History: Active [...] by mouth Daily , unspecified gestational age ([facility]) - Type and screen; Future - ABO/Rh; Future - CBC and differential - Hemoglobin A1c - RPR - Rubella antibody, IgG - Hepatitis B surface antigen - Hepatitis C antibody - HIV-1 and HIV-2 antibodies - Rapid drug screen, urine; Future Encounter for supervision of normal first in first trimester ([facility]) - Rapid drug screen, urine; Future Nausea [...] drink 6-8 glasses of water a day, eatno raw or undercooked meat, and stay away from [facility]. Patient has also been advised to not change litter boxes and eat 6 small meals a day. Patient has been consulted regarding the do's and don'ts ofpregnancy. Patient was given labs and all questions and concerns were answered. Patient given [place] to have completed with Initial Labs. Patient [...] by: Jamison Santos LPN documented in this encounterHannibal Regional HospitalClzkzfzcsp19-46-8643 History of Present illness Narrative* Carmita Gerardo LPN - 08/26/2024 1:40 PM EDT Reason for Appointment: Patient ID: Edmund Rehman is a 18 y.o. female who presents for STI Screening Patient presents today for STD Check. MEDICATIONS Current Outpatient Medications Medication Instructions cetirizine (ZYRTEC) 10 mg, Oral, Daily fludrocortisone (FLORINEF) 0.1 mg, Oral, Daily ondansetron ODT (Zofran-ODT) 4 MG disintegrating tablet DISSOLVE 1 TABLET IN MOUTH EVERY 6 HOURS ASNEEDED FOR NAUSEA AND VOMITING sertraline (ZOLOFT) 50 [...] nursing note reviewed. Exam conducted with a community organization worker present. Vitals: Estimated body mass index is [...] of: Daniela Leal DO documented in this encounterHannibal Regional HospitalDvtamegjvc56-38-4062 History of Present illness Narrative* Scot Dalton MD - 08/06/2024 2:07 PM EDTAssociated Problem(s): Other viral warts Used liquid nitrogen to perform 3 freeze thaw cycles and patient tolerated well. Warned will form blister and likely will take multiple treatments. If develop new or worsening symptoms call. * Soct Dalton MD - 08/06/2024 2:07 PM EDTAssociated Problem(s): Psychophysiological insomnia Sleeping well with trazodone and continue. * Scot Dalton MD - 08/06/2024 2:06 PM EDTAssociated Problem(s): Postural orthostatic tachycardia syndrome (POTS) Symptoms improved with florinef and continue. Increase water and salt intake. * Scot Dalton MD - 08/06/2024 2:05 PM EDTAssociated Problem(s): Generalized anxiety disorder (CMS/HCC) Symptoms improved but still present and increase zoloft. Warned will take 2-3 weeks to notice improvement in mood. * Scot Dalton MD - 08/06/2024 1:30 PM EDT Images from the original note were not included. Subjective Patient ID: Edmund Rehman is a 18 y.o. female who presents for Follow-up. Follow up anxiety, insomnia, and POTS. Patient improved today. Started zoloft and anxiety better. Not as stressed out or overwhelmed. Not as nervous or worry as much. Not as figueroa or irritable. Stillsymptoms and room for improvement. Sleeping well with [...] with trazodone and continue. documented in this encounterHannibal Regional [id number] History of Present illness Narrative* Scot Dalton MD - 07/03/2024 2:54 PM ESTAssociated Problem(s): Psychophysiological insomnia Not sleeping well due to anxiety. Try trazodone. * Scot Dalton MD - 07/03/2024 2:54 PM ESTAssociated Problem(s): Postural orthostatic tachycardia syndrome (POTS) Symptoms worse over past few months and add florinef. Increase water and salt intake. * Scot Dalton MD - 07/03/2024 2:54 PM ESTAssociated Problem(s): Generalized anxiety disorder (CMS/HCC) Severe symptoms and not functioning well. Start zoloft and warned will take 2-3 weeks to notice improvement in mood. * Scot Dalton MD - 07/03/2024 2:30 PM EST Subjective Patient ID: Edmund Rehman is a [...] Thought racing and hard to clear mind. Figueroa, irritable and snapping at others. Easily upset [...] (Desyrel) 50 MG tablet documented in this encounterHannibal Regional [id number] History of Present illness Narrative* Damian Hodges LPN - 05/05/2024 3:00 PM ESTAssociated Order(s): IUD Removal Post-Procedure Diagnose(s): Encounter for [...] nursing note reviewed. Exam conducted with a community organization worker present. Vitals: Estimated body mass index is [...] of: Daniela Leal DO documented in this encounterHannibal Regional [id number] Telephone encounter Note* Telephone Encounter - JAMISON KONG - 04/09/2024 3:13 PM EST Patient called requesting a script for cetrizine. clm [facility] [id number] Miscellaneous Notes* Telephone Encounter - JAMISON KONG - 04/09/2024 3:13 PM EST Patient called requesting a script for cetrizine. clm documented in this encounterNONC HealthcareEvaluation noteNo Assessments Information AvailableKettering Health Greene Memorial CtrEvaluation note* Diagnosis Postural orthostatic tachycardia syndrome (POTS)- Primary Inguinal lymphadenopathy Enlargement of lymph nodes Bacterial vaginitis Unspecified vaginitis and vulvovaginitis Seasonal allergic rhinitis due to pollen- Primary documented in this encounter [facility]* Diagnosis Postural orthostatic tachycardia syndrome (POTS)- Primary Inguinal lymphadenopathy Enlargement of lymph nodes Bacterial vaginitis Unspecified vaginitis and vulvovaginitis Encounter for IUD removal documented in this encounter [facility] Healthcare[facility] note* Diagnosis Postural orthostatic tachycardia syndrome (POTS)- Primary Inguinal lymphadenopathy Enlargement of lymph nodes Bacterial vaginitis Unspecified vaginitis and vulvovaginitis Generalized anxiety disorder (CMS/HCC)- Primary Generalized anxiety disorder Postural orthostatic tachycardia syndrome (POTS) Psychophysiological 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 documented in this encounter [facility] HealthcareEvaluation note* Diagnosis Other viral warts- Primary [...] of skin sensation documented in this encounter [facility] HealthcareEvaluation note* Diagnosis Other viral warts- Primary [...] warts Missed menses , unspecified gestational age ([facility]) Encounter for supervision of normal first in first trimester ([facility]) Nausea Nausea alone documented in this [...] stimulus Disturbance of skin sensation Second trimester ([facility]) state, incidental 14 weeks gestation of ([facility]) documented in this encounter [facility] [...] stimulus Disturbance of skin sensation Second trimester ([facility]) state, incidental 15 weeks gestation of ([facility]) Rash Rash and other nonspecific skin eruption documented in this encounter [facility] HealthcareEvaluation note* Diagnosis Other viral warts- [...] stimulus Disturbance of skin sensation Second trimester ([facility])- Primary state, incidental Screening, , for anatomic survey ([facility]) Encounter for anatomic survey documented in this encounter [facility] HealthcareEvaluation note* Diagnosis Other viral warts- Primary Increased sensitivity to painful stimulus Disturbance of skin sensation Postural orthostatic tachycardia syndrome (POTS)- Primary Inguinal lymphadenopathy Enlargement of lymph nodes Bacterial vaginitis Unspecified vaginitis and vulvovaginitis Generalized anxiety disorder- Primary Postural orthostatic tachycardia syndrome (POTS) Psychophysiological 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 Generalized anxiety disorder-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
[2025-03-13 20:17] VITALS: BP 100/67; PULSE 99
[2025-03-13 20:26] LABS: Glucose Urine UA NEGATIVE (NEGATIVE)
== END 2025-03-13 21:05 | disposition home or self-care (01) ==
PROVIDERS: Admitting Provider Obstetrics & Gynecology; PCP Family Medicine; Visit Provider Obstetrics & Gynecology
DX: O36.8120 Decreased fetal movements, second trimester, not applicable or unspecified (principal); Z3A.24 24 weeks gestation of pregnancy
CPT/HCPCS: 59025; 81003; G0378; G0379

== ENCOUNTER 2025-04-30 09:58 | Outpatient (OUT) | payer OTHER, SELFPAY ==
--- OUTSIDE RECORDS SUMMARY | 2023-11-13 05:30 | XMS_ITS ---
Author Organization [facility] Serv[facility] Address [address] [address] Care Team Providers Care Parcel Post Officer Name Role Phone Jose Jackson Primary Care Provider Marya Pinon Unavailable [phone] Moraima Montes De Oca Unavailable [phone] REASON FOR VISIT PROPHY Encounters Encounter Location Date Provider Diagnosis [facility] [address] [place] [address] 11/13/2023 Moraima Montes De Oca Plan Of Treatment No Information Progress Notes * OTTO HOSKINSDOB:2005 (19 yo F)Acc No.[id number]:11/13/2023 Patient:?OTTO HOSKINS .1Provider:?Moraima SosaB:2005???Age:17 Y???Sex: FemaleDate:4Phone:[phone]:[address] [place] [address]Pcp:Jose Jackson Subjective: * Chief Complaints: * P ROPHY Billing Information: * Procedure Codes: * Electronic signature of Moraima Montes De Oca on 04/30/2025 at 10:06 AM ESTSign off status: Pending * Provider: Meme Bean Date: 0 11/13/2023 Generated for Printing/Faxing/eTransmitting on:?04/30/2025 10:06 AM EST
--- OUTSIDE RECORDS SUMMARY | 2025-04-27 14:10 | XMS_ITS | Encounter Summary ---
Author Organization [facility] Address [address] [place] [address] Care Team Providers Care Chief Supply Chain Officer Name Role Phone Scot Block MD Primary Care Provider [phone] Scot Block MD Unavailable Reason for Visit * ReasonCommentsRoutine Visit Encounter Details DateTypeDepartmentCare Team (Latest Contact Info)Xqevzegdmlv22/15/2025 2:10 PM ESTRoutine CATHIE [facility] [address] [address] Armin Leal DO [address] Yamilka Bolivar, [facility] size inconsistent with dates ([facility]) (Primary Dx); Third trimester ([facility]); 31 weeks gestation of ([facility]) Social History Tobacco UseTypesPacks/DayYears UsedDateSmoking Tobacco: NeverSmokeless Tobacco: FormerAlcohol UseStandard Drinks/WeekCommentsNever0 (1 standard drink = 0.6 oz pure alcohol)B1300 Health LiteracyAnswerDate RecordedHow often do you need to have someone help you when you read instructions, pamphlets, or other written material from your doctor or pharmacy?Never11/06/2023Humiliation, Afraid, Rape, and Kick questionnaireAnswerDate RecordedFear of Current or Ex-PartnerNot on file01/26/2025Within the last year, have you been humiliated or emotionally abused in other ways by your partner or ex-partner?No01/26/2025Within the last year, have you been kicked, hit, slapped, or otherwise physically hurt by your partner or ex-partner?No01/26/2025Within the last year, have you been raped or forced to have any kind of sexual activity by your partner or ex-partner?No 01/26/2025Social Connection and Isolation PanelAnswerDate RecordedIn a typical week, how many times do you talk on the phone with family, friends, or neighbors?More than three times a week11/06/2023How often do you get together with friends or relatives?Three times a week11/06/2023How often do you attend mu-ism or hindu services?1 to 4 times per year11/06/2023o you belong to any clubs or organizations such as mu-ism groups, unions, fraternal or athletic lazarus ups, or school groups?No11/06/2023How often do you attend meetings of the clubs or organizations you belong to?Never11/06/2023re you , , , , never , or living with a partner?Never 11/06/2023UDIT-CAnswerDate RecordedQ1: How often do you have a drink containing alcohol?Never11/06/2023Q2: How many drinks containing alcohol do you have on a typical day when you are drinking?Patient does not drink11/06/2023Q3: How often do you have six or more drinks on one occasion?Never11/06/2023Overall Financial Resource Strain (CARDIA)AnswerDate RecordedHow hard is it for you to pay for the very basics like food, housing, medical care, and heating?Not hard at all 11/06/2023HQ-2AnswerDate RecordedPatient Health Questionnaire-2 Score0 03/27/2025[facility] [place] [facility] Occup[facility] Health - Occupational Stress QuestionnaireAnswerDate RecordedDo you feel stress - tense, restless, nervous, or anxious, or unable to sleep at night because yourmind is troubled all the time - these days?Rather much11/06/2023Exercise Vital SignAnswerDate RecordedOn average, how many days per week do you engage in moderate to strenuous exercise (like a brisk walk)?2 days11/06/2023On average, how many minutes do you engage in exercise at this level?60 min11/06/2023Hunger Vital SignAnswerDate Recorded Within the past 12 months, you worried that your food would run out before you got the money to buymore.Never true11/06/2023Within the past 12 months, the food you bought just didn't last and you didn't have money to get more.Never true 11/06/2023RAPARE - TransportationAnswerDate RecordedIn the past 12 months, has lack of transportation kept you from medical appointments or from getting medications?No11/06/2023In the past 12 months, has lack of transportation kept you from meetings, work, or from getting things needed for daily living?No 11/06/2023Housing Stability Vital SignAnswerDate RecordedIn the last 12 months, was there a time when you were not able to pay the mortgage or rent on time?No 11/06/2023Number of Times Moved in the Last YearNot on file11/06/2023t any time in the past 12 months, were you homeless or living in a skilled nursing (including now)? No11/06/2023EducationAnswerDate RecordedWhat is the highest level of school you have completed or the highest degree you have received?High school graduate 01/26/2025Estimated Date of SzllifvcZqytmiayGzb53/15/2026ased on last menstrual period of 09/21/2024Sex and Gender InformationValueDate RecordedSex Assigned at BirthNot on fileLegal GnpWndpzc83/15/2023 11:36 PM EDTGender IdentityNot on fileSexual OrientationNot on filedocumented as of this encounter Last Filed Vital Signs Vital SignReadingTime TakenCommentsBlood Cycnpbwp689/6204/27/2025 2:34 PM EST Pulse--Temperature--Respiratory Rate--Oxygen Saturation--Inhaled Oxygen Concentration--Agazpf97.8 kg (127 lb 8 oz)04/27/2025 2:34 PM ESTHeight--Body Mass Index21.8903 1:41 PM EDTdocumented in this encounter Progress Notes * Samantha Stokes NP - 04/27/2025 2:10 PM EST Reason for Appointment: Patient ID: Edmund Rehman is a 19 y.o. female who presents for Routine Visit Patient presents today for Return OB appointment. MEDICATIONS Current Outpatient Medications Medication Instructions citalopram (CELEXA) 20 mg, Oral, Daily Vit-Fe Fumarate-FA (PNV 27-Ca/Fe/FA) 60-1 MG tablet 1 tablet, Oral, Daily Vit-Fe Fumarate-FA ( Vitamins) 28-0.8 MG tablet 1 tablet, Oral, Daily ALLERGIES Allergies Allergen Reactions Bismuth [...] nursing note reviewed. Exam conducted with a motor pool clerk present. Vitals: Estimated body mass index is 21.89 kg/m?? as calculated from the following: Height as of 08/06/24: 5' 4 . Weight as of this encounter: 127 lb 8 oz. BP: 108/62 Patient's last menstrual period was 09/21/2024. Assessment/Plan ICD-10-CM 1. size inconsistent with dates ([facility]) O26.849 US OB follow up transabdominal approach 2. Third trimester ([facility]) Z34.93 POCT urinalysis dipstick manually resulted 3. 31 weeks gestation of ([facility]) Z3A.31 Assessment/Plan Return OB: Patient presents today for a routine obstetrics appointment. Patient is currently 31w1d . Patient states she is doing well but has complaints of being tired due to current . Patient has verbalizes frequent movement. labor precautions was discussed/given and patient was instructed to perform kick counts three times a day. Orders Placed This Encounter Procedures US OB follow up transabdominal approach POCT urinalysis dipstick manually resulted Follow Up: Patient is to return to office in 2 week for routine OB appointment. Documented by Samantha Stokes NP on behalf of: Armin Leal DO documented in this encounter Plan of Treatment DateTypeDepartmentCare Team (Latest Contact Info)Rfrlsgruqgd60/29/2025 1:10 PM ESTRoutine [facility] [address] [address] Bina Vanessa PA [address] [place] [address] NameTypePriorityAssociated DiagnosesDate/TimeUS OB follow up transabdominal approachImagingRoutine size inconsistent with dates ([facility]) 04/28/2025 2:08 PM ESTNameTypePriorityAssociated DiagnosesOrder ScheduleUS OB follow up transabdominal approachImagingRoutine size inconsistent with dates ([facility]) Expected: 04/27/2025, Expires: 08/26/2025documented as of this encounter Procedures Procedure NamePriorityDate/TimeAssociated DiagnosisCommentsPOCT URINALYSIS MBHNURJEEpzlysa86/15/2025 2:41 PM EST Third trimester ([facility]) documented in this encounter Results * (ABNORMAL) POCT urinalysis dipstick manually resulted (04/27/2025 2:41 PM EST) ComponentValueRef RangeTest MethodAnalysis TimePerformed AtPathologist SignatureColor, UAYellowClarity, UAClearGlucose, UANegativeNegative - 2000(110) ++++ mg/dLBilirubin, UANegativeNegative - 4(70) +++ mg/dLKetones, UA NegativeNegative - 160(16) ++++ mg/dLSpec Grav, UA1.0251 - 1.03Blood, UA NegativeNegative - 50 Shayne/mcLpH, UA6.05 - 9Protein, UATraceNegative - 2000(20) ++++ mg/dLUrobilinogen, UA0.20.2 - 12 mg/dLLeukocytes, UANegativeNegative - 500+++ Deysi/mcLNitrite, UANegativeNegative - PositiveSpecimen (Source) Anatomical Location / LateralityCollection Method / VolumeCollection Time Received AeutGwlpx90/15/2025 2:41 PM EST Narrative Authorizing ProviderResult TypeResult StatusCorey Elvis DOPOINT OF CARE TEST ENTER/EDIT ORDERABLESFinal Result documented in this encounter Visit Diagnoses Diagnosis size inconsistent with dates ([facility] Primary Third trimester ([facility]) state, incidental 31 weeks gestation of ([facility]) documented in this encounter Care Teams Team MemberRelationshipSpecialtyStart DateEnd Date Scot Block MD [address] [place] [address] PCP - [facility]06/13/23 Scot Block MD [address] [place] [address] PCP - [facility]11/12/23documented as of this encounter
--- OUTSIDE RECORDS SUMMARY | 2025-04-28 14:00 | XMS_ITS | Encounter Summary ---
Author Organization [facility] Address [address] [place] [address] Care Team Providers Care Rotor Plate Washer Name Role Phone Scot Block MD Primary Care Provider [phone] Scot Block MD Unavailable Encounter Details DateTypeDepartmentCare Team (Latest Contact Info)Cerscrvngab21/16/2025 2:00 PM ESTAncillary Procedure NOMElizabeth Bolivar OBGYN [address] [place] [phone] size inconsistent with dates ([facility]) Social History Tobacco UseTypesPacks/DayYears UsedDateSmoking [...] times a week11/06/2023How often do you attend hindu or congregational services?1 to 4 times per year11/06/2023o you belong to any clubs or organizations such as hindu groups, unions, fraContinuum Health Alliance or athletic lazarus ups, or school groups?No11/06/2023How [...] at all 11/06/2023HQ-2AnswerDate RecordedPatient Health Questionnaire-2 Score0 03/27/2025[facility] [place] of Occupational Health - Occupational Stress QuestionnaireAnswerDate [...] were you homeless or living in a intermediate (including now)? No11/06/2023EducationAnswerDate RecordedWhat is the highest level of school you have completed or the highest degree you have received?High school graduate 01/26/2025Estimated Date of IcwkcfedVjiyrsfyMpk21/15/2026ased on last menstrual period of 09/21/2024Sex and Gender InformationValueDate RecordedSex Assigned at BirthNot on fileLegal TawNltnog48/15/2023 11:36 PM EDTGender IdentityNot on fileSexual OrientationNot on filedocumented as of this encounter Plan of Treatment DateTypeDepartmentCare Team (Latest Contact Info)Lblctubtfgk60/29/2025 1:10 PM ESTRoutine [facility] [address] [place] [address] Bina Vanessa PA [address] [address] NameTypePriorityAssociated DiagnosesDate/TimeUS OB follow up transabdominal approachImagingRoutine size inconsistent with dates ([facility]) 04/28/2025 2:08 PM ESTdocumented as of this encounter Visit Diagnoses Diagnosis size inconsistent with dates ([facility]) documented in this encounter Care Teams Team MemberRelationshipSpecialtyStart DateEnd Date Scot Block MD [address] [place] [phone] [facility]06/13/23 Scot Block MD [address] [place] [address] PCP - [facility]11/12/23documented as of this encounter
--- OUTSIDE RECORDS SUMMARY | 2025-04-30 10:05 | XMS_ITS | Encounter Summary ---
Author Organization [facility] Address [address] [place] [address] Care Team Providers Care Paper Plate Machine Tender Name Role Phone Scot Block MD Primary Care Provider [phone] Scot Block MD Unavailable Encounter Details DateTypeDepartmentCare Team (Latest Contact Info)Biaytouykqg65/15/2025amboo flowsheet CATHIE [place] OBGYN [address] [place] [address] Armin Leal DO [address] [place], [facility] Social History Tobacco UseTypesPacks/DayYears UsedDateSmoking Tobacco: NeverSmokeless [...] times a week11/06/2023How often do you attend jain or tenriism services?1 to 4 times per year11/06/2023o you belong to any clubs or organizations such as jain groups, unions, [employer] or athletic lazarus ups, or school groups?No11/06/2023How [...] at all 11/06/2023HQ-2AnswerDate RecordedPatient Health Questionnaire-2 Score0 03/27/2025Fin[facility] [place] of Occupational Health - Occupational Stress QuestionnaireAnswerDate [...] were you homeless or living in a prison (including now)? No11/06/2023EducationAnswerDate RecordedWhat is the highest level of school you have completed or the highest degree you have received?High school graduate 01/26/2025Estimated Date of XsvawmieEbpeoxyfUbg85/15/2026ased on last menstrual period of 09/21/2024Sex and Gender InformationValueDate RecordedSex Assigned at BirthNot on fileLegal HygIzybzk63/15/2023 11:36 PM EDTGender IdentityNot on fileSexual OrientationNot on filedocumented as of this encounter Plan of Treatment DateTypeDepartmentCare Team (Latest Contact Info)Oqleuiljvtj40/29/2025 1:10 PM ESTRoutine [facility] [address] [place] [address] Bina Vanessa PA [address] [place], [place] [address] documented as of this encounter Visit Diagnoses Not on filedocumented in this encounter Care Teams Team MemberRelationshipSpecialtyStart DateEnd Date Scot Block MD [address] [place] [address] [facility]06/13/23 Scot Block MD [address] [place] [address] [facility]11/12/23documented as of this encounter
--- OUTSIDE RECORDS SUMMARY | 2025-04-30 10:06 | XMS_ITS | Encounter Summary ---
Author Organization [facility] Address [address] [place] [address] Care Team Providers Care College Coach Name Role Phone Scot Block MD Primary Care Provider [phone] Scot Block MD Unavailable Reason for Visit * ReasonOnset DateCommentsMed Fwsdwi6104/27/2025 Encounter Details DateTypeDepartmentCare Team (Latest Contact Info)Edcezuxwudq03/15/2025Refill [facility] Jac OBGYJeevan [address] [place] [address] Eve Santos LPN [address] [facility] [address] Current moderate episode of major depressive disorder, unspecified whether recurrent (HCC) Social History Tobacco UseTypesPacks/DayYears UsedDateSmoking Tobacco: NeverSmokeless [...] otherwise physically hurt by your partner or ex-partner?01/26/2025Within the last year, have you been raped [...] times a week11/06/2023How often do you attend jehovah's witness or bahai services?1 to 4 times per year11/06/2023o you belong to any clubs or organizations such as jehovah's witness groups, unions, fraTerrajoule or athletic lazarus ups, or school groups?No11/06/2023How [...] at all 11/06/2023HQ-2AnswerDate RecordedPatient Health Questionnaire-2 Score0 03/27/2025[facility] [place] of Occupational Health - Occupational Stress QuestionnaireAnswerDate [...] or living in a retirement (including now)? No11/06/2023EducationAnswerDate RecordedWhat is the highest level of school you have completed or the highest degree you have received?High school graduate 01/26/2025Estimated Date of NjpioarcUvnplmpnGzs20/15/2026Based on last menstrual period of 09/21/2024Sex and Gender InformationValueDate RecordedSex Assigned at BirthNot on fileLegal RnjUroxzp35/15/2023 11:36 PM EDTGender IdentityNot on fileSexual OrientationNot on filedocumented as of this encounter Miscellaneous Notes * Telephone Encounter - Eve Santos LPN - 04/27/2025 3:20 PM EST Refill request received and script sent. documented in this encounter Plan of Treatment DateTypeDepartmentCare Team (Latest Contact Info)Aoiaaxuwsqs97/29/2025 1:10 PM ESTRoutine [facility] Jac BOWIE [address] [place] [phone] Bina Vanessa PA [address] [place], [place] [phone] documented as of this encounter Visit Diagnoses Diagnosis Current moderate episode of major depressive disorder, unspecified whether recurrent (HCC) documented in this encounter Care Teams Team MemberRelationshipSpecialtyStart DateEnd Date Scot Block MD [address] [place] [address] PCP - [facility]06/13/23 Scot Block MD [address] [place] [address] PCP - [facility]11/12/23documented as of this encounter
--- OUTSIDE RECORDS SUMMARY | 2025-04-30 10:07 | XMS_ITS | Clinical Summary ---
Author Organization [facility] Healthcare Address [address] [place] [address] Care Team Providers Care Licensed Master Social Worker Name Role Phone Scot Block MD Primary Care Provider [phone] Scot Block MD Unavailable Allergies Active AllergyReactionsCriticalityNoted DateCommentsBismuth SubsalicylateGI gkxgkndreki90/25/2023 Medications MedicationSigDispense QuantityRefillsLast FilledStart DateEnd DateStatus Vit-Fe Fumarate-FA ( Vitamins) 28-0.8 MG tablet Indications:Missed mensesTake 1 tablet by mouth Daily 30 tablet 5011/27/2025ctive Vit-Fe Fumarate-FA (PNV 27-Ca/Fe/FA) 60-1 MG tablet Indications:Second trimester (HHS-HCC)Take 1 tablet by mouth Daily 30 tablet 5Active citalopram (CeleXA) 20 MG tablet Indications:Current moderate episode of major depressive disorder, unspecified whether recurrent (HCC)Take 1 tablet (20 mg) by mouth Daily 90 tablet 5007/26/2025ctive sertraline (Zoloft) 50 MG tablet Indications:Generalized anxiety disorderTAKE 1 TABLET BY MOUTH EVERY DAY 90 tablet Discontinued(Therapy completed) citalopram (CeleXA) 20 MG tablet Indications:Current moderate episode of major depressive disorder, unspecified whether recurrent (HCC)Take 1 tablet (20 mg) by mouth Daily 30 tablet Discontinued(Reorder) citalopram (CeleXA) 20 MG tablet Indications:Current moderate episode of major depressive disorder, unspecified whether recurrent (HCC)Take 1 tablet (20 mg) by mouth Daily 30 tablet 111Discontinued(Reorder) Active Problems ProblemNoted DateDiagnosed DatePsychophysiological xclnhaxi38/20/2025 Assessment & Plan (08/06/2024 2:07 PM EDT): Sleeping well with trazodone and continue. Assessment & Plan (07/03/2024 2:54 PM EST): Not sleeping well due to anxiety. Try trazodone. Postural orthostatic tachycardia syndrome (POTS)11/06/2023 Assessment & Plan (08/06/2024 2:06 PM EDT): Symptoms improved with florinef and continue. Increase water and salt intake. Assessment & Plan (07/03/2024 2:54 PM EST): Symptoms worse over past few months and add florinef. Increase water and salt intake. Assessment & Plan (11/06/2023 11:58 AM EDT): Symptoms worse over past few weeks and add midodrine. Increase water and salt intake. Other viral warts10/10/2023 Assessment & Plan (08/06/2024 2:07 PM EDT): [...] worsening symptoms call. Increased sensitivity to painful dutobvyp53/29/2024cne pcwafrgj85/06/2023 Generalized anxiety eiuwdvub45/02/2024 Assessment & Plan (08/06/2024 2:05 PM EDT): Symptoms improved but still present and increase zoloft. Warned will take 2-3 weeks to notice improvement in mood. Assessment & Plan (07/03/2024 2:54 PM EST): Severe symptoms and not functioning well. Start zoloft and warned will take 2-3 weeks to notice improvement in mood. Herpes qnhhomjz25/02/2024Estimated Date of UognxrmkSgcmqiguClz30/15/2026 Based on last menstrual period of 09/21/2024 Resolved Problems ProblemNoted DateDiagnosed DateResolved DateInguinal rrrruarsqaulgnt62/25/2024 08/06/2024 Assessment & Plan (11/06/2023 11:59 AM EDT): Appears to have enlarged lymph node and possibly related to BV. Treat and if persists will need to see belly roller for STD check. Bacterial / Assessment & Plan (11/06/2023 11:59 AM EDT): C/o BV and treat with flagyl. Sexually active and unprotected intercourse. If no change need to seegyn for STD check. Abnormal uterine rambazha26Hypertrophy of fngfppp6806/15/2023 11/06/2023cute non-recurrent gquarjqhlxfn45 Encounters DateTypeDepartmentCare AbdeCbvskpdcgfu19/16/2025 2:00 PM ESTAncillary Procedure [facility] [address] [place] [address] size inconsistent with dates ([facility])04/27/2025 2:10 PM ESTRoutine [facility] [address] [facility] [place] [phone] Armin Leal, size inconsistent with dates ([facility]) (Primary Dx); Third trimester ([facility]); 31 weeks gestation of ([facility])04/27/2025Refill [facility] [address] [place] [address] Eve Santos LPN Current moderate episode of major depressive disorder, unspecified whether recurrent (HCC)04/27/2025amboo flowsheet [facility] [address] [place] [address] [place] [address] Armin Leal, DO 04/23/2025Refill [facility] [address] [place] [address] Nimisha Francsi MA Current moderate episode of major depressive disorder, unspecified whether recurrent (HCC)04/14/2025 1:50 PM ESTRoutine [facility] [address] [place] [address] [place] [address] Armin Leal DO 29 weeks gestation of ([facility]); Third trimester ([facility]); Current moderate episode of major depressive disorder, unspecified whether recurrent (HCC); Herpes labialis; Other viral warts04/14/2025amboo flowsheet [facility] [address] [place] [address] [place] [address] Armin Leal DO 03/30/2025Telephone [facility] [address] [place] [address] [place] [address] Nimisha Francis MA 03/27/2025Patient Outreach [facility] [address] [place] [phone] Bina Oviedo LPN 03/25/2025 2:20 PM ESTRoutine [facility] OBHERIBERTON [address] [place] [address] [place] [address] Armin Leal DO induced hypertension, antepartum ([facility]) (Primary Dx); 26 weeks gestation of ([facility]); Second trimester ([facility]); Rash; Herpes labialis; Other viral warts; Elevated glucose tolerance test5Bamboo [place] [address] Armin Leal, DO 02/26/2025Patient Outreach [facility] [address] [place] [address] Bina Oviedo LPN 02/24/2025 2:40 [place] [address] Bina Vanessa PA Second trimester ([facility]); 22 weeks gestation of ([facility]); Diabetes mellitus qgjgdehsj25/14/2025Bamboo flowsheet [facility] [place] [address] Bina Vanessa PA 02/24/20253340Rhiqfy69/29/2025 2:30 PM EDTAncillary Procedure [facility] [address] [place] [address] Screening, , for anatomic survey ([facility])5Clinisync Result Encounter [facility] External Department Unsolicited Armin Leal, DO 01/29/2025Refill [facility] [place] [address] Nimisha Francis MA Tjkvhu3001/29/2025Patient Outreach [facility] [address] [place] [address] Bina Oviedo LPN from Last 3 Months Family History Medical HistoryRelationNameCommentsLiver cancerFatherRelationNameStatusComments FatherDeceasedMotherAlive Social History Tobacco UseTypesPacks/DayYears UsedDateSmoking Tobacco: NeverSmokeless Tobacco: Former Tobacco Cessation:Counseling Given: Not Answered Alcohol UseStandard Drinks/WeekCommentsNever0 (1 standard drink = 0.6 [...] times a week11/06/2023How often do you attend yazdanism or denominational services?1 to 4 times per year11/06/2023o you belong to any clubs or organizations such as yazdanism groups, unions, fraternal or athletic lazarus ups, [...] at all 11/06/2023HQ-2AnswerDate RecordedPatient Health Questionnaire-2 Score0 03/27/2025[facility] [place] of Occupational Health - Occupational Stress QuestionnaireAnswerDate [...] have received?High school graduate 01/26/2025Estimated Date of KsdhmwvoTazjsmjaBzb53/15/2026ased on last menstrual period of 09/21/2024Sex and Gender InformationValueDate RecordedSex Assigned at BirthNot on fileLegal RpbAospxi03/15/2023 11:36 PM EDTGender IdentityNot on fileSexual OrientationNot on file Last Filed Vital Signs Vital SignReadingTime TakenCommentsBlood Grfqzhww543/6204/27/2025 2:34 PM EST Lgffe03299/26/2025 1:41 PM NCURocvodfethn93.6 ??C (97.8 ??F)08/06/2024 1:41 PM EDTRespiratory Ktda577808/06/2024 1:41 PM EDTOxygen Qhgwxkioad35%08/06/2024 1:41 PM EDTInhaled Oxygen Concentration--Gjtlyo79.8 kg (127 lb 8 oz)04/27/2025 2:34 PM PVHMiswmx584.6 cm (5' 4 )08/06/2024 1:41 PM EDTBody Mass Index21.8908/06/2024 1:41 PM EDT Plan of Treatment DateTypeDepartmentCare Team (Latest Contact Info)Hnohkinbrwa79/29/2025 1:10 PM ESTRoutine [facility] [address] [place] [phone] Bina Vanessa PA [address] [place], [place] [phone] Health MaintenanceDue DateLast DoneCommentsCOVID-19 Vaccine ( season) 2025Influenza Vaccine (#1)Pneumococcal Vaccine: Pediatrics (0 to 5 Years) and At-Risk Patients (6 to 64 Years)Aged OutNo longer eligible based on patient's age to complete this topic Procedures Procedure NamePriorityDate/TimeAssociated DiagnosisCommentsPOCT URINALYSIS VVHASQEIPjolxbu22/15/2025 2:41 PM EST Third trimester ([facility]) POCT URINALYSIS PPGQSBQYKyynyua29/02/2025 2:29 PM EST 29 weeks gestation of ([facility]) Third trimester ([facility]) POCT URINALYSIS CAKWFAFLHzuuadd14/12/2025 2:42 PM EST 26 weeks gestation of ([facility]) Second trimester ([facility]) RECURRENT VAGINITIS (HTRX)Wgbbpav2702/24/2025 3:28 PM EDT POCT URINALYSIS LJGIPNIPZlbwtiw10/14/2025 3:11 PM EDT 22 weeks gestation of ([facility]) AFP, SERUM, OPEN SPINA MCMWGHBgkztgf29/29/2025 3:31 PM EDT US OB 14+ WEEKS ANATOMY EVEZAeuaegy12/29/2025 3:15 PM EDT Screening, , for anatomic survey ([facility]) from Last 3 Months Results * (ABNORMAL) POCT urinalysis dipstick manually resulted (04/27/2025 2:41 PM EST) Only the most recent of4 resultswithin the time period is included. ComponentValueRef RangeTest MethodAnalysis TimePerformed AtPathologist Signature Color, UAYellowClarity, UAClearGlucose, UANegativeNegative - 2000(110) ++++ mg/dLBilirubin, UANegativeNegative - 4(70) +++ mg/dLKetones, UANegativeNegative - 160(16) ++++ mg/dLSpec Grav, UA1.0251 - 1.03Blood, UANegativeNegative - 50 Shayne/mcLpH, UA6.05 - 9Protein, UATraceNegative - 2000(20) ++++ mg/dLUrobilinogen, UA0.20.2 - 12 mg/dLLeukocytes, UANegativeNegative - 500+++ Deysi/mcLNitrite, UA NegativeNegative - PositiveSpecimen (Source)Anatomical Location / Laterality Collection Method / VolumeCollection TimeReceived QopbUaklw10/15/2025 2:41 PM EST Narrative Authorizing ProviderResult TypeResult StatusCorey Elvis DOPOINT OF CARE TEST ENTER/EDIT ORDERABLESFinal Result * RECURRENT VAGINITIS (HTRX) (02/24/2025 3:28 PM EDT)ComponentValueRef RangeTest MethodAnalysis TimePerformed AtPathologist SignatureATOPOBIUM RIZFFFH704.961 - 24.689 ppm02/25/2025 6:33 AM EDTHealthTrackRx at LabPortATOPOBIUM VAGINAENot Igsvfnty61.961 - 24.689 ppm02/25/2025 6:33 AM EDTHealthTrackRx at Island HospitalBVAB 2,3 (BACTERIAL VAGINOSIS ASSOCIATED BACTERIA 2, 3); MOBILUNCUS PHR866.961 - 24.689 ppm02/25/2025 6:33 AM EDTHealthTrackRx at Island HospitalBVAB 2,3 (BACTERIAL VAGINOSIS ASSOCIATED BACTERIA 2, 3); MOBILUNCUS SPPNot Suascfgx58.961 - 24.689 ppm02/25/2025 6:33 AM EDTHealthTrackRx at Island HospitalCANDIDA ALBICANS, PARAPSILOSIS, PSXFFKWJWH145.000 - 30.347 ppm02/25/2025 6:33 AM EDT [facility] HospitalCANDIDA ALBICANS, PARAPSILOSIS, TROPICALISNot Detected 23.000 - 30.347 ppm02/25/2025 6:33 AM EDTHealthTrackRx at Island HospitalCANDIDA NSQAOHST360.000 - 31.618 ppm02/25/2025 6:33 AM EDTHealthTrackRx at [facility] TIAGO GLABRATANot Yevyvljs66.000 - 31.618 ppm02/25/2025 6:33 AM EDT [facility] HospitalCANDIDA KCMTXD279.000 - 30.873 ppm02/25/2025 6:33 AM EDTHealthTrackRx at Island HospitalCANDIDA KRUSEINot Agballzy77.000 - 30.873 ppm 02/25/2025 6:33 AM EDTHealthTrackRx at Island HospitalCHLAMYDIA ZEIMWCTCBTI270.000 - 31.586 ppm02/25/2025 6:33 AM EDTHealthTrackRx at Island HospitalCHLAMYDIA TRACHOMATIS Not Wdddqqqm53.000 - 31.586 ppm02/25/2025 6:33 AM EDTHealthTrackRx at [facility] GARDNERELLA TJHWSDPMN061.961 - 24.689 ppm02/25/2025 6:33 AM EDTHealthTrackRx at Island HospitalGARDNERELLA VAGINALISNot Cwnndwak19.961 - 24.689 ppm02/25/2025 6:33 AM EDTHealthTrackRx at Island HospitalMEGASPHAERA (TYPES 1, 2)019.961 - 24.689 ppm 02/25/2025 6:33 AM EDTHealthTrackRx at Island HospitalMENHSPABRAZO ARIZONA HEART HOSPITALRA (TYPES 1, 2)Not Ofzqdgbb78.961 - 24.689 ppm02/25/2025 6:33 AM EDTHealthTrackRx at [facility] NEISSERIA GADTKOHLKHG319.000 - 32.587 ppm02/25/2025 6:33 AM EDTHealthTrackRx at Island HospitalNEISSERIA GONORRHOEAENot Osnsoshs32.000 - 32.587 ppm02/25/2025 6:33 AM EDTHealthTrackRx at Island HospitalTRICHOMONAS ZUWUOUSES981.000 - 31.995 ppm 02/25/2025 6:33 AM EDTHealthTrackRx at Island HospitalTRICHOMONAS VAGINALISNot Ijaxzahn51.000 - 31.995 ppm02/25/2025 6:33 AM EDTHealthTrackRx at [facility] MYCOPLASMA CQSADKGKWJ965.961 - 24.689 ppm02/25/2025 6:33 AM EDTHealthTrackRx at Island HospitalMYCOPLASMA GENITALIUMNot Egicqqjm12.961 - 24.689 ppm02/25/2025 6:33 AM EDTHealthTrackRx at Island HospitalSpecimen (Source)Anatomical Location / LateralityCollection Method / VolumeCollection TimeReceived TimeTissue 02/24/2025 3:28 PM EDT1 1:29 AM EDT Narrative Authorizing ProviderResult TypeResult StatusAmy Rasheeda PRIETO BLOOD ORDERABLES Final ResultPerforming OrganizationAddressCity/State/ZIP CodePhone Number [facility]Health[facility] [address] [address] * AFP, SERUM, OPEN SPINA BIFIDA (02/09/2025 3:31 PM EDT)ComponentValueRef Range Test MethodAnalysis TimePerformed AtPathologist SignatureRESULTSReport.TBHTEST RESULTS:*Screen Negative*.TBHGEST. AGE ON COLLECTION DATE20.1. weeksTBHGESTAT. AGE BASED ONLMP.TBHComment: Recalculations are not recommended when gestational dating by LMP and ultrasound are within 10 days. MATERNAL AGE AT EDD20.5. yrTBHRACECaucasian.OWWEJDSII565. lbsTBHINSULIN DEP DIABETESNo.TBHMULTIPLE GESTATIONNo.TBHAFP VALUE91.9. ng/mLTBHAFP MOM1.35.TBHOSBR RISK 1 WH1094.TBHINTERPRETATIONComment.TBHComment: Interpretation: Screen Negative This result is screen [...] Genetic Customer Services to discuss available options. ??The [employer] [employer] recommends amniocentesis be offered to women age 35 and older. COMMENT:Comment.TBHComment: Alla Scott, Ph.D., [facility] Director References: Available Upon Request. Multiples Of Median Cutoffs ?For AFP Elevations Hernandez ?? 2.5 ? Black ?2.8 IDD ? 2.0 ? Twins ?4.5 ?Abbreviation Definitions IDD - Insulin Dep Diabetes OSBR - Open Spina Bifida Risk For further inquiries contact [facility] at [phone]. This test was developed and its performance characteristics determined by [facility]. It has not been cleared or approved by the Food and Drug Administration. Performed at: ??TG - [facility] [address] [place], [place] ??[id number] [employer]: Nubia Simon [facility], Phone: ??[phone] Specimen (Source)Anatomical Location / LateralityCollection Method / Volume Collection TimeReceived Time02/09/2025 3:31 PM EDT02/09/2025 3:32 PM EDT Narrative MILLY - 02/11/2025 12:08 AM EDT N N LMP [id number] 1 18 N 1 Y 115 N N N N N White/ Authorizing ProviderResult TypeResult StatusCorey Elvis DOLAB BLOOD ORDERABLES Final ResultPerforming OrganizationAddressCity/State/ZIP CodePhone Number [facility] * OB 14+ weeks anatomy scan (02/09/2025 3:15 PM EDT)Anatomical Region LateralityModalityBodyUltrasoundSpecimen (Source)Anatomical Location / LateralityCollection Method / VolumeCollection TimeReceived Time02/10/2025 1:10 PM EDT Impressions 02/10/2025 1:16 PM EDT Single, live intrauterine , current sonographic age of 20 weeks and 3 days, with an estimated date of delivery of June 26, 2025 * ??Estimated Weight (g) by Percentile is based upon an accurate estimated age based onlast menstrual period. ?? TRANSCRIBED BY: ? ELECTRONICALLY SIGNED BY: Asher Edward MD Narrative 02/10/2025 1:16 PM EDT FINDINGS: A single, live intrauterine is present with normal cardiac rate of 141 beats per minute. Normal activity and amniotic fluid volume. Morphology is grossly normal. The cervix is long and closed, 4 cm. ??The placenta is anterior, not associated with the cervical os. ??The current sonographic age is 20 weeks and 3 days, based on the following measurements: ?BPD ? 4.7 cm (20 weeks, 2 days) ?Head Circumference ?17.5 cm (20 weeks, 0 days) ?Abdominal Circumference ?15.9 cm (21 weeks, 0 days) ?Femur Length ? 3.4 cm (20 weeks, 4 days) ?Placenta ? Anterior Grade I ? Weight (g) by Percentile ?? 78.6 % * These measurements result in an estimated date of delivery of June 26, 2025 ?? The current estimated weight is 374 grams (0 pounds, 13 ounces). ?? Procedure Note Asher Edward MD - 02/10/2025 [...] BY: ELECTRONICALLY SIGNED BY: Asher Edward MD Authorizing ProviderResult TypeResult StatusSamantha Stokes NPG US PROCEDURESFinal Result from Last 3 Months Insurance Care Teams Team MemberRelationshipSpecialtyStart DateEnd Date Scot Block MD [address] [place] [address] PCP - [facility]06/13/23 Scot Block MD [address] [place] [address] PCP - [facility]11/12/23
--- OUTSIDE RECORDS SUMMARY | 2025-04-30 10:07 | XMS_ITS ---
Author Organization [facility] Source Produ ction (ClinicalSummary Clone) Address Unknown Care Team Providers Care Hospital Director Name Role Phone Unavailable Primary Care Physician Unavailab le Results * [UNITY] CARRIER SCREEN Performed by: Collisionable Component Value Range Date Fraction 15.0% 12/17/2024 03:14 am UTCCystic Fibrosis NIPT resultLOW RISK < 1 in 76087012/17/2024 03:14 am UTCSickle Cell Disease/Beta-Thalassemia/Hemoglobinopathies carrier hvloyvBNVMQFWX85/06/2025 03:14 am UTCAlpha-Thalassemia carrier screenNEGATIVE 12/17/2024 03:14 am UTCCystic Fibrosis carrier screenPOSITIVE c.[id number]_1523del (p.Kvy212frw)12/17/2024 03:14 am UTCSpinal Muscular Atrophy carrier screen NEGATIVE 4 SMN1 copies, SNP not sqoybnp1512/17/2024 03:14 am UTCFor detailed report, see PDFSee PDF12/17/2024 03:14 am UTC12/17/2024 03:14 am UTC Social History Observation Value Start Date End Date
--- OUTSIDE RECORDS SUMMARY | 2025-04-30 10:07 | XMS_ITS | Encounter Summary ---
Author Organization [facility] Address [address] [place] [address] Care Team Providers Care Red Mud Thickener Operator Name Role Phone Scot Block MD Primary Care Provider [phone] Scot Block MD Unavailable Reason for Visit * ReasonOnset DateCommentsMed Dztznq0604/23/2025 Encounter Details DateTypeDepartmentCare Team (Latest Contact Info)Edzyjvfygvc64/11/2025Refill [facility] OBGYJeevan [address] [address] Nimisha Francis MA [address] [place] [address] Current moderate episode of major depressive disorder, [...] times a week11/06/2023How often do you attend cheondoism or hindu services?1 to 4 times per year11/06/2023o you belong to any clubs or organizations such as cheondoism groups, unions, fraStickybits or athletic lazarus ups, or school groups?No11/06/2023How [...] at all 11/06/2023HQ-2AnswerDate RecordedPatient Health Questionnaire-2 Score0 03/27/2025Fin[facility] [place] of Occupational Health - Occupational Stress QuestionnaireAnswerDate [...] have received?High school graduate 01/26/2025Estimated Date of GakbcyhqKlxzdlidJut64/15/2026ased on last menstrual period of 09/21/2024Sex and Gender InformationValueDate RecordedSex Assigned at BirthNot on fileLegal GttAposxc41/15/2023 11:36 PM EDTGender IdentityNot on fileSexual OrientationNot on filedocumented as of this encounter Plan of Treatment DateTypeDepartmentCare Team (Latest Contact Info)Yiafvashtsc04/29/2025 1:10 PM ESTRoutine [facility] [address] [place] [address] Bina Vanessa PA [address] [place], [place] [phone] documented as of this encounter Visit Diagnoses Diagnosis Current moderate episode of major depressive disorder, unspecified whether recurrent (HCC) documented in this encounter Care Teams Team MemberRelationshipSpecialtyStart DateEnd Date Scot Block MD [address] [place] [address] PCP - [facility]06/13/23 Scot Block MD [address] [place] [address] PCP - [facility]11/12/23documented as of this encounter
--- OUTSIDE RECORDS SUMMARY | 2025-04-30 10:07 | XMS_ITS ---
Author Organization [facility] Source Produ ction (ClinicalSummary Clone) Address Unknown Care Team Providers Care Operations Mgr Name Role Phone Unavailable Primary Care Physician Unavailab le Results * [UNITY] ANEUPLOIDY NIPT Performed by: Invisible Puppy Component Value Range Date Fraction 12.5% 12/09/2024 02:56 am UTCRh(D) NIPTRhD BSEVULLB45/29/2025 02:56 am UTCSex Chromosome AneuploidyNOT NGBITXEM66/29/2025 02:56 am UTCMonosomy XLOW RISK <1 in 02:56 am UTCTrisomy 13LOW RISK <1 in 02:56 am UTCTrisomy 18LOW RISK <1 in 02:56 am UTCTrisomy 21LOW RISK <1 in 02:56 am UTCFetal LhhHOPK2312/09/2024 02:56 am UTCPregnancy MjedxphdbBWUHRHURP96/29/2025 02:56 am UTCFor detailed report, see PDFSee PDF 12/09/2024 02:56 am UTC12/09/2024 02:56 am UTC Social History Observation Value Start Date End Date
--- OUTSIDE RECORDS SUMMARY | 2025-04-30 10:07 | XMS_ITS | Patient Health Record ---
Author Organization [facility] Address [address] [place] [address] Care Team Providers Care Hospital Receiving Clerk Name Role Phone Jose Jackson Primary Care Provider Marya Pinon Unavailable [phone] Reason For Referral No Information Plan Of Treatment No Information Insurance Providers Payer Name Payer Address Payer Phone Subscriber Number Group Number Insured Name Patient Relationship to Insured Coverage Start Date Coverage End Date [employer] [place] [employer] [address] [address] [place] [address] [id number] ESTEVAN HOSKINSelf - patient is the [id number] 2022ental Wrap [facility] [address] [place] [id number], AERIONNASelf - patient is the [id number] 2023
[2025-04-30 11:38] LABS: Glucose 1 Hour 137 mg/dL (<180)
[2025-04-30 13:30] LABS: Glucose 3 Hour 115 mg/dL (<140)
[2025-04-30 13:38] LABS: Glucose 2 Hour 134 mg/dL (<155)
== END 2025-04-30 09:59 | disposition home or self-care (01) ==
LOC: LAB 10:00
PROVIDERS: PCP Family Medicine; Visit Provider Obstetrics & Gynecology
DX: R73.09 Other abnormal glucose (principal)
CPT/HCPCS: 36415; 82951; 82952

== ENCOUNTER 2025-05-11 13:50 | Outpatient (OUT) | payer OTHER, SELFPAY ==
--- OUTSIDE RECORDS SUMMARY | 2023-11-13 05:30 | XMS_ITS ---
Author Organization [facility] Servic es Address [address] [address] Care Team Providers Care Pvc Loader Name Role Phone Jose Jackson Primary Care Provider Marya Pinon Unavailable [phone] Moraima Montes De Oca Unavailable [phone] REASON FOR VISIT PROPHY Encounters Encounter Location Date Provider Diagnosis [facility] [address] [place] [address] 11/13/2023 Moraima Montes De Oca Plan Of Treatment No Information Progress Notes * OTTO HOSKINSDOB:2005 (19 yo F)Acc No.[id number]:11/13/2023 Patient:?OTTO HOSKINS .1Provider:?Moraima SosaB:2005???Age:17 Y???Sex: FemaleDate:4Phone:[phone]:[address] [place] [phone]:Jose Jackson Subjective: * Chief Complaints: * P ROPHY Billing Information: * Procedure Codes: * Electronic signature of Moraima Montes De Oca on 05/11/2025 at 01:54 PM ESTSign off status: Pending * Provider: Meme Bean Date: 0 11/13/2023 Generated for Printing/Faxing/eTransmitting on:?05/11/2025 01:54 PM EST
--- OUTSIDE RECORDS SUMMARY | 2025-04-27 14:10 | XMS_ITS | Encounter Summary ---
Author Organization [facility] Address [address] [place] [address] Care Team Providers Care Face Man Name Role Phone Scot Block MD Primary Care Provider [phone] Scot Block MD Unavailable Reason for Visit * ReasonCommentsRoutine Visit Encounter Details DateTypeDepartmentCare Team (Latest Contact Info)Qhqycyjwzup57/15/2025 2:10 PM ESTRoutine CATHIE [facility]ivar OBGYN [address] [place] [address] Armin Leal DO [address] [place], [facility] size inconsistent with dates ([facility]) (Primary Dx); Third trimester ([facility]); 31 weeks gestation of ([facility]) Social History Tobacco UseTypesPacks/DayYears UsedDateSmoking Tobacco: NeverSmokeless [...] times a week11/06/2023How often do you attend druze or uatsdin services?1 to 4 times per year11/06/2023o you belong to any clubs or organizations such as druze groups, unions, fraternal or athletic lazarus ups, [...] at all 11/06/2023HQ-2AnswerDate RecordedPatient Health Questionnaire-2 Score0 03/27/2025Fin[facility], [facility] [place] of Occupational Health - Occupational Stress QuestionnaireAnswerDate [...] were you homeless or living in a fpc (including now)? No11/06/2023EducationAnswerDate RecordedWhat is the highest level of school you have completed or the highest degree you have received?High school graduate 01/26/2025Estimated Date of VdqlnweeCtgolopzSgj84/15/2026ased on last menstrual period of 09/21/2024Sex and Gender InformationValueDate RecordedSex Assigned at BirthNot on fileLegal ZyeMdwhwl93/15/2023 11:36 PM EDTGender IdentityNot on fileSexual OrientationNot on filedocumented as of this encounter Last Filed Vital Signs Vital SignReadingTime TakenCommentsBlood Xnqahili155/6204/27/2025 2:34 PM EST Pulse--Temperature--Respiratory Rate--Oxygen Saturation--Inhaled Oxygen Concentration--Btnpaf04.8 kg (127 lb 8 oz)04/27/2025 2:34 PM [...] nursing note reviewed. Exam conducted with a overnight caregiver present. Vitals: Estimated body mass index is 21.89 kg/m?? as calculated from the following: Height as of 08/06/24: 5' 4 . Weight as of this encounter: 127 lb 8 oz. BP: 108/62 Patient's last menstrual period was 09/21/2024. Assessment/Plan ICD-10-CM 1. size inconsistent with dates ([facility]) O26.849 US OB follow up transabdominal approach 2. Third trimester ([facility]) Z34.93 POCT urinalysis dipstick manually resulted 3. 31 weeks gestation of ([facility]) Z3A.31 Assessment/Plan Return OB: Patient presents today [...] Plan of Treatment DateTypeDepartmentCare Team (Latest Contact Info)Yvzjhczulyn67/13/2026 8:30 AM ESTAncillary Procedure [facility] [address] [place] [address] 05/26/2025 9:00 AM ESTRoutine [facility] [address] [place] [address] Amrin Leal, [address] [place] [address] documented as of this encounter Procedures Procedure NamePriorityDate/TimeAssociated DiagnosisCommentsPOCT URINALYSIS TSKNPAYVStuqnzg15/15/2025 2:41 PM EST Third trimester ([facility]) documented in this encounter Results * US OB follow up transabdominal approach (04/28/2025 2:08 PM EST)Anatomical RegionLateralityModalityBodyUltrasoundSpecimen (Source)Anatomical Location / LateralityCollection Method / VolumeCollection TimeReceived Time04/30/2025 4:52 PM EST Impressions 04/30/2025 4:57 PM EST SINGLE LIVE INTRAUTERINE CORRESPONDING TO APPROXIMATELY within expected due date of June 27, 2025.. NO GROSS ABNORMALITIES IDENTIFIED, WITHIN THE LIMITS OF THE STUDY. ELECTRONICALLY SIGNED BY: Kennedy Encarnacion DO Narrative 04/30/2025 4:57 PM EST US OB FOLLOW UP TRANSABDOMINAL APPROACH: 04/28/2025 1:41 PM CLINICAL HISTORY: Growth COMPARISON: February 09, 2025 Transabdominal ultrasound of the gravid uterus was performed. FINDINGS: A single live intrauterine is noted in cephalic position. cardiac activity measures approximately 142 beats per minute. The amniotic fluid is within normal limits for gestation. The PADMINI is 10.11 cm. The following measurements were obtained: BPD 7.91 cm, HC 29.01 cm, AC 27.63 cm, FL 6.12 cm, which corresponds to an aggregate gestational age of with an expected due date of June 27, 2025. Estimated weight is 1829 g +/-274.35 g.. This fetus is in the 53.7 percentile. Procedure Note Kennedy Encarnacion DO - 04/30/2025 US OB FOLLOW UP TRANSABDOMINAL APPROACH: 04/28/2025 1:41 PM CLINICAL HISTORY: Growth COMPARISON: February 09, 2025 Transabdominal ultrasound of the gravid uterus was performed. FINDINGS: A single live intrauterine is noted in cephalic position. cardiac activity measures approximately 142 beats per minute. The amniotic fluid is within normal limits for gestation. The PADMINI is 10.11cm. The following measurements were obtained: BPD 7.91 cm, HC 29.01 cm, AC27.63 cm, FL 6.12 cm, which corresponds to an aggregate gestational age ofwith an expected due date of June 27, 2025. Estimated weight is 1829 g +/-274.35 g.. This fetus is in the 53.7 percentile. IMPRESSION: SINGLE LIVE INTRAUTERINE CORRESPONDING TO APPROXIMATELY withinexpected due date of June 27, 2025.. NO GROSS ABNORMALITIES IDENTIFIED, WITHIN THE LIMITS OF THE STUDY. ELECTRONICALLY SIGNED BY: Kennedy Encarnacion DO Authorizing ProviderResult TypeResult StatusSamantha Stokes NPOKLAHOMA [facility] & [facility] OB US PROCEDURESFinal Result * (ABNORMAL) POCT urinalysis dipstick manually resulted [...] / LateralityCollection Method / VolumeCollection Time Received TldhBeirv31/15/2025 2:41 PM EST Narrative Authorizing ProviderResult TypeResult StatusCorey Elvis DOPOINT OF CARE TEST ENTER/EDIT ORDERABLESFinal Result documented in this encounter Visit Diagnoses Diagnosis size inconsistent with dates ([facility])- Primary Third trimester ([facility]) state, incidental 31 weeks gestation of ([facility]) size inconsistent with dates ([facility]) documented in this encounter Care Teams Team MemberRelationshipSpecialtyStart DateEnd Date Scot Block MD [address] [place] [phone] [facility] - [facility] Scot Block MD [address] [place] [address] PCP - [facility]11/12/23documented as of this encounter
--- OUTSIDE RECORDS SUMMARY | 2025-04-28 14:00 | XMS_ITS | Encounter Summary ---
Author Organization [facility] Address [address] [place] [address] Care Team Providers Care Media Production Manager Name Role Phone Scot Block MD Primary Care Provider [phone] Scot Block MD Unavailable Encounter Details DateTypeDepartmentCare Team (Latest Contact Info)Gmqabhgwcon38/16/2025 2:00 PM ESTAncillary Procedure NOMElizabeth Bolivar OBGYN [address] [place] [phone] size inconsistent with dates ([facility]) Social History Tobacco UseTypesPacks/DayYears UsedDateSmoking Tobacco: [...] times a week11/06/2023How often do you attend faith or gnosticist services?1 to 4 times per year11/06/2023o you belong to any clubs or organizations such as faith groups, unions, fraEventcheq or athletic lazarus ups, or school groups?No11/06/2023How [...] at all 11/06/2023HQ-2AnswerDate RecordedPatient Health Questionnaire-2 Score0 03/27/2025[facility] [place] of Occupational Health - Occupational Stress QuestionnaireAnswerDate [...] or living in a snf (including now)? No11/06/2023EducationAnswerDate RecordedWhat is the highest level of school you have completed or the highest degree you have received?High school graduate 01/26/2025Estimated Date of ExbunwlpQbfnvvqhUut31/15/2026ased on last menstrual period of 09/21/2024Sex and Gender InformationValueDate RecordedSex Assigned at BirthNot on fileLegal NkmWfkcvw47/15/2023 11:36 PM EDTGender IdentityNot on fileSexual OrientationNot on filedocumented as of this encounter Plan of Treatment DateTypeDepartmentCare Team (Latest Contact Info)Ozrgzaenpco91/13/2026 8:30 AM ESTAncillary Procedure [facility] Jac B[facility]IE [address] [place] [phone] 05/26/2025 9:00 AM ESTRoutine [facility] [address] [place] [phone] Armin Leal DO [address] [place] [address] documented as of this encounter Procedures Procedure NamePriorityDate/TimeAssociated DiagnosisCommentsUS OB FOLLOW UP TRANSABDOMINAL TSRHBUAQAaqlmqi81/16/2025 2:08 PM EST size inconsistent with dates ([facility]) documented in this encounter Results * [...] Visit Diagnoses Diagnosis size inconsistent with dates ([facility]) documented in this encounter Care Teams Team MemberRelationshipSpecialtyStart DateEnd Date Scot Block MD [address] [place] [address] PCP - [facility]06/13/23 Scot Block MD [address] [place] [address] [facility]11/12/23documented as of this encounter
--- OUTSIDE RECORDS SUMMARY | 2025-05-11 13:10 | XMS_ITS | Encounter Summary ---
Author Organization [facility] Address [address] [place] [address] Care Team Providers Care Chopper Operator Name Role Phone Scot Block MD Primary Care Provider [phone] Scot Block MD Unavailable Reason for Visit * ReasonCommentsRoutine Visit Encounter Details DateTypeDepartmentCare Team (Latest Contact Info)Cinseogsfay14/29/2025 1:10 PM ESTRoutine [facility] [address] [address] Bina Vanessa PA [address] [place] 33 weeks gestation of ([facility]); Third trimester ([facility]); Current moderate episode of major depressive disorder, unspecified whether recurrent ([facility]); Herpes labialis; Other viral warts; Pruritus; size inconsistent with dates ([facility]) Social History Tobacco UseTypesPacks/DayYears UsedDateSmoking Tobacco: [...] times a week11/06/2023How often do you attend samaritan or episcopal services?1 to 4 times per year11/06/2023o you belong to any clubs or organizations such as samaritan groups, unions, [employer]Data Sciences International or athletic lazarus ups, or school groups?No11/06/2023How [...] at all 11/06/2023HQ-2AnswerDate RecordedPatient Health Questionnaire-2 Score0 04/30/2025[facility] [place] of Occupational Health - Occupational Stress QuestionnaireAnswerDate [...] or living in a [facility] (including now)? No11/06/2023EducationAnswerDate RecordedWhat is the highest level of school you have completed or the highest degree you have received?High school graduate 01/26/2025Estimated Date of HqlwoezqJfpjgbeoVtt89/15/2026ased on last menstrual period of 09/21/2024Sex and Gender InformationValueDate RecordedSex Assigned at BirthNot on fileLegal UuoKfrgxx93/15/2023 11:36 PM EDTGender IdentityNot on fileSexual OrientationNot on filedocumented as of this encounter Last Filed Vital Signs Vital SignReadingTime TakenCommentsBlood Svafjyhp642/6005/11/2025 1:20 PM EST Pulse--Temperature--Respiratory Rate--Oxygen Saturation--Inhaled Oxygen Concentration--Clpxzm60.2 kg (132 lb 12.8 oz)05/11/2025 1:20 PM ESTHeight--Body Mass Index22.8008/06/2024 1:41 PM EDTdocumented in this encounter Plan of Treatment DateTypeDepartmentCare Team (Latest Contact Info)Yvelonyyvdh27/13/2026 8:30 AM ESTAncillary Procedure [facility] [address] [place] [address] 05/26/2025 9:00 AM ESTRoutine [facility] [address] [place] [address] [place] [address] Armin Leal DO [address] [place] [address] NameTypePriorityAssociated DiagnosesOrder ScheduleHepatitis C antibodyLabRoutine Pruritus Expected: 05/11/2025 (Approximate), Expires: 05/11/2026Hepatic function panelLab Routine Pruritus Expected: 05/11/2025 (Approximate), Expires: 05/11/2026TSHLabRoutine Pruritus Expected: 05/11/2025 (Approximate), Expires: 05/11/2026ile acids, totalLab Routine Pruritus Expected: 05/11/2025 (Approximate), Expires: 05/11/2026BC and differentialLab Routine Pruritus Expected: 05/11/2025 (Approximate), Expires: 05/11/2026US OB follow up transabdominal approachImagingRoutine size inconsistent with dates ([facility]) Expected: 05/11/2025, Expires: 09/09/2025documented as of this encounter Procedures Procedure NamePriorityDate/TimeAssociated DiagnosisCommentsPOCT URINALYSIS FBJFCMDQAuqakjc93/29/2025 1:26 PM EST 33 weeks gestation of ([facility]) Third trimester ([facility]) documented in this encounter Results * POCT urinalysis dipstick manually resulted (05/11/2025 1:26 PM EST)Component ValueRef RangeTest MethodAnalysis TimePerformed AtPathologist SignatureColor, UAYellowClarity, UAClearGlucose, UANegativeNegative - 1999(110) ++++ mg/dL Bilirubin, UANegativeNegative - 4(70) +++ mg/dLKetones, UANegativeNegative - 160(16) ++++ mg/dLSpec Grav, UA1.0101 - 1.03Blood, UANegativeNegative - 50 Shayne/mcLpH, UA6.05 - 9Protein, UANegativeNegative - 1999(20) ++++ mg/dL Urobilinogen, UA1.00.2 - 12 mg/dLLeukocytes, UANegativeNegative - 500+++ Deysi/mcLNitrite, UANegativeNegative - PositiveSpecimen (Source)Anatomical Location / LateralityCollection Method / VolumeCollection TimeReceived Time Urine05/11/2025 1:26 PM EST Narrative Authorizing ProviderResult TypeResult StatusFau[facility] System TEST ENTER/EDIT ORDERABLESFinal Result documented in this encounter Visit Diagnoses Diagnosis 33 weeks gestation of ([facility]) Third trimester ([facility]) state, incidental Current moderate episode of major depressive disorder, unspecified whether recurrent ([facility]) Herpes labialis Herpes simplex without mention of complication Other viral warts Pruritus Unspecified pruritic disorder size inconsistent with dates ([facility]) documented in this encounter Care Teams Team MemberRelationshipSpecialtyStart DateEnd Date Scot Block MD [address] [place] [phone] P[facility] - [facility]06/13/23 Scot Block MD [address] [place] [phone] PCP - [facility]11/12/23documented as of this encounter
--- OUTSIDE RECORDS SUMMARY | 2025-05-11 13:55 | XMS_ITS | Encounter Summary ---
Author Organization [facility] Address [address] [place] [address] Care Team Providers Care Cooperage Shop Supervisor Name Role Phone Scot Block MD Primary Care Provider [phone] Scot Block MD Unavailable Encounter Details DateTypeDepartmentCare Team (Latest Contact Info)Pssiygbrvlp08/15/2025amboo flowsheet [facility] [place] [facility] [address] [place] [address] Armin Leal DO [address] [place], [facility]11 Social History Tobacco UseTypesPacks/DayYears UsedDateSmoking Tobacco: NeverSmokeless [...] times a week11/06/2023How often do you attend pentecostalism or mormonism services?1 to 4 times per year11/06/2023o you belong to any clubs or organizations such as pentecostalism groups, unions, Project Manager or athletic lazarus ups, or school groups?No11/06/2023How [...] at all 11/06/2023HQ-2AnswerDate RecordedPatient Health Questionnaire-2 Score0 03/27/2025[facility] [place] of Occup[facility] Health - Occupational Stress QuestionnaireAnswerDate [...] or living in a alf (including now)? No11/06/2023EducationAnswerDate RecordedWhat is the highest level of school you have completed or the highest degree you have received?High school graduate 01/26/2025Estimated Date of RabsuqlvUxfdcyngPbh08/15/2026ased on last menstrual period of 09/21/2024Sex and Gender InformationValueDate RecordedSex Assigned at BirthNot on fileLegal ObjNfmzcv70/15/2023 11:36 PM EDTGender IdentityNot on fileSexual OrientationNot on filedocumented as of this encounter Plan of Treatment DateTypeDepartmentCare Team (Latest Contact Info)Thsqwupnodk36/13/2026 8:30 AM ESTAncillary Procedure [facility] [address] [facility] [place] [place] [address] 05/26/2025 9:00 AM ESTRoutine [facility] [address] [facility] [place] [place] [address] Armin Leal, DO [address] [place], [place] [phone] documented as of this encounter Visit Diagnoses Not on filedocumented in this encounter Care Teams Team MemberRelationshipSpecialtyStart DateEnd Date Scot Block MD [address] [place] [phone] PCP - [facility]06/13/23 Scot Block MD [address] [place] [phone] [facility]11/12/23documented as of this encounter
--- OUTSIDE RECORDS SUMMARY | 2025-05-11 13:55 | XMS_ITS | Clinical Summary ---
Author Organization [facility] Healthcare Address [address] [place] [address] Care Team Providers Care Qc Chemist Name Role Phone Scot Block MD Primary Care Provider [phone] Scot Block MD Unavailable Allergies Active AllergyReactionsCriticalityNoted DateCommentsBismuth SubsalicylateGI ndvksonkxcp94/25/2023 Medications MedicationSigDispense QuantityRefillsLast FilledStart DateEnd DateStatus Vit-Fe Fumarate-FA ( Vitamins) 28-0.8 MG tablet Indications:Missed mensesTake 1 tablet by mouth Daily 30 tablet 5011/27/2025ctive Vit-Fe Fumarate-FA (PNV 27-Ca/Fe/FA) 60-1 MG tablet Indications:Second trimester ([facility])Take 1 tablet by mouth Daily 30 tablet 5Active citalopram (CeleXA) 20 MG tablet Indications:Current moderate episode of major depressive disorder, unspecified whether recurrent ([facility])Take 1 tablet (20 mg) by mouth Daily 90 tablet 5007/26/2025ctive valACYclovir (Valtrex) 500 MG tablet Indications:Herpes labialis,Other viral wartsTake 1 tablet (500 mg) by mouth Daily 30 tablet 111501/6Active sertraline (Zoloft) 50 MG tablet Indications:Generalized anxiety [...] tablet 111Discontinued(Reorder) Active Problems ProblemNoted DateDiagnosed DatePsychophysiological zlfwidvy99/20/2025 Assessment & Plan (08/06/2024 2:07 PM EDT): [...] worsening symptoms call. Increased sensitivity to painful awljugbk61/29/2024cne wrglanwn70/02/2024 Generalized anxiety xkpunxih87/02/2024 Assessment & Plan (08/06/2024 2:05 PM EDT): Symptoms improved but still present and increase zoloft. Warned will take 2-3 weeks to notice improvement in mood. Assessment & Plan (07/03/2024 2:54 PM EST): Severe symptoms and not functioning well. Start zoloft and warned will take 2-3 weeks to notice improvement in mood. Herpes oszppryc69/02/2024Estimated Date of YikumnaqQzjtfpilFqt27/15/2026 Based on last menstrual period of 09/21/2024 Resolved Problems ProblemNoted DateDiagnosed DateResolved DateInguinal zvkpalwavqixtyd14/25/2024 08/06/2024 Assessment & Plan (11/06/2023 11:59 AM EDT): Appears to have enlarged lymph node and possibly related to BV. Treat and if persists will need to see sound recordist for STD check. Bacterial nuscnbeub93 Assessment & Plan (11/06/2023 11:59 AM EDT): C/o BV and treat with flagyl. Sexually active and unprotected intercourse. If no change need to seegyn for STD check. Abnormal uterine tpjthzie00Hypertrophy of hufvqgy9106/15/2023 11/06/2023cute non-recurrent kzlxwskdovpf62 Encounters DateTypeDepartmentCare HpdoLsvcehbicvi53/29/2025 1:10 PM ESTRoutine [facility] [address] [place] [address] [place] [address] Bina Vanessa PA 33 weeks gestation of ([facility]); Third trimester ([facility]); Current moderate episode of major depressive disorder, unspecified whether recurrent (HCC); Herpes labialis; Other viral warts; Pruritus; size inconsistent with dates ([facility])05/11/2025Telephone [facility] [address] [place] [address] [place] [address] Jyoti Nancy, BURR FILER 5Clinisync Result Encounter NOMS External Department Unsolicited Armin Leal, 04/30/2025Patient Outreach [facility] [address] [place] [address] IvelisseBina, BURR FILER 04/28/2025 2:00 PM ESTAncillary Procedure [facility] Felder [facility] [address] size inconsistent with dates ([facility])04/27/2025 2:10 PM ESTRoutine [facility] [address] [place] [address] [place] [address] Armin Leal, size inconsistent with dates ([facility]) (Primary Dx); Third trimester ([facility]); 31 weeks gestation of ([facility])04/27/2025Refill [facility] [address] [place] [address] [place] [address] Eve Santos LPN Current moderate episode of major depressive disorder, unspecified whether recurrent (HCC)04/27/2025amboo flowsheet [facility] [address] [place] [address] [place] [address] Armin Leal, 04/23/2025Refill [facility] [address] [place] [address] [place] [address] Nimisha Francis MA Current moderate episode of major depressive disorder, unspecified whether recurrent (HCC)04/14/2025 1:50 PM ESTRoutine [facility] [address] [place] [address] [place] [address] Armin Leal, 29 weeks gestation of ([facility]); Third trimester ([facility]); Current moderate episode of major depressive disorder, unspecified whether recurrent (HCC); Herpes labialis; Other viral warts04/14/2025[facility] flowsheet [facility] OBHERIBERTON [address] [place] [address] [place] [address] Armin Leal DO 03/30/2025Telephone [facility] [address] [place] [address] [place] [address] Nimisha Francis MA 03/27/2025[facility] [address] [place] [address] Bina Oviedo, BURR FILER 03/25/2025 2:20 PM ESTRoutine [facility] Fel[facility] [address] Armin Leal, induced hypertension, antepartum ([facility]) (Primary Dx); 26 weeks gestation of ([facility]); Second trimester ([facility]); Rash; Herpes labialis; Other viral warts; Elevated glucose tolerance test03/25/2025[facility] flowsheet [facility] HER[facility] [address] [place] [address] [place] [address] Armin Leal DO 02/26/2025Patient Outreach [facility] [address] [place] [address] Bina Oviedo, BURR FILER 02/24/2025 2:40 PM EDTRoutine [facility] [address] [place] [address] [place] [address] Bina Vanessa PA Second trimester ([facility]); 22 weeks gestation of ([facility]); Diabetes mellitus gxjcbwihl57/14/2025[facility] flowsheet [facility] [address] [place] [address] [place] [address] Bina Vanessa PA 02/24/20251404Iginqx98/29/2025 2:30 PM EDTAncillary Procedure [facility] [address] [place] [address] [place] [address] Screening, , for anatomic survey ([facility])02/09/2025linisync Result Encounter NOMS External Department Unsolicited Armin Leal DO from Last 3 Months Family History Medical [...] times a week11/06/2023How often do you attend yazidism or mandaeism services?1 to 4 times per year11/06/2023o you belong to any clubs or organizations such as yazidism groups, unions, fraSCRM or athletic lazarus ups, or school groups?No11/06/2023How [...] at all 11/06/2023HQ-2AnswerDate RecordedPatient Health Questionnaire-2 Score0 04/30/2025[facility] [place] of Occupational Health - Occupational Stress QuestionnaireAnswerDate [...] were you homeless or living in a longterm (including now)? No11/06/2023EducationAnswerDate RecordedWhat is the highest level of school you have completed or the highest degree you have received?High school graduate 01/26/2025Estimated Date of PwrfggbgCndfantsPhd53/15/2026ased on last menstrual period of 09/21/2024Sex and Gender InformationValueDate RecordedSex Assigned at BirthNot on fileLegal NpiYvbeqf26/15/2023 11:36 PM EDTGender IdentityNot on fileSexual OrientationNot on file Last Filed Vital Signs Vital SignReadingTime TakenCommentsBlood Cseuyxcm467/6005/11/2025 1:20 PM EST Cmlbi65617/26/2025 1:41 PM VJQYlzslgirjvm65.6 ??C (97.8 ??F)08/06/2024 1:41 PM EDTRespiratory Mlja081008/06/2024 1:41 PM EDTOxygen Zaljazttpk56%08/06/2024 1:41 PM EDTInhaled Oxygen Concentration--Gxzgrs97.2 kg (132 lb 12.8 oz)05/11/2025 1:20 PM RHJLjkono769.6 cm (5' 4 )08/06/2024 1:41 PM EDTBody Mass Index22.8 08/06/2024 1:41 PM EDT Plan of Treatment DateTypeDepartmentCare Team (Latest Contact Info)Rhzhrbyjvpb41/13/2026 8:30 AM ESTAncillary Procedure [facility] [address] [facility] [address] 05/26/2025 9:00 AM ESTRoutine [facility] [address] [facility] [address] Armin Leal, [address] [place] [address] Health MaintenanceDue DateLast DoneCommentsInfluenza Vaccine (#1)01/12/2025 07/03/2017Pneumococcal Vaccine: Pediatrics (0 to 5 Years) and At-Risk Patients (6 to 64 Years)Aged OutNo longer eligible based on patient's age to complete this topic Procedures Procedure NamePriorityDate/TimeAssociated DiagnosisCommentsPOCT URINALYSIS YBGUVHWNWyshllz50/29/2025 1:26 PM EST 33 weeks gestation of ([facility]) Third trimester ([facility]) GLUCOSE TOLERANCE 3 QOZHLumpcpa91/18/2025 10:05 AM EST US OB FOLLOW UP TRANSABDOMINAL NBIAKDZFFhsyfyk83/16/2025 2:08 PM EST size inconsistent with dates ([facility]) POCT URINALYSIS UOKMGFNKQtnbugw52/15/2025 2:41 PM EST Third trimester ([facility]) POCT URINALYSIS QBASZVQECgepjko01/02/2025 2:29 PM EST 29 weeks gestation of ([facility]) Third trimester ([facility]) POCT URINALYSIS ZLICQJNSYfeufdo72/12/2025 2:42 PM EST 26 weeks gestation of ([facility]) Second trimester ([facility]) RECURRENT VAGINITIS (HTRX)Ezvexos8802/24/2025 3:28 PM EDT POCT URINALYSIS NDWXWSROBxpaurr71/14/2025 3:11 PM EDT 22 weeks gestation of ([facility]) AFP, SERUM, OPEN SPINA KAGAGXMasmbsz32/29/2025 3:31 PM EDT US OB 14+ WEEKS ANATOMY THXTEuprgjs55/29/2025 3:15 PM EDT Screening, , for anatomic survey ([facility]) from Last 3 Months Results * POCT urinalysis dipstick manually resulted (05/11/2025 1:26 PM EST) Only the most recent of5 resultswithin the time period is included. ComponentValueRef RangeTest MethodAnalysis TimePerformed AtPathologist Signature Color, UAYellowClarity, UAClearGlucose, UANegativeNegative - 2000(110) ++++ mg/dLBilirubin, UANegativeNegative - 4(70) +++ mg/dLKetones, UANegativeNegative - 160(16) ++++ mg/dLSpec Grav, UA1.0101 - 1.03Blood, UANegativeNegative - 50 Shayne/mcLpH, UA6.05 - 9Protein, UANegativeNegative - 2000(20) ++++ mg/dL Urobilinogen, UA1.00.2 - 12 mg/dLLeukocytes, UANegativeNegative - 500+++ Deysi/mcL Nitrite, UANegativeNegative - PositiveSpecimen (Source)Anatomical Location / LateralityCollection Method / VolumeCollection TimeReceived JzwhNqpfa48/29/2025 1:26 PM EST Narrative Authorizing ProviderResult TypeResult StatusBina Vanessa [facility]ROW[facility] CAMPUSOINT OF CARE TEST ENTER/EDIT ORDERABLESFinal Result * GLUCOSE TOLERANCE 3 HOUR (04/30/2025 10:05 AM EST)ComponentValueRef RangeTest MethodAnalysis TimePerformed AtPathologist SignatureGLUCOSE TOLERANCE 3 HOUR mg/dLTBHComment: GLU FAST 74 (<95) Col: 04/30/25 1003 GLU 1HR 137 (<180) Col: 04/30/25 1108 GLU 2HR 134 (<155) Col: 04/30/25 1208 GLU 3HR 115 (<140) Col: 04/30/25 1308 Specimen (Source)Anatomical Location / LateralityCollection Method / Volume Collection TimeReceived Time04/30/2025 10:05 AM EST04/30/2025 10:08 AM EST Narrative CLIN[facility] - 04/30/2025 1:42 PM EST Authorizing ProviderResult TypeResult StatusCorey Elvis DOLAB BLOOD ORDERABLES Final ResultPerforming OrganizationAddressCity/State/ZIP CodePhone Number [facility]IN[facility] * US OB follow up transabdominal approach [...] StatusSamantha Stokes NPIMG OB US PROCEDURESFinal Result * RECURRENT VAGINITIS (HTRX) (02/24/2025 3:28 PM EDT)ComponentValueRef RangeTest MethodAnalysis TimePerformed AtPathologist SignatureATOPOBIUM MHNIIFZ148.961 - 24.689 ppm02/25/2025 6:33 AM EDTHealthTrackRx at LabPortATOPOBIUM VAGINAENot Mpjtstkh00.961 - 24.689 ppm02/25/2025 6:33 AM EDTHealthTrackRx at LabPortBVAB 2,3 (BACTERIAL VAGINOSIS ASSOCIATED BACTERIA 2, 3); MOBILUNCUS CRO457.961 - 24.689 ppm02/25/2025 6:33 AM EDTHealthTrackRx at LabPortBVAB 2,3 (BACTERIAL VAGINOSIS ASSOCIATED BACTERIA 2, 3); MOBILUNCUS SPPNot Fyjvqgiu57.961 - 24.689 ppm02/25/2025 6:33 AM EDTHealthTrackRx at LabPortCANDIDA ALBICANS, PARAPSILOSIS, SOUVKLFPOU032.000 - 30.347 ppm02/25/2025 6:33 AM EDT [facility] at LabPortCANDIDA ALBICANS, PARAPSILOSIS, TROPICALISNot Detected 23.000 - 30.347 ppm02/25/2025 6:33 AM EDTHealthTrackRx at LabPortCANDIDA BXXMYIXP966.000 - 31.618 ppm02/25/2025 6:33 AM EDTHealthTrackRx at LabPort TIAGO GLABRATANot Epbwunyh79.000 - 31.618 ppm02/25/2025 6:33 AM EDT [facility] at LabPortCANDIDA FYXJFG252.000 - 30.873 ppm02/25/2025 6:33 AM EDTHealthTrackRx at LabPortCANDIDA KRUSEINot Fmwhidcn61.000 - 30.873 ppm 02/25/2025 6:33 AM EDTHealthTrackRx at LabPortCHLAMYDIA CGMFSBUEFIZ709.000 - 31.586 ppm02/25/2025 6:33 AM EDTHealthTrackRx at LabPortCHLAMYDIA TRACHOMATIS Not Fqqcftjj23.000 - 31.586 ppm02/25/2025 6:33 AM EDTHealthTrackRx at LabPort GARDNERELLA UPFJLRPNU666.961 - 24.689 ppm02/25/2025 6:33 AM EDTHealthTrackRx at LabPortGARDNERELLA VAGINALISNot Ipeesbzp64.961 - 24.689 ppm02/25/2025 6:33 AM EDTHealthTrackRx at LabPortMEGASPHAERA (TYPES 1, 2)019.961 - 24.689 ppm 02/25/2025 6:33 AM EDTHealthTrackRx at LabPortMEGASPHAERA (TYPES 1, 2)Not Jqsvupdl01.961 - 24.689 ppm02/25/2025 6:33 AM EDTHealthTrackRx at LabPort NEISSERIA JBKQARNCYRH065.000 - 32.587 ppm02/25/2025 6:33 AM EDTHealthTrackRx at LabPortNEISSERIA GONORRHOEAENot Kpxhpcfu04.000 - 32.587 ppm02/25/2025 6:33 AM EDTHealthTrackRx at LabPortTRICHOMONAS ENSFLZHKR881.000 - 31.995 ppm 02/25/2025 6:33 AM EDTHealthTrackRx at LabPortTRICHOMONAS VAGINALISNot Zvtpizbc54.000 - 31.995 ppm02/25/2025 6:33 AM EDTHealthTrackRx at LabPort MYCOPLASMA KZLBHZLKFF330.961 - 24.689 ppm02/25/2025 6:33 AM EDTHealthTrackRx at LabPortMYCOPLASMA GENITALIUMNot Bkjapabr83.961 - 24.689 ppm02/25/2025 6:33 AM EDTHealthTrackRx at LabPortSpecimen (Source)Anatomical Location / LateralityCollection Method / VolumeCollection TimeReceived TimeTissue 02/24/2025 3:28 PM EDT1 1:29 AM EDT Narrative Authorizing ProviderResult TypeResult StatusAmy Rasheeda PRIETO BLOOD ORDERABLES Final ResultPerforming OrganizationAddressCity/State/ZIP CodePhone Number [facility] [address] [address] * AFP, SERUM, OPEN SPINA BIFIDA (02/09/2025 3:31 PM EDT)ComponentValueRef Range Test MethodAnalysis TimePerformed AtPathologist SignatureRESULTSReport.TBHTEST RESULTS:*Screen Negative*.TBHGEST. AGE ON COLLECTION DATE20.1. weeksTBHGESTAT. AGE BASED ONLMP.TBHComment: Recalculations are not recommended when gestational dating by LMP and ultrasound are within 10 days. MATERNAL AGE AT EDD20.5. yrTBHRACECaucasian.TWABYYFVO246. lbsTBHINSULIN DEP DIABETESNo.TBHMULTIPLE GESTATIONNo.TBHAFP VALUE91.9. ng/mLTBHAFP MOM1.35.TBHOSBR RISK 1 ES2729.TBHINTERPRETATIONComment.TBHComment: Interpretation: Screen Negative This result is screen [...] Customer Services to discuss available options. ??The [employer] [employer] recommends amniocentesis be offered to women age 35 and older. COMMENT:Comment.TBHComment: Alla Scott, Ph.D., [facility] Director References: Available Upon Request. Multiples Of Median Cutoffs ?For AFP Elevations Hernandez ?? 2.5 ? Black ?2.8 IDD ? 2.0 ? Twins ?4.5 ?Abbreviation Definitions IDD - Insulin Dep Diabetes OSBR - Open Spina Bifida Risk For further inquiries contact [facility] at [phone]. This test was developed and its performance characteristics determined by [employer]. It has not been cleared or approved by the Food and Drug Administration. Performed at: ??[facility] [address] [place], [place] ??[id number] Crime Investigator Special Agent: Nubia Simon [facility], Phone: ??[phone] Specimen (Source)Anatomical Location / LateralityCollection Method / Volume Collection TimeReceived Time02/09/2025 3:31 PM EDT02/09/2025 3:32 PM EDT Narrative CLINISY[facility] - 02/11/2025 12:08 AM EDT N N LMP [id number] 1 18 N 1 Y 115 N N N N N White/ Authorizing ProviderResult TypeResult StatusCorey Elvis DOLAB BLOOD ORDERABLES Final ResultPerforming OrganizationAddressCity/State/ZIP CodePhone Number [facility] * OB 14+ weeks anatomy scan (02/09/2025 [...] Edward MD Authorizing ProviderResult TypeResult StatusSamantha Stokes NPPIEDMONT ROCKDALE PROCEDURESFinal Result from Last 3 Months Insurance Care Teams Team MemberRelationshipSpecialtyStart DateEnd Date Scot Block MD [address] [place] [address] PCP - [facility]06/13/23 Scot Block MD [address] [place] [address] PCP - [facility]11/12/23
--- OUTSIDE RECORDS SUMMARY | 2025-05-11 13:55 | XMS_ITS | Patient Health Record ---
Author Organization [facility] Address [address] [place] [address] Care Team Providers Care Secured Entrance Monitor Name Role Phone Jose Jackson Primary Care Provider [phone] Marya Pinon Unavailable [phone] Reason For Referral No Information Plan Of Treatment No Information Insurance Providers Payer Name Payer Address Payer Phone Subscriber Number Group Number Insured Name Patient Relationship to Insured Coverage Start Date Coverage End Date [place] [employer] [address] [address] [place] [address] [id number] ESTEVAN HOSKINSelf - patient is the [id number] 2022ental Wrap [facility] [address] [place] [id number], AERIONNASelf - patient is the [id number] 2023
--- OUTSIDE RECORDS SUMMARY | 2025-05-11 13:55 | XMS_ITS | Encounter Summary ---
Author Organization [facility] Address [address] [place] [address] Care Team Providers Care Diversified Crops Ii Farmworker Name Role Phone Scot Block MD Primary Care Provider [phone] Scot Block MD Unavailable Encounter Details DateTypeDepartmentCare Team (Latest Contact Info)Ocxgymfwaax57/18/2025Clinisync Result Encounter [facility] External Department Unsolicited Armin Leal, DO [address] [place] [address] Social History Tobacco UseTypesPacks/DayYears UsedDateSmoking Tobacco: NeverSmokeless [...] week11/06/2023How often do you attend yazidism or jew services?1 to 4 times per year11/06/2023o you belong to any clubs or organizations such as yazidism groups, unions, fraBranding Brand or athletic lazarus ups, or school groups?No11/06/2023How [...] 11/06/2023HQ-2AnswerDate RecordedPatient Health Questionnaire-2 Score0 04/30/2025[facility] [place] of Occupational Health - Occupational Stress QuestionnaireAnswerDate [...] have received?High school graduate 01/26/2025Estimated Date of SblqmugsMqkgylxiGrw56/15/2026ased on last menstrual period of 09/21/2024Sex and Gender InformationValueDate RecordedSex Assigned at BirthNot on fileLegal CebKkbnpb77/15/2023 11:36 PM EDTGender IdentityNot on fileSexual OrientationNot on filedocumented as of this encounter Plan of Treatment DateTypeDepartmentCare Team (Latest Contact Info)Hpttanjwxkk77/13/2026 8:30 AM ESTAncillary Procedure [facility] [address] [place] [address] 05/26/2025 9:00 AM ESTRoutine [facility] [address] [place] [address] Armin Leal, [address] [place] [address] documented as of this encounter Procedures Procedure NamePriorityDate/TimeAssociated DiagnosisCommentsGLUCOSE TOLERANCE 3 BCODPuygndw49/18/2025 10:05 AM EST documented in this encounter Results * GLUCOSE TOLERANCE 3 HOUR (04/30/2025 10:05 [...] Final ResultPerforming OrganizationAddressCity/State/ZIP CodePhone Number [facility] documented in this encounter Visit Diagnoses Not on filedocumented in this encounter Care Teams Team MemberRelationshipSpecialtyStart DateEnd Date Scot Block MD [address] [place] [address] PCP - [facility]06/13/23 Scot Block MD [address] [place] [address] PCP - [facility]11/12/23documented as of this encounter
--- OUTSIDE RECORDS SUMMARY | 2025-05-11 13:55 | XMS_ITS | Encounter Summary ---
Author Organization [facility] Healthcare Address [address] [place] [address] Care Team Providers Care Assistant Merchandise Manager Name Role Phone Scot Block MD Primary Care Provider [phone] Scot Block MD Unavailable Encounter Details DateTypeDepartmentCare Team (Latest Contact Info)Qgpmfhpqhdv68/18/2025Patient Outreach [facility] [address] [place] [address] Bina Oviedo LPN [address] [place] [address] Social History Tobacco UseTypesPacks/DayYears UsedDateSmoking Tobacco: NeverSmokeless [...] times a week11/06/2023How often do you attend scientology or anglican services?1 to 4 times per year11/06/2023o you belong to any clubs or organizations such as scientology groups, unions, fraternal or athletic lazarus ups, [...] at all 11/06/2023HQ-2AnswerDate RecordedPatient Health Questionnaire-2 Score0 04/30/2025[facility] [place] of Occupational Health - Occupational Stress QuestionnaireAnswerDate [...] living in a care home (including now)? No11/06/2023EducationAnswerDate RecordedWhat is the highest level of school you have completed or the highest degree you have received?High school graduate 01/26/2025Estimated Date of ErgistmjAwkmfnqbCjd70/15/2026ased on last menstrual period of 09/21/2024Sex and Gender InformationValueDate RecordedSex Assigned at BirthNot on fileLegal LxtBctnfv15/15/2023 11:36 PM EDTGender IdentityNot on fileSexual OrientationNot on filedocumented as of this encounter Functional Status * Over the past 2 weeks, how often have you been bothered by any of the following problems?QuestionAnswerDate of AssessmentAuthorLittle interest or pleasure in doing thingsNot at all04/30/2025 11:03 AM Bina Pollack LPN Feeling down, depressed, or hopelessNot at all04/30/2025 11:03 AM Bina Pollack LPNPatient Health Questionnaire-2 Uvcxs07407/01/2024 11:03 AM Bina Pollack LPN documented as of this encounter Progress Notes * Bina Oviedo LPN - 04/30/2025 11:03 AM EST Monthly Outreach. Call to pt. Pt reports she feels baby moving frequently. Appetite and sleep are adequate. Bowels are regular. Pt denies any depression or difficulty coping a this time. Pt denies any questions, concerns or needs today. Pt currently at her glucose testing. Next OB OV 05/11/25. documented in this encounter Plan of Treatment DateTypeDepartmentCare Team (Latest Contact Info)Xhsloyyxagm46/13/2026 8:30 AM ESTAncillary Procedure [facility] [address] [place] [address] 05/26/2025 9:00 AM ESTRoutine [facility] [address] [place] [address] ElvisArmin, [address] [place] [address] documented as of this encounter Visit Diagnoses Not on filedocumented in this encounter Care Teams Team MemberRelationshipSpecialtyStart DateEnd Date Scot Block MD [address] [place] [address] [facility] Scot Block MD [address] [place] [address] PCP - [facility]11/12/23documented as of this encounter
--- OUTSIDE RECORDS SUMMARY | 2025-05-11 13:55 | XMS_ITS | Encounter Summary ---
Author Organization [facility] Address [address] [place] [address] Care Team Providers Care Computer Hardware Designer Name Role Phone Scot Block MD Primary Care Provider [phone] Scot Block MD Unavailable Reason for Visit * ReasonOnset DateCommentsMed Dqbitx9504/27/2025 Encounter Details DateTypeDepartmentCare Team (Latest Contact Info)Tneidrktcgw57/15/2025Refill [facility] [address] [place] [address] Eve Santos LPN [address] [place] [address] Current moderate episode of major [...] times a week11/06/2023How often do you attend restorationism or religion services?1 to 4 times per year11/06/2023o you belong to any clubs or organizations such as restorationism groups, unions, fraBULX or athletic lazarus ups, or school groups?No11/06/2023How [...] at all 11/06/2023HQ-2AnswerDate RecordedPatient Health Questionnaire-2 Score0 03/27/2025[facility] [place] of Occupational Health - Occupational Stress QuestionnaireAnswerDate [...] have received?High school graduate 01/26/2025Estimated Date of KmfagqekJdxjsdpqDos69/15/2026ased on last menstrual period of 09/21/2024Sex and Gender InformationValueDate RecordedSex Assigned at BirthNot on fileLegal AkxMdudml22/15/2023 11:36 PM EDTGender IdentityNot on fileSexual OrientationNot on filedocumented as of this encounter Miscellaneous Notes * Telephone Encounter - Eve Santos LPN - 04/27/2025 3:20 PM EST Refill request received and script sent. documented in this encounter Plan of Treatment DateTypeDepartmentCare Team (Latest Contact Info)Rkjrcqqwlde18/13/2026 8:30 AM ESTAncillary Procedure [facility] [address] [place] [address] 05/26/2025 9:00 AM ESTRoutine [facility] [address] [address] ElvisArmin ramirez, [address] [place] [address] documented as of this encounter Visit Diagnoses Diagnosis Current moderate episode of major depressive disorder, unspecified whether recurrent (HCC) documented in this encounter Care Teams Team MemberRelationshipSpecialtyStart DateEnd Date Scot Block MD [address] [place] [phone] PCP - [facility]06/13/23 Scot Block MD [address] [place] [address] PCP - [facility]11/12/23documented as of this encounter
--- OUTSIDE RECORDS SUMMARY | 2025-05-11 13:55 | XMS_ITS | Encounter Summary ---
Author Organization [facility] Address [address] [place] [address] Care Team Providers Care Hot Mix Operator Name Role Phone Scot Block MD Primary Care Provider [phone] Scot Block MD Unavailable Encounter Details DateTypeDepartmentCare Team (Latest Contact Info)Mejqtddxihq38/29/2025Telephone [facility] OBGYN [address] [place] [address] Nancy Montes LPN [address] [id number] Social History Tobacco UseTypesPacks/DayYears UsedDateSmoking Tobacco: NeverSmokeless [...] times a week11/06/2023How often do you attend jainism or uatsdin services?1 to 4 times per year11/06/2023o you belong to any clubs or organizations such as jainism groups, unions, [employer] or athletic lazarus ups, or school groups?No11/06/2023How [...] at all 11/06/2023HQ-2AnswerDate RecordedPatient Health Questionnaire-2 Score0 04/30/2025[facility] [place] of Occupational Health - Occupational Stress QuestionnaireAnswerDate [...] have received?High school graduate 01/26/2025Estimated Date of TdjhxplnTeyhoovwNxf47/15/2026ased on last menstrual period of 09/21/2024Sex and Gender InformationValueDate RecordedSex Assigned at BirthNot on fileLegal MxeFbbjbb97/15/2023 11:36 PM EDTGender IdentityNot on fileSexual OrientationNot on filedocumented as of this encounter Miscellaneous Notes * Telephone Encounter - Nancy Montes, TREVOR - 05/11/2025 11:25 AM EST Hi, I am Aerionna Ring calling because I was curious if I was able to take Benadryl 8 months . I am currently having like an allergic reaction, maybe so my hands and sheet and almost everywhere on my body is like completely itchy and it is the most aggravating thing I have ever been throughand I was just curious if I was able to take a benadryl if you could just give me a call back at [phone] at the earliest convenience to you guys, um, I would greatly appreciate that. Thank you. Kayla avendaño. Called pt to let her know that she can take that.PVU documented in this encounter Plan of Treatment DateTypeDepartmentCare Team (Latest Contact Info)Xzibogmewqj90/13/2026 8:30 AM ESTAncillary Procedure [facility] [address] [place] [place] [address] 05/26/2025 9:00 AM ESTRoutine [facility] OBHERIBERTON [address] [place] [phone] Armin Leal DO [address] [facility] [place] [address] documented as of this encounter Visit Diagnoses Not on filedocumented in this encounter Care Teams Team MemberRelationshipSpecialtyStart DateEnd Date Scot Block MD [address] [place] [address] PCP - [facility]06/13/23 Scot Block MD [address] [place] [address] PCP - [facility]11/12/23documented as of this encounter
[2025-05-11 14:12] LABS: Hematocrit 32.1 % (36.0-48.0); Hemoglobin 10.7 g/dL (12.0-16.0); Immature Granulocytes Abs Auto 0.03 10^3/uL (0.00-0.03); Immature Granulocytes Pct Auto 0.4 % (0.0-0.5); Lymphocytes Absolute Auto 1.3 10^3/uL (1.2-3.8); Mean Corpuscular HGB Conc 33.3 g/dL (29.9-35.2); Mean Corpuscular Hemoglobin 30.3 pg (26.7-34.0); Mean Corpuscular Volume 90.9 fL (81.0-99.0); Platelet Count 221 10^3/uL (150-450); Red Blood Count 3.53 10^6/uL (4.20-5.40); White Blood Count 7.4 10^3/uL (4.0-11.0)
[2025-05-11 16:09] LABS: Alanine Aminotransferase 16 U/L (14-59); Albumin Globulin Ratio 0.5; Albumin Level 2.3 g/dL (3.4-5.0); Alkaline Phosphatase 171 U/L (46-116); Aspartate Amino Transferase 15 U/L (15-37); Globulin 4.6 g/dL; Thyroid Stimulating Hormone 1.804 uIU/mL (0.358-3.740); Total Protein 6.9 g/dL (6.4-8.2)
== END 2025-05-11 13:51 | disposition home or self-care (01) ==
LOC: LAB 13:52
PROVIDERS: PCP Family Medicine; Visit Provider Physician Assistant
DX: L29.9 Pruritus, unspecified (principal)
CPT/HCPCS: 36415; 80076; 82239; 84443; 85025; 86803

== ENCOUNTER 2025-05-12 20:39 | Outpatient (OUT) | payer OTHER, SELFPAY ==
--- OUTSIDE RECORDS SUMMARY | 2023-11-13 05:30 | XMS_ITS ---
Author Organization [facility] es Address [address] [address] Care Team Providers Care Deputy Fire Chief Name Role Phone Jose Jackson Primary Care Provider Marya Pinon Unavailable [phone] Moraima Montes De Oca Unavailable [phone] REASON FOR VISIT PROPHY Encounters Encounter Location Date Provider Diagnosis [facility] [address] [place] [address] 11/13/2023 Moraima Montes De Oca Plan Of Treatment No Information Progress Notes * OTTO HOSKINSDOB:2005 (19 yo F)Acc No.[id number]:11/13/2023 Patient:?OTTO HOSKINS .1Provider:?Moraima SosaB:2005???Age:17 Y???Sex: FemaleDate:4Phone:[phone]:[address] [place] [address]Pcp:Jose Jackson Subjective: * Chief Complaints: * P ROPHY Billing Information: * Procedure Codes: * Electronic signature of Moraima Montes De Oca on 05/12/2025 at 08:45 PM ESTSign off status: Pending * Provider: Meme Bean Date: 0 11/13/2023 Generated for Printing/Faxing/eTransmitting on:?05/12/2025 08:45 PM EST
--- OUTSIDE RECORDS SUMMARY | 2025-04-28 14:00 | XMS_ITS | Encounter Summary ---
Author Organization [facility] Address [address] [place] [address] Care Team Providers Care Health Associate Name Role Phone Scot Block MD Primary Care Provider [phone] Scot Block MD Unavailable Encounter Details DateTypeDepartmentCare Team (Latest Contact Info)Crznrrrdxir60/16/2025 2:00 PM ESTAncillary Procedure NOMElizabeth Bolivar OBGYN [address] [place] [phone] size inconsistent with dates ([facility] Social History Tobacco UseTypesPacks/DayYears UsedDateSmoking Tobacco: NeverSmokeless [...] times a week11/06/2023How often do you attend baptism or latter day services?1 to 4 times per year11/06/2023o you belong to any clubs or organizations such as baptism groups, unions, fraAehr Test Systems or athletic lazarus ups, or school groups?No11/06/2023How [...] at all 11/06/2023HQ-2AnswerDate RecordedPatient Health Questionnaire-2 Score0 03/27/2025[facility] [place] of Occupational Health - Occupational Stress QuestionnaireAnswerDate [...] were you homeless or living in a custodial (including now)? No11/06/2023EducationAnswerDate RecordedWhat is the highest level of school you have completed or the highest degree you have received?High school graduate 01/26/2025Estimated Date of CkakphbkJschvsuaHzz79/15/2026ased on last menstrual period of 09/21/2024Sex and Gender InformationValueDate RecordedSex Assigned at BirthNot on fileLegal UojGrxusa90/15/2023 11:36 PM EDTGender IdentityNot on fileSexual OrientationNot on filedocumented as of this encounter Plan of Treatment DateTypeDepartmentCare Team (Latest Contact Info)Zlqgvtwowzd71/13/2026 8:30 AM ESTAncillary Procedure [facility] Jac BOWIE [address] [place] [phone] 05/26/2025 9:00 AM ESTRoutine [facility] [address] [place] [phone] Armin Leal DO [address] [place] [address] documented as of this encounter Procedures Procedure NamePriorityDate/TimeAssociated DiagnosisCommentsUS OB FOLLOW UP TRANSABDOMINAL MNJWQGAPXpezhqc75/16/2025 2:08 PM EST size inconsistent with dates ([facility]) documented in this encounter Results * US OB follow up transabdominal approach (04/28/2025 2:08 PM EST)Anatomical RegionLateralityModalityBodyUltrasoundSpecimen (Source)Anatomical Location / LateralityCollection Method / VolumeCollection TimeReceived Time04/30/2025 4:52 PM EST Impressions 04/30/2025 4:57 PM EST SINGLE LIVE INTRAUTERINE CORRESPONDING TO APPROXIMATELY within expected due date of June 27, 2025.. NO GROSS ABNORMALITIES IDENTIFIED, WITHIN THE LIMITS OF THE STUDY. ELECTRONICALLY SIGNED BY: DO Gina Steele 04/30/2025 4:57 PM EST US OB FOLLOW [...] Encarnacion DO Authorizing ProviderResult TypeResult StatusSamantha Stokes NPIMG OB US PROCEDURESFinal Result documented in this encounter Visit Diagnoses Diagnosis size inconsistent with dates ([facility]) documented in this encounter Care Teams Team MemberRelationshipSpecialtyStart DateEnd Date Scot Block MD [address] [place] [address] PCP - [facility]06/13/23 Scot Block MD [address] [place] [address] [facility]11/12/23documented as of this encounter
--- OUTSIDE RECORDS SUMMARY | 2025-05-11 13:10 | XMS_ITS | Encounter Summary ---
Author Organization [facility] Address [address] [place] [address] Care Team Providers Care Merchandise Examiner Name Role Phone Scot Block MD Primary Care Provider [phone] Scot Block MD Unavailable Reason for Visit * ReasonCommentsRoutine Visit Encounter Details DateTypeDepartmentCare Team (Latest Contact Info)Eymjsydxvei77/29/2025 1:10 PM ESTRoutine [facility] [address] [place] [address] Bina Vanessa PA [address] [place], [facility]11 33 weeks gestation of ([facility]); Third trimester ([facility]); Current moderate episode of major depressive disorder, unspecified whether recurrent ([facility]); Herpes labialis; Other viral warts; Pruritus; size inconsistent with dates ([facility]) Social History Tobacco UseTypesPacks/DayYears UsedDateSmoking Tobacco: NeverSmokeless [...] times a week11/06/2023How often do you attend lutheran or lutheran services?1 to 4 times per year11/06/2023o you belong to any clubs or organizations such as lutheran groups, unions, fraHuupy or athletic lazarus ups, or school groups?No11/06/2023How [...] at all 11/06/2023HQ-2AnswerDate RecordedPatient Health Questionnaire-2 Score0 04/30/2025[facility] [place] of Occupational Health - Occupational Stress QuestionnaireAnswerDate [...] were you homeless or living in a [place] (including now)? No11/06/2023EducationAnswerDate RecordedWhat is the highest level of school you have completed or the highest degree you have received?High school graduate 01/26/2025Estimated Date of BrnblvhnPtqtrlcqZrc37/15/2026ased on last menstrual period of 09/21/2024Sex and Gender InformationValueDate RecordedSex Assigned at BirthNot on fileLegal MnfIwchbn86/15/2023 11:36 PM EDTGender IdentityNot on fileSexual OrientationNot on filedocumented as of this encounter Last Filed Vital Signs Vital SignReadingTime TakenCommentsBlood Rrnmhanb023/6005/11/2025 1:20 PM EST Pulse--Temperature--Respiratory Rate--Oxygen Saturation--Inhaled Oxygen Concentration--Qenkuw32.2 kg (132 lb 12.8 oz)05/11/2025 1:20 PM ESTHeight--Body Mass Index22.803/ 1:41 PM EDTdocumented in this encounter Progress Notes * SANTIAGO Nazario - 05/11/2025 1:10 PM EST Reason for Appointment: Patient ID: [...] nursing note reviewed. Exam conducted with a support services tech present. Vitals: Estimated body mass index is 21.89 kg/m?? as calculated from the following: Height as of 08/06/24: 5' 4 . Weight as of 04/27/25: 127 lb 8 oz. BP: Patient's last menstrual period was 09/21/2024. Assessment/Plan ICD-10-CM 1. 33 weeks gestation of ([facility]) Z3A.33 2. Third trimester ([facility]) Z34.93 3. Current moderate episode of major depressive disorder, unspecified whether recurrent ([facility]) F32.1 4. Herpes labialis B00.1 5. Other viral warts B07.8 Assessment/Plan Return OB: Patient presents today for a routine obstetrics appointment. Patient is currently 33w1d . Patient states she is doing well but has complaints of being tired due to current . Patient has verbalizes frequent movement. labor precautions was discussed/given and patient was instructed to perform kick counts three times a day. Patient has complaints of itching all over and Benadry not helping. We will order labs at this time. Orders for Growth ultrasound and Valtrex sent in for her. Follow Up: Patient is to return to office in 2 week for routine OB appointment. Documented by Eve Santos LPN on behalf of: SANTIAGO Nazario documented in this encounter Plan of Treatment DateTypeDepartmentCare Team (Latest Contact Info)Vcketdkpxte32/13/2026 8:30 AM ESTAncillary Procedure [facility] [address] [place] [address] 05/26/2025 9:00 AM ESTRoutine [facility] [address] [place] [phone] Armin Leal, DO [address] [place] [address] NameTypePriorityAssociated DiagnosesOrder ScheduleHepatitis C antibodyLabRoutine Pruritus Expected: 05/11/2025 (Approximate), Expires: 05/11/2026Hepatic function panelLab Routine Pruritus Expected: 05/11/2025 (Approximate), Expires: 05/11/2026TSHLabRoutine Pruritus Expected: 05/11/2025 (Approximate), Expires: 05/11/2026ile acids, totalLab Routine Pruritus Expected: 05/11/2025 (Approximate), Expires: 05/11/2026BC and differentialLab Routine Pruritus Expected: 05/11/2025 (Approximate), Expires: 05/11/2026US OB follow up transabdominal approachImagingRoutine size inconsistent with dates ([facility]) Expected: 05/11/2025, Expires: 09/09/2025documented as of this encounter Procedures Procedure NamePriorityDate/TimeAssociated DiagnosisCommentsPOCT URINALYSIS PCQIQWNWOfodhdl46/29/2025 1:26 PM EST 33 weeks gestation of ([facility]) Third trimester ([facility]) documented in this encounter Results * POCT urinalysis dipstick manually resulted (05/11/2025 1:26 PM EST)Component ValueRef RangeTest MethodAnalysis TimePerformed AtPathologist SignatureColor, UAYellowClarity, UAClearGlucose, UANegativeNegative - 2000(110) ++++ mg/dL Bilirubin, UANegativeNegative - 4(70) +++ mg/dLKetones, UANegativeNegative - 160(16) ++++ mg/dLSpec Grav, UA1.0101 - 1.03Blood, UANegativeNegative - 50 Shayne/mcLpH, UA6.05 - 9Protein, UANegativeNegative - 2000(20) ++++ mg/dL Urobilinogen, UA1.00.2 - 12 mg/dLLeukocytes, UANegativeNegative - 500+++ Deysi/mcLNitrite, UANegativeNegative - PositiveSpecimen (Source)Anatomical Location / LateralityCollection Method / VolumeCollection TimeReceived Time Urine05/11/2025 1:26 PM EST Narrative Authorizing ProviderResult TypeResult StatusCar[facility] TEST ENTER/EDIT ORDERABLESFinal Result documented in this encounter Visit Diagnoses Diagnosis 33 weeks gestation of ([facility]) Third trimester ([facility]) state, incidental Current moderate episode of major depressive disorder, unspecified whether recurrent ([facility]) Herpes labialis Herpes simplex without mention of complication Other viral warts Pruritus Unspecified pruritic disorder size inconsistent with dates ([facility]) documented in this encounter Care Teams Team MemberRelationshipSpecialtyStart DateEnd Date Scot Block MD [address] [place] [phone] PCP - [facility]06/13/23 Scot Block MD [address] [place] [phone] PCP - [facility]11/12/23documented as of this encounter
--- OUTSIDE RECORDS SUMMARY | 2025-05-12 20:45 | XMS_ITS | Encounter Summary ---
Author Organization [facility] Address [address] [place] [address] Care Team Providers Care Brand Executive Name Role Phone Scot Block MD Primary Care Provider [phone] Scot Block MD Unavailable Encounter Details DateTypeDepartmentCare Team (Latest Contact Info)Vlxyoedbyed83/29/2025Telephone [facility] OBGYN [address] [place] [place] [address] Nancy Montes LPN [address] [place] [phone] Social History Tobacco UseTypesPacks/DayYears UsedDateSmoking Tobacco: NeverSmokeless [...] times a week11/06/2023How often do you attend judaism or scientologist services?1 to 4 times per year11/06/2023o you belong to any clubs or organizations such as judaism groups, unions, [employer] or athletic lazarus ups, or school groups?No11/06/2023How [...] at all 11/06/2023HQ-2AnswerDate RecordedPatient Health Questionnaire-2 Score0 04/30/2025[facility] [place] of Occupational Health - Occupational Stress QuestionnaireAnswerDate [...] have received?High school graduate 01/26/2025Estimated Date of ZqpnlfvhEbnxmcgzWdp67/15/2026ased on last menstrual period of 09/21/2024Sex and Gender InformationValueDate RecordedSex Assigned at BirthNot on fileLegal SgbQgesam95/15/2023 11:36 PM EDTGender IdentityNot on fileSexual OrientationNot [...] just give me a call back at [phone] at the earliest convenience to you guys, um, I would greatly appreciate that. Thank you. Kayla avendaño. Called pt to let her know that she can take that.PVU documented in this encounter Plan of Treatment DateTypeDepartmentCare Team (Latest Contact Info)Qfnukxpilmg36/13/2026 8:30 AM ESTAncillary Procedure [facility] [address] [place] [address] 05/26/2025 9:00 AM ESTRoutine [facility] OBHERIBERTON [address] [place] [phone] Armin Leal DO [address] [facility] [address] [place] [address] documented as of this encounter Visit Diagnoses Not on filedocumented in this encounter Care Teams Team MemberRelationshipSpecialtyStart DateEnd Date Scot Block MD [address] [place] [address] PCP - [facility]06/13/23 Scot Block MD [address] [place] [address] PCP - [facility]11/12/23documented as of this encounter
--- OUTSIDE RECORDS SUMMARY | 2025-05-12 20:45 | XMS_ITS | Encounter Summary ---
Author Organization [facility] Address [address] [place] [address] Care Team Providers Care Hardware Installation Coordinator Name Role Phone Scot Block MD Primary Care Provider [phone] Scot lBock MD Unavailable Encounter Details DateTypeDepartmentCare Team (Latest Contact Info)Hhfpjjlvhux85/18/2025Clinisync Result Encounter [facility] Department Unsolicited Armin Leal, DO [address] [place] [address] Social History Tobacco UseTypesPacks/DayYears UsedDateSmoking Tobacco: NeverSmokeless [...] week11/06/2023How often do you attend druze or episcopal services?1 to 4 times per year11/06/2023o you belong to any clubs or organizations such as druze groups, unions, frafflap or athletic lazarus ups, or school groups?No11/06/2023How [...] at all 11/06/2023HQ-2AnswerDate RecordedPatient Health Questionnaire-2 Score0 04/30/2025[facility] [place] of Occupational Health - Occupational Stress QuestionnaireAnswerDate [...] were you homeless or living in a jail (including now)? No11/06/2023EducationAnswerDate RecordedWhat is the highest level of school you have completed or the highest degree you have received?High school graduate 01/26/2025Estimated Date of WwwhctzhNxzdlgcsGbx93/15/2026ased on last menstrual period of 09/21/2024Sex and Gender InformationValueDate RecordedSex Assigned at BirthNot on fileLegal HoeAqmrve31/15/2023 11:36 PM EDTGender IdentityNot on fileSexual OrientationNot on filedocumented as of this encounter Plan of Treatment DateTypeDepartmentCare Team (Latest Contact Info)Fsctlwfvisl52/13/2026 8:30 AM ESTAncillary Procedure [facility] [address] [place] [phone] 05/26/2025 9:00 AM ESTRoutine [facility] [address] [place] [phone] Armin Leal, [address] [place] [address] documented as of this encounter Procedures Procedure NamePriorityDate/TimeAssociated DiagnosisCommentsGLUCOSE TOLERANCE 3 QANTUhggtjj92/18/2025 10:05 AM EST documented in this encounter [...] Date Scot Block MD [address] [place] [address] PCP - [facility]06/13/23 Scot Block MD [address] [place] [address] PCP - [facility]11/12/23documented as of this encounter
--- OUTSIDE RECORDS SUMMARY | 2025-05-12 20:45 | XMS_ITS | CCD ---
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 Dr. Nayana Martinez #6.0 103/ulNormal1.4-6.5The [facility] HospitalComment on above:Performed By: #### CBC #### [facility] [address] [place] [address] Dr. Nayana Shirleyutrophils/100 WBC (Bld)69.7 %Pfrwxg93.0-75.0The [facility] HospitalComment on above:Performed By: #### CBC #### [facility] [address] [place] [address] Dr. Nayana Gabriel mean volume (Bld) [Entitic vol]9.2 fLCritically low 9.5-13.5The [facility] HospitalComment on above:Performed By: #### CBC #### [facility] [address] [place] [address] Dr. Nayana TolentinoPLT211 103/zjRiukod374-255Wdm [facility] HospitalComment on above: Performed By: #### CBC #### [facility] [address] [address] [address] Nayana TolentinoRBC4.27 106/ulNormal3.40-5.30The [facility] HospitalComment on above:Performed By: #### CBC #### [facility] [address] [place] [address] Dr. Nayana TolentinoWBC8.6 103/ulNormal4.0-11.0The [facility] HospitalComment on above: Performed By: #### CBC #### [facility] [address] [place] [address] Dr. Nayana Hale URINE PROFILEon 68-90-9023Oxmiupmii Ql (U)NegativeNormal NEGATIVEThe [facility] HospitalComment on above:Performed By: #### BARRY VILLALOBOS, PREGU #### [facility] [address] [place] [address] Dr. Nayana Israelarity (U)CLEARNormalCLEARThe [facility] HospitalComment on above: Performed By: #### CAILINRELBAICTEQUILA, PREGU #### [facility] [address] [place] [address] Dr. Nayana Stratton (U)LT. YELLOWNormalYELLOWThe [facility] HospitalComment on above:Performed By: #### CAILINRELBAICRO, PREGU #### [facility] [address] [place] [address] Dr. Nayana MillanAHDA micrscopic examination will be performed if indicated. NormalThe [facility] HospitalComment on above:Performed By: #### ERUR UMICRO, PREGU #### [facility] [address] [address] [address] Nayana TolentinoGlucose Ql (U)NegativeNormalNEGATIVEHarrison Community HospitalComment on above:Performed By: #### CAILINR, ELBAICRO, PREGU #### [facility] [address] [address] [address] Nayana TolentinoHemoglobin Ql (U)LARGEAbnormalNEGATIVEHarrison Community Hospital Comment on above:Performed By: #### CAILINR, UMICRO, PREGU #### [facility] [address] [address] [address] Nayana TolentinoKetones Ql (U)NegativeNormalNEGATIVEHarrison Community HospitalComment on above:Performed By: #### CAILINRELBAICRO, PREGU #### [facility] [address] [address] [address] Nayana TolentinoLEUKOCYTESLARGEAbnormalNEGATIVEHarrison Community HospitalComment on above:Performed By: #### DIGNA VILLALOBOSRO, PREGU #### [facility] [address] [address] [address] Nayana TolentinoNitrite Ql (U)PositiveAbnormalNEGDayton VA Medical Center Comment on above:Performed By: #### CAILINRELBAICRO, PREGU #### [facility] [address] [address] [address] Nayana TolentinopH (U)6.0 [pH]Normal5-9The [facility] HospitalComment on above: Performed By: #### CAILINR, UMICRO, PREGU #### [facility] [address] [address] [address] Nayana TolentinoSPEC GRAVITY1.551Zgnjfp0.005-<=1.025The [facility] HospitalComment on above:Performed By: #### CAILINR, UMICRO, PREGU #### [facility] [address] [address] [address] Nayana TolentinoUA PROTEINTRACENormalNEGATIVE/ TRACEThe [facility] HospitalComment on above:Performed By: #### CAILINR, UMICRO, PREGU #### [facility] [address] [address] [address] Nayana TolentinoUR MICRO INDINDICATEDNormalThe [facility] HospitalComment on above: Performed By: #### BARRY VILLALOBOS, PREGU #### [facility] [address] [place] [address] Dr. Nayana TolentinoUrobilinogen Qn (U)0.2 {Gabriel'U}/dLNormal0.2 - 1.0The [facility]ons HospitalComment on above:Performed By: #### BARRY VILLALOBOS, PREGU #### [facility] [address] [place] [address] Dr. Nayana TolentinoPREGNANCY URon 05-34-8930DJVBFOLXW, QUALNegativeNormalNEGATIVEThe [facility] HospitalComment on above:Performed By: #### BARRY VILLALOBOS, PREGU #### [facility] [address] [place] [address] Dr. Nayana LazaroF CHEM 8 (BAS METB)on 38-98-4334Hbfeq gap [Moles/Vol]11.6 mmol/LNormalThe [facility] HospitalComment on above:Performed By: #### BMP #### [facility] [address] [place] [address] Dr. Nayana TolentinoCalcium [Mass/Vol]8.8 mg/dLNormal8.5-10.1[facility] Comment on above:Performed By: #### BMP #### [facility] [address] [place] [address] Dr. Nayana TolentinoChloride [Moles/Vol]106 mmol/CGcxqvo17-524Hge [facility] Comment on above:Performed By: #### BMP #### [facility] [address] [place] [address] Dr. Nayana TolentinoCO2 [Moles/Vol]27.3 mmol/CZxqhec18.0-32.0The [facility] Comment on above:Performed By: #### BMP #### [facility] [address] [place] [address] Dr. Nayana TolentinoCreatinine [Mass/Vol]0.66 mg/dLNormal0.55-1.02The [facility] HospitalComment on above:Performed By: #### BMP #### [facility] [address] [place] [address] Dr. Kraus ChangEGFR-AF SLOVAK>60Normal>=60The [facility] HospitalComment on above:Performed By: #### BMP #### [facility] [address] [address] [address] Nayana CaleroGFR-NON AF SLOVAK>60Normal>=60The [facility] HospitalComment on above:Performed By: #### BMP #### [facility] [address] [place] [address] Dr. Nayana TolentinoGlucose [Mass/Vol]81 mg/bRYqqfle46-170Zji [facility] Comment on above:Performed By: #### BMP #### [facility] [address] [place] [address] Dr. Nayana TolentinoPotassium [Moles/Vol]3.9 mmol/LNormal3.5-5.1[facility] Comment on above:Performed By: #### BMP #### [facility] [address] [place] [address] Dr. Nayana TolentinoSodium [Moles/Vol]141 mmol/QJelwvw114-510Aaq [facility] Comment on above:Performed By: #### BMP #### [facility] [address] [place] [address] Dr. Nayana TolentinoUrea nitrogen [Mass/Vol]8.0 mg/dLNormal6.4-19.3The [facility] HospitalComment on above:Performed By: #### BMP #### [facility] [address] [place] [address] Dr. Nayana Gay nitrogen/Creatinine [Mass ratio]12.1 mg/mgNormalThe [facility] HospitalComment on above:Performed By: #### BMP #### [facility] [address] [place] [address] Dr. Nayana TolentinoURINE MICROSCOPIC ONLYon 56-97-2953JWICCYHGRVNJRArwjfsulKLMU SEEN The [facility] HospitalComasc[facility] on above:Performed By: #### ERUR, UMICRO, PREGU #### [facility] [address] [place] [address] Dr. Nayana Vidales identified Cx Nom (U)INDICATEDTwo Rivers Psychiatric HospitalalThOhioHealth Grant Medical CenterComment on above:Performed By: #### ERUR, UMICRO, PREGU #### [facility] [address] [place] [address] Dr. Nayana HenryNONE SEENNormalNONE SEENProMedica Flower Hospital on above:Performed By: #### ERUR, UMICRO, PREGU #### [facility] [address] [place] [address] Dr. Nayana Estrella LM Nom (Urine sed)NONE SEENNormalNONE SEENThe [facility] on above:Performed By: #### ERUR, UMICRO, PREGU #### [facility] [address] [place] [address] Dr. Kraus ChangEpithelial cells LM Ql (Urine sed)FEWAbnormalNONE SEEN /RAREThe [facility] on above:Performed By: #### ERUR, UMICRO, PREGU #### [facility] [address] [place] [address] Dr. Nayana RameshUSKEIKOE SEENScotland County Memorial HospitalE SEENProMedica Flower Hospital on above:Performed By: #### ERUR, UMICRO, PREGU #### [facility] [address] [place] [address] Dr. Nayana TolentinoImuecTZP3-73Knbeydnm7-6Fjx [facility] on above:Performed By: #### ERUR, UMICRO, PREGU #### [facility] [address] [place] [address] Dr. Nayana TolentinoFjfiyQGD27-93VqyocewqDWZV SEENProMedica Flower Hospital on above: Performed By: #### ERUR, UMICRO, PREGU #### [facility] [address] [place] [address] Dr. Nayana TolentinoXR ABD FLAT_UPon [id number] ABD FLAT_UPEXAMINATION: XR ABD FLAT_UP HISTORY: Abdominal pain COMPARISON: No relevant comparison available. FINDINGS: BOWEL GAS PATTERN: Non-obstructed. No abnormal dilation. FREE AIR: None. CALCIFICATIONS: None significant. BONES: No fracture or visible bone lesion. OTHER: Negative. IMPRESSION: 1. No acute or suspicious findings to account for patients symptoms. Electronically authenticated by: AYO MAYER Date: 2021-11-28 15:16NoTriHealth Bethesda Butler HospitalCovid-19 PCR (CVDTB)on 95-17-3338PUXJ-CoV-2 (COVID-19) RNA YOBANY+probe Ql (Unsp spec)Not detectedNormalNOT DETECTEDThe [facility] Comment on above:Result Comment: This test is not yet approved or cleared by the [place] FDA. When there are no FDA-approved or cleared tests available, and other criteria are met, FDA can make tests available under an emergency access mechanism called an Emergency Use Authorization (EUA). The EUA for this test is supported by the Estimator And Drafter of Health and Human Service's (HHS's) declaration [...] consistent with SARS-CoV-2.Performed By: #### CVDTB #### [facility] [id number] Nayana Tolentino Vital Signs Date TimeVital SignValuePerforming BmnkldywdCqicvnrr24-36-7483 14:59-0400Body mass index (BMI) [Ratio]21.28 kg/m2Bina HENDERSON Work Phone: [facility] LouisDtlidojfyx21-25-0015 14:59-0400Body yrgmrm12.25 kgBina HENDERSON Work Phone: [facility] LouisKpbhaltbsg96-35-3138 14:59-0400Diastolic blood odaybzhc80 mm[Hg]Bina Rasheeda HENDERSON Work Phone: [facility] LouisOhvmscylsm51-54-5457 14:59-0400Systolic blood acrjiydt323 mm[Hg]Bina Rasheeda HENDERSON Work Phone: [phone] [place], [place] [address]Cvzcynbryu28-68-9705 15:28-0400Body mass index (BMI) [Ratio]19.88 kg/t2Tzpqw Elvis DO Work Phone: [phone] [place], [place] [address]Mtyilrnoum88-19-8273 15:28-0400Body oimwfo68.53 kgCorey Elvis DO Work Phone: [facility] LouisPqmtrwzlcz66-28-7449 15:28-0400Diastolic blood jaihijlw06 mm[Hg]Daniela Elvis DO Work Phone: [phone])189-[facility] LouisNnajsjadow77-51-3032 15:28-0400Systolic blood hxqgytfs03 mm[Hg]Daniela Elvis DO Work Phone: [phone] [place], [place] [address]Elraxibejq12-33-9001 14:39-0400Body mass index (BMI) [Ratio]19.4 kg/v9Ardau Elvis DO Work Phone: [phone] [place], [place] [address]Dhaebocptd95-80-3769 14:39-0400Body acfyny14.26 kgCorey Elvis DO Work Phone: [phone]-[facility] LouisNdopysfgie18-34-3161 14:39-0400Diastolic blood rbemrfub78 mm[Hg]Daniela Elvis DO Work Phone: [phone])728-[address] [place] [address]-27-2025 14:39-0400Systolic blood xvykixdo622 mm[Hg]Daniela Elvis DO Work Phone: [phone] [place], [place] [address]Ptnfaryokp73-63-4115 15:23-0400Body mass index (BMI) [Ratio]19.31 kg/g0Vzyll Elvis DO Work Phone: [address] [address]Yzxtpquymw36-15-9524 15:23-0400Body .03 kgCorey Elvis DO Work Phone: [facility] LouisQcwsynfmet04-33-3110 15:23-0400Diastolic blood ssjdxtus22 mm[Hg]Daniela Elvis DO Work Phone: [facility] LouisTbxlcrnjco37-76-7466 15:23-0400Systolic blood biqoggua00 mm[Hg]Daniela Suo DO Work Phone: [facility] LouisXftpukvdax54-36-7611 13:28-0400Body mass index (BMI) [Ratio]18.56 kg/m6TiszaSt[facility]07-17-2025 13:28-0400Body weight 49.04 kgStony Brook [facility] Hospital07-17-2025 13:28-0400Diastolic blood yexhqypx88 mm[Hg][facility]07-17-2025 13:28-0400Systolic blood raugwnev263 mm[Hg][facility]04-15-2025 14:02-0400Body mass index (BMI) [Ratio] 17.47 kg/t8Ccvoc Elvis DO Work Phone: [facility] LouisUgpijkkoqr24-77-7844 14:02-0400Body cgzftu26.15 kgCorey Elvis DO Work Phone: [facility] LouisEehtyjpnop18-59-0315 14:02-0400Diastolic blood meoljzfy69 mm[Hg]Daniela Suo DO Work Phone: [facility] LouisYuwqpqgjwm66-29-4585 14:02-0400Systolic blood xjejwvme123 mm[Hg]Daniela Leal DO Work Phone: [facility] LouisNyddncbfas00-67-2124 13:41-0400Body .6 cmScot Dalton MD Work Phone: [facility] LouisOmxsquvctg14-96-7377 13:41-0400Body mass index (BMI) [Ratio]17.34 kg/m2Scot Dalton MD Work Phone: [facility] LouisRvexscmzpe86-33-8127 13:41-0400Body temperature 97.81 [degF]Scot Dalton MD Work Phone: noSt. Joseph Medical CenterHamlyqcnug87-70-8352 13:41-0400Body opmdbx70.81 kgScot Dalton MD Work Phone: noSt. Joseph Medical CenterLarmhkvieh30-24-2844 13:41-0400Diastolic blood cmbupocm77 mm[Hg]Scot Dalton MD Work Phone: [facility] LouisNfwaokmuih21-28-3517 13:41-0400Heart lyyl293 /min Scot Dalton MD Work Phone: [facility] LouisOpiaidcnyj44-72-9136 13:41-0400Respiratory rate20 /minScot Dalton MD Work Phone: [facility] LouisVmcjjuzlwi47-24-5766 13:41-1763AyH5% (BldA) [Mass fraction]98 %Scot Dalton MD Work Phone: [facility] LouisCbdzjoiceu34-85-7044 13:41-0400Systolic blood ufqdqrlv453 mm[Hg]Scot Dalton MD Work Phone: [facility] LouisXovzrpokkd50-95-7083 14:39-0500Body utowdc198.6 cmScot Dalton MD Work Phone: noSt. Joseph Medical CenterNswwsbhzob62-28-2837 14:39-0500Body mass index (BMI) [Ratio]17.68 kg/m2Scot Dalton MD Work Phone: noSt. Joseph Medical CenterWnesmhggjv04-78-7406 14:39-0500Body temperature 97.5 [degF]Scot Dalton MD Work Phone: [facility] LouisCqfmussess49-17-6603 14:39-0500Body jhnfqu03.72 kgScot Dalton MD Work Phone: noSt. Joseph Medical CenterXxqjszrdzq40-33-3955 14:39-0500Diastolic blood juspmgqy20 mm[Hg]Scot Dalton MD Work Phone: noSt. Joseph Medical CenterWucbzjkgrc71-32-4890 14:39-0500Heart ijmy698 /min Scot Dalton MD Work Phone: [facility] LouisYnpdryyytj64-29-6854 14:39-0500Respiratory rate22 /minMarc Krystle GARCIA Work Phone: noSt. Joseph Medical CenterTdlrovrmiy67-85-7906 14:39-0144IaV5% (BldA) [Mass fraction]99 %Scot Dalton MD Work Phone: noSt. Joseph Medical CenterKqzgcpujdj67-28-8096 14:39-0500Systolic blood hsgmwmve30 mm[Hg]Scot Dalton MD Work Phone: [facility] LouisRmjpzbyfje38-75-2428 18:02-0400Body savzsd334.99 cmSTAFF, [facility]05-07-2021 18:02-0400Body mass index (BMI) [Ratio]17.1 kg/v9TFJCESelect Medical [facility]05-07-2021 18:02-0400Body iycsau17.55 kgSTRIVERSIDE BEH[facility]IOR[facility], [facility]05-07-2021 17:56-0400Body rklwyfxurmk10.6 [degF]STAFF, [facility] 09-17-2020 17:56-0400Diastolic blood uvwloatn11 mm[Hg]STAFF, [facility]05-07-2021 17:56-0400Heart rate94 /minSTAFF, [facility]05-07-2021 17:56-0400Respiratory rate16 /minSTAFF, [facility]05-07-2021 17:56-6372OuN3% (BldA) [Mass fraction] 95 %STAFF, [facility]05-07-2021 17:56-0400Systolic blood jsadyunp512 mm[Hg]STAFF, [facility] Encounters Encounter DateEncounter TypeCare ProviderFacilityStart: 02-24-2025 End: 85-51-8886zbqlgdqhfgRWQ RAMEYNot AvailableStart: 02-24-2025 End: 44-48-2894Fwgasw outpatient visit 15 minutesBina HENDERSON Work Phone: noms [place] OBGYNComment on above:Second trimester ([facility] 22 weeks gestation of ([facility]); Diabetes mellitus screeningStart: 02-24-2025 End: 61-13-8968Fmgicb flowsFlory HENDERSON Work Phone: NO [facility] OBGYNStart: 02-24-2025 End: 73-31-5038Gylnwg Hannah HENDERSON Work Phone: NOMS [facility] OBGYNStart: 02-09-2025 End: 09-09-3906xostxbvehwMLDN NADERERNot AvailableStart: 02-09-2025 End: 86-74-8644Mtqyutzkl Result EncounterCorey Elvis DO Work Phone: NOYU External Department UnsolicitedStart: 02-09-2025 End: 60-53-9884Wwbgcsoll Result EncounterCorey Elvis DO Work Phone: noms External Department UnsolicitedStart: 01-26-2025 End: 71-30-5614hrdnrlnylfNKPSC FAZIONot AvailableStart: 01-26-2025 End: 50-98-2948Mnnntj outpatient visit 15 minutesCorey Elvis DO Work Phone: NOMS [facility]ons OBGYNComment on above:Second trimester ([facility]) (Primary Dx); Screening, , for anatomic survey ([facility])Start: 01-07-2025 End: 43-34-3488Yrqxka outpatient visit 15 minutesCorey Elvis DO Work Phone: NOMS [place] OBGYNComment on above:Second trimester ([facility]); 15 weeks gestation of ([facility]); RashStart: 01-07-2025 End: 72-97-5573iksfkmgeqkMFDLS FAZIONot AvailableStart: 01-07-2025 End: 05-40-2927Ghlvqm flowsheetCorey Elvis DO Work Phone: NOMS [facility] OBGYNStart: 01-07-2025 End: 82-59-7744Bmvdsw flowsheetCorey Elvis DO Work Phone: NO [facility] OBGYNStart: 12-29-2024 End: 34-83-9957Fafmzi outpatient visit 15 minutesCorey Elvis DO Work Phone: no [place] OBGYNComment on above:Second trimester ([facility] 14 weeks gestation of ([facility])Start: 12-29-2024 End: 94-02-6602wjsnocnkvfZWYOJ FAZIONot AvailableStart: 12-18-2024 End: 17-17-3359Nrcetdure encounterMontserrat Isaac WEI [facility] Start: 12-01-2024 End: 32-35-1330Bnaqkzbvx Result EncounterGeneric External Data ProviderNOMS External Department UnsolicitedStart: 12-01-2024 End: 48-86-3964Lhumbdapq Result EncounterGeneric External Data ProviderNOMS External Department UnsolicitedStart: 11-27-2024 End: 80-93-4706Cpiqhm outpatient visit 5 minutesFazio Nurse Noms Bcp ObNOMS BCP OBComment on above:GA: 3a1fRqxap: 11-27-2024 End: 83-15-0241dsvwhygtgkICSD NADERERNot AvailableStart: 08-26-2024 End: 93-27-2922Txnucd flowsheetCorey Elvis DO Work Phone: NOMS BCP OBStart: 08-26-2024 End: 67-00-1622Twfmcm flowsheetCorey Elvis DO Work Phone: NOMS BCP OBStart: 08-26-2024 End: 62-00-9157Bzquxjfei Result EncounterGeneric External Data ProviderNOMS External Department UnsolicitedStart: 08-26-2024 End: 26-64-0080Grguicri Result EncounterCorey Elvis DO Work Phone: NOMS External Department UnsolicitedStart: 08-26-2024 End: 64-58-5656Pptnaz outpatient visit 15 minutesCorey Elvis DO Work Phone: NOBN BCP OBComment on above:STD exposure; Vaginal discharge; Sexually transmitted disease exposureStart: 08-26-2024 End: 59-76-2773rgsxbvooujTBUEM FAZIONot AvailableStart: 08-06-2024 End: 77-61-6651Nufvuj Davonte Dalton MD Work Phone: NOMS CWM FMStart: 08-06-2024 End: 83-10-5295Uncijl Davonte Dalton MD Work Phone: NOMS CWM FMStart: 08-06-2024 End: 92-46-3092Ferouw outpatient visit 25 minutesScot Dalton MD Work Phone: NOMS CWM FMComment on above:Generalized anxiety disorder (CMS/HCC) (Primary Dx); Psychophysiological insomnia; Postural orthostatic tachycardia syndrome (POTS); Other viral warts; Increased sensitivity to painful stimulusStart: 08-06-2024 End: 39-66-5910uowtaueafxDRIM NADERERNot AvailableStart: 07-03-2024 End: 87-44-3710ramrnlmaovWNVM NADERERNot AvailableStart: 07-03-2024 End: 22-44-4910Xowzma outpatient visit 25 minutesScot Dalton MD Work Phone: noms CWM FMComment on above:Generalized anxiety disorder (CMS/HCC) (Primary Dx); Postural orthostatic tachycardia syndrome (POTS); Psychophysiological insomniaStart: 07-03-2024 End: 22-25-8782Pfaigg Davonte Dalton MD Work Phone: NOMS CWM FMStart: 07-03-2024 End: 22-12-0843Wmomtj Davonte Dalton MD Work Phone: NOTO CWM FMStart: 06-23-2024 End: 77-74-4499Lqdreypjy Result EncounterGeneric External Data ProviderNOMS External Department UnsolicitedStart: 06-23-2024 End: 20-84-6475Skrdtrhxm Result EncounterGeneric External Data ProviderNOMS External Department UnsolicitedStart: 05-05-2024 End: 20-26-4117sgbxvrfswuEEWEV FAZIONot AvailableStart: 05-05-2024 End: 14-56-7032Rlegwmu encounter procedureCorey Elvis DO Work Phone: NOEV BCP OBComment on above:Encounter for IUD removal Start: 04-24-2024 End: 28-77-7747Qlddnkstz Result EncounterCorey Elvis DO Work Phone: NOFL External Department UnsolicitedStart: 04-24-2024 End: 98-50-1740Ihtqfjjng Result EncounterCorey Elvis DO Work Phone: NOVE External Department UnsolicitedStart: 04-09-2024 End: 46-33-9565Zyuqnujrh encounterMarwaqas Dalton MD Work Phone: noms CWM FMComment on above:Med RefillStart: 01-20-2024 End: 82-22-2312Qonliffto Result EncounterGeneric External Data ProviderNOMS External Department UnsolicitedStart: 01-20-2024 End: 89-14-3296Mcodfmezi Result EncounterGeneric External Data ProviderNOMS External Department UnsolicitedStart: 16-69-0858Rykrcx Davonte Dalton MD Work Phone: noms CWM FMStart: 89-09-0572Hgvskl Davonte Dalton MD Work Phone: noms CWM FMStart: 04-20-2022 End: 87-12-4909mdfzzvageoHT SCOT A NADERERFacility:F4Trjra: 11-28-2021 End: 75-73-2066kvprusgnhyKA SCOT A NADERERFacility:A2Uvpkv: 04-26-2021 End: 96-58-2432vupkwypwetAH SCOT A NADERERFacility:W7Gyfmk: 09-17-2020 End: 88-23-0522Igbejxugo department patient visitSTA, [facility] Procedures DateProcedureProcedure DetailPerforming ClinicianStart: 28-18-3647Kgohq dip stick/tablet rgnt non-auto w/o micrscpAmy Rasheeda PA Work Phone: Start: 81-00-2491TWG, SERUM, OPEN SPINA BIFIDACorey Elvis DO Work Phone: Start: 65-12-3367Gnavo dip stick/tablet rgnt non-auto w/o micrscpCorey Elvis DO Work Phone: Start: 66-33-6488Rpevb dip stick/tablet rgnt non-auto w/o micrscpCorey Elvis DO Work Phone: Start: 91-99-0766VUF TESTCorey Elvis DO Work Phone: Start: 11-27-2024 End: 99-50-2045Ehkhv dip stick/tablet rgnt non-auto w/o micrscpCorey Elvis DO Work Phone: Start: 97-46-7511BTG AB/P24 AG WITH REFLEXCorey Elvis DO Work Phone: Start: 89-45-1497IZICSLALW VAGINITIS (HTRX)Daniela Elvis DO Work Phone: Start: 33-50-2198KNSGV RESPIRATORY CULTUREGeneric External Data ProviderStart: 30-75-8871BBB REMOVALCorey Elvis DO Work Phone: Start: 93-98-0160TC PELVIS TRANSVAGINALCorey Elvis DO Work Phone: Start: 95-43-5469Hlbfpxty identified in Urine by CultureGeneric External Data Provider Plan of Treatment DateCare ActivityDetailAuthorStart: 03-25-2025 End: 51-69-7039Uqqiyle encounter tibhrdktn51/12/2025 2:20 PM EST Routine [facility] [address] [place], [id number] Daniela Leal, DO [address] [place] [address] [facility] OBGYNStart: 02-24-2025 End: 31-58-5211Vctdeeb encounter yqbbpkkjq37/14/2025 2:40 PM EDT Routine NOMElizabeth BOWIE [address] [place], [phone] Bina Vanessa PA [address] [facility] [place] [address] [facility] OBGYNStart: 02-24-2025 End: 34-19-6680JLP panel - Blood by Automated countCBC Lab Routine Diabetes mellitus screening Expected: 02/24/2025 (Approximate), Expires: 02/24/2026NORI HealthcareComment on above:Expected: 02/24/2025 (Approximate), Expires: 02/24/2026Start: 02-24-2025 End: 12-75-9062Olqzvhwwozu of glucose 1 hour after glucose challenge for glucose tolerance testGlucose tolerance, 1 hour Lab Routine Diabetes mellitus screening Expected: 02/24/2025 (Approximate), Expires: 02/24/2026NORI HealthcareComment on above:Expected: 02/24/2025 (Approximate), Expires: 02/24/2026Start: 02-09-2025 End: 22-69-8383Smfnyhyqdyca / ancillary services ovianfccts27/29/2025 2:30 PM EDT Ancillary Procedure [facility] [address] [place] [phone] [facility] OBGYNStart: 01-26-2025 End: 86-63-2252Bbmrzud encounter bhamaqjmt56/15/2025 3:10 PM EDT Routine NOMElizabeth BOWIE [address] [place], [id number] Daniela Leal DO [address] [place] [address] [facility] OBGYNStart: 01-26-2025 End: 28-07-4980Ncmjn fetoprotein, maternalAlpha fetoprotein, maternal Lab Routine Second trimester ([facility]) Expected: 01/26/2025 (Approximate), Expires: 03/28/2025[facility] Work Phone: comment on above:Expected: 01/26/2025 (Approximate), Expires: 03/28/2025Start: 01-26-2025 End: 78-85-9819JG for pregnancyUS OB 14+ weeks anatomy scan Imaging Routine Screening, , for anatomic survey ([facility]) Expected: 01/26/2025, Expires: 04/27/2025[facility] Work Phone: comment on above:Expected: 01/26/2025, Expires: 04/27/2025Start: 92-38-4365XXXCC-19 Vaccine ( season)COVID-19 Vaccine ()NOMS HealthcareStart: 29-44-5532Eitkpbvbx vaccinationNOMS HealthcareStart: 01-07-2025 End: 66-47-8949Mcvttoe encounter iyxuoppwg83/27/2025 2:20 PM EDT Routine [facility] [place] [facility] [address] [place], [id number] Daniela Leal, [address] [facility] [address] [place], [place] [phone] ArrivedNOMS [place] OBGYNComment on above:ArrivedStart: 12-29-2024 End: 64-94-7230Yfqpayz encounter procedureNOMS BCP OBStart: 11-27-2024 End: 80-52-7852YSP/RhABO/Rh Lab Routine Missed menses , unspecified gestational age ([facility]) Expected: 11/27/2024 (Approximate), Expires: 11/27/2025NOMS HealthcareComment on above:Expected: 11/27/2024 (Approximate), Expires: 11/27/2025Start: 11-27-2024 End: 79-01-6505Tvmxj type and Indirect antibody screen panel - BloodType and screen Lab Routine Missed menses , unspecified gestational age ([facility]) Expected: 11/27/2024 (Approximate), Expires: 11/27/2025[facility] Work Phone: comment on above:Expected: 11/27/2024 (Approximate), Expires: 11/27/2025Start: 11-27-2024 End: 91-70-4290Wfbmi of abuse panel - Urine by Screen methodRapid drug screen, urine Lab Routine , unspecified gestational age ([facility]) Encounter for supervision of normal first in first trimester ([facility]) Expected: 11/27/2024 (Approximate), Expires: 11/27/2025NOMS HealthcareComment on above: Expected: 11/27/2024 (Approximate), Expires: 11/27/2025Start: 10-07-2024 End: 01-33-3470Vidikfp encounter italadqkw54/27/2025 1:45 PM EDT Office Visit [facility] [address] [place] [address] Scot Dalton MD [address] [place] [address] [facility] FMStart: 08-26-2024 End: 23-06-1824Rkxkvnm encounter mlbphdtju57/15/2025 1:40 PM EDT Office Visit [facility] [address] [place] [phone] Daniela Leal DO [address] [place] [place], [place] [phone] ArrivedNOMS BCP OBComment on above:ArrivedStart: 08-06-2024 End: 24-32-5159Aptsdrk encounter procedureNOMS CWM FMComment on above:Arrived Start: 01-29-2024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
--- OUTSIDE RECORDS SUMMARY | 2025-05-12 20:45 | XMS_ITS | Encounter Summary ---
Author Organization [facility] Address [address] [place] [address] Care Team Providers Care Practicing Md Anesthesiologist Name Role Phone Scot Block MD Primary Care Provider [phone] Scot Block MD Unavailable Encounter Details DateTypeDepartmentCare Team (Latest Contact Info)Wusojzelmne77/30/2025Telephone [facility] [address] [place] [address] Nancy Montes LPN [address] [id number] Social History Tobacco UseTypesPacks/DayYears UsedDateSmoking Tobacco: NeverSmokeless [...] week11/06/2023How often do you attend mu-ism or zoroastrian services?1 to 4 times per year11/06/2023o you belong to any clubs or organizations such as mu-ism groups, unions, [employer] or athletic lazarus ups, or school groups?No11/06/2023How [...] at all 11/06/2023HQ-2AnswerDate RecordedPatient Health Questionnaire-2 Score0 04/30/2025[facility] [place] of Occupational Health - Occupational Stress QuestionnaireAnswerDate [...] living in a senior care (including now)? No11/06/2023EducationAnswerDate RecordedWhat is the highest level of school you have completed or the highest degree you have received?High school graduate 01/26/2025Estimated Date of DabjcycdDgxweaomUds06/15/2026ased on last menstrual period of 09/21/2024Sex and Gender InformationValueDate RecordedSex Assigned at BirthNot on fileLegal VlmVmcqhx61/15/2023 11:36 PM EDTGender IdentityNot on fileSexual OrientationNot on filedocumented as of this encounter Miscellaneous Notes * Telephone Encounter - Nancy Montes LPN - 05/12/2025 3:17 PM EST T called wanting to go over lab results. We went over lab results. She wondered what she could do for the itching. I told her to try Pepcid and zyrtec. She asked if that could be sent into her pharmacy. I told her that I could do that documented in this encounter Plan of Treatment DateTypeDepartmentCare Team (Latest Contact Info)Gkvolhvjkyx51/13/2026 8:30 AM ESTAncillary Procedure [facility] [address] [place] [address] 05/26/2025 9:00 AM ESTRoutine [facility] [address] [place] [address] Armin Leal DO [address] [place] [address] documented as of this encounter Visit Diagnoses Diagnosis Gastroesophageal reflux in ([facility]) Pruritus Unspecified pruritic disorder documented in this encounter Care Teams Team MemberRelationshipSpecialtyStart DateEnd Date Scot Block MD [address] [place] [address] PCP - [facility]06/13/23 Scot Block MD [address] [place] [address] PCP - [facility]11/12/23documented as of this encounter
--- OUTSIDE RECORDS SUMMARY | 2025-05-12 20:45 | XMS_ITS | Encounter Summary ---
Author Organization [facility] Address [address] [place] [address] Care Team Providers Care Virtualization Consultant Name Role Phone Scot Block MD Primary Care Provider [phone] Scot Block MD Unavailable Encounter Details DateTypeDepartmentCare Team (Latest Contact Info)Tcpbwsuksnb44/29/2025Clinisync Result Encounter [facility] Unsolicited Bina Vanessa PA [address] [place] [address] [place] [address] Social History Tobacco UseTypesPacks/DayYears UsedDateSmoking Tobacco: NeverSmokeless [...] times a week11/06/2023How often do you attend sabianism or yazidism services?1 to 4 times per year11/06/2023o you belong to any clubs or organizations such as sabianism groups, unions, [employer] or athletic lazarus ups, or school groups?No11/06/2023How [...] Questionnaire-2 Score0 04/30/2025[facility] [place] of Occupational Health - Occupational Stress QuestionnaireAnswerDate [...] living in a senior living (including now)? No11/06/2023EducationAnswerDate RecordedWhat is the highest level of school you have completed or the highest degree you have received?High school graduate 01/26/2025Estimated Date of SokafmggCsezdviaLts53/15/2026ased on last menstrual period of 09/21/2024Sex and Gender InformationValueDate RecordedSex Assigned at BirthNot on fileLegal XjrEepxsn41/15/2023 11:36 PM EDTGender IdentityNot on fileSexual OrientationNot on filedocumented as of this encounter Plan of Treatment DateTypeDepartmentCare Team (Latest Contact Info)Veoehmwyfql99/13/2026 8:30 AM ESTAncillary Procedure [facility] [address] [place] [address] 05/26/2025 9:00 AM ESTRoutine [facility] [address] [place] [address] Armin Leal DO [address] [place] [address] documented as of this encounter Procedures Procedure NamePriorityDate/TimeAssociated DiagnosisCommentsHP LIVER PANEL Vejnzqt6005/11/2025 2:03 PM EST [facility] BILE ACIDS FRACT WFDAoefxnz69/29/2025 2:03 PM EST ALL THYROID STIM ZHLXZCVCcmjrdj16/29/2025 2:03 PM EST ALL HEPATITIS C BEOcdyizn02/29/2025 2:03 PM EST ALL CBC WITH AUTO VVWORxhvmfj94/29/2025 2:03 PM EST documented in this encounter Results * (ABNORMAL) [facility] BILE ACIDS FRACT BLD (05/11/2025 2:03 PM EST)ComponentValueRef RangeTest MethodAnalysis TimePerformed AtPathologist SignatureBILE ACIDS46.1 (A)0.0 - 10.0 umol/LTBHComment: Performed at: ??BN - [facility] [address] ??[id number] Chimney Repairer: John Gonzalez MD, Phone: ??[phone] Specimen (Source)Anatomical Location / LateralityCollection Method / Volume Collection TimeReceived Time05/11/2025 2:03 PM EST05/11/2025 2:06 PM EST Narrative [facility] - 05/12/2025 7:08 PM EST Authorizing ProviderResult TypeResult StatusAmy Reagan PACLINISYNCFinal Result Performing OrganizationAddressCity/State/ZIP CodePhone Number [facility] TB * ALL HEPATITIS C AB (05/11/2025 2:03 PM EST)ComponentValueRef RangeTest Method Analysis TimePerformed AtPathologist SignatureHCV ANTIBODYNon ReactiveNon ReactiveTBHComment: HCV antibody alone does not differentiate between previously resolved infection and active infection. Equivocal and Reactive HCV antibody results should be followed up with an HCV RNA test to support the diagnosis of active HCV infection. Performed at: ??CB - [facility] [address] ??[id number] Chimney Repairer: Rashad Kennedy PhD, Phone: ??[phone] Specimen (Source)Anatomical Location / LateralityCollection Method / Volume Collection TimeReceived Time05/11/2025 2:03 PM EST05/11/2025 2:06 PM EST Narrative [facility] - 05/12/2025 3:07 AM EST Authorizing ProviderResult TypeResult StatusAmy Rasheeda PACLINISYNCFinal Result Performing OrganizationAddressCity/State/ZIP CodePhone Number [facility] * ALL THYROID STIM HORMONE (05/11/2025 2:03 PM EST)ComponentValueRef RangeTest MethodAnalysis TimePerformed AtPathologist SignatureTHYROID STIMULATING HORMONE1.8040.358 - 3.740 uIU/mLTBHSpecimen (Source)Anatomical Location / LateralityCollection Method / VolumeCollection TimeReceived Time05/11/2025 2:03 PM EST05/11/2025 2:06 PM EST Narrative [facility] - 05/11/2025 4:09 PM EST Authorizing ProviderResult TypeResult StatusAmy Rasheeda PACLINISYNCFinal Result Performing OrganizationAddKind[facility]/State/ZIP CodePhone Number [facility] * (ABNORMAL) [facility] LIVER PANEL (05/11/2025 2:03 PM EST)ComponentValueRef Range Test MethodAnalysis TimePerformed AtPathologist SignatureBILIRUBIN TOTAL0.20.2 - 1.0 mg/dLTBHBILIRUBIN DIRECT0.10.0 - 0.2 mg/dLTBHASPARTATE AMINO TRANSFERASE 1515 - 37 U/LTBHALANINE VUIUEWPPFWFYTMFK9662 - 59 U/LTBHALKALINE PHOSPHATASE 171(H)46 - 116 U/LTBHTOTAL PROTEIN6.96.4 - 8.2 g/dLTBHALBUMIN LEVEL2.3(L)3.4 - 5.0 g/dLTBHGLOBULIN4.6g/dLTBHALBUMIN GLOBULIN RATIO0.5TBHSpecimen (Source) Anatomical Location / LateralityCollection Method / VolumeCollection Time Received Time05/11/2025 2:03 PM EST05/11/2025 2:06 PM EST Narrative [facility] - 05/11/2025 4:09 PM EST Authorizing ProviderResult TypeResult StatusAmy Rasheeda PACLINISYNCFinal Result Performing OrganizationAddressCity/State/ZIP CodePhone Number [facility] * (ABNORMAL) ALL CBC WITH AUTO DIFF (05/11/2025 2:03 PM EST)ComponentValueRef RangeTest MethodAnalysis TimePerformed AtPathologist SignatureNOR[facility] WBC7.44.0 - 11.0 10 3/uLTBHTBH RBC3.53(L)4.20 - 5.40 10 6/uLTBHTBH HGB10.7(L)12.0 - 16.0 g/dLTBHTBH HCT32.1(L)36.0 - 48.0 %TBHTBH MCV90.981.0 - 99.0 fLTBHTBH MCH30.3 26.7 - 34.0 pgTBHTBH MCHC33.329.9 - 35.2 g/dLTBHTBH RDW11.911.0 - 15.0 %TBHTBH EVU426563 - 450 10 3/uLTBHTBH MPV10.39.5 - 13.5 fLTBHNEUTROPHILS PERCENT AUTO 71.443.0 - 75.0 %TBHLYMPHOCYTES PERCENT AUTO17.6(L)20.5 - 60.0 %TBHMONOCYTES PERCENT AUTO9.11.7 - 12.0 %TBHTBH EO %1.10.9 - 7.0 %TBHBASOPHILS PERCENT AUTO 0.40.2 - 2.0 %TBHIMMATURE GRANULOCYTES PCT AUTO0.40.0 - 0.5 %TBHNEUTROPHILS ABSOLUTE AUTO5.31.4 - 6.5 10 3/uLTBHLYMPHOCYTES ABSOLUTE AUTO1.31.2 - 3.8 10 3/uLTBHMONOCYTES ABSOLUTE AUTO0.70.3 - 0.8 10 3/uLTBHTBH EO #0.10.0 - 0.7 10 3/uLTBHBASOPHILS ABSOLUTE AUTO0.00.0 - 0.1 10 3/uLTBHIMMATURE GRANULOCYTES ABS AUTO0.030.00 - 0.03 10 3/uLTBHSpecimen (Source)Anatomical Location / LateralityCollection Method / VolumeCollection TimeReceived Time05/11/2025 2:03 PM EST05/11/2025 2:06 PM EST Narrative [facility] - 05/11/2025 2:16 PM EST Authorizing ProviderResult TypeResult StatusAmy Rasheeda PACLINISYNCFinal Result Performing OrganizationAddressCity/State/ZIP CodePhone Number [facility] TBH documented in this encounter Visit Diagnoses Not on filedocumented in this encounter Care Teams Team MemberRelationshipSpecialtyStart DateEnd Date Scot Block MD [address] [place] [address] PCP - [facility]06/13/23 Scot Block MD [address] [place] [address] PCP - [facility]11/12/23documented as of this encounter
--- OUTSIDE RECORDS SUMMARY | 2025-05-12 20:45 | XMS_ITS | Encounter Summary ---
Author Organization [facility] Healthcare Address [address] [place] [address] Care Team Providers Care Back Hand Name Role Phone Scot Block MD Primary Care Provider [phone] Scot Block MD Unavailable Encounter Details DateTypeDepartmentCare Team (Latest Contact Info)Pfvwcjlydeu58/18/2025Patient Outreach [facility] [address] [place] [address] Bina Oviedo LPN [address] [place] [address] Social History Tobacco UseTypesPacks/DayYears UsedDateSmoking Tobacco: NeverSmokeless [...] times a week11/06/2023How often do you attend sikh or congregational services?1 to 4 times per year11/06/2023o you belong to any clubs or organizations such as sikh groups, unions, fraternal or athletic lazarus ups, [...] at all 11/06/2023HQ-2AnswerDate RecordedPatient Health Questionnaire-2 Score0 04/30/2025[facility] [place] of Occupational Health - Occupational Stress QuestionnaireAnswerDate [...] were you homeless or living in a penitentiary (including now)? No11/06/2023EducationAnswerDate RecordedWhat is the highest level of school you have completed or the highest degree you have received?High school graduate 01/26/2025Estimated Date of IntgojacAvnrilioRqv58/15/2026ased on last menstrual period of 09/21/2024Sex and Gender InformationValueDate RecordedSex Assigned at BirthNot on fileLegal JjrYdyvph95/15/2023 11:36 PM EDTGender IdentityNot on fileSexual OrientationNot on filedocumented as of this encounter Functional Status * Over the past 2 weeks, how often have you been bothered by any of the following problems?QuestionAnswerDate of AssessmentAuthorLittle interest or pleasure in doing thingsNot at all04/30/2025 11:03 AM Bina Pollack LPN Feeling down, depressed, or hopelessNot at all04/30/2025 11:03 AM Bina Pollack LPNPatient Health Questionnaire-2 Wecgx42107/01/2024 11:03 AM Bina Pollack LPN documented as [...] Plan of Treatment DateTypeDepartmentCare Team (Latest Contact Info)Uftsfsfjttl09/13/2026 8:30 AM ESTAncillary Procedure [facility] [address] [place] [address] 05/26/2025 9:00 AM ESTRoutine [facility] [address] [place] [address] ElvisArmin, [address] [place] [address] documented as of this encounter Visit Diagnoses Not on filedocumented in this encounter Care Teams Team MemberRelationshipSpecialtyStart DateEnd Date Scot Block MD [address] [place] [address] [facility] Scot Block MD [address] [place] [address] PCP - [facility]11/12/23documented as of this encounter
--- OUTSIDE RECORDS SUMMARY | 2025-05-12 20:45 | XMS_ITS | Patient Health Record ---
Author Organization [facility] Address [address] [place] [address] Care Team Providers Care Nursing Professor Name Role Phone Jose Jackson Primary Care Provider [phone] Marya Pinon Unavailable [phone] Reason For Referral No Information Plan Of Treatment No Information Insurance Providers Payer Name Payer Address Payer Phone Subscriber Number Group Number Insured Name Patient Relationship to Insured Coverage Start Date Coverage End Date [employer] [place] [employer] [address] [address] [place] [address] [id number] ESTEVAN HOSKINSelf - patient is the [id number] 2022ental W[employer] [facility] [address] [place] [id number], AERIONNASelf - patient is the [id number] 2023
--- OUTSIDE RECORDS SUMMARY | 2025-05-12 20:45 | XMS_ITS | Encounter Summary ---
Author Organization [facility] Address [address] [place] [address] Care Team Providers Care Hose Cementer Name Role Phone Scot Block MD Primary Care Provider [phone] Scot Block MD Unavailable Encounter Details DateTypeDepartmentCare Team (Latest Contact Info)Bdfkddpehmp79/30/2025bstract [facility] [place] [facility] [address] [place] [address] Armin Leal DO [address] [place], [facility] Social History Tobacco UseTypesPacks/DayYears UsedDateSmoking Tobacco: [...] week11/06/2023How often do you attend judaism or mandaeism services?1 to 4 times per year11/06/2023o you belong to any clubs or organizations such as judaism groups, unions, [employer] or athletic lazarus ups, or school groups?No11/06/2023How [...] at all 11/06/2023HQ-2AnswerDate RecordedPatient Health Questionnaire-2 Score0 04/30/2025[facility] [place] of Occupational Health - Occupational Stress QuestionnaireAnswerDate [...] you engage in exercise at this level?60 min06/25/2024Hunger Vital SignAnswerDate Recorded Within the past 12 [...] were you homeless or living in a half-way (including now)? No11/06/2023EducationAnswerDate RecordedWhat is the highest level of school you have completed or the highest degree you have received?High school graduate 01/26/2025Estimated Date of BkjxamoeIifgqubqSvg31/15/2026ased on last menstrual period of 09/21/2024Sex and Gender InformationValueDate RecordedSex Assigned at BirthNot on fileLegal VfbDnvorn05/15/2023 11:36 PM EDTGender IdentityNot on fileSexual OrientationNot on filedocumented as of this encounter Plan of Treatment DateTypeDepartmentCare Team (Latest Contact Info)Tfmjhdzyyup63/13/2026 8:30 AM ESTAncillary Procedure [facility] [address] [facility] [place] [address] 05/26/2025 9:00 AM ESTRoutine [facility] [address] [facility] [place] [place] [address] Armin Leal, DO [address] [place], [place] [address] documented as of this encounter Visit Diagnoses Not on filedocumented in this encounter Care Teams Team MemberRelationshipSpecialtyStart DateEnd Date Scot Block MD [address] [place] [address] PCP - [facility]06/13/23 Scot Block MD [address] [place] [address] [facility]11/12/23documented as of this encounter
--- OUTSIDE RECORDS SUMMARY | 2025-05-12 20:46 | XMS_ITS | Clinical Summary ---
Author Organization [facility] Address [address] [place] [address] Care Team Providers Care Manager Nursing Home Name Role Phone Scot Block MD Primary Care Provider [phone] Scot Block MD Unavailable Allergies Active AllergyReactionsCriticalityNoted DateCommentsBismuth SubsalicylateGI pghxkumbfcn97/25/2023 Medications MedicationSigDispense QuantityRefillsLast FilledStart DateEnd DateStatus Vit-Fe Fumarate-FA ( Vitamins) 28-0.8 MG tablet Indications:Missed mensesTake 1 tablet by mouth Daily 30 tablet 507/ctive Vit-Fe Fumarate-FA (PNV 27-Ca/Fe/FA) 60-1 MG tablet Indications:Second trimester ([facility])Take 1 tablet by mouth Daily 30 tablet 5Active citalopram (CeleXA) 20 MG tablet Indications:Current moderate episode of major depressive disorder, unspecified whether recurrent ([facility])Take 1 tablet (20 mg) by mouth Daily 90 tablet 503/ctive valACYclovir (Valtrex) 500 MG tablet Indications:Herpes labialis,Other viral wartsTake 1 tablet (500 mg) by mouth Daily 30 tablet 111501/6Active famotidine (Pepcid) 20 MG tablet Indications:Gastroesophageal Reflux Disease,HeartburnTake 1 tablet (20 mg) by mouth if needed for heartburn 10 tablet /6Active cetirizine (ZyrTEC ALLERGY) 10 MG tablet Indications:PruritusTake 1 tablet (10 mg) by mouth if needed for allergies 10 tablet ctive sertraline (Zoloft) 50 MG tablet Indications:Generalized anxiety [...] tablet 111Discontinued(Reorder) Active Problems ProblemNoted DateDiagnosed DatePsychophysiological wrcjempr12/20/2025 Assessment & Plan (08/06/2024 2:07 PM EDT): [...] worsening symptoms call. Increased sensitivity to painful jqaawdmf91/29/2024cne sshoiprh82/02/2024 Generalized anxiety cxmiauun18/02/2024 Assessment & Plan (08/06/2024 2:05 PM EDT): Symptoms improved but still present and increase zoloft. Warned will take 2-3 weeks to notice improvement in mood. Assessment & Plan (07/03/2024 2:54 PM EST): Severe symptoms and not functioning well. Start zoloft and warned will take 2-3 weeks to notice improvement in mood. Herpes ziuymmku30/02/2024Estimated Date of PbgfwmjkWpvphaocVxp24/15/2026 Based on last menstrual period of 09/21/2024 Resolved Problems ProblemNoted DateDiagnosed DateResolved DateInguinal fgqlbtvncqnjiik95/25/2024 08/06/2024 Assessment & Plan (11/06/2023 11:59 AM EDT): Appears to have enlarged lymph node and possibly related to BV. Treat and if persists will need to see manufacturers agent for STD check. Bacterial xwqpejfus46 Assessment & Plan (11/06/2023 11:59 AM EDT): C/o BV and treat with flagyl. Sexually active and unprotected intercourse. If no change need to seegyn for STD check. Abnormal uterine gcrlkhgg05Hypertrophy of etoaocv8206/15/2023 11/06/2023cute non-recurrent etfmrfpsgqkj52 Encounters DateTypeDepartmentCare EopiZcuscbbhmqj83/30/2025Telephone [facility] [address] [place] [address] Nancy Montes LPN 05/12/2025bstract [facility] [address] [place] [address] Armin Leal DO 05/11/2025 1:10 PM ESTRoutine [facility] [address] [place] [address] Bina Vanessa PA 33 weeks gestation of ([facility]); Third trimester ([facility]); Current moderate episode of major depressive disorder, unspecified whether recurrent ([facility]); Herpes labialis; Other viral warts; Pruritus; size inconsistent with dates ([facility])05/11/2025linisync Result Encounter [facility] External Department Unsolicited Bina Vanessa PA 05/11/2025Telephone [facility] [address] [place] [address] Nancy Montes LPN 04/30/2025linisync Result Encounter [facility] External Department Unsolicited Armin Leal DO 04/30/2025Patient Outreach [facility] [address] [place] [address] Bina Oviedo LPN 04/28/2025 2:00 PM ESTAncillary Procedure [facility] [address] [place] [address] size inconsistent with dates ([facility])04/27/2025 2:10 PM ESTRoutine [facility] [address] [place] [address] Armin Leal, size inconsistent with dates ([facility]) (Primary Dx); Third trimester ([facility]); 31 weeks gestation of ([facility])04/27/2025Refill [facility] [address] [place] [address] Eve Santos LPN Current moderate episode of major depressive disorder, unspecified whether recurrent (HCC)04/27/2025amboo flowsheet [facility] [address] [place] [address] Armin Leal DO 04/23/2025Refill [facility] [address] [place] [address] Nimisha Francis MA Current moderate episode of major depressive disorder, unspecified whether recurrent (HCC)04/14/2025 1:50 PM ESTRoutine [facility] [address] [place] [address] Armin Leal DO 29 weeks gestation of ([facility]); Third trimester ([facility]); Current moderate episode of major depressive disorder, unspecified whether recurrent (HCC); Herpes labialis; Other viral warts04/14/2025amboo flowsheet [facility] [address] [place] [address] Armin Leal DO 03/30/2025Telephone [facility] [address] [place] [address] Nimisha Francis MA 03/27/2025Patient Outreach [facility] [address] [address] Bina Oviedo LPN 03/25/2025 2:20 PM ESTRoutine [facility] [address] [place] [address] Armin Leal DO induced hypertension, antepartum ([facility]) (Primary Dx); 26 weeks gestation of ([facility]); Second trimester ([facility]); Rash; Herpes labialis; Other viral warts; Elevated glucose tolerance test03/25/2025amb flowsheet [facility] [address] [place] [address] Armin Leal DO 02/26/2025Patient Outreach [facility] [address] [place] [address] Bina Oviedo LPN 02/24/2025 2:40 PM EDTRoutine NOM[facility] [address] [place] [address] Bina Vanessa PA Second trimester ([facility]); 22 weeks gestation of ([facility]); Diabetes mellitus /14/2025[facility] [address] [place] [address] Bina Vanessa PA 02/24/2025Travelfrom Last 3 Months Family History Medical HistoryRelationNameCommentsLiver [...] week11/06/2023How often do you attend jain or moravian services?1 to 4 times per year11/06/2023o you belong to any clubs or organizations such as jain groups, unions, [employer] or athletic lazarus ups, or school groups?No11/06/2023How [...] at all 11/06/2023HQ-2AnswerDate RecordedPatient Health Questionnaire-2 Score0 04/30/2025[facility] [place] [facility] - Occupational Stress QuestionnaireAnswerDate [...] have received?High school graduate 01/26/2025Estimated Date of GbudzdubVubnhtaoSqp59/15/2026ased on last menstrual period of 09/21/2024Sex and Gender InformationValueDate RecordedSex Assigned at BirthNot on fileLegal FaxWgrttp03/15/2023 11:36 PM EDTGender IdentityNot on fileSexual OrientationNot on file Last Filed Vital Signs Vital SignReadingTime TakenCommentsBlood Mfgwcmkg003/6012 1:20 PM EST Wryzv83767/26/2025 1:41 PM RKJJjwisnzpbvt50.6 ??C (97.8 ??F)08/06/2024 1:41 PM EDTRespiratory Vfuc055108/06/2024 1:41 PM EDTOxygen Lghejphfhe56%08/06/2024 1:41 PM EDTInhaled Oxygen Concentration--Ddqixb52.2 kg (132 lb 12.8 oz)05/11/2025 1:20 PM HBEXcyknf314.6 cm (5' 4 )08/06/2024 1:41 PM EDTBody Mass Index22.8 08/06/2024 1:41 PM EDT Plan of Treatment DateTypeDepartmentCare Team (Latest Contact Info)Pmhojxgjdgy67/13/2026 8:30 AM ESTAncillary Procedure [facility] [address] [place] [address] 05/26/2025 9:00 AM ESTRoutine [facility] [address] [place] [address] Armin Leal, [address] [place] [address] Health MaintenanceDue DateLast DoneCommentsInfluenza Vaccine (#1)01/12/2025 07/03/2017Pneumococcal Vaccine: Pediatrics (0 to 5 Years) and At-Risk Patients (6 to 64 Years)Aged OutNo longer eligible based on patient's age to complete this topic Procedures Procedure NamePriorityDate/TimeAssociated DiagnosisCommentsCCF BILE ACIDS FRACT GQGFpuzumc90/29/2025 2:03 PM EST ALL HEPATITIS C LRTtetreu35/29/2025 2:03 PM EST ALL THYROID STIM TPLEGFYNtnatlw62/29/2025 2:03 PM EST HP LIVER XJEFKNheyked67/29/2025 2:03 PM EST ALL CBC WITH AUTO XIRGPtmhlsn54/29/2025 2:03 PM EST POCT URINALYSIS XQXZZZAFPymwsiy20/29/2025 1:26 PM EST 33 weeks gestation of ([facility]) Third trimester ([facility]) GLUCOSE TOLERANCE 3 UMEWZvyedaw67/18/2025 10:05 AM EST US OB FOLLOW UP TRANSABDOMINAL LHSKPJHZWnbrpgi56/16/2025 2:08 PM EST size inconsistent with dates ([facility]) POCT URINALYSIS UJXMGJKOOyqgcbr11/15/2025 2:41 PM EST Third trimester ([facility]) POCT URINALYSIS SFOSLEFVIurstte26/02/2025 2:29 PM EST 29 weeks gestation of ([facility]) Third trimester ([facility]) POCT URINALYSIS HYAMETWGUeiyinx42/12/2025 2:42 PM EST 26 weeks gestation of ([facility]) Second trimester ([facility]) RECURRENT VAGINITIS (HTRX)Yuivddp0902/24/2025 3:28 PM EDT POCT URINALYSIS FVIMAOJMDwqlzzy28/14/2025 3:11 PM EDT 22 weeks gestation of ([facility]) from Last 3 Months Results * (ABNORMAL) [facility] LIVER PANEL (05/11/2025 2:03 PM EST)ComponentValueRef Range Test MethodAnalysis TimePerformed AtPathologist SignatureBILIRUBIN TOTAL0.20.2 - 1.0 mg/dLTBHBILIRUBIN DIRECT0.10.0 - 0.2 mg/dLTBHASPARTATE AMINO TRANSFERASE 1515 - 37 U/LTBHALANINE NQHHTBPDMGBKGKBL8604 - 59 U/LTBHALKALINE PHOSPHATASE 171(H)46 - 116 U/LTBHTOTAL PROTEIN6.96.4 - 8.2 g/dLTBHALBUMIN LEVEL2.3(L)3.4 - 5.0 g/dLTBHGLOBULIN4.6g/dLTBHALBUMIN GLOBULIN RATIO0.5TBHSpecimen (Source) Anatomical Location / LateralityCollection Method / VolumeCollection Time Received Time05/11/2025 2:03 PM EST05/11/2025 2:06 PM EST Narrative [facility] - 05/11/2025 4:09 PM EST Authorizing ProviderResult TypeResult StatusAmy Atkinson PACLINISYNCFinal Result Performing OrganizationAddressCity/State/ZIP CodePhone Number [facility] TB * (ABNORMAL) [facility] BILE ACIDS FRACT BLD (05/11/2025 2:03 PM EST)ComponentValueRef RangeTest MethodAnalysis TimePerformed AtPathologist SignatureBILE ACIDS46.1 (A)0.0 - 10.0 umol/LTBHComment: Performed at: ??BN - [facility] [address] ??[id number] Barber Apprentice: John Gonzalez MD, Phone: ??[phone] Specimen (Source)Anatomical Location / LateralityCollection Method / Volume Collection TimeReceived Time05/11/2025 2:03 PM EST05/11/2025 2:06 PM EST Narrative [facility] - 05/12/2025 7:08 PM EST Authorizing ProviderResult TypeResult StatusAmy Rasheeda PACLINISYNCFinal Result Performing OrganizationAddressCity/State/ZIP CodePhone Number [facility] * ALL THYROID STIM HORMONE (05/11/2025 2:03 PM EST)ComponentValueRef RangeTest MethodAnalysis TimePerformed AtPathologist SignatureTHYROID STIMULATING HORMONE1.8040.358 - 3.740 uIU/mLTBHSpecimen (Source)Anatomical Location / LateralityCollection Method / VolumeCollection TimeReceived Time05/11/2025 2:03 PM EST05/11/2025 2:06 PM EST Narrative [facility] - 05/11/2025 4:09 PM EST Authorizing ProviderResult TypeResult StatusAmy Rasheeda PACLINISYNCFinal Result Performing OrganizationAddressCity/State/ZIP CodePhone Number [facility] * ALL HEPATITIS C AB (05/11/2025 2:03 PM EST)ComponentValueRef RangeTest Method Analysis TimePerformed AtPathologist SignatureHCV ANTIBODYNon ReactiveNon ReactiveTBHComment: HCV antibody alone does not differentiate between previously resolved infection and active infection. Equivocal and Reactive HCV antibody results should be followed up with an HCV RNA test to support the diagnosis of active HCV infection. Performed at: ??CB - [facility] [address] ??[id number] Barber Apprentice: Rashad Kennedy PhD, Phone: ??[phone] Specimen (Source)Anatomical Location / LateralityCollection Method / Volume Collection TimeReceived Time05/11/2025 2:03 PM EST05/11/2025 2:06 PM EST Narrative [facility] - 05/12/2025 3:07 AM EST Authorizing ProviderResult TypeResult StatusAmy Rasheeda PACLINISYNCFinal Result Performing OrganizationAddressCity/State/ZIP CodePhone Number [facility] * (ABNORMAL) ALL CBC WITH AUTO DIFF (05/11/2025 2:03 PM EST)ComponentValueRef RangeTest MethodAnalysis TimePerformed AtPathologist SignatureTBH WBC7.44.0 - 11.0 10 3/uLTBHTBH RBC3.53(L)4.20 - 5.40 10 6/uLTBHTBH HGB10.7(L)12.0 - 16.0 g/dLTBHTBH HCT32.1(L)36.0 - 48.0 %TBHTBH MCV90.981.0 - 99.0 fLTBHTBH MCH30.3 26.7 - 34.0 pgTBHTBH MCHC33.329.9 - 35.2 g/dLTBHTBH RDW11.911.0 - 15.0 %TBHTBH WYZ365549 - 450 10 3/uLTBHTBH MPV10.39.5 - 13.5 [...] 05/11/2025 2:16 PM EST Authorizing ProviderResult TypeResult StatusBina Vanessa PACLINISYNCFinal Result Performing OrganizationAddressCity/State/ZIP CodePhone Number [facility] * POCT urinalysis dipstick manually resulted (05/11/2025 [...] Location / LateralityCollection Method / VolumeCollection TimeReceived MosqXbfhi49/29/2025 1:26 PM EST Narrative Authorizing ProviderResult TypeResult StatusBina Vanessa PAPOINT OF CARE TEST ENTER/EDIT ORDERABLESFinal Result * [...] 10:05 AM EST04/30/2025 10:08 AM EST Narrative [facility] - 04/30/2025 1:42 PM EST Authorizing ProviderResult TypeResult StatusCorey Elvis DOLAB BLOOD ORDERABLES Final ResultPerforming OrganizationAddressCity/State/ZIP CodePhone Number [facility] * US OB follow up transabdominal [...] PM EDT)ComponentValueRef RangeTest MethodAnalysis TimePerformed AtPathologist SignatureATOPOBIUM LRNLWTB055.961 - 24.689 ppm02/25/2025 6:33 AM EDTHealthTrackRx at LabPortATOPOBIUM VAGINAENot Wdjfkxqn58.961 - 24.689 ppm02/25/2025 6:33 AM EDTHealthTrackRx at LabPortBVAB 2,3 (BACTERIAL VAGINOSIS ASSOCIATED BACTERIA 2, 3); MOBILUNCUS XCI919.961 - 24.689 ppm02/25/2025 6:33 AM EDTHealthTrackRx at LabPortBVAB 2,3 (BACTERIAL VAGINOSIS ASSOCIATED BACTERIA 2, 3); MOBILUNCUS SPPNot Mmybjjdg73.961 - 24.689 ppm02/25/2025 6:33 AM EDTHealthTrackRx at LabPortCANDIDA ALBICANS, PARAPSILOSIS, TXAJSOLLDM785.000 - 30.347 ppm02/25/2025 6:33 AM EDT [facility] at LabPortCANDIDA ALBICANS, PARAPSILOSIS, TROPICALISNot Detected 23.000 - 30.347 ppm02/25/2025 6:33 AM EDTHealthTrackRx at LabPortCANDIDA JHMOKBSQ673.000 - 31.618 ppm02/25/2025 6:33 AM EDTHealthTrackRx at LabPort TIAGO GLABRATANot Vuqfbjzo99.000 - 31.618 ppm02/25/2025 6:33 AM EDT [facility] at LabPortCANDIDA NMXCBH415.000 - 30.873 ppm02/25/2025 6:33 AM EDTHealthTrackRx at LabPortCANDIDA KRUSEINot Ydaqstyy10.000 - 30.873 ppm 02/25/2025 6:33 AM EDTHealthTrackRx at LabPortCHLAMYDIA NWCAWBPXEDW334.000 - 31.586 ppm02/25/2025 6:33 AM EDTHealthTrackRx at LabPortCHLAMYDIA TRACHOMATIS Not Kaocsfdj37.000 - 31.586 ppm02/25/2025 6:33 AM EDTHealthTrackRx at [facility] GARDNERELLA PGAEKKADT674.961 - 24.689 ppm02/25/2025 6:33 AM EDTHealthTrackRx at LabParkview Regional Medical CenterGARDNERELLA VAGINALISNot Unoizupk65.961 - 24.689 ppm02/25/2025 6:33 AM EDTHealthTrackRx at LabPortMEGASPHAERA (TYPES 1, 2)019.961 - 24.689 ppm 02/25/2025 6:33 AM EDTHealthTrackRx at LabPortMEGASPHAERA (TYPES 1, 2)Not Kdecwdtk60.961 - 24.689 ppm02/25/2025 6:33 AM EDTHealthTrackRx at [facility] NEISSERIA ZOYCBEJYVAS254.000 - 32.587 ppm02/25/2025 6:33 AM EDTHealthTrackRx at LabPortNEISSERIA GONORRHOEAENot Yippixch80.000 - 32.587 ppm02/25/2025 6:33 AM EDTHealthTrackRx at LabPortTRICHOMONAS XZNTTPTHF944.000 - 31.995 ppm 02/25/2025 6:33 AM EDTHealthTrackRx at LabPortTRICHOMONAS VAGINALISNot Hzhitzzq25.000 - 31.995 ppm02/25/2025 6:33 AM EDTHealth[facility] at [facility] MYCOPLASMA PYHOUCIMRG918.961 - 24.689 ppm02/25/2025 6:33 AM EDTHealthTrackRx at LabPortMYCOPLASMA GENITALIUMNot Qiowhwfj98.961 - 24.689 ppm02/25/2025 6:33 AM EDTHealthTrackRx at LabParkview Regional Medical CenterSpecimen (Source)Anatomical Location / LateralityCollection Method / VolumeCollection TimeReceived TimeTissue 02/24/2025 3:28 PM EDT1 1:29 AM EDT Narrative Authorizing ProviderResult TypeResult StatusAmy Rasheeda PALAB BLOOD ORDERABLES Final ResultPerforming OrganizationAddressCity/State/ZIP CodePhone Number [facility] [address] [place] [address] from Last 3 Months Insurance Care Teams Team MemberRelationshipSpecialtyStart DateEnd Date Scot Block MD [address] [place] [address] PCP - [facility]06/13/23 Scot Block MD [address] [place] [address] PCP - [facility]11/12/23
[2025-05-12 20:52] VITALS: BP 123/67; PULSE 90
== END 2025-05-12 21:15 | disposition home or self-care (01) ==
LOC: FBCO 20:42 → FBC 20:45
PROVIDERS: PCP Family Medicine; Visit Provider Obstetrics & Gynecology
DX: O26.893 Other specified pregnancy related conditions, third trimester (principal); Z3A.33 33 weeks gestation of pregnancy
CPT/HCPCS: 59025